=== PATIENT | female | born 1955 | race Caucasian/White ===

== ENCOUNTER 2016-05-30 14:31 | Observation (INO) | payer OTHER ==
[2016-05-30] MEDS ORDERED: NITROGLYCERIN OINT 1 INCH/GM PACKET TOPICAL STA (14:41)
[2016-05-30] MEDS ORDERED: ASPIRIN 81 MG CHEW PO STA (14:41)
--- NOTE | 2016-05-30 14:45 | ED ---
General Adult HPI - General Stated complaint: Chests Pain Time Seen by Provider: 05/30/16 14:35 Source: RN notes reviewed - History of Present Illness Initial comments: This is a 60-year-old female who comes into the emergency department complaining of left shoulder pain which is been ongoing over a month. Patient denies any injury or trauma to the area. Patient states has full range of motion of her shoulder patient denies any numbness weakness. Patient states it hurts all day long every day but today she started having some chest tightness with the pain and was a little lightheaded. Patient came in to the emergency department. Patient states the chest tightness lasted for less than a minute then went away came back lasted less than a minute again and went away and hasn' t returned since. Patient states she was also diaphoretic when she was having this chest tightness. Patient still states that her shoulder continues to ache and there is no new pain in the shoulder compared to what it has been over the last month. Patient denies any abdominal pain patient denies nausea vomiting diarrhea. Patient denies any headache patient denies numbness weakness. Patient denies any lightheadedness dizziness or near syncopal episode. Patient denies any recent history of fever chills or cough - Related Data Home Medications Medication Instructions Recorded Confirmed Budesonide [Rhinocort Allergy] 2 spr EA NOSTRIL BID 05/30/16 05/30/16 Fexofenadine HCl [Kassandra Allergy] 180 mg PO DAILY 05/30/16 05/30/16 Pseudoephedrine HCl [Sudafed] 60 mg PO QAM 05/30/16 05/30/16 Allergies Allergy/AdvReac Type Severity Reaction Status Date / Time orange juice [[place]] AdvReac Flushing/Flu-like Verified 05/30/16 15:01 Symptoms red dye AdvReac Flushing/Flu-like Verified 05/30/16 15:01 Symptoms Camomile AdvReac Flushing/Flu-like Uncoded 05/30/16 15:01 Symptoms Review of Systems ROS Statement: Those systems with pertinent positive or pertinent negative responses have been documented in the HPI. ROS Other: All systems not noted in ROS Statement are negative. General Exam - General Exam Comments Initial Comments: GENERAL: Patient is well-developed and well-nourished. Patient is nontoxic and well- hydrated and is in no acute distress. ENT: Neck is soft and supple. No significant lymphadenopathy is noted. Oropharynx is clear. Moist mucous membranes. Neck has full range of motion without eliciting any pain. EYES: The sclera were anicteric and conjunctiva were pink and moist. Extraocular movements were intact and pupils were equal round and reactive to light. Eyelids were unremarkable. PULMONARY: Unlabored respirations. Good breath sounds bilaterally. No audible rales rhonchi or wheezing was noted. CARDIOVASCULAR: There is a regular rate and rhythm without any murmurs gallops or rubs. ABDOMEN: Soft and nontender with normal bowel sounds. No palpable organomegaly was noted. There is no palpable pulsatile mass. SKIN: Skin is clear with no lesions or rashes and otherwise unremarkable. NEUROLOGIC: Patient is alert and oriented x3. Cranial nerves II through XII are grossly intact. Motor and sensory are also intact. Normal speech, volume and content. Symmetrical smile. MUSCULOSKELETAL: Normal extremities with adequate strength and full range of motion. No lower extremity swelling or edema. No calf tenderness. LYMPHATICS: No significant lymphadenopathy is noted PSYCHIATRIC: Normal psychiatric evaluation. Course Vital Signs 05/30/16 05/30/16 14:57 17:10 Temperature 98.3 F 98.0 F Pulse Rate 88 104 H Respiratory 16 18 Rate Blood Pressure 117/57 122/66 O2 Sat by Pulse 100 98 Oximetry Medical Decision Making - Medical Decision Making EKG shows a normal sinus rhythm at 88 bpm VA interval 144 QRS is 72 QT interval 390 QTC is 471. Patient's EKG shows no ST segment elevation or depression or T wave abnormalities are noted new. Patient heart rate elevated up to about 115 all she was resting in bed in no distress. I did a d-dimer that was negative as well. As the patient's initial chest tightness and diaphoresis and the current tachycardia I The patient to rule out any cardiac origin. - Lab Data Result diagrams: 05/30/16 15:15 05/30/16 15:15 Lab Results 05/30/16 05/30/16 05/30/16 Range/Units 15:15 15:15 15:15 WBC 13.3 H (3.8-10.6) k/uL RBC 4.87 (3.80-5.40) m/uL Hgb 14.2 (11.4-16.0) gm/dL Hct 44.4 (34.0-46.0) % MCV 91.2 (80.0-100.0) fL MCH 29.1 (25.0-35.0) pg MCHC 31.9 (31.0-37.0) g/dL RDW 12.7 (11.5-15.5) % Plt Count 349 (150-450) k/uL Neutrophils % 92 % Lymphocytes % 2 % Monocytes % 4 % Eosinophils % 1 % Basophils % 1 % Neutrophils # 12.2 H (1.3-7.7) k/uL Lymphocytes # 0.3 L (1.0-4.8) k/uL Monocytes # 0.5 (0-1.0) k/uL Eosinophils # 0.1 (0-0.7) k/uL Basophils # 0.1 (0-0.2) k/uL PT 10.9 (9.0-12.0) sec INR 1.1 (<1.1) APTT 22.0 (22.0-30.0) sec D-Dimer (<0.60) mg/L FEU Sodium 140 (137-145) mmol/L Potassium 4.7 (3.5-5.1) mmol/L Chloride 107 (98-107) mmol/L Carbon Dioxide 20 L (22-30) mmol/L Anion Gap 13 mmol/L BUN 20 H (7-17) mg/dL Creatinine 0.63 (0.52-1.04) mg/dL Est GFR (MDRD) Af Amer >60 (>60 ml/min/1.73 sqM) Est GFR (MDRD) Non-Af >60 (>60 ml/min/1.73 sqM) Glucose 139 H (74-99) mg/dL Calcium 8.9 (8.4-10.2) mg/dL Magnesium 1.7 (1.6-2.3) mg/dL Total Bilirubin 0.7 (0.2-1.3) mg/dL AST 29 (14-36) U/L ALT 45 (9-52) U/L Alkaline Phosphatase 89 (38-126) U/L Total Creatine Kinase (30-135) U/L CK-MB (CK-2) (0.0-2.4) ng/mL CK-MB (CK-2) Rel Index Troponin I (0.000-0.034) ng/mL Total Protein 7.1 (6.3-8.2) g/dL Albumin 3.9 (3.5-5.0) g/dL 05/30/16 05/30/16 Range/Units 15:15 15:15 WBC (3.8-10.6) k/uL RBC (3.80-5.40) m/uL Hgb (11.4-16.0) gm/dL Hct (34.0-46.0) % MCV (80.0-100.0) fL MCH (25.0-35.0) pg MCHC (31.0-37.0) g/dL RDW (11.5-15.5) % Plt Count (150-450) k/uL Neutrophils % % Lymphocytes % % Monocytes % % Eosinophils % % Basophils % % Neutrophils # (1.3-7.7) k/uL Lymphocytes # (1.0-4.8) k/uL Monocytes # (0-1.0) k/uL Eosinophils # (0-0.7) k/uL Basophils # (0-0.2) k/uL PT (9.0-12.0) sec INR (<1.1) APTT (22.0-30.0) sec D-Dimer 0.49 (<0.60) mg/L FEU Sodium (137-145) mmol/L Potassium (3.5-5.1) mmol/L Chloride (98-107) mmol/L Carbon Dioxide (22-30) mmol/L Anion Gap mmol/L BUN (7-17) mg/dL Creatinine (0.52-1.04) mg/dL Est GFR (MDRD) Af Amer (>60 ml/min/1.73 sqM) Est GFR (MDRD) Non-Af (>60 ml/min/1.73 sqM) Glucose (74-99) mg/dL Calcium (8.4-10.2) mg/dL Magnesium (1.6-2.3) mg/dL Total Bilirubin (0.2-1.3) mg/dL AST (14-36) U/L ALT (9-52) U/L Alkaline Phosphatase (38-126) U/L Total Creatine Kinase 66 (30-135) U/L CK-MB (CK-2) 0.5 (0.0-2.4) ng/mL CK-MB (CK-2) Rel Index 0.8 Troponin I <0.012 (0.000-0.034) ng/mL Total Protein (6.3-8.2) g/dL Albumin (3.5-5.0) g/dL Disposition Clinical Impression: Chest pain, Tachycardia Disposition: ADMITTED IP TO THIS [facility] Time of Disposition: 18:00
[2016-05-30 15:41] LABS: Basophils # (A) 0.1 k/uL (0-0.2); Basophils % (A) 1 %; CH 30.4; CHCM 33.5; Eosinophils # (A) 0.1 k/uL (0-0.7); Eosinophils % (A) 1 %; HCT 44.4 % (34.0-46.0); HDW 2.23; HGB 14.2 gm/dL (11.4-16.0); Luc # (Auto) 0.12; Luc % (Auto) 1; Lymphocytes # (A) 0.3 k/uL (1.0-4.8); Lymphocytes % (A) 2 %; MCH 29.1 pg (25.0-35.0); MCHC 31.9 g/dL (31.0-37.0); MCV 91.2 fL (80.0-100.0); Mean Platelet Volume 7.8; Monocytes # (A) 0.5 k/uL (0-1.0); Monocytes % (A) 4 %; Neutrophils # (A) 12.2 k/uL (1.3-7.7); Neutrophils % (A) 92 %; RBC 4.87 m/uL (3.80-5.40); RDW 12.7 % (11.5-15.5); WBC 13.3 k/uL (3.8-10.6); WBC (Perox) 13.45
[2016-05-30 15:50] LABS: INR 1.1 (<1.1); Prothrombin Time 10.9 sec (9.0-12.0)
[2016-05-30 15:53] LABS: ALT 45 U/L (9-52); AST 29 U/L (14-36); Alkaline Phosphatase 89 U/L (38-126); Anion Gap 13 mmol/L; Blood Urea Nitrogen 20 mg/dL (7-17); Calcium 8.9 mg/dL (8.4-10.2); Carbon Dioxide 20 mmol/L (22-30); Chloride 107 mmol/L (98-107); Glucose 139 mg/dL (74-99); Magnesium 1.7 mg/dL (1.6-2.3); Non-African American GFR(MDRD) >60 (>60 ml/min/1.73 sqM); Potassium 4.7 mmol/L (3.5-5.1); Sodium 140 mmol/L (137-145); Total Bilirubin 0.7 mg/dL (0.2-1.3); Total Protein 7.1 g/dL (6.3-8.2)
[2016-05-30 16:00] LABS: Creatine Kinase 66 U/L (30-135)
[2016-05-30 16:13] LABS: Creatine Kinase MB 0.5 ng/mL (0.0-2.4); Troponin I <0.012 ng/mL (0.000-0.034)
--- NOTE | 2016-05-30 17:07 | XR ---
EXAMINATION TYPE: XR chest 2V DATE OF EXAM: 05/30/2016 5:03 PM COMPARISON: NONE HISTORY: Chest pain TECHNIQUE: Frontal and lateral views of the chest are obtained. FINDINGS: Heart and mediastinum are normal for age. Lungs are clear of consolidation. There is no pl eural effusion. There are no hilar masses. There is slight coarsening of interstitial markings. Bony thorax is intact. IMPRESSION: Minimal pulmonary fibrotic changes. Normal heart.
[2016-05-30] MEDS ORDERED: LORazepam 2 MG/ML SYRINGE IV STA (17:57)
[2016-05-30] MEDS ORDERED: NITROGLYCERIN SL TABS 0.4 MG TAB SUBLINGUAL PRN (18:00)
[2016-05-30 21:06] VITALS: BMI 28.3
[2016-05-30] MEDS ORDERED: traMADol 50 MG TAB PO PRN (21:28)
[2016-05-30 22:05] LABS: Creatine Kinase 50 U/L (30-135)
[2016-05-30] MEDS: NAPROXEN 250 MG TAB PO SCH (22:12)
[2016-05-30] MEDS: LORATADINE 10 MG TAB PO SCH (22:12)
[2016-05-30] MEDS: FLUTICASONE 50MCG/SPRAY NASAL 16GM EA NOSTRIL SCH (22:12)
[2016-05-30 22:19] LABS: Creatine Kinase MB 0.3 ng/mL (0.0-2.4); Troponin I <0.012 ng/mL (0.000-0.034)
[2016-05-30] MEDS: PSEUDOEPHEDRINE 30 MG TAB PO PRN (22:42)
[2016-05-30] MEDS: NITROGLYCERIN OINT 1 INCH/GM PACKET TOPICAL SCH (23:52)
[2016-05-31 04:03] LABS: Cholesterol 208 mg/dL (<200); HDL Cholesterol 36 mg/dL (40-60); Triglycerides 202 mg/dL (<150)
[2016-05-31 04:19] LABS: Creatine Kinase 44 U/L (30-135)
[2016-05-31 04:33] LABS: Creatine Kinase MB 0.2 ng/mL (0.0-2.4); Troponin I <0.012 ng/mL (0.000-0.034)
[2016-05-31] MEDS: NITROGLYCERIN OINT 1 INCH/GM PACKET TOPICAL SCH (05:00)
[2016-05-31 10:17] LABS: Appearance,Urine Clear (Clear); Bilirubin,Urine Negative (Negative); Glucose,Urine (UA) Negative (Negative); Ketones,Urine Negative (Negative); Leukocyte Esterase,Urine Small (Negative); Mucus,Urine Moderate /hpf; Nitrite,Urine Negative (Negative); PH, Urine 5.5 (5.0-8.0); Particle Count 7119; Protein,Urine Trace (Negative); RBC,Urine 3 /hpf (0-5); Specific Gravity,Urine 1.027 (1.001-1.035); Squamous Epithelial Cell,Urine 1 /hpf (0-4); UA Billing (MACRO vs. MICRO) MICRO; Urobilinogen,Urine <2.0 mg/dL (<2.0); WBC,Urine 7 /hpf (0-5)
[2016-05-31] MEDS: ASPIRIN 325 MG TAB PO SCH (11:40)
[2016-05-31] MEDS: NAPROXEN 250 MG TAB PO SCH ×2 (11:40→20:36)
[2016-05-31] MEDS: PSEUDOEPHEDRINE 30 MG TAB PO PRN (11:41)
[2016-05-31 15:56] VITALS: RESP 16
[2016-05-31 16:00] LABS: Basophils % (A) 1 %; CH 29.9; CHCM 34.1; Eosinophils # (A) 0.1 k/uL (0-0.7); Eosinophils % (A) 1 %; HCT 37.9 % (34.0-46.0); HDW 2.24; HGB 12.5 gm/dL (11.4-16.0); Luc % (Auto) 3; Lymphocytes # (A) 1.6 k/uL (1.0-4.8); Lymphocytes % (A) 25 %; MCH 29.1 pg (25.0-35.0); MCHC 33.1 g/dL (31.0-37.0); MCV 87.9 fL (80.0-100.0); Mean Platelet Volume 7.1; Monocytes # (A) 0.3 k/uL (0-1.0); Monocytes % (A) 6 %; Neutrophils # (A) 4.1 k/uL (1.3-7.7); Neutrophils % (A) 66 %; RBC 4.32 m/uL (3.80-5.40); RDW 12.8 % (11.5-15.5); WBC 6.3 k/uL (3.8-10.6); WBC (Perox) 6.52
--- NOTE | 2016-05-31 19:09 | CONS ---
DATE OF CONSULTATION: Mrs. Huff is a 60-year-old female with no prior documented coronary artery disease with a family history of coronary artery disease, who presented with left shoulder discomfort going on for the last month. She had a cat scratch on her arm and she has been having discomfort since that time. Yesterday had discomfort in the shoulder radiating down to the arm as well as to the chest and because of that she came into the emergency room and subsequently admitted. Her discomfort is positional, worse in certain positions and certain movement in her arm. She denies any dyspnea. She denies any dizziness or palpitation. No syncope. She is average in exercise tolerance and has no exertional chest discomfort. She has no prior history of cardiac disease. She had a stress test many years ago that was unremarkable. Her coronary risk factors are negative for smoking. No hypertension, No diabetes. She has not been treated for hyperlipidemia. Her medications at home includes Sudafed, Kassandra and Rhinocort and Naprosyn on a p.r.n. basis. REVIEW OF SYSTEMS: RESPIRATORY SYSTEM: She has no recent wheezing. No cough. No history of documented obstructive lung disease. GI system: No recent GI bleeding. No peptic ulcer disease. system: No dysuria or hematuria. Nervous system: No stroke or seizure. PHYSICAL EXAMINATION: She is a 60-year-old female, alert, oriented, in no apparent distress. Blood pressure 127/60 with a heart rate in the 90s. HEAD: Normocephalic. EYES: Sclerae anicteric. NECK: Good upstroke. No bruit. No jugular venous distention. LUNGS: Clear to auscultation. HEART: Regular rate and rhythm. S1, S2, no S3, no S4, no murmur or rub. ABDOMEN: Soft, nontender, positive bowel sounds. No organomegaly. EXTREMITIES: No edema. Intact distal pulses. Discomfort in the shoulder reproducible by certain position. Lab data revealed BUN and creatinine 28 and 0.63. Potassium 4.7. Hemoglobin 14.2. Troponin less than 0.012 for 3 samples. Cholesterol 208, LDL 132. EKG revealed a sinus mechanism, normal axis and intervals, rate of 108. Subsequently, her rate is down in the 80s. Chest x-ray shows no acute infiltrate. IMPRESSION: 1. Shoulder and chest discomfort, atypical for ischemic heart disease. No evidence to suggest cardiac etiology. 2. Mild hyperlipidemia. RECOMMENDATIONS: From the cardiac standpoint, I see no evidence of active cardiac disease. The patient would benefit from a stress test that can be done as an outpatient. She is anxious to go home and have that done as an outpatient by her primary care physician, which I believe he is a good option. Will see her on as-needed basis. Please feel to call us for any questions.
[2016-05-31] MEDS: FLUTICASONE 50MCG/SPRAY NASAL 16GM EA NOSTRIL SCH (20:37)
[2016-05-31] MEDS: LORATADINE 10 MG TAB PO SCH (20:38)
[2016-05-31] MEDS ORDERED: ATORVASTATIN 10 MG TAB PO SCH (21:00)
[2016-06-01] MEDS: NAPROXEN 250 MG TAB PO SCH (10:29)
[2016-06-01] MEDS: ASPIRIN 325 MG TAB PO SCH (10:30)
--- NOTE | 2016-06-01 10:31 | P.PN ---
Subjective Principal diagnosis: Left shoulder pain This is a 60-year-old female who was admitted with left shoulder pain and neck pain. She was seen and evaluated by Dr. Gan who felt her pains were atypical and muscular skeletal. She was recommended to have a cardiac evaluation as an outpatient. Her EKGs cardiac enzymes are negative. She continues to have the shoulder pain. She also had injury to left upper arm from a pet bite. She claimed that area is still painful and she is planning to see a surgeon. Cardiac-varela patient is stable. She could be discharged home Objective - Vital Signs Vital signs: Vital Signs Temp 98.2 F 06/01/16 07:43 Pulse 89 06/01/16 07:43 Resp 16 06/01/16 07:43 BP 133/62 06/01/16 07:43 Pulse Ox 95 06/01/16 07:43 Intake & Output 05/31/16 06/01/16 06/01/16 18:59 06:59 18:59 Intake Total 200 Balance 200 Intake: Oral 200 Other: Voiding Method Toilet Toilet # Voids 3 1 - Exam GENERAL EXAM: Patient is alert and oriented and doesn't appear to be in any acute distress HEENT: Normocephalic. Normal reaction of pupils, equal size, normal range of extraocular motion. No erythema or exudates in the throat. NECK: No masses, no nuchal rigidity. CHEST: No chest wall deformity. LUNGS: Equal air entry with no crackles or wheeze. HEART: S1 and S2 normal with no audible mumurs or gallops. Regular rhythm, femorals equal on both sides.. ABDOMEN: No hepatosplenomegaly, normal bowel sounds, no guarding or rigidity. SKIN: No rashes CENTRAL NERVOUS SYSTEM: No focal deficits. EXTREMITIES: No cyanosis, clubbing or edema. - Labs CBC & Chem 7: 05/31/16 15:43 05/30/16 15:15 Assessment and Plan (1) Shoulder pain Status: Acute Plan: Patient is stable with stable blood pressures. Continues to have left shoulder pain which appear to be muscular skeletal. Patient could be discharged home. Follow-up with primary care physician.
--- NOTE | 2016-06-01 10:31 | HP ---
DATE OF ADMISSION: CHIEF COMPLAINT: Chest pain. HISTORY OF PRESENT ILLNESS: Ms. Huff is an 60-year-old female without significant past medical history came to the hospital with complaints of left shoulder pain which has been going on for a month. Apparently patient had a cat scratch on the left shoulder about a month ago. The patient otherwise denied any trauma or injury to the area. Denied any numbness or tingling. The pain is mainly in the left shoulder and also on the left hand, radiating from the left shoulder down the arm. Parents states that it hurts all day long every day, but today she started having chest tightness with the pain and lightheaded which made her come to the ER. Chest tightness lasted about less than a minute. The patient states that she was also diaphoretic and she was having chest tightness. The patient was admitted to the hospital. Serial EKGs were negative. Troponin negative. Chest x-ray showed no acute process. Cardiology was consulted for further evaluation. Otherwise, the patient denied any complaints of fever or chills. No nausea or vomiting. No shoulder or no hand swelling or induration or redness at the cat scratch area. Denied any weakness or no recent illnesses. No sick contacts at home. No recent travel. REVIEW OF SYSTEMS: CONSTITUTIONAL: No fever, no chills. RESPIRATORY: No cough or sputum production. CARDIOVASCULAR: No chest pain or short of breath. ABDOMEN: No nausea, vomiting, abdominal pain. GENITOURINARY: Negative. ENDOCRINE: Negative. PSYCHIATRY: Anxious. SKIN: Negative. MUSCULOSKELETAL: negative. All other 14-point review of system negative except as the above. PAST MEDICAL HISTORY: None. PAST SURGICAL HISTORY: Patient denied any past surgical history. SOCIAL HISTORY: Patient denied any history of prior smoking. Denied any alcohol. Denied any drugs or IVDU. Allergies include ORANGE JUICE, RED DYE and CAMOMILE. HOME MEDICATIONS: 1. Rhinocort. 2. Fexofenadine. 3. Pseudoephedrine. PHYSICAL EXAMINATION: A 60-year-old female, lying in the bed. Awake, alert, oriented, x3. VITALS: Blood pressure is 110/50, pulse is 87, respiratory rate 16, temperature afebrile, pulse ox 95% on room air. HEENT: Atraumatic, normocephalic. Neck is supple. No JVD. CVS: S1, S2 heard. No murmurs, no gallop. LUNGS: Bilateral air entry is present. No wheezing. No crackles. Nonlabored breathing. ABDOMEN: Soft, nontender. Bowel sounds present. 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 No focal neurologic deficits. EXTREMITIES: No edema. Pulses palpable bilaterally. SKIN: Patient does have a small scab on the back of the left upper arm. No surrounding induration or redness from the previous cat scratch. No warmth as well. PSYCHIATRIC: Cooperative, some anxious. LABORATORY DATA: WBC 13.3, hemoglobin 14.2, platelets 349. INR 1.1. D-dimer is 0.49. Sodium 140, potassium 4.7, chloride 107, bicarb is 20. BUN 20, creatinine 0.63. Blood sugar is 139. Triglycerides are 202, cholesterol is 208, LDL is 132. TSH is 1.530. Free T4 is 0.83 and free T3 is 3.0. UA negative for infection. EKG normal sinus rhythm. Chest x-ray multiple pulmonary fibrotic changes, normal heart. IMPRESSION: 1. Shoulder and chest discomfort; unlikely cardiac origin, possible musculoskeletal related, ruled out acute coronary syndrome. Serial EKGs and troponin negative. 2. Mild leukocytosis. 3. Hyperlipidemia noted this admission. 4. Anxiety. DISCUSSION AND PLAN: A 60-year-old female, lying in the bed. Awake, alert, oriented x3 60-year-old female admitted to hospital with chest discomfort and shoulder discomfort unlikely cardiac origin. Patient was seen by cardiology and no recommended further workup at this time. Otherwise, will repeat CBC for mild leukocytosis and follow up with that. Anticipate discharge today.
[2016-06-01] MEDS: PSEUDOEPHEDRINE 30 MG TAB PO PRN (11:10)
[2016-06-01 11:44] VITALS: BP 128/82; PULSE 87; TEMP 98
--- NOTE | 2016-06-17 11:47 | DS ---
DATE OF ADMISSION: 05/30/2016 DATE OF DISCHARGE: 06/01/2016 DISCHARGE DIAGNOSES: 1. Shoulder and chest discomfort; unlikely cardiac origin, most likely musculoskeletal, improved with pain management, ruled out acute coronary syndrome. Serial EKGs and troponins are negative. 2. Mild leukocytosis, improved, most likely reactive. 3. Hyperlipidemia, noted on this admission. 4. Anxiety. HOSPITAL COURSE: Ms. Huff is a 61-year-old female with known history of anxiety admitted to the hospital with complaints of left shoulder pain and chest pain, which has been going on for the past one month. The patient otherwise denied any trauma or injury recently. The patient was monitored in the hospital, ( ) EKGs and troponins, which are negative. Patient did improve clinically with pain management for the left shoulder. Otherwise, the patient was found to have mild leukocytosis, which is improved as well, most likely reactive. Patient otherwise stable to be discharged home. Cardiology cleared the patient as well. DISCHARGE PHYSICAL EXAMINATION: A 61-year-old female lying in bed comfortably. Awake, alert, oriented x3. Appears to be in no apparent distress. VITALS: Blood pressure is 128/82, pulse is 87, respirations 16, temperature afebrile, pulse ox 93% on room air. Laboratory data reviewed. Discharge physical examination done. Discharge medications include: 1. Budesonide or Rhinocort Allergy 2 sprays each nostril b.i.d. p.r.n. 2. Fexofenadine 180 mg p.o. daily. 3. Pseudoephedrine 60 mg p.o. q.a.m. Patient will be discharged home with self care. Activity as tolerated. Follow with Dr. Gan as needed.
== END 2016-06-01 13:08 | disposition home or self-care (01) ==
LOC: EC 14:31 → 3OBS 18:00
PROVIDERS: ADMIT Internal Medicine; ATTEND Internal Medicine
DX: R07.89 Other chest pain (principal); D72.829 Elevated white blood cell count, unspecified; E78.5 Hyperlipidemia, unspecified; F41.9 Anxiety disorder, unspecified; M25.512 Pain in left shoulder; R61 Generalized hyperhidrosis; R42 Dizziness and giddiness; Z88.8 Allergy status to other drugs, medicaments and biological substances; Z79.899 Other long term (current) drug therapy; Z82.49 Family history of ischemic heart disease and other diseases of the circulatory system
CPT/HCPCS: 99285; 36415; 93005; 85379; 84439; 84481; 80061; 80053; 82550 ×2; 82553 ×2; 83735; 84443; 84484 ×2; 85025 ×2; 85610; 85730; 81001; 71020; G0378 ×3

== ENCOUNTER → 2016-07-21 | Outpatient (CLI) | payer OTHER ==
[2016-07-21 16:15] LABS: Basophils # (A) 0.1 k/uL (0-0.2); Basophils % (A) 1 %; CH 29.3; CHCM 33.3; Eosinophils # (A) 0.2 k/uL (0-0.7); Eosinophils % (A) 3 %; HCT 40.7 % (34.0-46.0); HDW 2.21; HGB 13.4 gm/dL (11.4-16.0); Luc # (Auto) 0.27; Luc % (Auto) 4; Lymphocytes # (A) 2.9 k/uL (1.0-4.8); Lymphocytes % (A) 37 %; MCHC 32.8 g/dL (31.0-37.0); MCV 88.3 fL (80.0-100.0); Mean Platelet Volume 6.8; Monocytes # (A) 0.4 k/uL (0-1.0); Monocytes % (A) 5 %; Neutrophils % (A) 52 %; RBC 4.61 m/uL (3.80-5.40); RDW 12.6 % (11.5-15.5); WBC 7.7 k/uL (3.8-10.6); WBC (Perox) 7.92
[2016-07-21 16:25] LABS: ALT 45 U/L (9-52); AST 35 U/L (14-36); Alkaline Phosphatase 77 U/L (38-126); Anion Gap 11 mmol/L; Blood Urea Nitrogen 11 mg/dL (7-17); Calcium 9.2 mg/dL (8.4-10.2); Carbon Dioxide 22 mmol/L (22-30); Chloride 106 mmol/L (98-107); Cholesterol 250 mg/dL (<200); Glucose 106 mg/dL (74-99); HDL Cholesterol 55 mg/dL (40-60); Non-African American GFR(MDRD) >60 (>60 ml/min/1.73 sqM); Potassium 4.2 mmol/L (3.5-5.1); Sodium 139 mmol/L (137-145); Total Bilirubin 0.7 mg/dL (0.2-1.3); Total Protein 7.5 g/dL (6.3-8.2); Triglycerides 143 mg/dL (<150)
[2016-07-21 20:31] LABS: Hemoglobin A1C 5.7 % (4.2-6.1)
== END | disposition home or self-care (01) ==
LOC: LABWHC1 15:47
PROVIDERS: ATTEND Physician Assistant
DX: E55.9 Vitamin D deficiency, unspecified (principal); E78.2 Mixed hyperlipidemia; R63.5 Abnormal weight gain
CPT/HCPCS: 36415; 80053; 80061; 83036; 83090; 85025; 86141

== ENCOUNTER 2016-11-08 00:33 | Emergency (ER) | payer OTHER ==
[2016-11-08 00:43] VITALS: BP 139/76; PULSE 118; RESP 16; TEMP 101
[2016-11-08] MEDS ORDERED: PERMETHRIN 5% CREAM 60 GM TUBE TOPICAL STA (00:57)
[2016-11-08] MEDS ORDERED: hydrOXYzine HCL 25 MG TAB PO STA (01:00)
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
== END 2016-11-08 01:19 | disposition home or self-care (01) ==
LOC: EC 00:33
DX: B86 Scabies (principal); Z79.899 Other long term (current) drug therapy; Z91.018 Allergy to other foods; Z91.048 Other nonmedicinal substance allergy status
CPT/HCPCS: 99282

== ENCOUNTER 2016-11-09 01:05 | Emergency (ER) | payer OTHER ==
[2016-11-09 01:09] VITALS: BP 110/59; PULSE 112; RESP 22; TEMP 98.3
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
[2016-11-09] MEDS ORDERED: predniSONE 50 MG TAB PO STA (01:51)
== END 2016-11-09 01:58 | disposition home or self-care (01) ==
LOC: EC 01:05
DX: L30.9 Dermatitis, unspecified (principal); Z79.899 Other long term (current) drug therapy; Z91.018 Allergy to other foods; Z91.048 Other nonmedicinal substance allergy status
CPT/HCPCS: 99282; J7512

== ENCOUNTER 2016-11-11 05:39 | Inpatient (IN) | payer OTHER ==
[2016-11-11] MEDS ORDERED: FAMOTIDINE 20 MG TAB PO STA (05:59)
[2016-11-11] MEDS ORDERED: predniSONE 20 MG TAB PO STA (05:59)
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
[2016-11-11] MEDS ORDERED: SODIUM CHLORIDE 0.9% 500 ML IV STA (06:36)
[2016-11-11] MEDS ORDERED: DILTIAZEM 125 MG in SODIUM CHLORIDE 0.9% 100 ML IV STA (06:42)
[2016-11-11] MEDS ORDERED: ENOXAPARIN 80 MG/0.8 ML SYRINGE SQ STA (06:43)
[2016-11-11] MEDS ORDERED: NITROGLYCERIN SL TABS 0.4 MG TAB SUBLINGUAL PRN (06:43)
[2016-11-11] MEDS ORDERED: diphenhydrAMINE 50 MG/ML 1 ML VIAL IVP STA ×2 (06:47→10:38)
[2016-11-11] MEDS: SODIUM CHLORIDE 0.9% 1,000 ML IV SCH ×2 (07:17→15:57)
[2016-11-11 07:34] LABS: Aty Lym Flag Slight; CH 29.5; CHCM 34.3; HCT 36.3 % (34.0-46.0); HDW 2.33; HGB 12.5 gm/dL (11.4-16.0); MCH 29.7 pg (25.0-35.0); MCHC 34.4 g/dL (31.0-37.0); MCV 86.2 fL (80.0-100.0); Mean Platelet Volume 7.5; RBC 4.21 m/uL (3.80-5.40); RDW 13.3 % (11.5-15.5); WBC 5.7 k/uL (3.8-10.6); WBC (Perox) 5.61
[2016-11-11 07:45] LABS: ALT 161 U/L (9-52); AST 109 U/L (14-36); Alkaline Phosphatase 134 U/L (38-126); Anion Gap 9 mmol/L; Blood Urea Nitrogen 18 mg/dL (7-17); Calcium 8.5 mg/dL (8.4-10.2); Carbon Dioxide 21 mmol/L (22-30); Chloride 103 mmol/L (98-107); Glucose 112 mg/dL (74-99); Non-African American GFR(MDRD) >60 (>60 ml/min/1.73 sqM); Potassium 4.3 mmol/L (3.5-5.1); Sodium 133 mmol/L (137-145); Total Bilirubin 0.8 mg/dL (0.2-1.3); Total Protein 6.4 g/dL (6.3-8.2)
--- NOTE | 2016-11-11 07:51 | XR ---
EXAMINATION TYPE: XR chest 1V portable DATE OF EXAM: 11/11/2016 COMPARISON: 05/30/2016 HISTORY: Dysrhythmia TECHNIQUE: Single frontal view of the chest is obtained. FINDINGS: Right hilum is prominent. No pleural effusion or consolidation. No pneumothorax. Heart siz e stable. Diffuse osteopenia and arthropathy shoulders. IMPRESSION: 1. No definite acute process of the right hilum is prominent. The patient is rotated which could acco unt for the finding. Short-term follow-up PA and lateral views the chest are recommended.
[2016-11-11 08:00] LABS: INR 1.3 (<1.1); Partial Thromboplastin Time 22.7 sec (22.0-30.0); Prothrombin Time 12.6 sec (9.0-12.0)
[2016-11-11 08:10] LABS: Creatine Kinase MB 2.2 ng/mL (0.0-2.4)
[2016-11-11 08:16] LABS: Troponin I 0.427 ng/mL (0.000-0.034)
[2016-11-11 08:22] LABS: Add Differential Manual Differential
[2016-11-11 08:33] LABS: Nucleated Red Blood Cells 0 /100 WBC (0-0)
[2016-11-11 08:34] LABS: Band Neutrophils % 4.5 %; Total Cells Counted 200
[2016-11-11 08:35] LABS: Reactive Lymphocytes Present
[2016-11-11 08:37] LABS: Toxic Vacuolation Present
[2016-11-11] MEDS ORDERED: methylPREDNISolone SOD SUCCI 125 MG/2 ML VIAL IV STA (10:38)
--- NOTE | 2016-11-11 11:03 | ECHOF ---
Referral Reason:AFIB RVR MEASUREMENTS -------- HEIGHT: 165.1 cm WEIGHT: 81.7 kg BP: IVSd: 1.3 cm (0.6 - 1.1) LVIDd: 3.7 cm (3.9 - 5.3) LVPWd: 1.4 cm (0.6 - 1.1) IVSs: 1.5 cm LVIDs: 2.9 cm LVPWs: 1.4 cm LA Diam: 3.3 cm (2.7 - 3.8) LAESV Index (A-L): 24.10 ml/m Ao Diam: 3.0 cm (2.0 - 3.7) AV Cusp: 1.8 cm (1.5 - 2.6) LA Diam: 3.4 cm (2.7 - 3.8) MV EXCURSION: 14.202 mm (> 18.000) MV EF SLOPE: 67 mm/s (70 - 150) EPSS: 0.1 cm MV E Jose L: 0.34 m/s MV DecT: 202 ms MV A Jose L: 0.67 m/s MV E/A Ratio: 0.50 RAP: 5.00 mmHg RVSP: 19.32 mmHg FINDINGS -------- Atrial fibrillation. This was a technically adequate study. There is mild concentric left ventricular hypertrophy. Overall left ventricular systolic function is normal with, an EF between 55 - 60 %. The right ventricle is normal in size. Normal LA size by volume 22+/-6 ml/m2. The right atrial size is normal. There is mild aortic valve sclerosis. There is no evidence of aortic regurgitation. Mild mitral annular calcification present. Mild mitral regurgitation is present. Mild tricuspid regurgitation present. There is no evidence of pulmonary hypertension. The right ventricular systolic pressure, as measured by Doppler, is 19.32mmHg. There is no pulmonic regurgitation present. The aortic root size is normal. There is no pericardial effusion. CONCLUSIONS -------- 1. There is mild concentric left ventricular hypertrophy. 2. Overall left ventricular systolic function is normal with, an EF between 55 - 60 %. 3. Normal LA size by volume 22+/-6 ml/m2. 4. There is mild aortic valve sclerosis. 5. Mild mitral annular calcification present. 6. Mild mitral regurgitation is present. 7. Mild tricuspid regurgitation present. 8. There is no evidence of pulmonary hypertension. 9. The right ventricular systolic pressure, as measured by Doppler, is 19.32mmHg. PUBLIC INFORMATION COORDINATOR: Carly Maloney RDCS
[2016-11-11 13:59] VITALS: BMI 29.9
[2016-11-11] MEDS ORDERED: HEPARIN SODIUM,PORCINE 5,000 UNIT/ML 1 ML VIAL IV ONE (14:31)
[2016-11-11 15:14] LABS: INR 1.3 (<1.1); Partial Thromboplastin Time 24.2 sec (22.0-30.0); Prothrombin Time 12.4 sec (9.0-12.0)
[2016-11-11 15:20] LABS: Aty Lym Flag Moderate; CH 29.6; CHCM 34.1; HCT 36.8 % (34.0-46.0); HDW 2.45; HGB 12.9 gm/dL (11.4-16.0); MCH 30.7 pg (25.0-35.0); MCHC 35.1 g/dL (31.0-37.0); MCV 87.3 fL (80.0-100.0); Mean Platelet Volume 7.3; RBC 4.21 m/uL (3.80-5.40); RDW 12.9 % (11.5-15.5); WBC 3.2 k/uL (3.8-10.6); WBC (Perox) 3.16
[2016-11-11] MEDS: HEPARIN SODIUM,PORCINE/D5W PMX 25,000 UNIT in DEXTROSE/WATER 1 500ML.BAG IV SCH (15:28)
[2016-11-11 15:35] LABS: Creatine Kinase MB 4.3 ng/mL (0.0-2.4)
[2016-11-11 15:37] LABS: Troponin I 0.345 ng/mL (0.000-0.034)
[2016-11-11 15:49] LABS: Add Differential Manual Differential
[2016-11-11 15:51] LABS: Nucleated Red Blood Cells 0 /100 WBC (0-0); Polychromasia Present; Total Cells Counted 100
[2016-11-11] MEDS: METOPROLOL TARTRATE 25 MG TAB PO SCH (15:57)
[2016-11-11] MEDS: DILTIAZEM 125 MG in SODIUM CHLORIDE 0.9% 100 ML IV SCH ×2 (15:58→22:11)
[2016-11-11] MEDS: FAMOTIDINE 20 MG/2 ML VIAL IV SCH ×2 (17:17→21:34)
[2016-11-11] MEDS: methylPREDNISolone SOD SUCCI 40 MG/ML 1 ML VIAL IV SCH (17:17)
[2016-11-11] MEDS: diphenhydrAMINE 50 MG CAP PO SCH ×2 (17:17→21:48)
--- NOTE | 2016-11-11 18:15 | CONS ---
DATE OF CONSULTATION: Mrs. Huff is a 61-year-old female with no documented history of coronary artery disease and family history of coronary artery disease who presented to the emergency room with a rash. This is her third visit with rash. In the emergency room she received some treatment, including prednisone, then she started to feel palpitations and chest discomfort and was found to be in atrial fibrillation. At the time of my evaluation she is back in sinus mechanism. Patient denies any prior history of cardiac disease. She is reasonably active physically. She does yoga on a regular basis, has no breathing problems, no dizziness, no palpitation, no syncope, PND, orthopnea or peripheral edema. She has no prior cardiac history or limitations. Her coronary risk factors are negative for hypertension or diabetes. She never smoked. No documented hyperlipidemia. She is not quite sure what the rash is from. She thought she contacted something while on the trip on the train from [place]. Her medications at home included: 1. Sudafed. 2. Rhinocort. REVIEW OF SYSTEMS: RESPIRATORY SYSTEM: She has no wheezing. No cough. No history of obstructive lung disease. GI SYSTEM: No recent GI bleeding. SYSTEM: No dysuria or hematuria. NERVOUS SYSTEM: No stroke or seizure. PHYSICAL EXAMINATION: A 61-year-old female, alert, oriented, in no apparent distress. Has maculopapular rash all over her body noted on the front and the back as well as her extremities. Blood pressure running in the 100s over 50 with a heart rate in the high 80s and 90s. HEAD: Normocephalic. EYES: Sclerae anicteric. NECK: Good carotid upstroke. No bruit. No jugular venous distention. LUNGS: Clear to auscultation. HEART: Regular rate and rhythm. S1, S2. No S3. No rub. ABDOMEN: Soft, nontender, obese. Positive bowel sounds. No organomegaly. EXTREMITIES: No edema. Intact distal pulses. Lab data revealed a troponin of 0.427. Her AST is 109, ALT of 161, alkaline phosphatase 134. Her thyroid function tests are normal. Potassium 4.3. BUN and creatinine are 18 and 0.8. Hemoglobin of 12.5. Her first EKG done showed atrial fibrillation with rapid ventricular response and nonspecific ST-T wave changes. Subsequently she is in sinus mechanism with minor nonspecific ST-T wave changes. She had an echocardiogram done that showed a preserved left ventricular size and systolic function. IMPRESSION: 1. Paroxysmal atrial fibrillation. 2. Minimal elevation of troponin of unclear etiology. No clear evidence of chest discomfort in the past. 3. Rash of unclear etiology. 4. Abnormal liver function tests. RECOMMENDATIONS: From the cardiac standpoint, I will start her on IV heparin, beta radha and aspirin once a day. Will follow her lab data. Will obtain an abdominal ultrasound. Depending on her tests of her workup, further recommendation will be made. Patient may require coronary angiography, but I would like to further evaluate the etiology of her rash as well as the etiology of her liver function abnormalities. Thank you for this consult. Will follow with you.
--- NOTE | 2016-11-11 20:30 | HP ---
DATE OF ADMISSION: 11/11/2016 PRESENTING COMPLAINT: Rash HISTORY OF PRESENTING COMPLAINT: This is a pleasant 61-year-old patient of Dr. Small with rather unremarkable past history. Patient was at a convention in [place] for [employer] and on the way back on the train, she developed generalized rash, developed rather rapidly and in the last 4 days has progressed. Patient was here and found to be in atrial fibrillation, uncontrolled rate. Was started on IV Cardizem drip. Heart rate currently in the 130s. Patient does take medication for allergies. She does use a hypoallergenic detergent. She is not take any new medications. The patient has always had seafood. She stayed at the [employer] and of course laundry was done for her by the hot itself. Patient rash generalized and itchy. No trouble swallowing. No choking. No wheezing. Patient is put on a Cardizem drip. REVIEW OF SYSTEMS: CONSTITUTIONAL: Tired. HEENT: None. RESPIRATORY: None. CARDIOVASCULAR: As above. GASTROINTESTINAL: None. GENITOURINARY: None. MUSCULOSKELETAL: None. Dermatological: As above. LYMPHATICS: None. NEUROLOGICAL: None. PSYCHIATRY: None. PAST MEDICAL HISTORY: Hyperlipidemia. Colitis. Recently on antibiotics for root canal. PAST SURGICAL HISTORY: Eye surgery for strabismus. SOCIAL HISTORY: Posttraumatic stress disorder. Lives alone. No smoking. No alcohol. FAMILY HISTORY: Chest pain, hypertension, hyperlipidemia. HOME MEDICATIONS: 1. Sudafed 30 mg q.4 p.r.n. 2. Kassandra 180 mg p.o. daily. 3. Rhinocort 2 sprays each nostril b.i.d. ALLERGIES TO: ORANGE JUICE, RED DYE, WATERMELON, CATAMOLINE. PHYSICAL EXAMINATION: Vital signs on presentation: Temperature is 101.3, afebrile, pulse is up to 155 respirations 16, blood pressure 108/50, pulse ox 96% on room air. GENERAL APPEARANCE: Well built, sitting up, not in distress. EYES: Pupils equal. Conjunctivae normal. HEENT: External appearance of nose and ears normal. Oral cavity normal. NECK: JVD not raised. Mass not palpable. RESPIRATORY: Effort normal. Lungs are clear. CARDIOVASCULAR: First and second sounds normal. No edema. ABDOMEN: Soft, nontender. Liver and spleen not palpable. LYMPHATIC: No lymph nodes palpable in the neck or axillae. PSYCHIATRY: Alert and oriented x3. Mood and affect normal. NEUROLOGICAL: Pupils equal. Cranial nerves grossly intact. Power and sensation grossly intact. DERMATOLOGICAL: Diffuse maculopapular rash, slight redness on the torso, back and extremities. More so proximally. INVESTIGATIONS: White count 5.7, hemoglobin 12.5, potassium 4.3. Troponin 0.427, 0.345, TSH normal wall. EKG showed atrial fibrillation with a rapid ventricular response and ST segment changes. ASSESSMENT: 1. New onset of atrial fibrillation with rapid ventricular rate. 2. Troponin leak in a patient which could be ( ) related, need to rule out underlying coronary artery disease. 3. Diffuse rash. Appears to be allergic, could be from the detergent at the hotel but no exact cause can be determined. 4. Obesity, body mass index of 30. 5. IV heparin monitoring. PLAN: Patient is currently on Lopressor, heparin and IV Cardizem drip. Start the patient on IV Solu-Medrol, IV Pepcid and Benadryl around the clock. A 2-D echocardiogram was ordered. TSH is normal. Patient states YRIS VASC-2 score only 1, given that patient has had a troponin leak, the patient may need to have at least a stress test at some point. Cardiology is consulted. Care was discussed with the patient. Also Dr. Patrick from dermatology was consulted. Care was discussed with the patient in detail.
[2016-11-11 20:32] LABS: Creatine Kinase MB 7.6 ng/mL (0.0-2.4); Troponin I 0.273 ng/mL (0.000-0.034)
[2016-11-11] MEDS ORDERED: METOPROLOL TARTRATE 25 MG TAB PO SCH (21:00)
[2016-11-11] MEDS ORDERED: HEPARIN SODIUM,PORCINE 5,000 UNIT/ML 1 ML VIAL IV STA (22:46)
[2016-11-11] MEDS: HEPARIN SODIUM,PORCINE 5,000 UNIT/ML 1 ML VIAL IV PRN (23:40)
[2016-11-12 05:34] LABS: Aty Lym Flag Moderate; CH 29.4; CHCM 33.8; HDW 2.51; HGB 11.4 gm/dL (11.4-16.0); MCH 29.3 pg (25.0-35.0); MCHC 33.5 g/dL (31.0-37.0); MCV 87.3 fL (80.0-100.0); Mean Platelet Volume 7.3; WBC 7.4 k/uL (3.8-10.6); WBC (Perox) 7.68
[2016-11-12] MEDS: methylPREDNISolone SOD SUCCI 40 MG/ML 1 ML VIAL IV SCH ×3 (05:38→15:56)
[2016-11-12] MEDS: SODIUM CHLORIDE 0.9% 1,000 ML IV SCH ×2 (05:40→11:21)
[2016-11-12 06:01] LABS: ALT 210 U/L (9-52); AST 119 U/L (14-36); Alkaline Phosphatase 133 U/L (38-126); Anion Gap 9 mmol/L; Blood Urea Nitrogen 17 mg/dL (7-17); Calcium 8.8 mg/dL (8.4-10.2); Carbon Dioxide 23 mmol/L (22-30); Chloride 108 mmol/L (98-107); Cholesterol 191 mg/dL (<200); Glucose 163 mg/dL (74-99); HDL Cholesterol 37 mg/dL (40-60); Non-African American GFR(MDRD) >60 (>60 ml/min/1.73 sqM); Potassium 4.9 mmol/L (3.5-5.1); Sodium 140 mmol/L (137-145); Total Bilirubin 0.4 mg/dL (0.2-1.3); Total Protein 6.2 g/dL (6.3-8.2); Triglycerides 131 mg/dL (<150)
[2016-11-12] MEDS: HEPARIN SODIUM,PORCINE 5,000 UNIT/ML 1 ML VIAL IV PRN (06:49)
[2016-11-12 07:20] LABS: Add Differential Manual Differential
[2016-11-12 07:26] LABS: Band Neutrophils % 22.5 %; Nucleated Red Blood Cells 0 /100 WBC (0-0); Total Cells Counted 200
[2016-11-12] MEDS: ASPIRIN 81 MG CHEW PO SCH ×2 (08:32→09:13)
[2016-11-12] MEDS: METOPROLOL TARTRATE 25 MG TAB PO SCH (08:32)
[2016-11-12] MEDS: FAMOTIDINE 20 MG/2 ML VIAL IV SCH ×2 (08:32→20:54)
[2016-11-12] MEDS: diphenhydrAMINE 50 MG CAP PO SCH ×4 (08:33→20:56)
[2016-11-12] MEDS ORDERED: ASPIRIN 325 MG TAB PO SCH (09:00)
--- NOTE | 2016-11-12 09:28 | US ---
EXAMINATION TYPE: US liver DATE OF EXAM: 11/12/2016 COMPARISON: NONE CLINICAL HISTORY: Abnormal LFT. Inpatient with overall body skin "red blotches" which developed while in [place] recently; on meds for allergies EXAM MEASUREMENTS: Liver Length: 14.1 cm Gallbladder Wall: 0.2 cm CBD: 0.5 cm Right Kidney: 9.2 x 5.9 x 5.0 cm Pancreas: hyperechoic Liver: fatty liver with focal sparing area near gallbladder = 3.7 x 3.8 x 1.8cm Gallbladder: full of multiple shadowing stones. No wall thickening is evident. Evidence for sonographic Elder's sign: No CBD: wnl Right Kidney: wnl IMPRESSION: 1. Cholelithiasis. 2. Some focal fatty sparing adjacent to the gallbladder within the liver
[2016-11-12] MEDS: HEPARIN SODIUM,PORCINE/D5W PMX 25,000 UNIT in DEXTROSE/WATER 1 500ML.BAG IV SCH (11:21)
[2016-11-12] MEDS: DILTIAZEM 125 MG in SODIUM CHLORIDE 0.9% 100 ML IV SCH (11:22)
[2016-11-12] MEDS: FLUTICASONE 50MCG/SPRAY NASAL 16GM EA NOSTRIL PRN (11:23)
[2016-11-12] MEDS: BENZOCAINE/MENTHOL LOZENG 1 EACH LOZENGE MUCOUS MEM PRN (11:24)
[2016-11-12] MEDS ORDERED: FUROSEMIDE 10 MG/ML 2 ML VIAL IV ONE (11:31)
--- NOTE | 2016-11-12 12:32 | PN ---
Mrs. Huff is a 61-year-old female who presented with symptoms of rash and itching. She was noted to be in atrial fibrillation, subsequently converted back to sinus mechanism to go back in atrial fibrillation. She is feeling slightly dyspneic although she is lying supine. She continues to have the rash. She has no nausea. No vomiting. Her rate is under reasonable control. She continues to be on IV heparin, IV Cardizem, aspirin 81 mg daily, metoprolol tartrate 25 mg twice a day. PHYSICAL EXAMINATION: Blood pressure 108/60 with the heart rate in the low 100s. LUNGS: Clear. HEART: Irregularly irregular. S1, S2, no S3, no rub. ABDOMEN: Soft, nontender. EXTREMITIES: No edema. Lab data revealed a troponin peak of 0.427 is down 0.273. Her AST is 119, which is higher than yesterday and her, ALT is 210, which is higher as well. Total bilirubin is 0.4. Her hemoglobin of 11.4, white blood cell of 7.4. Her abdominal ultrasound revealed cholelithiasis. IMPRESSION: 1. Atrial fibrillation appears to be new onset paroxysmal earlier. 2. Rash of unclear etiology, workup in progress. 3. Elevated liver function tests with evidence of cholelithiasis, although no abdominal pain to suggest acute cholecystitis. 4. Minimal elevation of troponin could be related to the atrial fibrillation, although the possibility of nonsystemic cannot be excluded. RECOMMENDATIONS: I will stop the IV Cardizem, increase the dose of her beta radha. Continue the IV heparin awaiting the decision to see if she needs to undergo any procedure. Once her liver function tests are stabilized, patient will require more cardiac workup including possible coronary angiography, but will await further evaluation prior to that.
[2016-11-12] MEDS: IPRATROPIUM-ALBUTEROL 3 ML NEB INHALATION PRN ×2 (14:54→20:40)
[2016-11-12] MEDS ORDERED: BACITRACIN 500 UNIT/GM OINT 28.4 GM TUBE TOPICAL SCH (15:00)
--- NOTE | 2016-11-12 15:01 | P.PN ---
Progress Note - Text DATE OF SERVICE: 11/12/2016 PRESENTING COMPLAINT: Rash INTERVAL HISTORY: 61-year-old female with atrial fibrillation rapid ventricular response, generalized rash. Patient sitting up in the bed, appears comfortable, heart rate in the low 100s remains in and out of atrial fibrillation. Ambulatory in the room, tolerating her diet, moved her bowels, diffuse rash present however less pronounced today. Patient states feels much better. REVIEW OF SYSTEMS: Done for constitutional ,cardiovascular, GI, pulmonary, integument with relevant findings as above. CURRENT MEDICATIONS DuoNeb, aspirin, heparin, Solu-Medrol, Lopressor PHYSICAL EXAM: VITAL SIGNS: Temperature 98.7, heart rate 111, blood pressure 108/65, oxygen saturation 91% on room air. GENERAL APPEARANCE: . Sitting on the bed, appears comfortable. EYES: Pupils equal. Conjunctiva normal. NECK: JVD not raised. Mass not palpable. RESPIRATORY: Respiratory effort normal. Lungs diminished to auscultation. CARDIOVASCULAR: Irregular rhythm. No edema. ABDOMEN: Soft. Liver and spleen not palpable. No tenderness. No mass palpable. PSYCHIATRY: Alert and oriented x3. Mood and affect normal. INTEGUMENT: Diffuse rash over entire body, raised splotchy, red. No drainage noted. INVESTIGATIONS: CBC is unremarkable, AST 119, ALTs 210, alkaline phosphatase 133, Echocardiogram: Given hypertrophy, EF between 55 and 60%, mild mitral regurgitation Liver ultrasound: Cholelithiasis, ASSESSMENT: New onset of atrial fibrillation with fact rapid ventricular rate Troponin leak and the patient which could be cardiac related, rule out underlying coronary artery disease. Diffuse rash, likely ALLERGIC, possibly secondary to detergent, no exact cause. Obesity, body mass index of 30. IV heparin monitoring. PLAN: Continue current medication and treatment plan, we dermatology input, patient may require either cardiac catheterization or stress test, cardiology holding off for now. We'll continue to monitor closely. BEHAVIORAL ASSISTANT statement: Patient was seen and examined by nurse practitioner Rachna Khan in all elements of the case discussed with attending is Dr. Greco
[2016-11-12] MEDS: TRIAMCINOLONE 0.1% CREAM 80 GM TUBE TOPICAL SCH (20:56)
[2016-11-12] MEDS: METOPROLOL TARTRATE 50 MG TAB PO SCH (20:56)
[2016-11-12] MEDS: FAMOTIDINE 20 MG TAB PO SCH (23:23)
[2016-11-13] MEDS: HEPARIN SODIUM,PORCINE/D5W PMX 25,000 UNIT in DEXTROSE/WATER 1 500ML.BAG IV SCH ×2 (06:34→21:42)
[2016-11-13] MEDS: BENZOCAINE/MENTHOL LOZENG 1 EACH LOZENGE MUCOUS MEM PRN ×3 (06:34→18:21)
[2016-11-13 06:57] LABS: Aty Lym Flag Slight; CH 29.2; CHCM 33.5; HCT 32.1 % (34.0-46.0); HDW 2.53; HGB 10.7 gm/dL (11.4-16.0); MCHC 33.2 g/dL (31.0-37.0); MCV 87.5 fL (80.0-100.0); Mean Platelet Volume 7.3; RBC 3.67 m/uL (3.80-5.40); RDW 13.3 % (11.5-15.5); WBC 16.6 k/uL (3.8-10.6); WBC (Perox) 17.33
[2016-11-13 07:02] LABS: ALT 176 U/L (9-52); AST 56 U/L (14-36); Alkaline Phosphatase 115 U/L (38-126); Anion Gap 6 mmol/L; Blood Urea Nitrogen 21 mg/dL (7-17); Calcium 8.5 mg/dL (8.4-10.2); Carbon Dioxide 23 mmol/L (22-30); Chloride 109 mmol/L (98-107); Glucose 141 mg/dL (74-99); Non-African American GFR(MDRD) >60 (>60 ml/min/1.73 sqM); Potassium 4.2 mmol/L (3.5-5.1); Sodium 138 mmol/L (137-145); Total Bilirubin 0.5 mg/dL (0.2-1.3)
--- NOTE | 2016-11-13 07:40 | CONS ---
DATE OF CONSULTATION: Thank you for asking me to evaluate your patient. A 61-year-old female currently admitted for rash for which we were consulted to evaluate. Patient states rash started approximately 5 days ago on scalp and trunk and then spread over extremities. She states that she had taken amoxicillin for two months prior to rash occurring but stopped at 2 days prior to rash occurring. The patient states rash is much improved since her receiving IV Solu-Medrol upon her admission approximately two days ago. She denies any itch or discomfort from the rash at this time. PAST MEDICAL HISTORY: Hyperlipidemia, colitis. PAST SURGICAL HISTORY: Eye surgery for strabismus. FAMILY HISTORY: Noncontributory. SOCIAL HISTORY: Posttraumatic stress disorder. Denies alcohol use and smoking. MEDICATIONS: See chart. On examination, there is an erythematous morbilliform rash over the trunk, arms and legs. There are no lesions or rash around the eyes, mouth, vaginal area, palms of hands or soles of feet. ASSESSMENT AND PLAN: Viral exanthem versus drug eruption. Favor viral exanthem. TREATMENT: Triamcinolone cream 0.1% apply b.i.d. to affected areas. Avoid face, groin and axillae. Recommend upon admission prednisone 5 mg tablets, take 6 p.o. q.a.m. x2 days, then 5 p.o. q.a.m. x2 days, then 4 p.o. q.a.m. x2 days, then 3 p.o. q.a.m. x 2 days, then 2 p.o. q.a.m. x2 days, then 1 p.o. q.a.m. x2 days. Please have patient follow up in our clinic upon discharge at [facility], Nuria Pittman PA-C. Office number is [phone]. This case was discussed with Dr. Kanwal Patrick.
--- NOTE | 2016-11-13 08:03 | PN ---
DATE OF SERVICE: 11/12/2016 ATTENDING NOTE: This patient seen and exam by me earlier today. I reviewed the note of my nurse practitioner, Ms. Khan. Discussed, reviewed with additional findings below. This patient was admitted with what appears to be acute allergic reaction and uncontrolled A. fib. Medications will be adjusted. Feels a bit better. I am not sure if this is allergic reaction with some pattern on the back instead tinea versicolor. I had consulted dermatology. I do not have a formal note in the chart. Itching is much better. On examination, rash as above. Heart sounds are irregular. ASSESSMENT: 1. Paroxysmal atrial fibrillation with burst of uncontrolled atrial fibrillation. 2. Acute allergic reaction. Will await dictation from Dermatology. PLAN: Care was discussed with the patient. She remains on IV heparin, Solu-Medrol. Kenalog was added. Patient also put on Lopressor 50 twice a day. Will switch to oral prednisone.
[2016-11-13 08:25] LABS: Add Differential Manual Differential
[2016-11-13 08:27] LABS: Manual Review Performed; Nucleated Red Blood Cells 0 /100 WBC (0-0); Total Cells Counted 100
[2016-11-13] MEDS: diphenhydrAMINE 50 MG CAP PO SCH ×4 (08:33→21:23)
[2016-11-13] MEDS: FAMOTIDINE 20 MG TAB PO SCH ×2 (08:33→21:23)
[2016-11-13] MEDS: predniSONE 20 MG TAB PO SCH (08:33)
[2016-11-13] MEDS: METOPROLOL TARTRATE 50 MG TAB PO SCH ×2 (08:33→21:23)
[2016-11-13] MEDS: ASPIRIN 81 MG CHEW PO SCH (08:33)
[2016-11-13] MEDS: TRIAMCINOLONE 0.1% CREAM 80 GM TUBE TOPICAL SCH ×2 (08:46→21:24)
[2016-11-13] MEDS ORDERED: FAMOTIDINE 20 MG TAB PO SCH (09:00)
--- NOTE | 2016-11-13 13:43 | P.PN ---
Subjective Principal diagnosis: atrial fibrillation This is a pleasant 61-year-old female who presented with symptoms of rash and itching. She was noted to be in atrial fibrillation is a new finding. She has since converted to sinus rhythm, remains in sinus rhythm at this time. Upon examination today, she is feeling quite a bit better. She denies complaints of shortness of breath. She feels her rash is improving she was seen by dermatology. Her LFTs are improving. Objective - Vital Signs Vital signs: Vital Signs Temp 97.6 F 11/13/16 11:11 Pulse 75 11/13/16 11:13 Resp 16 11/13/16 11:13 BP 118/66 11/13/16 11:11 Pulse Ox 92 L 11/13/16 11:11 Intake & Output 11/12/16 11/13/16 11/13/16 18:59 06:59 18:59 Intake Total 3005.113 1000 573.65 Output Total 300 Balance 3005.113 1000 273.65 Weight 86 kg Intake: IV 352 240 .9 @ 20 240 Heparin Sodium,Porcine/ 352 D5w Pmx 25,000 unit In Dextrose/Water 1 500ml. bag @ 12 UNITS/KG/HR 19. 59 mls/hr IV .Q24H JENNA Rx #:[id number] Intake, IV Titration 9033.013 7771 53.65 Amount Diltiazem 125 mg In 205 Sodium Chloride 0.9% 100 ml @ 10 MG/HR 10 mls/hr IV .[id number] JENNA Rx#: [id number] Heparin Sodium,Porcine/ 128.113 500 53.65 D5w Pmx 25,000 unit In Dextrose/Water 1 500ml. bag @ 12 UNITS/KG/HR 19. 59 mls/hr IV .Q24H JENNA Rx #:[id number] Sodium Chloride 0.9% 1, 1600 500 000 ml @ 100 mls/hr IV . Q10H JENNA Rx#:[id number] Oral 720 280 Output: Urine 300 Other: Voiding Method Toilet Toilet # Voids 1 - Exam PHYSICAL EXAMINATION: HEENT: Head is atraumatic, normocephalic. Pupils equal, round. Neck is supple. There is no elevated jugular venous pressure. HEART EXAMINATION: Heart sounds regular, S1 and S2 normal. No murmur or gallop heard. CHEST EXAMINATION: Lungs are clear to auscultation and precussion. No chest wall tenderness is noted on palpation or with deep breathing. ABDOMEN: Soft, nontender. Bowel sounds are heard. No organomegaly noted. EXTREMITIES: 2+ peripheral pulses with no evidence of peripheral edema and no calf tenderness noted. NEUROLOGIC patient is awake, alert and oriented x3. . - Labs CBC & Chem 7: 11/13/16 06:12 11/13/16 06:12 Labs: Abnormal Lab Results - Last 24 Hours (Table) 11/12/16 11/13/16 11/13/16 Range/Units 13:41 06:12 06:12 WBC 16.6 H (3.8-10.6) k/uL RBC 3.67 L (3.80-5.40) m/uL Hgb 10.7 L (11.4-16.0) gm/dL Hct 32.1 L (34.0-46.0) % Neutrophils # (Manual) 12.6 H (1.3-7.7) k/uL Monocytes # (Manual) 1.3 H (0-1.0) k/uL APTT 58.5 H (22.0-30.0) sec Chloride 109 H (98-107) mmol/L BUN 21 H (7-17) mg/dL Glucose 141 H (74-99) mg/dL AST 56 H (14-36) U/L ALT 176 H (9-52) U/L Total Protein 6.0 L (6.3-8.2) g/dL Albumin 3.0 L (3.5-5.0) g/dL 11/13/16 Range/Units 06:12 WBC (3.8-10.6) k/uL RBC (3.80-5.40) m/uL Hgb (11.4-16.0) gm/dL Hct (34.0-46.0) % Neutrophils # (Manual) (1.3-7.7) k/uL Monocytes # (Manual) (0-1.0) k/uL APTT 43.4 H (22.0-30.0) sec Chloride (98-107) mmol/L BUN (7-17) mg/dL Glucose (74-99) mg/dL AST (14-36) U/L ALT (9-52) U/L Total Protein (6.3-8.2) g/dL Albumin (3.5-5.0) g/dL Assessment and Plan Plan: Assessment and plan #1 paroxysmal atrial fibrillation #2 viral exanthem #3 elevated liver function tests, improving #4 minimal elevation of troponin could be related to the atrial fibrillation, although the possibility of non-STEMI can not be excluded Cardiology's perspective, we'll check patient's coverage for Eliquis, if she has adequate insurance coverage we will start 5 mg by mouth twice a day and stop IV heparin. Once patient's rash has cleared, patient will require more cardiac workup including possible coronary angiography. Anticipate patient will be discharged in the next 24-48 hours. We'll continue to follow the patient for further recommendations accordingly. PNP note has been reviewed, I agree with a documented findings and plan of care. Patient was seen and examined.
--- NOTE | 2016-11-13 14:37 | P.PN ---
Progress Note - Text DATE OF SERVICE: 11/13/2016 PRESENTING COMPLAINT: Rash INTERVAL HISTORY: 61-year-old female with atrial fibrillation rapid ventricular response, generalized rash. Patient sleeping in the bed, appears comfortable, heart rate in the 60s to 70s, normal sinus rhythm. Ambulatory in the room, tolerating her diet, moved her bowels, diffuse rash present , much improved today, patient says it's no longer bothering her. REVIEW OF SYSTEMS: Done for constitutional ,cardiovascular, GI, pulmonary, integument with relevant findings as above. CURRENT MEDICATIONS DuoNeb, aspirin, heparin, Solu-Medrol, Lopressor PHYSICAL EXAM: VITAL SIGNS: Temperature 97.8, pulse 80 respirations 18 blood pressure 125/77 oxygen saturation 92% on room air. GENERAL APPEARANCE: . Lying in the bed, appears comfortable. EYES: Pupils equal. Conjunctiva normal. NECK: JVD not raised. Mass not palpable. RESPIRATORY: Respiratory effort normal. Lungs diminished to auscultation. CARDIOVASCULAR: S1-S2 noted, converted to sinus rhythm rate in the 60s to 70s. No edema. ABDOMEN: Soft. Liver and spleen not palpable. No tenderness. No mass palpable. PSYCHIATRY: Alert and oriented x3. Mood and affect normal. INTEGUMENT: Diffuse rash over entire body, raised splotchy, red. No drainage noted. INVESTIGATIONS: White blood cell count 16.6, hemoglobin 10.7, platelet count 295, sodium 138, potassium 4.2, BUN 6, creatinine 21, AST 56, ALTs 176, alkaline phosphatase 1: 15., Echocardiogram: Given hypertrophy, EF between 55 and 60%, mild mitral regurgitation Liver ultrasound: Cholelithiasis, ASSESSMENT: Paroxysmal atrial fibrillation with bursts of uncontrolled atrial fibrillation, now converted to sinus rhythm. Acute ALLERGIC reaction, await dermatology dictation. Troponin leak and the patient which could be cardiac related, rule out underlying coronary artery disease. Obesity, body mass index of 30. IV heparin monitoring. PLAN: Check patient coverage for Eliquis, possibly start 5 mg by mouth and stop heparin drip. We'll look at initiating steroid taper. Patient may require more cardiac workup., cardiac catheterization or stress test, to be done as an outpatient.. Expect discharge in the next 24-48 hours . We'll continue to monitor closely. EMAIL MARKETING ASSISTANT statement: Patient was seen and examined by nurse practitioner Rachna Khan in all elements of the case discussed with attending is Dr. Greco
[2016-11-13] MEDS ORDERED: guaiFENesin 600 MG TABLET.ER PO PRN (15:28)
[2016-11-13] MEDS ORDERED: ENOXAPARIN 80 MG/0.8 ML SYRINGE SQ STA (22:09)
[2016-11-13 22:38] VITALS: RESP 18
[2016-11-14 06:43] LABS: Aty Lym Flag Slight; CHCM 32.4; HCT 33.4 % (34.0-46.0); HDW 2.45; HGB 10.8 gm/dL (11.4-16.0); MCHC 32.2 g/dL (31.0-37.0); MCV 89.9 fL (80.0-100.0); Mean Platelet Volume 7.3; RBC 3.71 m/uL (3.80-5.40); RDW 13.8 % (11.5-15.5); WBC 14.8 k/uL (3.8-10.6); WBC (Perox) 15.08
[2016-11-14 08:02] VITALS: BP 139/63; PULSE 69; TEMP 98.1
[2016-11-14] MEDS: METOPROLOL TARTRATE 50 MG TAB PO SCH (08:17)
[2016-11-14] MEDS: predniSONE 20 MG TAB PO SCH (08:17)
[2016-11-14] MEDS: ASPIRIN 81 MG CHEW PO SCH (08:17)
[2016-11-14] MEDS: FAMOTIDINE 20 MG TAB PO SCH (08:17)
[2016-11-14] MEDS: diphenhydrAMINE 50 MG CAP PO SCH (08:17)
[2016-11-14] MEDS: FLUTICASONE 50MCG/SPRAY NASAL 16GM EA NOSTRIL PRN (08:17)
[2016-11-14] MEDS: TRIAMCINOLONE 0.1% CREAM 80 GM TUBE TOPICAL SCH (08:20)
[2016-11-14 08:42] LABS: Add Differential Manual Differential
[2016-11-14 08:45] LABS: Manual Review Performed; Metamyelocytes % 0.5 %; Nucleated Red Blood Cells 0 /100 WBC (0-0); RBC Morphology Normal; Total Cells Counted 200
[2016-11-14] MEDS ORDERED: ENOXAPARIN 120 MG/0.8 ML SYRINGE SQ SCH (09:00)
[2016-11-14] MEDS ORDERED: APIXABAN 5 MG TAB PO SCH (10:30)
--- NOTE | 2016-11-14 11:31 | PN ---
DATE OF SERVICE: 11/13/2016 ATTENDING NOTE: The patient was seen and examined by me earlier today. I reviewed the note of my nurse practitioner, Ms. Khan. Discussed and reviewed additional findings below. This patient presented with atrial fibrillation, now back in sinus rhythm. Also, patient has a rash. Seen by dermatology who thinks it could be a viral exanthem or allergic reaction. The rash is a bit did improved. Patient Eliquis was ordered by cardiology, insurance was not cleared. On examination: CARDIOVASCULAR: First and second sounds normal. LUNGS: Decreased breath sounds. Dermatological: Diffuse ( ) rash. Ultrasound shows gallstones and possible suggestion of hepatic steatosis. A 2-D echo was noted. ASSESSMENT: 1. Paroxysmal atrial fibrillation, patient now in sinus rhythm. 2. Diffuse rash, could be viral exanthem versus allergic reaction. 3. Troponin leak, cannot rule out underlying cardiac ischemia, for further work-up as an outpatient. PLAN: I had a lengthy talk with the patient. She wanted to go home today. Explained to her that without an anticoag ( ) to do that. Hence, will start the IV heparin tonight, give a dose of Lovenox 80 mg one dose tonight and a dose of 120 mg in morning. That will cover her for 24 hours. Will check for Eliquis tomorrow and then she can be discharged accordingly. Total time spent today was about 40 minutes with over 25 minutes of discussion with the patient.
--- NOTE | 2016-11-14 16:40 | PN ---
Mrs. Huff is a 61-year-old female who presents with paroxysmal atrial fibrillation. She had a rash that is improving. She denies any chest pain. She has no dizziness. No palpitation. Continues to be in sinus mechanism without any difficulties. She continues to be on Pepcid, metoprolol [id number] mg twice a day, prednisone. PHYSICAL EXAMINATION: Blood pressure 139/60 with a heart rate in 60s. LUNGS: Clear. HEART: Regular rate and rhythm. S1 and S2, no S3, no rub. ABDOMEN: Soft, nontender. EXTREMITIES: No edema. IMPRESSION: 1. Paroxysmal atrial fibrillation, remains in sinus mechanism. 2. Symptoms of chest pain of unclear etiology. 3. Rash, improving. 4. Abnormal liver function tests. RECOMMENDATIONS: I will start her on the Eliquis 5 mg twice a day. We will continue the rest of her medical regimen. She may be able to be discharged home soon and followed as outpatient.
--- NOTE | 2016-11-15 09:14 | DS ---
DATE OF ADMISSION: 11/11/2016 DATE OF DISCHARGE: 11/14/2016 FINAL DIAGNOSES: 1. Paroxysmal atrial fibrillation with rapid ventricular rate. 2. Troponin leak probably from rapid atrial fibrillation. 3. Diffuse rash, possibly viral exanthem less likely with possible allergic reaction. 4. Obesity, body mass index of 30. 5. IV heparin monitoring. HOSPITAL COURSE: This patient presented with diffuse rash, seen by Dr. Patrick from dermatology who recommended Kenalog cream. It was felt this could be possibly viral exanthem or allergic reaction the former being more likely. Patient also had atrial fibrillation and has went back in sinus rhythm by the time of discharge. The 2-D echo showed EF of 55% to 60%. No thrombus was reported. Patient's hemoglobin is 10.8, stable. On examination, the rash is improved. CARDIOVASCULAR: First and second sounds normal. CONSULTANTS: Dr. Gan from cardiology. DISCHARGE MEDICATIONS: 1. Rhinocort 2 sprays each nostril b.i.d. 2. Kassandra 180 mg daily. 3. Lopressor 50 mg b.i.d. 4. Kenalog 0.1% topical cream b.i.d. 5. Prednisone taper. 6. Eliquis 5 mg p.o. b.i.d. Follow up with Dr. Gan in 10 days; Dr. Small in 3 days. Patient told to discontinue Sudafed because of atrial fibrillation and avoid nicotine.
[2016-11-16 17:00] LABS: Lyme Specimen Source Not Provided
== END 2016-11-14 12:29 | disposition home or self-care (01) | DRG 310 ==
LOC: EC 05:39 → 6SEL 06:47
PROVIDERS: ADMIT Hospitalist; ATTEND Hospitalist
DX: I48.0 Paroxysmal atrial fibrillation (principal); K76.0 Fatty (change of) liver, not elsewhere classified; B09 Unspecified viral infection characterized by skin and mucous membrane lesions; E78.5 Hyperlipidemia, unspecified; E66.9 Obesity, unspecified; F43.10 Post-traumatic stress disorder, unspecified; K80.20 Calculus of gallbladder without cholecystitis without obstruction; R07.89 Other chest pain; I51.7 Cardiomegaly; I34.0 Nonrheumatic mitral (valve) insufficiency; R05 Cough; R74.8 Abnormal levels of other serum enzymes; T44.995A Adverse effect of other drug primarily affecting the autonomic nervous system, initial encounter; L29.9 Pruritus, unspecified; R06.00 Dyspnea, unspecified; J30.9 Allergic rhinitis, unspecified; L30.9 Dermatitis, unspecified; R79.89 Other specified abnormal findings of blood chemistry; Z88.9 Allergy status to unspecified drugs, medicaments and biological substances; Z71.3 Dietary counseling and surveillance; Z79.899 Other long term (current) drug therapy; Z82.49 Family history of ischemic heart disease and other diseases of the circulatory system; Z68.30 Body mass index [BMI] 30.0-30.9, adult; Z91.018 Allergy to other foods; Z91.048 Other nonmedicinal substance allergy status; Z79.51 Long term (current) use of inhaled steroids; Z86.19 Personal history of other infectious and parasitic diseases; Z91.410 Personal history of adult physical and sexual abuse; Z86.69 Personal history of other diseases of the nervous system and sense organs; Z87.19 Personal history of other diseases of the digestive system; Z98.811 Dental restoration status
CPT/HCPCS: 36415; 71010; 76705; 80053; 80061; 82550; 82553; 83735; 84443; 84484; 85025; 85610; 85730; 87081; 87430; 87476; 93005; 93306; 94640; 96365; 96366; 96372; 96375; 99291

== ENCOUNTER 2016-11-18 01:04 | Emergency (ER) | payer OTHER ==
[2016-11-18] MEDS ORDERED: KETOROLAC 30 MG/ML 1 ML VIAL IVP STA (01:18)
--- NOTE | 2016-11-18 01:36 | ED ---
Chest Pain HPI - General Chief Complaint: Chest Pain Stated Complaint: Chest Pain Time Seen by Provider: 11/18/16 01:04 Source: patient, RN notes reviewed Mode of arrival: ambulatory Limitations: no limitations - History of Present Illness Initial Comments: This is a 61-year-old female with a recent admission for ALLERGIC reaction with some apparent heart related problem who presents today with complaints of the onset of sharp left-sided chest pain. She states it's between 3-6 in severity at times sharp in nature she points her left costochondral margin below her breast. She's been no cough fevers chills sweats nausea vomiting or other symptoms. She has no history of heart disease or lung disease she is a nonsmoker and does not drink alcohol or use street drugs. MD Complaint: chest pain - Related Data Home Medications Medication Instructions Recorded Confirmed Budesonide [Rhinocort Allergy] 2 spr EA NOSTRIL BID 05/30/16 11/18/16 Fexofenadine HCl [Kassandra Allergy] 180 mg PO DAILY 05/30/16 11/18/16 Previous Rx's Medication Instructions Recorded Metoprolol Tartrate [Lopressor] 50 mg PO BID #60 tab 11/13/16 Triamcinolone 0.1% Cream [Kenalog] 1 applic TOPICAL BID dose 11/13/16 Apixaban [Eliquis] 5 mg PO BID #30 tab 11/14/16 Allergies Allergy/AdvReac Type Severity Reaction Status Date / Time chamomile flower AdvReac Flushing/Flu-like Verified 11/18/16 01:12 Symptoms orange juice [[place]] AdvReac Flushing/Flu-like Verified 11/18/16 01:12 Symptoms red dye AdvReac Flushing/Flu-like Verified 11/18/16 01:12 Symptoms watermelon AdvReac Unknown Verified 11/18/16 01:12 Review of Systems ROS Statement: Those systems with pertinent positive or pertinent negative responses have been documented in the HPI. ROS Other: All systems not noted in ROS Statement are negative. EKG Findings - EKG Results: EKG: interpreted by EPHRAIM (Sinus rhythm rate of 80 CA interval 1:30 QRS duration 74 QT/QTC of 368/424 nonspecific anterior changes as [place] T-wave abnormalities as compared with EKG dated 11/14/16 which shows similar configuration.) Past Medical History Past Medical History: Hyperlipidemia Additional Past Medical History / Comment(s): Year round allergies. Bouts of Colitis, last in 2006 History of Any Multi-Drug Resistant Organisms: None Reported Additional Past Surgical History / Comment(s): eye surgery. Strabismus Past Anesthesia/Blood Transfusion Reactions: No Reported Reaction Additional Past Anesthesia/Blood Transfusion Reaction / Comment(s): Last surgery was 4 Past Psychological History: PTSD Smoking Status: Never smoker Past Alcohol Use History: None Reported Past Drug Use History: None Reported - Past Family History Father Family Medical History: Chest Pain / Angina, Hyperlipidemia, Hypertension Mother Family Medical History: Chest Pain / Angina, Hyperlipidemia, Hypertension Brother(s) Family Medical History: Hyperlipidemia, Hypertension General Exam - General Exam Comments Initial Comments: This is a well-developed well-nourished awake alert oriented 3 female Limitations: no limitations General appearance: alert, in no apparent distress Head exam: Present: atraumatic, normocephalic, normal inspection Eye exam: Present: normal appearance, PERRL, EOMI. Absent: scleral icterus, conjunctival injection, periorbital swelling ENT exam: Present: normal exam, mucous membranes moist Neck exam: Present: normal inspection. Absent: tenderness, meningismus, lymphadenopathy Respiratory exam: Present: normal lung sounds bilaterally, chest wall tenderness (Reproducible tenderness palpation over left costochondral margin no step-off or crepitation). Absent: respiratory distress, wheezes, rales, rhonchi , stridor Cardiovascular Exam: Present: regular rate, normal rhythm, normal heart sounds. Absent: systolic murmur, diastolic murmur, rubs, gallop, clicks GI/Abdominal exam: Present: soft, normal bowel sounds. Absent: distended, tenderness, guarding, rebound, rigid Extremities exam: Present: normal inspection, full ROM, normal capillary refill. Absent: tenderness, pedal edema, joint swelling, calf tenderness Back exam: Present: normal inspection Neurological exam: Present: alert, oriented X3, CN II-XII intact Psychiatric exam: Present: normal affect, normal mood Skin exam: Present: warm, dry, intact, normal color. Absent: rash Course Vital Signs 11/18/16 11/18/16 11/18/16 01:07 01:14 02:12 Temperature 97.6 F 97 F L Pulse Rate 86 75 Pulse Rate [ 88 Rehabilitation Medicine Physician ] Respiratory 20 18 Rate Blood Pressure 139/79 122/64 O2 Sat by Pulse 97 97 Oximetry 11/18/16 11/18/16 03:00 04:00 Temperature 97.7 F Pulse Rate 87 69 Pulse Rate [ Rehabilitation Medicine Physician ] Respiratory 16 20 Rate Blood Pressure 131/82 132/66 O2 Sat by Pulse 97 97 Oximetry Chest Pain MDM - MDM I did review the imaging and reports no acute evidence of pulmonary embolism some small areas of atelectasis and effusion. Patient is pain-free at this time the presentation is consistent with chest wall pain this will be discharged she is advised to take Tylenol for pain follow-up with her doctor return when necessary Disposition Clinical Impression: Costalchondritis, Chest wall syndrome Disposition: HOME SELF-CARE Condition: Good Instructions: Costochondritis (ED) Additional Instructions: Tylenol for pain Referrals: Antoine Small MD [Primary Care Provider] - 1-2 days
[2016-11-18 01:47] LABS: Basophils # (A) 0.1 k/uL (0-0.2); Basophils % (A) 1 %; CH 30.1; CHCM 33.9; Eosinophils # (A) 0.4 k/uL (0-0.7); Eosinophils % (A) 3 %; HDW 2.19; Luc # (Auto) 0.66; Luc % (Auto) 4; Lymphocytes # (A) 4.7 k/uL (1.0-4.8); Lymphocytes % (A) 28 %; MCH 28.8 pg (25.0-35.0); MCHC 32.3 g/dL (31.0-37.0); MCV 89.1 fL (80.0-100.0); Mean Platelet Volume 6.9; Monocytes # (A) 0.9 k/uL (0-1.0); Monocytes % (A) 5 %; Neutrophils # (A) 9.6 k/uL (1.3-7.7); Neutrophils % (A) 59 %; RBC 5.05 m/uL (3.80-5.40); RDW 14.1 % (11.5-15.5); WBC 16.4 k/uL (3.8-10.6); WBC (Perox) 15.46
[2016-11-18 01:50] LABS: HGB 14.5 gm/dL (11.4-16.0)
[2016-11-18 01:52] LABS: ALT 113 U/L (9-52); AST 28 U/L (14-36); Alkaline Phosphatase 117 U/L (38-126); Amylase 44 U/L (30-110); Anion Gap 11 mmol/L; Blood Urea Nitrogen 32 mg/dL (7-17); Calcium 9.4 mg/dL (8.4-10.2); Carbon Dioxide 20 mmol/L (22-30); Chloride 103 mmol/L (98-107); Glucose 123 mg/dL (74-99); Magnesium 2.5 mg/dL (1.6-2.3); Non-African American GFR(MDRD) >60 (>60 ml/min/1.73 sqM); Potassium 4.6 mmol/L (3.5-5.1); Sodium 134 mmol/L (137-145); Total Bilirubin 0.6 mg/dL (0.2-1.3); Total Protein 7.3 g/dL (6.3-8.2)
[2016-11-18 01:56] LABS: INR 1.1 (<1.1); Partial Thromboplastin Time 24.9 sec (22.0-30.0); Prothrombin Time 11.3 sec (9.0-12.0)
[2016-11-18 02:14] LABS: Creatine Kinase MB 0.3 ng/mL (0.0-2.4); Troponin I 0.026 ng/mL (0.000-0.034)
--- NOTE | 2016-11-18 02:17 | XR ---
EXAM: XR Chest, 2 Views CLINICAL HISTORY: Reason: Chest Pain TECHNIQUE: Frontal and lateral views of the chest. COMPARISON: Chest x-ray 05/30/2016. FINDINGS: Lungs: Bilateral lower lung airspace disease. Pleural space: Blunting of the posterior gutters concerning for small bilateral pleural effusions. Heart: Unremarkable. No cardiomegaly. Mediastinum: Unremarkable. Bones/joints: Unremarkable. IMPRESSION: 1. Bilateral lower lung airspace disease. 2. Blunting of the posterior gutters concerning for small bilateral pleural effusions.
[2016-11-18] MEDS ORDERED: RX INFO: IV CONTRAST WAS GIVEN 1 EACH MISC MISCELLANE PRN (02:36)
[2016-11-18] MEDS ORDERED: methylPREDNISolone SOD SUCCI 125 MG/2 ML VIAL IV STA (02:38)
[2016-11-18] MEDS ORDERED: FAMOTIDINE 20 MG/2 ML VIAL IV STA (02:38)
[2016-11-18] MEDS ORDERED: diphenhydrAMINE 50 MG/ML 1 ML VIAL IVP STA (02:38)
--- NOTE | 2016-11-18 04:06 | CT ---
EXAM: CT Angiography Chest With Intravenous Contrast CLINICAL HISTORY: Reason: Pain TECHNIQUE: Axial computed tomographic angiography images of the chest with intravenous contrast using pulmonary embolism protocol. CTDI is 7 mGy and DLP is 272.60 mGy-cm. This CT exam was performed using one or more of the following dose reduction techniques: automated exposure control, adjustment of the mA and/or kV according to patient size, and/or use of iterative reconstruction technique. MIP reconstructed images were created and reviewed. COMPARISON: Chest x-ray 11/18/2016. No prior CTs. FINDINGS: Pulmonary arteries: No evidence for pulmonary embolism. Aorta: No aortic aneurysm or dissection. Left vertebral artery arises from the aortic arch, normal variant. Lungs: Patchy groundglass opacities in bilateral lower lobes felt to be related to atelectasis; please correlate clinically to exclude superimposed infection. Pleural space: Small bilateral pleural effusions. Heart: Unremarkable. No cardiomegaly. No significant pericardial effusion. No evidence of RV dysfunction. Mediastinum: Small hiatal hernia. Bones/joints: Mild anterior wedging of the T12 vertebral body. Mild degenerative changes of the osseous structures. No dislocation. Soft tissues: Unremarkable. Lymph nodes: Small mediastinal lymph and right hilar lymph nodes. Gallbladder and bile ducts: Cholelithiasis. Stomach and bowel: Diverticulosis. IMPRESSION: 1. No evidence for pulmonary embolism. 2. No aortic aneurysm or dissection. 3. Small bilateral pleural effusions. 4. Patchy groundglass opacities in bilateral lower lobes felt to be related to atelectasis; please correlate clinically to exclude superimposed infection. 5. Small hiatal hernia. 6. Cholelithiasis. 7. Diverticulosis.
[2016-11-18 04:36] VITALS: BP 124/64; PULSE 70; RESP 18; TEMP 98
== END 2016-11-18 04:36 | disposition home or self-care (01) ==
LOC: EC 01:04
DX: M94.0 Chondrocostal junction syndrome [Tietze] (principal); J98.11 Atelectasis; J90 Pleural effusion, not elsewhere classified; Z79.51 Long term (current) use of inhaled steroids; Z79.899 Other long term (current) drug therapy; Z91.018 Allergy to other foods; Z91.09 Other allergy status, other than to drugs and biological substances; Z87.19 Personal history of other diseases of the digestive system; Z82.49 Family history of ischemic heart disease and other diseases of the circulatory system
CPT/HCPCS: 36415; 93005; 85379; 80053; 82150; 82550; 82553; 83690; 83735; 84484; 85025; 85610; 85730; 71020; 71275; 99285; 96374; 96375 ×3; J1200; J2930; Q9967; J1885

== ENCOUNTER 2017-01-07 15:08 | Emergency (ER) | payer OTHER ==
[2017-01-07] MEDS ORDERED: ONDANSETRON 4 MG/2 ML VIAL IVP STA (15:20)
[2017-01-07] MEDS ORDERED: DICYCLOMINE 10 MG/ML 2 ML AMP IM STA (15:20)
[2017-01-07] MEDS: HYDROmorphone 2 MG/ML 1 ML SYRINGE IVP STA ×2 (15:25→15:28)
[2017-01-07 15:34] LABS: Basophils # (A) 0.1 k/uL (0-0.2); Basophils % (A) 0 %; CH 30.4; CHCM 34.3; Eosinophils # (A) 0.1 k/uL (0-0.7); Eosinophils % (A) 1 %; HCT 40.4 % (34.0-46.0); HDW 2.39; HGB 13.4 gm/dL (11.4-16.0); Luc % (Auto) 3; Lymphocytes # (A) 2.1 k/uL (1.0-4.8); Lymphocytes % (A) 17 %; MCH 29.3 pg (25.0-35.0); MCV 88.8 fL (80.0-100.0); Mean Platelet Volume 7.2; Monocytes # (A) 0.4 k/uL (0-1.0); Monocytes % (A) 3 %; Neutrophils % (A) 76 %; RBC 4.55 m/uL (3.80-5.40); RDW 14.1 % (11.5-15.5); WBC 11.9 k/uL (3.8-10.6); WBC (Perox) 12.19
[2017-01-07 15:44] LABS: Partial Thromboplastin Time 24.9 sec (22.0-30.0); Prothrombin Time 10.5 sec (9.0-12.0)
[2017-01-07 15:50] LABS: ALT 41 U/L (9-52); AST 27 U/L (14-36); Alkaline Phosphatase 73 U/L (38-126); Anion Gap 10 mmol/L; Blood Urea Nitrogen 12 mg/dL (7-17); Calcium 9.4 mg/dL (8.4-10.2); Carbon Dioxide 22 mmol/L (22-30); Chloride 107 mmol/L (98-107); Glucose 123 mg/dL (74-99); Magnesium 1.9 mg/dL (1.6-2.3); Non-African American GFR(MDRD) >60 (>60 ml/min/1.73 sqM); Phosphorous 2.4 mg/dL (2.5-4.5); Potassium 4.1 mmol/L (3.5-5.1); Sodium 139 mmol/L (137-145); Total Bilirubin 0.4 mg/dL (0.2-1.3); Total Protein 7.1 g/dL (6.3-8.2)
--- NOTE | 2017-01-07 15:50 | XR ---
EXAMINATION TYPE: XR chest 2V DATE OF EXAM: 01/07/2017 COMPARISON: Chest x-ray and CTA chest November 18, 2016. HISTORY: Epigastric pain. Weakness. TECHNIQUE: Frontal and lateral views of the chest are obtained. FINDINGS: There is chronic parenchymal change without suspicious focal air space opacity, pleural eff usion, or pneumothorax seen on current study. The cardiac silhouette size is within normal limits. The osseous structures are demineralized. IMPRESSION: Chronic changes without acute pulmonary process on current study.
[2017-01-07 15:52] LABS: Creatine Kinase 98 U/L (30-135)
[2017-01-07 16:00] LABS: Appearance,Urine Clear (Clear); Bilirubin,Urine Negative (Negative); Glucose,Urine (UA) Negative (Negative); Ketones,Urine Negative (Negative); Leukocyte Esterase,Urine Negative (Negative); Mucus,Urine Rare /hpf; Nitrite,Urine Negative (Negative); Particle Count 946; Protein,Urine Negative (Negative); RBC,Urine 5 /hpf (0-5); Specific Gravity,Urine 1.013 (1.001-1.035); Squamous Epithelial Cell,Urine 1 /hpf (0-4); UA Billing (MACRO vs. MICRO) MICRO; Urobilinogen,Urine <2.0 mg/dL (<2.0); WBC,Urine 1 /hpf (0-5)
[2017-01-07 16:05] LABS: Creatine Kinase MB 0.9 ng/mL (0.0-2.4); Troponin I <0.012 ng/mL (0.000-0.034)
--- NOTE | 2017-01-07 16:06 | ED ---
General Adult HPI - General Chief complaint: Abdominal Pain Stated complaint: Chest Pain/Abd Pain Time Seen by Provider: 01/07/17 15:11 Source: patient, EMS, RN notes reviewed, old records reviewed Mode of arrival: EMS Limitations: no limitations - History of Present Illness Initial comments: This is a 61-year-old female year for reevaluation and I'll pain chest pain bloating. Patient states she does has colitis, states that she also saw her symptoms. Mild nausea no vomiting no significant diarrhea yet. Patient of travel she also No fevers. No shortness of breath. Patient's multiple episodes of similar symptoms. The patient states this is just like prior episodes of colitis - Related Data Home Medications Medication Instructions Recorded Confirmed Budesonide [Rhinocort Allergy] 2 spr EA NOSTRIL BID 05/30/16 01/07/17 Previous Rx's Medication Instructions Recorded Metoprolol Tartrate [Lopressor] 50 mg PO BID #60 tab 11/13/16 Allergies Allergy/AdvReac Type Severity Reaction Status Date / Time chamomile flower AdvReac Flushing/Flu-like Verified 01/07/17 15:39 Symptoms orange juice [[place]] AdvReac Flushing/Flu-like Verified 01/07/17 15:39 Symptoms red dye AdvReac Flushing/Flu-like Verified 01/07/17 15:39 Symptoms watermelon AdvReac Unknown Verified 01/07/17 15:39 Review of Systems ROS Statement: Those systems with pertinent positive or pertinent negative responses have been documented in the HPI. ROS Other: All systems not noted in ROS Statement are negative. Past Medical History Past Medical History: Hyperlipidemia Additional Past Medical History / Comment(s): Year round allergies. Bouts of Colitis, last in 2006 History of Any Multi-Drug Resistant Organisms: None Reported Additional Past Surgical History / Comment(s): eye surgery. Strabismus Past Anesthesia/Blood Transfusion Reactions: No Reported Reaction Additional Past Anesthesia/Blood Transfusion Reaction / Comment(s): Last surgery was 4 Past Psychological History: PTSD Smoking Status: Never smoker Past Alcohol Use History: None Reported Past Drug Use History: None Reported - Past Family History Father Family Medical History: Chest Pain / Angina, Hyperlipidemia, Hypertension Mother Family Medical History: Chest Pain / Angina, Hyperlipidemia, Hypertension Brother(s) Family Medical History: Hyperlipidemia, Hypertension General Exam Limitations: no limitations General appearance: alert, in no apparent distress Head exam: Present: atraumatic, normocephalic, normal inspection Eye exam: Present: normal appearance, PERRL, EOMI. Absent: scleral icterus, conjunctival injection, periorbital swelling ENT exam: Present: normal exam, mucous membranes moist Neck exam: Present: normal inspection. Absent: tenderness, meningismus, lymphadenopathy Respiratory exam: Present: normal lung sounds bilaterally. Absent: respiratory distress, wheezes, rales, rhonchi, stridor Cardiovascular Exam: Present: regular rate, normal rhythm, normal heart sounds. Absent: systolic murmur, diastolic murmur, rubs, gallop, clicks GI/Abdominal exam: Present: soft, normal bowel sounds. Absent: distended, tenderness, guarding, rebound, rigid Extremities exam: Present: normal inspection, full ROM, normal capillary refill. Absent: tenderness, pedal edema, joint swelling, calf tenderness Back exam: Present: normal inspection Neurological exam: Present: alert, oriented X3, CN II-XII intact Psychiatric exam: Present: normal affect, normal mood Skin exam: Present: warm, dry, intact, normal color. Absent: rash Course Vital Signs 01/07/17 15:18 Temperature 98 F Pulse Rate 88 Respiratory 18 Rate Blood Pressure 165/77 O2 Sat by Pulse 98 Oximetry EKG Findings - EKG Comments: EKG Findings:: EKG shows normal sinus rhythm rate of 82, CA 142, QRS 78, QTC 476 Medical Decision Making - Medical Decision Making 61 [place] chest about pain, states that it is colitis, just a few medication, lab work is normal patient will be discharged home - Lab Data Result diagrams: 01/07/17 15:17 01/07/17 15:17 Lab Results 01/07/17 01/07/17 01/07/17 Range/Units 15:17 15:17 15:17 WBC 11.9 H (3.8-10.6) k/uL RBC 4.55 (3.80-5.40) m/uL Hgb 13.4 (11.4-16.0) gm/dL Hct 40.4 (34.0-46.0) % MCV 88.8 (80.0-100.0) fL MCH 29.3 (25.0-35.0) pg MCHC 33.0 (31.0-37.0) g/dL RDW 14.1 (11.5-15.5) % Plt Count 358 (150-450) k/uL Neutrophils % 76 % Lymphocytes % 17 % Monocytes % 3 % Eosinophils % 1 % Basophils % 0 % Neutrophils # 9.0 H (1.3-7.7) k/uL Lymphocytes # 2.1 (1.0-4.8) k/uL Monocytes # 0.4 (0-1.0) k/uL Eosinophils # 0.1 (0-0.7) k/uL Basophils # 0.1 (0-0.2) k/uL PT 10.5 (9.0-12.0) sec INR 1.0 (<1.2) APTT 24.9 (22.0-30.0) sec Sodium 139 (137-145) mmol/L Potassium 4.1 (3.5-5.1) mmol/L Chloride 107 (98-107) mmol/L Carbon Dioxide 22 (22-30) mmol/L Anion Gap 10 mmol/L BUN 12 (7-17) mg/dL Creatinine 0.70 (0.52-1.04) mg/dL Est GFR (MDRD) Af Amer >60 (>60 ml/min/1.73 sqM) Est GFR (MDRD) Non-Af >60 (>60 ml/min/1.73 sqM) Glucose 123 H (74-99) mg/dL Calcium 9.4 (8.4-10.2) mg/dL Phosphorus 2.4 L (2.5-4.5) mg/dL Magnesium 1.9 (1.6-2.3) mg/dL Total Bilirubin 0.4 (0.2-1.3) mg/dL AST 27 (14-36) U/L ALT 41 (9-52) U/L Alkaline Phosphatase 73 (38-126) U/L Total Protein 7.1 (6.3-8.2) g/dL Albumin 4.0 (3.5-5.0) g/dL Urine Color Urine Appearance (Clear) Urine pH (5.0-8.0) Ur Specific [place] (1.001-1.035) Urine Protein (Negative) Urine Glucose (UA) (Negative) Urine Ketones (Negative) Urine Blood (Negative) Urine Nitrite (Negative) Urine Bilirubin (Negative) Urine Urobilinogen (<2.0) mg/dL Ur Leukocyte Esterase (Negative) Urine RBC (0-5) /hpf Urine WBC (0-5) /hpf Ur Squamous Epith Cells (0-4) /hpf Urine Mucus (None) /hpf 01/07/17 Range/Units 15:50 WBC (3.8-10.6) k/uL RBC (3.80-5.40) m/uL Hgb (11.4-16.0) gm/dL Hct (34.0-46.0) % MCV (80.0-100.0) fL MCH (25.0-35.0) pg MCHC (31.0-37.0) g/dL RDW (11.5-15.5) % Plt Count (150-450) k/uL Neutrophils % % Lymphocytes % % Monocytes % % Eosinophils % % Basophils % % Neutrophils # (1.3-7.7) k/uL Lymphocytes # (1.0-4.8) k/uL Monocytes # (0-1.0) k/uL Eosinophils # (0-0.7) k/uL Basophils # (0-0.2) k/uL PT (9.0-12.0) sec INR (<1.2) APTT (22.0-30.0) sec Sodium (137-145) mmol/L Potassium (3.5-5.1) mmol/L Chloride (98-107) mmol/L Carbon Dioxide (22-30) mmol/L Anion Gap mmol/L BUN (7-17) mg/dL Creatinine (0.52-1.04) mg/dL Est GFR (MDRD) Af Amer (>60 ml/min/1.73 sqM) Est GFR (MDRD) Non-Af (>60 ml/min/1.73 sqM) Glucose (74-99) mg/dL Calcium (8.4-10.2) mg/dL Phosphorus (2.5-4.5) mg/dL Magnesium (1.6-2.3) mg/dL Total Bilirubin (0.2-1.3) mg/dL AST (14-36) U/L ALT (9-52) U/L Alkaline Phosphatase (38-126) U/L Total Protein (6.3-8.2) g/dL Albumin (3.5-5.0) g/dL Urine Color Yellow Urine Appearance Clear (Clear) Urine pH 7.0 (5.0-8.0) Ur Specific [place] 1.013 (1.001-1.035) Urine Protein Negative (Negative) Urine Glucose (UA) Negative (Negative) Urine Ketones Negative (Negative) Urine Blood Trace H (Negative) Urine Nitrite Negative (Negative) Urine Bilirubin Negative (Negative) Urine Urobilinogen <2.0 (<2.0) mg/dL Ur Leukocyte Esterase Negative (Negative) Urine RBC 5 (0-5) /hpf Urine WBC 1 (0-5) /hpf Ur Squamous Epith Cells 1 (0-4) /hpf Urine Mucus Rare H (None) /hpf - Radiology Data Radiology results: report reviewed (Chest x-ray negative for acute disease), image reviewed Disposition Clinical Impression: Chest pain, Abdominal pain Disposition: HOME SELF-CARE Condition: Good Instructions: Abdominal Pain (ED) Referrals: Antoine Small MD [Primary Care Provider] - 1-2 days
[2017-01-07] MEDS ORDERED: KETOROLAC 30 MG/ML 1 ML VIAL IVP STA (16:12)
[2017-01-07] MEDS ORDERED: PANTOPRAZOLE 40 MG/10 ML VIAL IVP STA (16:12)
[2017-01-07 16:58] VITALS: BP 151/67; PULSE 86; RESP 20; TEMP 98.2
== END 2017-01-07 16:58 | disposition home or self-care (01) ==
LOC: EC 15:08
DX: R07.9 Chest pain, unspecified (principal); R10.9 Unspecified abdominal pain; R11.0 Nausea; Z79.899 Other long term (current) drug therapy; Z91.018 Allergy to other foods; Z91.048 Other nonmedicinal substance allergy status
CPT/HCPCS: 36415; 93005; 80053; 82550; 82553; 83735; 84100; 84484; 85025; 85610; 85730; 81001; 71020; 99285; 96374; 96375 ×2; 96372; J0500; J2405; J1885; C9113

== ENCOUNTER 2017-01-15 17:49 | Emergency (ER) | payer OTHER ==
[2017-01-15] MEDS ORDERED: SODIUM CHLORIDE 0.9% 1,000 ML IV STA (18:10)
[2017-01-15] MEDS ORDERED: ONDANSETRON 4 MG/2 ML VIAL IVP PRN (18:23)
[2017-01-15] MEDS ORDERED: MORPHINE SULFATE 4 MG/ML SYRINGE IV PRN (18:23)
[2017-01-15] MEDS ORDERED: NALOXONE 0.4 MG/ML 1 ML VIAL IV PRN (18:23)
[2017-01-15] MEDS ORDERED: SODIUM CHLORIDE 0.9% 1,000 ML IV SCH (18:30)
[2017-01-15 18:49] LABS: Basophils % (A) 0 %; CH 30.1; CHCM 33.9; Eosinophils # (A) 0.2 k/uL (0-0.7); Eosinophils % (A) 1 %; HDW 2.74; HGB 14.9 gm/dL (11.4-16.0); Luc # (Auto) 0.27; Luc % (Auto) 2; Lymphocytes # (A) 2.4 k/uL (1.0-4.8); Lymphocytes % (A) 20 %; MCH 29.5 pg (25.0-35.0); MCHC 33.1 g/dL (31.0-37.0); MCV 89.2 fL (80.0-100.0); Mean Platelet Volume 7.9; Monocytes # (A) 0.5 k/uL (0-1.0); Monocytes % (A) 4 %; Neutrophils # (A) 8.6 k/uL (1.3-7.7); Neutrophils % (A) 72 %; RBC 5.05 m/uL (3.80-5.40); RDW 13.9 % (11.5-15.5); WBC 11.9 k/uL (3.8-10.6); WBC (Perox) 11.07
[2017-01-15 19:00] LABS: Amylase 54 U/L (30-110); Anion Gap 11 mmol/L; Calcium 9.3 mg/dL (8.4-10.2); Carbon Dioxide 23 mmol/L (22-30); Chloride 103 mmol/L (98-107); Non-African American GFR(MDRD) >60 (>60 ml/min/1.73 sqM); Sodium 137 mmol/L (137-145)
[2017-01-15 19:01] LABS: Glucose 114 mg/dL (74-99); Potassium 5.5 mmol/L (3.5-5.1); Total Protein 8.4 g/dL (6.3-8.2)
[2017-01-15 19:02] LABS: ALT 32 U/L (9-52); AST 60 U/L (14-36); Alkaline Phosphatase 75 U/L (38-126); Blood Urea Nitrogen 12 mg/dL (7-17); Magnesium 1.9 mg/dL (1.6-2.3)
[2017-01-15] MEDS ORDERED: ONDANSETRON 4 MG/2 ML VIAL IVP STA (19:08)
[2017-01-15] MEDS ORDERED: DICYCLOMINE 10 MG/ML 2 ML AMP IM STA (19:08)
--- NOTE | 2017-01-15 19:11 | ED ---
Abdominal Pain HPI - General Source: EMS, RN notes reviewed Mode of arrival: EMS Limitations: no limitations <Moni Porter - Last Filed: 01/15/17 20:16> <Remi Devi - Last Filed: 01/15/17 23:14> - General Chief Complaint: Abdominal Pain Stated Complaint: ABD PAIN Time Seen by Provider: 01/15/17 18:09 - History of Present Illness Initial Comments: Patient is a 61-year-old female presents to the emergency room for evaluation of abdominal bloating and cramping. Patient states she has been having abdominal cramping on and off for the past few weeks. Patient states she was seen last week for the same issue. Patient states pain did subside after she was seen last week. Patient states last night she began having abdominal cramping again. Patient states the pain is diffuse. Patient states she hasn't had a bowel movement since yesterday. Patient denies new foods or recent travel outside of the country. Patient denies any known fevers until she arrived to the emergency room today. Patient states she is nauseous and vomited on her way here. Patient denies chest pain or shortness of breath. Patient denies headache or dizziness. Patient denies history of abdominal surgeries. Patient does state she has a history of colitis and this feels similar. (Moni Porter) - Related Data Home Medications Medication Instructions Recorded Confirmed Budesonide [Rhinocort Allergy] 2 spr EA NOSTRIL BID 05/30/16 01/15/17 Previous Rx's Medication Instructions Recorded Metoprolol Tartrate [Lopressor] 50 mg PO BID #60 tab 11/13/16 Dicyclomine [Bentyl] 10 mg PO TID #30 capsule 01/07/17 Naproxen [Naprosyn] 500 mg PO Q12HR PRN #30 tab 01/07/17 Ondansetron [Zofran] 4 mg PO Q8HR PRN #30 tab 01/07/17 Docusate [Colace] 100 mg PO BID #20 capsule 01/15/17 Allergies Allergy/AdvReac Type Severity Reaction Status Date / Time chamomile flower AdvReac Flushing/Flu-like Verified 01/15/17 18:05 Symptoms orange juice [[place]] AdvReac Flushing/Flu-like Verified 01/15/17 18:05 Symptoms red dye AdvReac Flushing/Flu-like Verified 01/15/17 18:05 Symptoms watermelon AdvReac Unknown Verified 01/15/17 18:05 Review of Systems ROS Other: All systems not noted in ROS Statement are negative. <Moni Porter - Last Filed: 01/15/17 20:16> ROS Other: All systems not noted in ROS Statement are negative. <Remi Devi - Last Filed: 01/15/17 23:14> ROS Statement: Those systems with pertinent positive or pertinent negative responses have been documented in the HPI. Past Medical History Past Medical History: Hyperlipidemia Additional Past Medical History / Comment(s): Year round allergies. Bouts of Colitis, last in 2006 History of Any Multi-Drug Resistant Organisms: None Reported Additional Past Surgical History / Comment(s): eye surgery. Strabismus Past Anesthesia/Blood Transfusion Reactions: No Reported Reaction Additional Past Anesthesia/Blood Transfusion Reaction / Comment(s): Last surgery was 4 Past Psychological History: PTSD Smoking Status: Never smoker Past Alcohol Use History: None Reported Past Drug Use History: None Reported - Past Family History Father Family Medical History: Chest Pain / Angina, Hyperlipidemia, Hypertension Mother Family Medical History: Chest Pain / Angina, Hyperlipidemia, Hypertension Brother(s) Family Medical History: Hyperlipidemia, Hypertension <Moni Porter - Last Filed: 01/15/17 20:16> General Exam Limitations: no limitations General appearance: alert, in no apparent distress Head exam: Present: atraumatic, normocephalic, normal inspection Eye exam: Present: normal appearance ENT exam: Present: normal exam Neck exam: Present: normal inspection Respiratory exam: Present: normal lung sounds bilaterally. Absent: respiratory distress Cardiovascular Exam: Present: regular rate, normal rhythm, normal heart sounds GI/Abdominal exam: Present: soft, normal bowel sounds. Absent: distended, tenderness, guarding, rebound, rigid Extremities exam: Present: normal inspection Back exam: Present: normal inspection Neurological exam: Present: alert, oriented X3, CN II-XII intact, normal gait Psychiatric exam: Present: normal affect, normal mood Skin exam: Present: warm, dry, intact, normal color. Absent: rash <Moni Porter - Last Filed: 01/15/17 20:16> <Remi Devi - Last Filed: 01/15/17 23:14> - General Exam Comments Initial Comments: sitting in exam room, no acute distress. (Moni Porter) Medical Decision Making - Lab Data Result diagrams: 01/15/17 18:38 01/15/17 18:38 <Moni Porter - Last Filed: 01/15/17 20:16> - Lab Data Result diagrams: 01/15/17 18:38 01/15/17 18:38 <Remi Devi - Last Filed: 01/15/17 23:14> - Medical Decision Making Patient is a 61-year-old female presents to the emergency room for evaluation of diffuse abdominal cramping. WBC slightly elevated. Abdomen/pelvis CT ordered. Case discussed and passed on at Dr. Devi at 8:20 PM. (Moni Porter) Medical decision-making. The patient's white count 11.9 hemoglobin 14.9 hematocrit of 45. Potassium is 5.5. BUN 12 creatinine 0.6 and GFR greater than 60. Glucose 114. Plasma lactic acid within normal limits 1.4. AST mildly elevated. Amylase lipase within normal limits. Urine shows [address] of the abdomen was done with IV contrast. The report was reviewed by radiologist significant findings include there is some diminished density within the head and of the body of the pancreas diffusely. This may be some fatty infiltration. Early mild pancreatitis could be considered within the differential. Gallbladder gallstone is present. Kidneys appear normal limits. CT pelvis noted is made of scattered diverticuli without acute diverticulitis within the sigmoid colon region. The appendix normal as visualized does appear to be curled within the mid pelvis posterior to the uterus. There is 2.3 cm cyst on the left ovary. Final impression is #1 diverticulosis without acute diverticulitis. #2 at 2.3 cm left ovarian cyst. 3 diffuse diminished density within the pancreas, may be fatty infiltration. Consider possibility of early pancreatitis. As read by Dr. Meyers Reviewed with the patient her findings including the CAT scan etc. patient reports she feels great now. No cramps or pain at this time. Requesting to eat. We did discuss how she can treat her colitis at home. She states she usually does yoga poses as well as flat cesia finesse. The patient will be advised to follow-up with family physician. I examined the patient no pain with deep palpation. No organomegaly. No rebound or referred pain. Dr. Devi ([facility] - Lab Data Lab Results 01/15/17 01/15/17 01/15/17 Range/Units 18:38 18:38 18:38 WBC 11.9 H (3.8-10.6) k/uL RBC 5.05 (3.80-5.40) m/uL Hgb 14.9 (11.4-16.0) gm/dL Hct 45.0 (34.0-46.0) % MCV 89.2 (80.0-100.0) fL MCH 29.5 (25.0-35.0) pg MCHC 33.1 (31.0-37.0) g/dL RDW 13.9 (11.5-15.5) % Plt Count 390 (150-450) k/uL Neutrophils % 72 % Lymphocytes % 20 % Monocytes % 4 % Eosinophils % 1 % Basophils % 0 % Neutrophils # 8.6 H (1.3-7.7) k/uL Lymphocytes # 2.4 (1.0-4.8) k/uL Monocytes # 0.5 (0-1.0) k/uL Eosinophils # 0.2 (0-0.7) k/uL Basophils # 0.0 (0-0.2) k/uL Sodium 137 (137-145) mmol/L Potassium 5.5 H (3.5-5.1) mmol/L Chloride 103 (98-107) mmol/L Carbon Dioxide 23 (22-30) mmol/L Anion Gap 11 mmol/L BUN 12 (7-17) mg/dL Creatinine 0.67 (0.52-1.04) mg/dL Est GFR (MDRD) Af Amer >60 (>60 ml/min/1.73 sqM) Est GFR (MDRD) Non-Af >60 (>60 ml/min/1.73 sqM) Glucose 114 H (74-99) mg/dL Plasma Lactic Acid [place] 1.4 (0.7-2.0) mmol/L Calcium 9.3 (8.4-10.2) mg/dL Magnesium 1.9 (1.6-2.3) mg/dL Total Bilirubin 1.0 (0.2-1.3) mg/dL AST 60 H (14-36) U/L ALT 32 (9-52) U/L Alkaline Phosphatase 75 (38-126) U/L Total Protein 8.4 H (6.3-8.2) g/dL Albumin 4.5 (3.5-5.0) g/dL Amylase 54 (30-110) U/L Lipase 45 (23-300) U/L Urine Color Urine Appearance (Clear) Urine pH (5.0-8.0) Ur Specific [place] (1.001-1.035) Urine Protein (Negative) Urine Glucose (UA) (Negative) Urine Ketones (Negative) Urine Blood (Negative) Urine Nitrite (Negative) Urine Bilirubin (Negative) Urine Urobilinogen (<2.0) mg/dL Ur Leukocyte Esterase (Negative) Urine RBC (0-5) /hpf Urine WBC (0-5) /hpf Ur Squamous Epith Cells (0-4) /hpf Hyaline Casts (0-2) /lpf Urine Mucus (None) /hpf 01/15/17 Range/Units 19:08 WBC (3.8-10.6) k/uL RBC (3.80-5.40) m/uL Hgb (11.4-16.0) gm/dL Hct (34.0-46.0) % MCV (80.0-100.0) fL MCH (25.0-35.0) pg MCHC (31.0-37.0) g/dL RDW (11.5-15.5) % Plt Count (150-450) k/uL Neutrophils % % Lymphocytes % % Monocytes % % Eosinophils % % Basophils % % Neutrophils # (1.3-7.7) k/uL Lymphocytes # (1.0-4.8) k/uL Monocytes # (0-1.0) k/uL Eosinophils # (0-0.7) k/uL Basophils # (0-0.2) k/uL Sodium (137-145) mmol/L Potassium (3.5-5.1) mmol/L Chloride (98-107) mmol/L Carbon Dioxide (22-30) mmol/L Anion Gap mmol/L BUN (7-17) mg/dL Creatinine (0.52-1.04) mg/dL Est GFR (MDRD) Af Amer (>60 ml/min/1.73 sqM) Est GFR (MDRD) Non-Af (>60 ml/min/1.73 sqM) Glucose (74-99) mg/dL Plasma Lactic Acid [place] (0.7-2.0) mmol/L Calcium (8.4-10.2) mg/dL Magnesium (1.6-2.3) mg/dL Total Bilirubin (0.2-1.3) mg/dL AST (14-36) U/L ALT (9-52) U/L Alkaline Phosphatase (38-126) U/L Total Protein (6.3-8.2) g/dL Albumin (3.5-5.0) g/dL Amylase (30-110) U/L Lipase (23-300) U/L Urine Color Yellow Urine Appearance Clear (Clear) Urine pH 6.0 (5.0-8.0) Ur Specific [place] 1.018 (1.001-1.035) Urine Protein 1+ H (Negative) Urine Glucose (UA) Negative (Negative) Urine Ketones Negative (Negative) Urine Blood Small H (Negative) Urine Nitrite Negative (Negative) Urine Bilirubin Negative (Negative) Urine Urobilinogen <2.0 (<2.0) mg/dL Ur Leukocyte Esterase Negative (Negative) Urine RBC 7 H (0-5) /hpf Urine WBC 1 (0-5) /hpf Ur Squamous Epith Cells <1 (0-4) /hpf Hyaline Casts 1 (0-2) /lpf Urine Mucus Few H (None) /hpf Disposition <Moni Porter - Last Filed: 01/15/17 20:16> <Remi Devi - Last Filed: 01/15/17 23:14> Clinical Impression: History of colitis Disposition: HOME SELF-CARE Condition: Stable Instructions: Acute Abdominal Pain (ED), Gas and Bloating (ED), Abdominal Pain (ED) Additional Instructions: Increase fluids, take medications as directed. Follow-up with family physician. Prescriptions: Docusate [Colace] 100 mg PO BID #20 capsule Referrals: Antoine Small MD [Primary Care Provider] - 1-2 days
[2017-01-15 19:17] LABS: Appearance,Urine Clear (Clear); Bilirubin,Urine Negative (Negative); Glucose,Urine (UA) Negative (Negative); Ketones,Urine Negative (Negative); Leukocyte Esterase,Urine Negative (Negative); Mucus,Urine Few /hpf; Nitrite,Urine Negative (Negative); Particle Count 3200; Protein,Urine 1+ (Negative); RBC,Urine 7 /hpf (0-5); Specific Gravity,Urine 1.018 (1.001-1.035); Squamous Epithelial Cell,Urine <1 /hpf (0-4); UA Billing (MACRO vs. MICRO) MICRO; Urobilinogen,Urine <2.0 mg/dL (<2.0); WBC,Urine 1 /hpf (0-5)
--- NOTE | 2017-01-15 19:42 | XR ---
EXAMINATION TYPE: XR KUB DATE OF EXAM: 01/15/2017 COMPARISON: NONE INDICATION: Pain vomiting TECHNIQUE: Single view abdomen upright view FINDINGS: Colonic bowel gas is present. Nonspecific small bowel gas is present. No suspicious air-fluid levels or differential air-fluid levels are present read no free air is present. Psoas margins are normal. No organomegaly is present. No suspicious calcifications. IMPRESSION: 1. Nonspecific abdomen.
[2017-01-15] MEDS ORDERED: RX INFO: IV CONTRAST WAS GIVEN 1 EACH MISC MISCELLANE PRN (20:13)
[2017-01-15] MEDS ORDERED: FAMOTIDINE 20 MG/2 ML VIAL IV STA (21:12)
[2017-01-15] MEDS ORDERED: methylPREDNISolone SOD SUCCI 125 MG/2 ML VIAL IV STA (21:12)
[2017-01-15] MEDS ORDERED: diphenhydrAMINE 50 MG/ML 1 ML VIAL IVP STA (21:12)
--- NOTE | 2017-01-15 22:09 | CT ---
EXAMINATION TYPE: CT abdomen pelvis w con DATE OF EXAM: 01/15/2017 COMPARISON: NONE INDICATION: Patient complains of abdominal cramping, nausea, vomiting, and constipation. DLP: 914.1 mGycm, Automated exposure control for dose reduction was used. CONTRAST: 100 mL of Omnipaque 300. Study performed without Oral Contrast TECHNIQUE: Axial images were obtained from above the diaphragm to the pubic rami in the axial plane a t 5 mm thick sections. Reconstructed images are reviewed on the computer in the coronal plane. FINDINGS: Limited CT sections are obtained the lung bases. The lung bases are clear. Hiatal hernia is present . CT ABDOMEN: Liver: Normal Spleen: Normal Pancreas: There is some diminished density within the head and body of the pancreas diffusely. This m ay be some fatty infiltration. Early mild pancreatitis could be considered within the differential. Adrenal glands: The adrenal glands are normal. Gallbladder: Gallstone is present. Kidneys: No masses are evident. No hydronephrosis is present. No cysts are present. Delayed images were obtained through the kidneys, which remain unremarkable. Aorta: Vascular calcification is within the aorta. Inferior vena cava: Normal. CT PELVIS: Loops of bowel within the abdomen and pelvis are normal. Study is performed without oral contrast limiting the evaluation. Note is made of scattered diverticuli without acute diverticulitis within t he sigmoid colon region. Additional diverticuli are through the descending colon region and to a less er degree within the ascending colon. No diverticulitis is evident. Appendix: Normal as visualized. This appears to be curled within the mid pelvis posterior to the uter us. Urinary bladder: Normal. Genitourinary structures: There is a 2.3 cm cyst on the left ovary. Uterus appears unremarkable. Righ t adnexal region is unremarkable. No free fluid is within the pelvis. Osseous structures: No suspicious lytic or sclerotic lesions. Sacroiliac joint and facet degenerative changes are noted. IMPRESSIONS: 1. Diverticulosis without acute diverticulitis. 2. 2.3 cm left ovarian cyst. 3. Diffuse diminished density within the pancreas, this may be fatty infiltration. Consider the possi bility of early pancreatitis.
[2017-01-15 22:13] VITALS: BP 140/65; PULSE 77; RESP 12; TEMP 99
[2017-01-15] MEDS ORDERED: DOCUSATE 100 MG CAP PO STA (23:14)
== END 2017-01-15 23:29 | disposition home or self-care (01) ==
LOC: EC 17:49
DX: R14.0 Abdominal distension (gaseous) (principal); R11.2 Nausea with vomiting, unspecified; K57.30 Diverticulosis of large intestine without perforation or abscess without bleeding; N83.202 Unspecified ovarian cyst, left side; K80.20 Calculus of gallbladder without cholecystitis without obstruction; Z87.19 Personal history of other diseases of the digestive system; Z91.018 Allergy to other foods; Z91.041 Radiographic dye allergy status; Z91.09 Other allergy status, other than to drugs and biological substances; Z79.899 Other long term (current) drug therapy
CPT/HCPCS: 99285; 96374; 96375 ×3; 96361; 96372; 36415; 80053; 82150; 83605; 83690; 83735; 85025; 81001; 74000; 74177; J1200; J0500; J2930; J2405; Q9967

== ENCOUNTER → 2017-04-14 | Outpatient (CLI) | payer OTHER ==
[2017-04-14 14:40] LABS: CH 29.6; CHCM 33.8; HCT 42.3 % (34.0-46.0); HDW 2.21; HGB 13.9 gm/dL (11.4-16.0); MCH 28.9 pg (25.0-35.0); MCHC 32.8 g/dL (31.0-37.0); Mean Platelet Volume 6.7; RBC 4.81 m/uL (3.80-5.40); RDW 12.5 % (11.5-15.5); WBC 8.5 k/uL (3.8-10.6)
[2017-04-14 14:41] LABS: Appearance,Urine Clear (Clear); Bilirubin,Urine Negative (Negative); Glucose,Urine (UA) Negative (Negative); Ketones,Urine Negative (Negative); Leukocyte Esterase,Urine Negative (Negative); Nitrite,Urine Negative (Negative); Protein,Urine Negative (Negative); Specific Gravity,Urine 1.003 (1.001-1.035); UA Billing (MACRO vs. MICRO) CHEM; Urobilinogen,Urine <2.0 mg/dL (<2.0)
[2017-04-14 14:47] LABS: ALT 37 U/L (9-52); AST 26 U/L (14-36); Alkaline Phosphatase 70 U/L (38-126); Anion Gap 9 mmol/L; Blood Urea Nitrogen 13 mg/dL (7-17); Calcium 9.6 mg/dL (8.4-10.2); Carbon Dioxide 23 mmol/L (22-30); Chloride 102 mmol/L (98-107); Cholesterol 304 mg/dL (<200); Glucose 101 mg/dL (74-99); HDL Cholesterol 44 mg/dL (40-60); Non-African American GFR(MDRD) >60 (>60 ml/min/1.73 sqM); Potassium 4.7 mmol/L (3.5-5.1); Sodium 134 mmol/L (137-145); Total Bilirubin 0.5 mg/dL (0.2-1.3); Total Protein 7.6 g/dL (6.3-8.2)
== END | disposition home or self-care (01) ==
LOC: LABWHC1 13:45
PROVIDERS: ATTEND Nurse Practitioner Family
DX: Z00.00 Encounter for general adult medical examination without abnormal findings (principal)
CPT/HCPCS: 36415; 80053; 80061; 81003; 83090; 83525; 85027; 86141

== ENCOUNTER → 2017-04-15 | Outpatient (CLI) | payer OTHER ==
--- NOTE | 2017-04-15 18:08 | US ---
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 follow up exam GLAND SIZE: Right Lobe: 4.1 x 1.2 x 1.4 cm Overall Parenchyma: heterogenous Left Lobe: 4.3 x 1.5 x 1.4 cm Overall Parenchyma: heterogeneous Isthmus Thickness: 0.2 cm NODULES RIGHT: # of nodules measured on right: 2 1. 0.3 X 0.3 x 0.2 cm cystic nodule at the lower pole with well-defined margins. This nodule is wi jayce than tall and shows no intranodular vascularity. Prior size: 0.4 x 0.3cm 2. 1.3 X 0.9 x 0.5 cm mixed nodule at the upper pole with well-defined margins. This nodule is wide r than tall and shows intranodular vascularity. Prior size: 1.1 x 0.5cm, previously labeled right isthmus nodule LEFT: # of nodules measured on left: 1 1. 1.7 X 1.2 x 0.7 cm isoechoic solid nodule at the mid pole with well-defined margins. This nodule is wider than tall and shows intranodular vascularity. Prior size: 1.6 x 0.8cm ISTHMUS: # of nodules measured in the isthmus: 0 Bilateral neck scanned, no evidence of lymphadenopathy. IMPRESSION: Multiple thyroid abnormalities appear not significantly different than last exam and are consistent w ith benign disease. No dominant thyroid mass.
== END ==
LOC: RADUSMAIN 16:57
PROVIDERS: ATTEND Family Medicine
DX: E04.2 Nontoxic multinodular goiter (principal)
CPT/HCPCS: 76536

== ENCOUNTER → 2017-10-25 | Outpatient (CLI) | payer OTHER ==
[2017-10-25 12:46] LABS: Basophils # (A) 0.1 k/uL (0-0.2); Basophils % (A) 1 %; Eosinophils # (A) 0.2 k/uL (0-0.7); Eosinophils % (A) 3 %; HCT 42.9 % (34.0-46.0); HGB 14.1 gm/dL (11.4-16.0); Lymphocytes % (A) 42 %; MCH 29.2 pg (25.0-35.0); MCHC 32.9 g/dL (31.0-37.0); MCV 88.6 fL (80.0-100.0); Mean Platelet Volume 6.9; Monocytes # (A) 0.3 k/uL (0-1.0); Monocytes % (A) 4 %; Neutrophils # (A) 3.3 k/uL (1.3-7.7); Neutrophils % (A) 46 %; Platelet Count 329 k/uL (150-450); RBC 4.84 m/uL (3.80-5.40); RDW 12.7 % (11.5-15.5); WBC 7.1 k/uL (3.8-10.6)
[2017-10-25 14:36] LABS: ALT 43 U/L (9-52); AST 31 U/L (14-36); Alkaline Phosphatase 67 U/L (38-126); Anion Gap 11 mmol/L; Blood Urea Nitrogen 13 mg/dL (7-17); Calcium 9.5 mg/dL (8.4-10.2); Carbon Dioxide 24 mmol/L (22-30); Chloride 106 mmol/L (98-107); Cholesterol 241 mg/dL (<200); Glucose 99 mg/dL (74-99); HDL Cholesterol 37 mg/dL (40-60); LDL Cholesterol,Calculated 147 mg/dL (0-99); Potassium 4.4 mmol/L (3.5-5.1); Sodium 141 mmol/L (137-145); Total Bilirubin 0.5 mg/dL (0.2-1.3); Triglycerides 286 mg/dL (<150)
[2017-10-25 14:51] LABS: T4, Free (Free Thyroxine) 0.95 ng/dL (0.78-2.19)
[2017-10-25 22:22] LABS: Hemoglobin A1C 6.2 % (4.0-6.0)
== END | disposition home or self-care (01) ==
LOC: LABWHC1 12:18
PROVIDERS: ATTEND Family Medicine
DX: E78.2 Mixed hyperlipidemia (principal); E03.9 Hypothyroidism, unspecified; R63.5 Abnormal weight gain; R79.82 Elevated C-reactive protein (CRP)
CPT/HCPCS: 36415; 80053; 80061; 83036; 84439; 84443; 84481; 85025

== ENCOUNTER → 2018-04-26 | Outpatient (CLI) | payer OTHER ==
[2018-04-26 14:32] LABS: Basophils # (A) 0.1 k/uL (0-0.2); Basophils % (A) 1 %; Eosinophils # (A) 0.3 k/uL (0-0.7); Eosinophils % (A) 4 %; HCT 39.8 % (34.0-46.0); HGB 12.9 gm/dL (11.4-16.0); Lymphocytes # (A) 2.6 k/uL (1.0-4.8); Lymphocytes % (A) 39 %; MCH 27.7 pg (25.0-35.0); MCHC 32.4 g/dL (31.0-37.0); MCV 85.5 fL (80.0-100.0); Mean Platelet Volume 6.8; Monocytes # (A) 0.3 k/uL (0-1.0); Monocytes % (A) 5 %; Neutrophils # (A) 3.1 k/uL (1.3-7.7); Neutrophils % (A) 47 %; Platelet Count 317 k/uL (150-450); RBC 4.65 m/uL (3.80-5.40); WBC 6.6 k/uL (3.8-10.6)
== END | disposition home or self-care (01) ==
LOC: LABWHC1 13:43
PROVIDERS: ATTEND Physician Assistant
DX: D64.9 Anemia, unspecified (principal)
CPT/HCPCS: 36415; 85025

== ENCOUNTER → 2018-05-15 | Outpatient (CLI) | payer OTHER ==
--- NOTE | 2018-05-15 16:16 | US ---
EXAMINATION TYPE: US thyroid st tissue head/neck DATE OF EXAM: 05/15/2018 COMPARISON: 04/15/2017 CLINICAL HISTORY: 62-year-old female E04.1 THYROID NODULES. f/u exam TECHNIQUE: Multiple sonographic images of the thyroid gland are obtained. FINDINGS: GLAND SIZE: Right Lobe: 4.0 x 1.3 x 1.6 cm Overall Parenchyma: heterogenous Left Lobe: 4.6 x 1.5 x 1.5 cm Overall Parenchyma: heterogeneous Isthmus Thickness: 0.2 cm NODULES RIGHT: # of nodules measured on right: 1 1. 1.3 X 1.2 x 0.5 cm complex cystic nodule at the mid pole with well-defined margins. This nodule is wider than tall and shows no intranodular vascularity. Prior size: 1.3 x 0.9 x 0.5 cm LEFT: # of nodules measured on left: 1 1. 1.0 X 0.8 x 0.7 cm isoechoic solid nodule at the mid pole with poorly defined margins. This nod ule is wider than tall and shows no intranodular vascularity. Prior size: 1.7 x 1.2 x 0.7 cm ISTHMUS: # of nodules measured in the isthmus: 0 0 Bilateral neck scanned, no evidence of lymphadenopathy. IMPRESSION: 1. The dominant 1.3 cm complex cystic nodule in the right lobe has enlarged by 3 mm in one dimension as compared to 04/15/2017. Given its complex nature, consider additional surveillance. 2. A solid isoechoic nodule in the left lobe has decreased in size now measuring 10 x 8 mm versus 17 x 12 mm, previously.
== END | disposition home or self-care (01) ==
LOC: RADUSWWP 14:13
PROVIDERS: ATTEND Family Medicine
DX: E04.2 Nontoxic multinodular goiter (principal)
CPT/HCPCS: 76536

== ENCOUNTER → 2018-06-28 | Outpatient (CLI) | payer MEDICARE, OTHER ==
[2018-06-28 16:29] LABS: Basophils # (A) 0.1 k/uL (0-0.2); Basophils % (A) 1 %; Eosinophils # (A) 0.2 k/uL (0-0.7); Eosinophils % (A) 3 %; HCT 43.7 % (34.0-46.0); HGB 13.9 gm/dL (11.4-16.0); Lymphocytes # (A) 2.7 k/uL (1.0-4.8); Lymphocytes % (A) 36 %; MCH 28.3 pg (25.0-35.0); MCHC 31.7 g/dL (31.0-37.0); MCV 89.2 fL (80.0-100.0); Mean Platelet Volume 6.9; Monocytes # (A) 0.4 k/uL (0-1.0); Monocytes % (A) 5 %; Neutrophils # (A) 3.9 k/uL (1.3-7.7); Neutrophils % (A) 52 %; Platelet Count 365 k/uL (150-450); RDW 13.5 % (11.5-15.5); WBC 7.6 k/uL (3.8-10.6)
[2018-06-28 23:21] LABS: Albumin 4.5 g/dL (3.80-4.90); Albumin/Globulin Ratio 1.8 (1.20-2.10); Anion Gap 11.2 mmol/L (4.00-12.00); Calcium 9.4 mg/dL (8.7-10.3); Carbon Dioxide 23.8 mmol/L (21.6-31.8); Globulin 2.5 g/dL (1.6-3.3); Potassium 4.6 mmol/L (3.5-5.5); Total Bilirubin 0.4 mg/dL (0.2-1.2)
[2018-06-28 23:29] LABS: T4, Free (Free Thyroxine) 1.2 ng/dL (0.80-1.80)
== END | disposition home or self-care (01) ==
LOC: LABWHC1 15:58
PROVIDERS: ATTEND Physician Assistant
DX: Z00.00 Encounter for general adult medical examination without abnormal findings (principal); E78.2 Mixed hyperlipidemia; E03.9 Hypothyroidism, unspecified
CPT/HCPCS: 36415; 80053; 82306; 83704; 84439; 84443; 84481; 85025

== ENCOUNTER → 2019-07-18 | Outpatient (CLI) | payer MEDICARE, OTHER ==
[2019-07-18 13:49] LABS: Basophils # (A) 0.1 k/uL (0-0.2); Basophils % (A) 1 %; Eosinophils # (A) 0.2 k/uL (0-0.7); Eosinophils % (A) 2 %; HCT 42.9 % (34.0-46.0); HGB 14.1 gm/dL (11.4-16.0); Lymphocytes # (A) 2.9 k/uL (1.0-4.8); Lymphocytes % (A) 33 %; MCH 28.9 pg (25.0-35.0); MCHC 32.8 g/dL (31.0-37.0); MCV 88.1 fL (80.0-100.0); Mean Platelet Volume 7.4; Monocytes # (A) 0.5 k/uL (0-1.0); Monocytes % (A) 5 %; Neutrophils # (A) 4.9 k/uL (1.3-7.7); Neutrophils % (A) 56 %; Platelet Count 392 k/uL (150-450); RBC 4.87 m/uL (3.80-5.40); RDW 12.5 % (11.5-15.5); WBC 8.8 k/uL (3.8-10.6)
[2019-07-18 19:15] LABS: % Iron Saturation 27.81 (12.00-45.00); Albumin 4.4 g/dL (3.80-4.90); Anion Gap 11.8 mmol/L (4.00-12.00); Carbon Dioxide 21.2 mmol/L (21.6-31.8); Chol/HDL Ratio 6.68; Globulin 2.2 g/dL (1.6-3.3); LDL Cholesterol,Calculated 242.2 mg/dL (0.0-131.0); Non-African American GFR(CKD) 76.8 (60.0-200.0); Potassium 4.3 mmol/L (3.5-5.5); Total Bilirubin 0.6 mg/dL (0.3-1.2); Total Protein 6.6 g/dL (6.2-8.2); VLDL Calculation 41.8 mg/dL (5.00-40.00)
[2019-07-18 19:23] LABS: Ferritin 80.2 ng/mL (10.0-291.0)
[2019-07-18 20:50] LABS: Folate, Serum 17.7 ng/mL; T4, Free (Free Thyroxine) 0.9 ng/dL (0.80-1.80)
[2019-07-18 21:47] LABS: Hemoglobin A1C 6.1 % (4.0-6.0)
== END | disposition home or self-care (01) ==
LOC: LABWHC1 12:02
PROVIDERS: ATTEND Physician Assistant
DX: I10 Essential (primary) hypertension (principal); E03.9 Hypothyroidism, unspecified; K57.92 Diverticulitis of intestine, part unspecified, without perforation or abscess without bleeding; R73.9 Hyperglycemia, unspecified; F32.9 Major depressive disorder, single episode, unspecified; Z82.49 Family history of ischemic heart disease and other diseases of the circulatory system
CPT/HCPCS: 36415; 80053; 80061; 82607; 82728; 82746; 83036; 83090; 83540; 83550; 83735; 84439; 84443; 84481; 85025

== ENCOUNTER → 2020-04-23 | Outpatient (CLI) | payer MEDICARE, OTHER ==
[2020-04-23 16:51] LABS: Basophils # (A) 0.1 k/uL (0-0.2); Basophils % (A) 1 %; Eosinophils # (A) 0.3 k/uL (0-0.7); Eosinophils % (A) 4 %; HCT 42.1 % (34.0-46.0); HGB 13.8 gm/dL (11.4-16.0); Lymphocytes % (A) 44 %; MCH 29.6 pg (25.0-35.0); MCHC 32.7 g/dL (31.0-37.0); MCV 90.6 fL (80.0-100.0); Mean Platelet Volume 7.8; Monocytes # (A) 0.4 k/uL (0-1.0); Monocytes % (A) 6 %; Neutrophils # (A) 2.9 k/uL (1.3-7.7); Neutrophils % (A) 43 %; Platelet Count 351 k/uL (150-450); RBC 4.64 m/uL (3.80-5.40); RDW 12.5 % (11.5-15.5); WBC 6.7 k/uL (3.8-10.6)
[2020-04-24 00:13] LABS: % Iron Saturation 27.36 (12.00-45.00); African American GFR (CKD) 104.6 (60.0-200.0); Albumin 4.1 g/dL (3.80-4.90); Albumin/Globulin Ratio 1.52 (1.60-3.17); Anion Gap 9.8 mmol/L (4.00-12.00); BUN/Creat Ratio 21.43 Ratio (12.00-20.00); Calcium 9.4 mg/dL (8.7-10.3); Carbon Dioxide 20.2 mmol/L (21.6-31.8); Chol/HDL Ratio 6.38; Globulin 2.7 g/dL (1.6-3.3); LDL Cholesterol,Calculated 196.6 mg/dL (0.0-131.0); Magnesium 1.9 mg/dL (1.5-2.4); Non-African American GFR(CKD) 90.3 (60.0-200.0); Potassium 4.4 mmol/L (3.5-5.5); Total Bilirubin 0.5 mg/dL (0.2-1.2); Total Protein 6.8 g/dL (6.2-8.2); VLDL Calculation 45.4 mg/dL (5.00-40.00)
[2020-04-24 00:29] LABS: T4, Free (Free Thyroxine) 0.8 ng/dL (0.80-1.80)
[2020-04-24 01:22] LABS: Ferritin 72.2 ng/mL (10.0-291.0)
[2020-04-24 01:24] LABS: Hemoglobin A1C 6.4 % (4.0-6.0)
[2020-04-24 02:19] LABS: Folate, Serum 12.2 ng/mL
== END | disposition home or self-care (01) ==
LOC: LABWHC1 15:31
PROVIDERS: ATTEND Physician Assistant
DX: I10 Essential (primary) hypertension (principal); E03.9 Hypothyroidism, unspecified; F32.9 Major depressive disorder, single episode, unspecified; K57.92 Diverticulitis of intestine, part unspecified, without perforation or abscess without bleeding; R73.9 Hyperglycemia, unspecified; Z82.49 Family history of ischemic heart disease and other diseases of the circulatory system; E55.9 Vitamin D deficiency, unspecified; R53.83 Other fatigue; E61.1 Iron deficiency; E72.11 Homocystinuria
CPT/HCPCS: 36415; 80053; 80061; 82306; 82607; 82728; 82746; 83036; 83090; 83540; 83550; 83735; 84439; 84443; 84481; 85025

== ENCOUNTER 2021-01-30 19:11 | Emergency (ER) | payer MEDICARE, OTHER ==
[2021-01-30 20:57] VITALS: TEMP 98.2
--- NOTE | 2021-01-30 22:02 | ED ---
Fall HPI - General Chief Complaint: Fall Stated Complaint: Fall-Rib injury Time Seen by Provider: 01/30/21 21:49 Source: patient, RN notes reviewed, old records reviewed Mode of arrival: ambulatory Limitations: no limitations - History of Present Illness Initial Comments: This is a 65-year-old female to the emergency department stay. Patient Dese for evaluation regards to fall fall week ago with left-sided rib pain. Difficulty. Integument which are reviewed (. Patient denies abdominal pain no blood in her stool no blood in her urine. No significant shortness of breath but occasionally some pain when she takes a deep breath. 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 Witnessed: no Place Fall Occurred: home Loss of Consciousness: none Prolonged Down Time?: no Symptoms Prior to Fall: none Location: head Location - Extremities: Right: Forearm (Bee sting) Severity: moderate Severity scale (1-10): 4 Quality: sharp Context: tripped/slipped Associated Symptoms: denies - Related Data Home Medications Medication Instructions Recorded Confirmed Budesonide [Rhinocort Allergy] 2 spr EA NOSTRIL BID 05/30/16 01/15/17 Previous Rx's Medication Instructions Recorded Metoprolol Tartrate [Lopressor] 50 mg PO BID #60 tab 11/13/16 Dicyclomine [Bentyl] 10 mg PO TID #30 capsule 01/07/17 Naproxen [Naprosyn] 500 mg PO Q12HR PRN #30 tab 01/07/17 Ondansetron [Zofran] 4 mg PO Q8HR PRN #30 tab 01/07/17 Docusate [Colace] 100 mg PO BID #20 capsule 01/15/17 Allergies Allergy/AdvReac Type Severity Reaction Status Date / Time chamomile flower AdvReac Flushing/Flu-like Verified 01/30/21 20:57 Symptoms orange juice [[place]] AdvReac Flushing/Flu-like Verified 01/30/21 20:57 Symptoms red dye AdvReac Flushing/Flu-like Verified 01/30/21 20:57 Symptoms watermelon AdvReac Unknown Verified 01/30/21 20:57 Review of Systems ROS Statement: Those systems with pertinent positive or pertinent negative responses have been documented in the HPI. ROS Other: All systems not noted in ROS Statement are negative. Past Medical History Past Medical History: Hyperlipidemia Additional Past Medical History / Comment(s): Year round allergies. Bouts of Colitis, last in 2006 History of Any Multi-Drug Resistant Organisms: None Reported Additional Past Surgical History / Comment(s): eye surgery. Strabismus Past Anesthesia/Blood Transfusion Reactions: No Reported Reaction Additional Past Anesthesia/Blood Transfusion Reaction / Comment(s): Last surgery was 4 Past Psychological History: PTSD Smoking Status: Never smoker Past Alcohol Use History: None Reported Past Drug Use History: None Reported - Past Family History Father Family Medical History: Chest Pain / Angina, Hyperlipidemia, Hypertension Mother Family Medical History: Chest Pain / Angina, Hyperlipidemia, Hypertension Brother(s) Family Medical History: Hyperlipidemia, Hypertension General Exam - General Exam Comments Initial Comments: Patient does have bee sting to right upper extremity General appearance: alert, in no apparent distress, anxious Head exam: Present: atraumatic, normocephalic, normal inspection Eye exam: Present: normal appearance, PERRL, EOMI. Absent: scleral icterus, conjunctival injection, periorbital swelling ENT exam: Present: normal exam, mucous membranes moist Neck exam: Present: normal inspection. Absent: tenderness, meningismus, lymphadenopathy Respiratory exam: Present: normal lung sounds bilaterally. Absent: respiratory distress, wheezes, rales, rhonchi, stridor Cardiovascular Exam: Present: regular rate, normal rhythm, normal heart sounds. Absent: systolic murmur, diastolic murmur, rubs, gallop, clicks GI/Abdominal exam: Present: soft, normal bowel sounds. Absent: distended, tenderness, guarding, rebound, rigid Extremities exam: Present: normal inspection, full ROM, normal capillary refill. Absent: tenderness, pedal edema, joint swelling, calf tenderness Back exam: Present: normal inspection Neurological exam: Present: alert, oriented X3, CN II-XII intact Psychiatric exam: Present: normal affect, normal mood Skin exam: Present: warm, dry, intact, normal color. Absent: rash Course Vital Signs 01/30/21 01/31/21 20:54 00:23 Temperature 98.2 F Pulse Rate 82 77 Respiratory 18 16 Rate Blood Pressure 132/72 131/64 O2 Sat by Pulse 98 97 Oximetry - Reevaluation(s) Reevaluation #1: 01/31/21 Medical record is reviewed Symptoms are significantly improved Patient has been informed results and questions are answered Patient is in no distress Medical Decision Making - Medical Decision Making 65 female status post fall fall with left-sided rib pain rib injury contusion with no fracture, x-rays negative. Urinalysis is negative for blood and patient can be discharged home - Lab Data Lab Results 01/30/21 Range/Units 23:29 Urine Color Yellow Urine Appearance Cloudy H (Clear) Urine pH 5.5 (5.0-8.0) Ur Specific [place] 1.030 (1.001-1.035) Urine Protein Trace H (Negative) Urine Glucose (UA) Negative (Negative) Urine Ketones Negative (Negative) Urine Blood Small H (Negative) Urine Nitrite Negative (Negative) Urine Bilirubin Negative (Negative) Urine Urobilinogen <2.0 (<2.0) mg/dL Ur Leukocyte Esterase Negative (Negative) Urine RBC 18 H (0-5) /hpf Urine WBC 6 H (0-5) /hpf Ur Squamous Epith Cells 1 (0-4) /hpf Urine Bacteria Rare H (None) /hpf Hyaline Casts 1 (0-2) /lpf Urine Mucus Moderate H (None) /hpf - Radiology Data Radiology results: report reviewed (Chest and rib studies are negative for traumatic injury), image reviewed Disposition Clinical Impression: Fall, Chest pain, Contusion of rib on left side, Insect bite Disposition: HOME SELF-CARE Condition: Good Instructions (If sedation given, give patient instructions): Fall Prevention for Older Adults (ED), Rib Contusion (ED) Is patient prescribed a controlled substance at d/c from ED?: No Referrals: Angie Buchanan PAC [Primary Care Provider] - 1-2 days
--- NOTE | 2021-01-30 22:50 | XR ---
EXAMINATION TYPE: XR ribs LT w pa chest xray DATE OF EXAM: 01/30/2021 COMPARISON: 01/07/2017 HISTORY: Pain TECHNIQUE: 5 views FINDINGS: Heart and mediastinum appear normal. There is hiatal hernia. Lungs are clear of infiltrate. There is no pleural effusion or pneumothorax. I see no rib fracture. IMPRESSION: No rib fracture seen. No active cardiopulmonary disease.
[2021-01-30] MEDS ORDERED: IBUPROFEN 800 MG TAB PO STA (23:07)
[2021-01-30] MEDS ORDERED: ACET/COD 300 MG/30 MG STARTER PACK 6 TAB BTL PO STA (23:07)
[2021-01-30] MEDS ORDERED: TRIAMCINOLONE 0.1% CREAM 80 GM TUBE TOPICAL STA (23:07)
[2021-01-30] MEDS ORDERED: CEPHALEXIN 500MG STARTER PACK 4 CAP BTL PO STA (23:07)
[2021-01-30] MEDS ORDERED: IBUPROFEN 600 MG STARTER PACK 4 TAB BTL PO STA (23:07)
[2021-01-30] MEDS ORDERED: Acetaminophen-Codeine 300-30mg TAB PO STA (23:07)
[2021-01-30] MEDS ORDERED: CEPHALEXIN 500 MG CAP PO STA (23:07)
[2021-01-30 23:53] LABS: Appearance,Urine Cloudy (Clear); Bacteria,Urine Rare /hpf; Bilirubin,Urine Negative (Negative); Blood,Urine Small (Negative); Color,Urine Yellow; Glucose,Urine (UA) Negative (Negative); Hyaline Casts,Urine 1 /lpf (0-2); Ketones,Urine Negative (Negative); Leukocyte Esterase,Urine Negative (Negative); Mucus,Urine Moderate /hpf; Nitrite,Urine Negative (Negative); PH, Urine 5.5 (5.0-8.0); Protein,Urine Trace (Negative); RBC,Urine 18 /hpf (0-5); Squamous Epithelial Cell,Urine 1 /hpf (0-4); Urobilinogen,Urine <2.0 mg/dL (<2.0); WBC,Urine 6 /hpf (0-5)
[2021-01-31 00:25] VITALS: BP 131/64; PULSE 77; RESP 16
== END 2021-01-31 00:25 | disposition home or self-care (01) ==
LOC: EC 19:11
DX: S20.212A Contusion of left front wall of thorax, initial encounter (principal); T63.441A Toxic effect of venom of bees, accidental (unintentional), initial encounter; Z91.018 Allergy to other foods; Z91.041 Radiographic dye allergy status; W01.0XXA Fall on same level from slipping, tripping and stumbling without subsequent striking against object, initial encounter; Y92.009 Unspecified place in unspecified non-institutional (private) residence as the place of occurrence of the external cause
CPT/HCPCS: 81001; 99284

== ENCOUNTER → 2021-03-30 | Outpatient (CLI) | payer MEDICARE ==
[2021-03-30 23:24] LABS: Basophils # (A) 0.05 X 10*3/uL (0.00-0.10); Basophils % (A) 0.7 %; Eosinophils # (A) 0.34 X 10*3/uL (0.04-0.35); Eosinophils % (A) 4.6 %; HCT 44.6 % (37.2-46.3); HGB 14.4 g/dL (12.0-15.0); Lymphocytes # (A) 2.95 X 10*3/uL (0.90-5.00); Lymphocytes % (A) 40.1 %; MCH 30.1 pg (27.0-32.0); MCHC 32.3 g/dL (32.0-37.0); MCV 93.1 fL (80.0-97.0); Mean Platelet Volume 10.1 fL (9.5-12.2); Monocytes # (A) 0.54 X 10*3/uL (0.20-1.00); Monocytes % (A) 7.3 %; Neutrophils # (A) 3.46 X 10*3/uL (1.80-7.70); Neutrophils % (A) 47.2 %; Platelet Count 347 X 10*3/uL (140-440); RBC 4.79 X 10*6/uL (4.10-5.20); RDW 12.7 % (11.5-14.5); WBC 7.35 X 10*3/uL (4.50-10.00)
[2021-03-31 01:19] LABS: African American GFR (CKD) 96.8 (60.0-200.0); Albumin 4.3 g/dL (3.8-4.9); Albumin/Globulin Ratio 1.44 (1.60-3.17); Anion Gap 14.8 mmol/L (4.00-12.00); BUN/Creat Ratio 13.75 Ratio (12.00-20.00); Blood Urea Nitrogen 10.2 mg/dL (9.0-27.0); C Reactive Protein, High Sens 3.47 mg/L (0.000-3.000); Calcium 9.9 mg/dL (8.7-10.3); Carbon Dioxide 19.7 mmol/L (21.6-31.8); Chol/HDL Ratio 3.93 Ratio; HDL Cholesterol 48.6 mg/dL (40.00-60.00); Non-African American GFR(CKD) 83.6 (60.0-200.0); Potassium 4.2 mmol/L (3.5-5.5); T4, Free (Free Thyroxine) 0.99 ng/dL (0.800-1.800); Total Bilirubin 0.3 mg/dL (0.30-1.20); Total Protein 7.4 g/dL (6.2-8.2); VLDL Calculation 30.4 mg/dL (5.00-40.00)
== END | disposition home or self-care (01) ==
LOC: LABWHC1 15:29
PROVIDERS: ATTEND Physician Assistant
DX: Z00.00 Encounter for general adult medical examination without abnormal findings (principal); Z20.822 Contact with and (suspected) exposure to COVID-19; E03.9 Hypothyroidism, unspecified; E55.9 Vitamin D deficiency, unspecified
CPT/HCPCS: 36415; 80053; 80061; 82306; 83036; 84439; 84443; 84481; 85025; 86141; 86769

== ENCOUNTER 2023-01-05 10:46 | Emergency (ER) | payer MEDICARE ==
[2023-01-05 10:57] VITALS: RESP 18
[2023-01-05] MEDS ORDERED: hydrOXYzine HCL 25 MG TAB PO STA (11:36)
[2023-01-05] MEDS ORDERED: dexAMETHasone 2 MG TAB PO STA (11:43)
[2023-01-05] MEDS ORDERED: HYDROCORTISONE 1% CREAM 30 GM TUBE TOPICAL STA (11:43)
--- NOTE | 2023-01-05 11:51 | ED ---
General Adult HPI - General Chief complaint: Skin/Abscess/Foreign Body Stated complaint: rash, pruritus Time Seen by Provider: 01/05/23 11:01 Source: patient, RN notes reviewed Mode of arrival: ambulatory Limitations: no limitations - History of Present Illness Initial comments: 67-year-old female presents to the emergency department with chief complaint of bug bites on her legs and arms. She reports that she was working in the yard all weekend and noticed bug bites on her legs and arms last night. She reports that she was scratching them and has excoriations to most of the bug bites. She states that she has taken oral steroids in the past when she has gotten bug bites. She reports that she has applied Benadryl cream and taken Benadryl yeste rday with no relief. Denies fever, chills, drainage from areas. - Related Data Home Medications Medication Instructions Recorded Confirmed Budesonide [Rhinocort Allergy] 2 spr EA NOSTRIL BID 05/30/16 01/15/17 Previous Rx's Medication Instructions Recorded Metoprolol Tartrate [Lopressor] 50 mg PO BID #60 tab 11/13/16 Dicyclomine [Bentyl] 10 mg PO TID #30 capsule 01/07/17 Naproxen [Naprosyn] 500 mg PO Q12HR PRN #30 tab 01/07/17 Ondansetron [Zofran] 4 mg PO Q8HR PRN #30 tab 01/07/17 Docusate [Colace] 100 mg PO BID #20 capsule 01/15/17 Allergies Allergy/AdvReac Type Severity Reaction Status Date / Time ragweed pollen Allergy Rash/Hives Verified 01/05/23 10:58 chamomile flower AdvReac Flushing/Flu-like Verified 01/05/23 10:58 Symptoms orange juice [[place]] AdvReac Flushing/Flu-like Verified 01/05/23 10:58 Symptoms red dye AdvReac Flushing/Flu-like Verified 01/05/23 10:58 Symptoms watermelon AdvReac Unknown Verified 01/05/23 10:58 Review of Systems ROS Statement: Those systems with pertinent positive or pertinent negative responses have been documented in the HPI. ROS Other: All systems not noted in ROS Statement are negative. Past Medical History Past Medical History: Hyperlipidemia Additional Past Medical History / Comment(s): Year round allergies. Bouts of Colitis, last in 2006 History of Any Multi-Drug Resistant Organisms: None Reported Additional Past Surgical History / Comment(s): eye surgery. Strabismus Past Anesthesia/Blood Transfusion Reactions: No Reported Reaction Additional Past Anesthesia/Blood Transfusion Reaction / Comment(s): Last surgery was 4 Past Psychological History: PTSD Smoking Status: Never smoker Past Alcohol Use History: None Reported Past Drug Use History: None Reported - Past Family History Father Family Medical History: Chest Pain / Angina, Hyperlipidemia, Hypertension Mother Family Medical History: Chest Pain / Angina, Hyperlipidemia, Hypertension Brother(s) Family Medical History: Hyperlipidemia, Hypertension General Exam Limitations: no limitations General appearance: alert, in no apparent distress Head exam: Present: atraumatic, normocephalic, normal inspection Eye exam: Present: normal appearance, PERRL, EOMI. Absent: scleral icterus, conjunctival injection, periorbital swelling ENT exam: Present: normal exam, mucous membranes moist Neck exam: Present: normal inspection. Absent: tenderness, meningismus, lymphadenopathy Respiratory exam: Present: normal lung sounds bilaterally. Absent: respiratory distress, wheezes, rales, rhonchi, stridor Cardiovascular Exam: Present: regular rate, normal rhythm, normal heart sounds. Absent: systolic murmur, diastolic murmur, rubs, gallop, clicks GI/Abdominal exam: Present: soft, normal bowel sounds. Absent: distended, tenderness, guarding, rebound, rigid Extremities exam: Present: normal inspection, full ROM, normal capillary refill. Absent: tenderness, pedal edema, joint swelling, calf tenderness Back exam: Present: normal inspection Neurological exam: Present: alert, oriented X3 Psychiatric exam: Present: normal affect, normal mood Skin exam: Present: warm, dry, other (Erythematous papules with excoriations to bilateral legs and upper extremities.) Course Vital Signs 01/05/23 01/05/23 10:55 12:00 Temperature 98.6 F 98.4 F Pulse Rate 102 H 90 Respiratory 18 18 Rate Blood Pressure 125/76 128/72 O2 Sat by Pulse 96 97 Oximetry Medical Decision Making - Medical Decision Making Was pt. sent in by a medical professional or institution (, PA, VIRTUALIZATION ENGINEER, urgent care, hospital, or care home...) When possible be specific @ -No Did you speak to anyone other than the patient for history (EMS, parent, family, police, friend...)? What history was obtained from this source @ -No Did you review nursing and triage notes (agree or disagree)? Why? @ -I reviewed and agree with nursing and triage notes Were old charts reviewed (outside hosp., previous admission, EMS record, old EKG, old radiological studies, urgent care reports/EKG's, care home records)? Report findings @ -No old charts were reviewed Differential Diagnosis (chest pain, altered mental status, abdominal pain women, abdominal pain men, vaginal bleeding, weakness, fever, dyspnea, syncope, headache, dizziness, GI bleed, back pain, seizure, CVA, palpatations, mental health, musculoskeletal)? @ -Bug bites, atopic dermatitis, contact dermatitis, ALLERGIC reaction, this list is not all-inclusive EKG interpreted by me (3pts min.). @ -None X-rays interpreted by me (1pt min.). @ -None done CT interpreted by me (1pt min.). @ -None done U/S interpreted by me (1pt. min.). @ -None done What testing was considered but not performed or refused? (CT, X-rays, U/S, labs)? Why? @ -None What meds were considered but not given or refused? Why? @ -None Did you discuss the management of the patient with other professionals (professionals i.e. , PA, VIRTUALIZATION ENGINEER, lab, RT, psych nurse, web content & social media manager, manager body, teacher, horticultural technical officer, human services case manager)? Give summary @ -No Was smoking cessation discussed for >3mins.? @ -No Was critical care preformed (if so, how long)? @ -No Were there social determinants of health that impacted care today? How? (Homelessness, low income, unemployed, alcoholism, drug addiction, transportation, low edu. Level, literacy, decrease access to med. care, fpc, rehab)? @ -No Was there de-escalation of care discussed even if they declined (Discuss DNR or withdrawal of care, Hospice)? DNR status @ -No What co-morbidities impacted this encounter? (DM, HTN, Smoking, COPD, CAD, Cance r, CVA, ARF, Chemo, Hep., AIDS, mental health diagnosis, sleep apnea, morbid obesity)? @ -None Was patient admitted / discharged? Hospital course, mention meds given and route, prescriptions, significant lab abnormalities, going to OR and other pertinent info. @ -Discharge. Patient was on the emergency department with chief complaint of itching due to bug bites. She states that she is on the yard yesterday and came inside to numerous bug bites on her legs and arms. She states that she has been itching them and caused excoriation to most of the bug bites. Patient has applied Benadryl cream at home and took oral Benadryl last night. Patient was given a dose of hydroxyzine and given a single dose of Decadron. Patient was given hydrocortisone cream to apply to the areas for short term. Advised to continue taking the Benadryl for itching. Patient stable at time of discharge. Case discussed my attending, Dr. Villalba. Undiagnosed new problem with uncertain prognosis? @ -No Drug Therapy requiring intensive monitoring for toxicity (Heparin, Nitro, Insulin, Cardizem)? @ -No Were any procedures done? @ -No Diagnosis/symptom? @ -bug bites Acute, or Chronic, or Acute on Chronic? @ -acute Uncomplicated (without systemic symptoms) or Complicated (systemic symptoms)? @ -uncomplicated Side effects of treatment? @ -No Exacerbation, Progression, or Severe Exacerbation? @ -No Poses a threat to life or bodily function? How? (Chest pain, USA, CT, pneumonia, PE, COPD, DKA, ARF, appy, cholecystitis, CVA, Diverticulitis, Homicidal, Suicidal, threat to staff... and all critical care pts) @ -No Disposition Clinical Impression: Insect bites and stings Disposition: HOME SELF-CARE Condition: Stable Instructions (If sedation given, give patient instructions): Acute Rash (ED) Additional Instructions: Continue taking Benadryl. Apply hydrocortisone cream two- three times daily for 5 days. Follow up with your primary care provider. Return to the emergency department for new or worsening symptoms. Is patient prescribed a controlled substance at d/c from ED?: No Referrals: Roshni Castro DO [Primary Care Provider] - 1-2 days Time of Disposition: 11:51
[2023-01-05 12:03] VITALS: BP 128/72; PULSE 90; TEMP 98.4
== END 2023-01-05 12:06 | disposition home or self-care (01) ==
LOC: SUPCPDRO 10:46 → EC 10:46
DX: S81.852A Open bite, left lower leg, initial encounter (principal); S81.851A Open bite, right lower leg, initial encounter; Z91.018 Allergy to other foods; Z91.041 Radiographic dye allergy status; Z88.8 Allergy status to other drugs, medicaments and biological substances; W57.XXXA Bitten or stung by nonvenomous insect and other nonvenomous arthropods, initial encounter
CPT/HCPCS: 99282; J8540

== ENCOUNTER 2023-08-05 03:59 | Inpatient (IN) | payer MEDICARE ==
[2023-08-05] MEDS ORDERED: NITROGLYCERIN SL TABS 0.4 MG TAB SUBLINGUAL PRN (04:13)
--- NOTE | 2023-08-05 04:15 | ED ---
Chest Pain HPI - General Chief Complaint: Chest Pain Stated Complaint: chest pain Time Seen by Provider: 08/05/23 04:02 Source: patient, EMS Mode of arrival: EMS Limitations: no limitations - History of Present Illness Initial Comments: 68-year-old female with history of hyperlipidemia and obesity presenting to the ER today for evaluation of chest pain. Patient reports she has had some mild chest pain for approximately 4 days however tonight chest pain woke her from sleep and felt like the chest pain was radiating into her neck patient was feeling somewhat short of breath. EMS arrived on scene patient was in moderate distress, EKG was concerning for acute ischemia patient was treated with nitro with some improvement in her discomfort. 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 However mother father and brother have all had AR. - Related Data Home Medications Medication Instructions Recorded Confirmed Budesonide [Rhinocort Allergy] 2 spr EA NOSTRIL BID 05/30/16 01/15/17 Previous Rx's Medication Instructions Recorded Metoprolol Tartrate [Lopressor] 50 mg PO BID #60 tab 11/13/16 Dicyclomine [Bentyl] 10 mg PO TID #30 capsule 01/07/17 Naproxen [Naprosyn] 500 mg PO Q12HR PRN #30 tab 01/07/17 Ondansetron [Zofran] 4 mg PO Q8HR PRN #30 tab 01/07/17 Docusate [Colace] 100 mg PO BID #20 capsule 01/15/17 Allergies Allergy/AdvReac Type Severity Reaction Status Date / Time ragweed pollen Allergy Rash/Hives Verified 08/05/23 04:06 chamomile flower AdvReac Fl[place]/Flu-like Verified 08/05/23 04:06 Symptoms orange juice [[place]] AdvReac Flushing/Flu-like Verified 08/05/23 04:06 Symptoms red dye AdvReac Flushing/Flu-like Verified 08/05/23 04:06 Symptoms watermelon AdvReac Unknown Verified 08/05/23 04:06 Review of Systems ROS Statement: Those systems with pertinent positive or pertinent negative responses have been documented in the HPI. ROS Other: All systems not noted in ROS Statement are negative. EKG Findings - EKG Comments: EKG Findings:: EKG interpreted by me. EKG obtained due to chest pain EKG obtained at 3:41 AM rate is 123 rhythm is sinus tachycardia normal axis, normal intervals, there are ST elevations noted in leads II leads V3 through V6 there is no reciprocal depressions. This is concerning for anterior all lateral ST elevation STEMI. Repeat EKG was obtained upon arrival in the emergency department, repeat EKG obtained at 403, rate is 107 rhythm is sinus tachycardia normal axis, normal intervals, there continue to be ST elevations most prominent in V4 through V6 no reciprocal depressions this again is concerning for anterolateral AR Past Medical History Past Medical History: Hyperlipidemia Additional Past Medical History / Comment(s): Year round allergies. Bouts of Colitis, last in 2006 History of Any Multi-Drug Resistant Organisms: None Reported Additional Past Surgical History / Comment(s): eye surgery. Strabismus Past Anesthesia/Blood Transfusion Reactions: No Reported Reaction Additional Past Anesthesia/Blood Transfusion Reaction / Comment(s): Last surgery was 4 Past Psychological History: PTSD Smoking Status: Never smoker Past Alcohol Use History: None Reported Past Drug Use History: None Reported - Past Family History Father Family Medical History: Chest Pain / Angina, Hyperlipidemia, Hypertension Mother Family Medical History: Chest Pain / Angina, Hyperlipidemia, Hypertension Brother(s) Family Medical History: Hyperlipidemia, Hypertension General Exam Limitations: no limitations Head exam: Present: atraumatic ENT exam: Present: mucous membranes dry Respiratory exam: Absent: respiratory distress Cardiovascular Exam: Present: normal rhythm, tachycardia GI/Abdominal exam: Present: soft. Absent: distended, tenderness Rectal exam: Present: deferred Extremities exam: Present: full ROM. Absent: pedal edema Neurological exam: Present: alert, oriented X3 Psychiatric exam: Present: anxious Skin exam: Present: dry, pallor Course Vital Signs 08/05/23 08/05/23 08/05/23 04:01 04:15 04:20 Temperature 99.4 F Pulse Rate 107 H 112 H 105 H Respiratory 18 20 20 Rate Blood Pressure 112/77 114/72 108/68 O2 Sat by Pulse 98 99 97 Oximetry 08/05/23 08/05/23 04:25 04:30 Temperature Pulse Rate 101 H 104 H Respiratory 20 20 Rate Blood Pressure 101/69 109/66 O2 Sat by Pulse 98 98 Oximetry Chest Pain MDM - MDM Was pt. sent in by a medical professional or institution (DONATO Barnard, CELL LEAD, urgent care, hospital, or fpc...) When possible be specific @ -[No] Did you speak to anyone other than the patient for history (EMS, parent, family, police, friend...)? What history was obtained from this source @ -Yes EMS Did you review nursing and triage notes (agree or disagree)? Why? @ -[I reviewed and agree with nursing and triage notes] Were old charts reviewed (outside hosp., previous admission, EMS record, old EKG, old radiological studies, urgent care reports/EKG's, fpc records)? Report findings @ -EKGs from 2017 were reviewed Differential Diagnosis (chest pain, altered mental status, abdominal pain women, abdominal pain men, vaginal bleeding, weakness, fever, dyspnea, syncope, headache, dizziness, GI bleed, back pain, seizure, CVA, palpatations, mental health)? @ -DM differential chest pain EKG interpreted by me (3pts min.). @ -[As above] X-rays interpreted by me (1pt min.). @ -Evidence of hiatal hernia, no focal consolidations no pneumothorax CT interpreted by me (1pt min.). @ -[None done] U/S interpreted by me (1pt. min.). @ -[None done] What testing was considered but not performed or refused? (CT, X-rays, U/S, labs)? Why? @ -[None] What meds were considered but not given or refused? Why? @ -[None] Did you discuss the management of the patient with other professionals (professionals i.e. DONATO Barnard, CELL LEAD, lab, RT, psych nurse, older adult social work specialist, cementer machine applicator, teacher, investigation officer, geriatric case manager)? Give summary @ -cementer machine applicator on-call Dr. Clark Was smoking cessation discussed for >3mins.? @ -[No] Was critical care preformed (if so, how long)? @ -Yes 43 Were there social determinants of health that impacted care today? How? (Homelessness, low income, unemployed, alcoholism, drug addiction, tra nsportation, low edu. Level, literacy, decrease access to med. care, residential, rehab)? @ -[No] Was there de-escalation of care discussed even if they declined (Discuss DNR or withdrawal of care, Hospice)? DNR status @ -[No] What co-morbidities impacted this encounter? (DM, HTN, Smoking, COPD, CAD, Cancer, CVA, ARF, Chemo, Hep., AIDS, mental health diagnosis, sleep apnea, morbid obesity)? @ -Hyperlipidemia, obesity Was patient admitted / discharged? Hospital course, mention meds given and route, prescriptions, significant lab abnormalities, going to OR and other pertinent info. @ -Admit Prehospital EKG was transmitted to us and discussed with Dr. Clark who recommends getting a repeat EKG and thorough history upon arrival. Upon arrival patient is pale maddox diaphoretic chest pain seems to have improved after nitro but she is still feeling unwell. Repeat EKG is again concerning for ischemia. Repeat EKG was discussed with Dr. Clark who agrees with plan for activation of the Electrical Prospecting Supervisor. Patient care was discussed with admitting physician Dr. Mcelroy who accepts the admission. Labs resulted after patient was transmitted to Electrical Prospecting Supervisor multiple significant abnormalities including acute microcytic anemia, normocytosis, significantly elevated troponin and BNP. Undiagnosed new problem with uncertain prognosis? @ -Yes Drug Therapy requiring intensive monitoring for toxicity (Heparin, Nitro, Insulin, Cardizem)? @ -[No] Were any procedures done? @ -[No] Diagnosis/symptom? @ -STEMI Acute, or Chronic, or Acute on Chronic? @ -Acute Uncomplicated (without systemic symptoms) or Complicated (systemic symptoms)? @ -[default] Side effects of treatment? @ -[No] Exacerbation, Progression, or Severe Exacerbation? @ -[No] Poses a threat to life or bodily function? How? (Chest pain, [place], AR, pneumonia, PE, COPD, DKA, ARF, appy, cholecystitis, CVA, Diverticulitis, Homicidal, Suicidal, threat to staff... and all critical care pts) @ -Yes Critical Care Time Critical Care Time: Yes Total Critical Care Time: 45 Disposition Clinical Impression: Chest pain, ST elevation myocardial infarction (STEMI), Microcytic anemia, Leukocytosis Disposition: ADMITTED IP TO THIS [facility] Condition: Serious Is patient prescribed a controlled substance at d/c from ED?: No
[2023-08-05] MEDS: HEPARIN SODIUM 1,000 UN/ML (10ML VL) IV ONE (04:18)
--- NOTE | 2023-08-05 04:21 | XR ---
EXAM: XR Chest, 1 View CLINICAL HISTORY: ITS.REASON XR Reason: chest pain TECHNIQUE: Frontal view of the chest. COMPARISON: 01/30/21 FINDINGS: Lungs: Mild streaky density in the left lung base. Pleural space: Unremarkable. No pneumothorax. Heart: Cardiovascular silhouette, likely upper limits of normal accentuated by low lung volume. Mediastinum: Again seen is small to moderate size hiatal hernia. Bones/joints: Unremarkable. No acute fracture. Vasculature: Tortuous thoracic aorta again seen. IMPRESSION: 1. Low lung volume. 2. No dense consolidation or effusion. 3. Mild left basilar atelectasis
[2023-08-05 04:22] LABS: Anisocytosis Slight; HCT 23.5 % (34.0-46.0); HGB 7.1 gm/dL (11.4-16.0); Hypochromasia Marked; MCH 20.3 pg (25.0-35.0); MCHC 30.4 g/dL (31.0-37.0); MCV 66.7 fL (80.0-100.0); Mean Platelet Volume 6.9; Microcytosis Marked; Platelet Count 589 k/uL (150-450); Poikilocytosis Slight; RBC 3.53 m/uL (3.80-5.40); RDW 16.6 % (11.5-15.5)
[2023-08-05 04:33] LABS: ALT 27 U/L (4-34); AST 91 U/L (14-36); African American GFR (CKD) >90 (>60 ml/min/1.73 sqM); Albumin 3.6 g/dL (3.5-5.0); Alkaline Phosphatase 89 U/L (38-126); Anion Gap 10 mmol/L; Blood Urea Nitrogen 15 mg/dL (7-17); Calcium 8.7 mg/dL (8.4-10.2); Carbon Dioxide 15 mmol/L (22-30); Chloride 109 mmol/L (98-107); Glucose 185 mg/dL (74-99); Magnesium 1.8 mg/dL (1.6-2.3); Non-African American GFR(CKD) 90 (>60 ml/min/1.73 sqM); Potassium 4.2 mmol/L (3.5-5.1); Sodium 134 mmol/L (137-145); Total Bilirubin 0.7 mg/dL (0.2-1.3); Total Protein 6.7 g/dL (6.3-8.2)
[2023-08-05] MEDS: SODIUM CHLORIDE 0.9% 500 ML 500 ML IV ONE ×2 (04:34→10:44)
[2023-08-05 04:38] LABS: Partial Thromboplastin Time 21.7 sec (22.0-30.0); Prothrombin Time 10.9 sec (10.0-12.5)
[2023-08-05] MEDS ORDERED: NALOXONE 0.4 MG/ML 1 ML VIAL IV PRN (04:39)
[2023-08-05 04:41] LABS: NT-Pro-B-Type Natriuretic Pept 3620 pg/mL
[2023-08-05] MEDS ORDERED: VERAPAMIL 2.5 MG/ML 2 ML AMP ONE (04:47)
[2023-08-05] MEDS ORDERED: HEPARIN SODIUM 1,000 UN/ML (10ML VL) ONE (04:47)
[2023-08-05] MEDS ORDERED: fentaNYL (PF) 50 MCG/ML 2 ML AMP ONE (04:48)
[2023-08-05] MEDS ORDERED: LIDOCAINE 1% INJ 10MG/ML (20 ML MDV) ONE (04:48)
--- NOTE | 2023-08-05 04:52 | P.CRDCN ---
History of Present Illness History of present illness: HISTORY OF PRESENTING ILLNESS This is a pleasant 68-year-old with past medical history significant for hyperlipidemia, obesity, family history of CAD. Patient has been having 5 days of chest pain which is substernal which has been fairly constant. Pain worsened tonight radiating into her neck and therefore came to emergency department. She does have some associated shortness of breath and denies any diaphoresis however has been feeling clammy. Additionally has been having diarrhea for the last 5 days. Has not had much appetite. Denies any fevers, chills or cough. She believes she is iron deficient however has not had any recent workup. EKG shows sinus tachycardia with minimal ST L elevation in V3 through V6 as well as 2 and aVF with small Q-wave in lead III and minimal reciprocal changes in aVL. This is a change from prior EKG in 2017. Denies any hematochezia or melena. Hemoglobin has resulted at 7.1 with white blood cell count 18.3, bicarb 15, creatinine 0.6. REVIEW OF SYSTEMS At the time of my exam: CONSTITUTIONAL: Denies fever or chills. CARDIOVASCULAR: +chest pain, +shortness of breath, no orthopnea, PND or palpitations. RESPIRATORY: Denies cough. GASTROINTESTINAL: Denies abdominal pain, diarrhea, constipation, nausea or vomiting. MUSCULOSKELETAL: Denies myalgias. NEUROLOGIC: Denies numbness, tingling or weakness. ENDOCRINE: Denies fatigue, weight change, polydipsia or polyurina. GENITOURINARY: Denies burning, hematuria or urgency with micturation. HEMATOLOGIC: Denies history of anemia or bleeding. PHYSICAL EXAMINATION Vital signs reviewed. CONSTITUTIONAL: No apparent distress. HEENT: Head is normocephalic. Pupils are equal, round. Sclerae anicteric. Mucous membranes of the mouth are moist. No JVD. No carotid bruit. CHEST EXAMINATION: Lungs are clear to auscultation. No chest wall tenderness is noted on palpation or with deep breathing. HEART EXAMINATION: Regular rate and rhythm. S1, S2 heard. No murmurs, gallops or rub. ABDOMEN: Soft, nontender. Positive bowel sounds. EXTREMITIES: 2+ peripheral pulses, no lower extremity edema and no calf tenderness. NEUROLOGIC EXAMINATION: Patient is awake, alert and oriented x3. ASSESSMENT 1. ST elevation, rule out STEMI versus pericarditis 2. Anemia 3. Strong family history of CAD 4. Recent diarrhea 5. Leukocytosis PLAN Patient with some atypical symptoms however multiple risk factors. EKG may have some mild reciprocal changes in aVL and given possibility of STEMI we discussed heart catheterization for definitive diagnosis. May however be related to pericarditis. Additionally anemic and likely iron deficient and some viral symp toms. Check viral titers. Check 2D echo. Further recommendations to follow. Past Medical History Past Medical History: Hyperlipidemia Additional Past Medical History / Comment(s): Year round allergies. Bouts of Colitis, last in 2006 History of Any Multi-Drug Resistant Organisms: None Reported Additional Past Surgical History / Comment(s): eye surgery. Strabismus Past Anesthesia/Blood Transfusion Reactions: No Reported Reaction Additional Past Anesthesia/Blood Transfusion Reaction / Comment(s): Last surgery was 4 Past Psychological History: PTSD Smoking Status: Never smoker Past Alcohol Use History: None Reported Past Drug Use History: None Reported - Past Family History Father Family Medical History: Chest Pain / Angina, Hyperlipidemia, Hypertension Mother Family Medical History: Chest Pain / Angina, Hyperlipidemia, Hypertension Brother(s) Family Medical History: Hyperlipidemia, Hypertension Medications and Allergies Home Medications Medication Instructions Recorded Confirmed Type Budesonide [Rhinocort Allergy] 2 spr EA NOSTRIL BID 05/30/16 01/15/17 History Metoprolol Tartrate [Lopressor] 50 mg PO BID #60 tab 11/13/16 01/15/17 Rx Dicyclomine [Bentyl] 10 mg PO TID #30 capsule 01/07/17 01/15/17 Rx Naproxen [Naprosyn] 500 mg PO Q12HR PRN #30 tab 01/07/17 01/15/17 Rx Ondansetron [Zofran] 4 mg PO Q8HR PRN #30 tab 01/07/17 01/15/17 Rx Docusate [Colace] 100 mg PO BID #20 capsule 01/15/17 Rx Allergies Allergy/AdvReac Type Severity Reaction Status Date / Time ragweed pollen Allergy Rash/Hives Verified 08/05/23 04:06 chamomile flower AdvReac Flushing/Flu-like Verified 08/05/23 04:06 Symptoms orange juice [[place]] AdvReac Flushing/Flu-like Verified 08/05/23 04:06 Symptoms red dye AdvReac Flushing/Flu-like Verified 08/05/23 04:06 Symptoms watermelon AdvReac Unknown Verified 08/05/23 04:06 Physical Exam Vitals: Vital Signs Temp Pulse Resp BP Pulse Ox 08/05/23 04:30 104 H 20 109/66 98 08/05/23 04:25 101 H 20 101/69 98 08/05/23 04:20 105 H 20 108/68 97 08/05/23 04:15 112 H 20 114/72 99 08/05/23 04:01 99.4 F 107 H 18 112/77 98 Intake and Output 08/04/23 08/04/23 08/05/23 14:59 22:59 06:59 Other: Weight 81.647 kg Results 08/05/23 04:07 08/05/23 04:07 Cardiac Enzymes 08/05/23 Range/Units 04:07 AST 91 H (14-36) U/L CBC 08/05/23 Range/Units 04:07 WBC 18.3 H (3.8-10.6) k/uL RBC 3.53 L (3.80-5.40) m/uL Hgb 7.1 L (11.4-16.0) gm/dL Hct 23.5 L (34.0-46.0) % Plt Count 589 H (150-450) k/uL Comprehensive Metabolic Panel 08/05/23 Range/Units 04:07 Sodium 134 L (137-145) mmol/L Potassium 4.2 (3.5-5.1) mmol/L Chloride 109 H (98-107) mmol/L Carbon Dioxide 15 L (22-30) mmol/L BUN 15 (7-17) mg/dL Creatinine 0.66 (0.52-1.04) mg/dL Glucose 185 H (74-99) mg/dL Calcium 8.7 (8.4-10.2) mg/dL AST 91 H (14-36) U/L ALT 27 (4-34) U/L Alkaline Phosphatase 89 (38-126) U/L Total Protein 6.7 (6.3-8.2) g/dL Albumin 3.6 (3.5-5.0) g/dL Current Medications Generic Name Dose Route Start Last Admin Trade Name Freq PRN Reason Stop Dose Admin Sodium Chloride 500 mls @ 999 mls/hr 08/05/23 04:30 08/05/23 04:34 Saline 0.9% IV 08/05/23 05:00 999 mls/hr .Q31M ONE Administration Naloxone HCl 0.2 mg 08/05/23 04:39 Naloxone 0.4 Mg/Ml 1 Ml Vial IV Q2M PRN Opioid Reversal Nitroglycerin 0.4 mg 08/05/23 04:13 Nitroglycerin Sl Tabs 0.4 Mg Tab SUBLINGUAL Q5M PRN Chest Pain Intake and Output 08/04/23 08/04/23 08/05/23 14:59 22:59 06:59 Other: Weight 81.647 kg Patient Weight 08/05/23 06:59 Weight 81.647 kg 08/05/23 04:07 08/05/23 04:07
[2023-08-05] MEDS: fentaNYL (PF) 50 MCG/1 ML VIAL IVP ONE ×2 (04:59→05:05)
[2023-08-05] MEDS: MIDAZOLAM 2 MG/2 ML VIAL IVP ONE (04:59)
[2023-08-05] MEDS: LIDOCAINE 2% (PF) 20 MG/ML 2 ML VIAL SQ ONE (04:59)
[2023-08-05] MEDS: VERAPAMIL 2.5 MG/ML 4 ML VIAL INTRAARTER ONE (05:01)
[2023-08-05 05:15] LABS: WBC 18.3 k/uL (3.8-10.6)
[2023-08-05 05:17] LABS: Anisocytosis (M) Present; Band Neutrophils % 5 %; Lymphocytes # (M) 3.66 k/uL (1.0-4.8); Monocytes # (M) 0.37 k/uL (0-1.0); Myelocytes # (M) 0.18 k/uL (0); Myelocytes % 1 %; Neutrophils % (M) 72 %; Nucleated Red Blood Cells 0 /100 WBC (0-0); Total Cells Counted 100
[2023-08-05 05:18] LABS: Hypochromasia (M) Present; Ovalocytes Present; Poikilocytosis (M) Present; Target Cells Present
[2023-08-05] MEDS: IOPAMIDOL-370 100ML BTL INTRATHECA ONE (05:18)
[2023-08-05] MEDS: SODIUM CHLORIDE 0.9% 1,000 ML IV ONE (05:19)
--- NOTE | 2023-08-05 05:22 | P.CARDCATH ---
Description of Procedure: PROCEDURES PERFORMED: Left heart catheterization, bilateral coronary angiography, ultrasound guided arterial access INDICATION: Non-STEMI CONSENT:I have discussed the risks, benefits and alternative therapies for the above-mentioned procedure and for both sedation/analgesia as well as necessary blood product administration, if indicated, as they pertain to this patient. The patient has indicated understanding and acceptance of the risks and procedures discussed. PROCEDURE: After the risks, benefits and alternatives of the above mentioned procedure explained in detail with the patient, informed consent was obtained. Patient was taken to the catheterization lab and prepped and draped in usual fashion. Ultrasound guidance was used to assess for arterial access. 1% lidocaine was used to anesthetize the right radial artery. A 6-Namibian sheath was placed in the right radial artery using modified Seldinger technique and ul trasound guidance. Left coronary angiography was performed with a 5-Namibian JL 3.5 catheter and right coronary angiography was performed with a 5-Namibian AR2 catheter in various views. A 5-Namibian pigtail catheter was inserted into the left ventricle and pressure measurements were obtained. A left ventriculogram was performed in the KAYE projection with power injection. The right radial sheath was removed and a TR band was placed with hemostasis achieved. The patient tolerated the procedure well. Patient was transported back to the post catheterization holding area in stable condition. Conscious Sedation: Patient was monitored under the direct supervision of myself for conscious sedation using Versed and fentanyl for a total duration of 17 minutes HEMODYNAMICS: Aortic: 126/70 LV: 121/8, LVEDP 14 Left ventriculogram: Left ventricular ejection fraction 50 to 55% with apical hypokinesis consistent with Takotsubo's cardiomyopathy SELECTIVE CORONARY ARTERIOGRAPHY: LEFT MAIN: The left main is a large caliber vessel which bifurcates into the LAD and circumflex. There is no significant stenosis. LEFT ANTERIOR DESCENDING CORONARY ARTERY: LAD is a large caliber vessel which wraps around to the apex. The LAD is tortuous with mild luminal irregularities 10% stenosis. LEFT CIRCUMFLEX CORONARY ARTERY: Left circumflex is a moderate caliber vessel with mild luminal irregularities. RIGHT CORONARY ARTERY: The right coronary artery is a large caliber vessel which gives off a PDA and PLV branch and is the dominant vessel. There are mild luminal irregularities 10 to 20% mid RCA stenosis. There is some COTY II flow in the distal PDA however no significant epicardial disease. FINAL IMPRESSION: 1. Relatively normal coronary arteries other than mild luminal irregularities 10% LAD, 10 to 20% RCA stenosis 2. Normal left sided filling pressures 3. Left ventricular ejection fraction 50-55% with apical hypokinesis consistent with Takotsubo's cardiomyopathy PLAN: 1. Aggressive risk factor modification per most recent ACC/AHA guidelines. 2. Follow-up in the office in 1-2 weeks.
[2023-08-05] MEDS ORDERED: RX INFO: IV CONTRAST WAS GIVEN 1 EACH MISC MISCELLANE PRN (05:23)
[2023-08-05 05:50] LABS: Glucose,Whole Blood 157 mg/dL (70-110)
[2023-08-05] MEDS: SODIUM CHLORIDE 0.9% 1,000 ML IV SCH (06:00)
[2023-08-05] MEDS: METOPROLOL TARTRATE 50 MG TAB PO SCH (08:22)
--- NOTE | 2023-08-05 08:27 | P.HPIM ---
History of Present Illness H&P Date: 08/05/23 Patient is a 68-year-old female with known dyslipidemia, obesity, and family history of coronary artery disease presented to the emergency department with complaints of chest pain. Initial EKG showed sinus tachycardia with minimal ST segment elevation in leads V3 through V6, lead II, and aVF. Cardiology was immediately contacted and the patient proceeded to the [employer] and cardiac cath eterization at that time showed relatively normal coronary arteries with no significant stenosis. Aggressive risk factor modification was recommended. Initial laboratory analysis included CBC, coags, CMP, troponin, and BNP which are remarkable for white blood cell count 18.3, hemoglobin 7.1, platelets 589, sodium 134, carbon dioxide 15, troponin 10.3, and BNP 3620. Influenza A/B/RSV/COVID-19 testing was negative. Chest x-ray demonstrated low lung volumes with mild basilar atelectasis. Patient seen and examined at bedside. She states that for the last 5 days she has had shortness of breath, chest heaviness, and back pain in between her shoulder blades. It was slowly getting more in 10. It has been constant the entire time. Yesterday she felt as if she would if she did not come to the hospital so she decided to present. She reports that she is now feeling better after her cardiac catheterization. She reports that she has had similar feelings when she had COVID long-haul. She states that when she first had this she was in bed for months and unable to move and then had to use a walker. 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 She reports over the last 5 days she has had some worsening back pain as well as weakness in her legs. She denies any recent fevers, chills, nausea, vomiting. She does endorse some diarrhea recently. She denies any blood in her stools, dark tarry stools, coughing up blood, blood in her urine. She states that she last had a colonoscopy about 3 years ago. At that point in time she was having significant GI bleeding that she attributes to having ingested an entire bag of frozen pomegranate seeds. SHe has no other complaints currently. History of allergies to multiple environmental and dye etiologies. We discussed doing a CTA of her chest to rule out pulmonary embolism and she is in agreement but is asking to be premedicated for possible dye allergy. Vital signs reviewed General: nontoxic, no distress, appears at stated age Derm: warm, dry Eyes: EOMI, no lid lag, anicteric sclera, pupils equal round reactive to light ENT: Nose and ears atraumatic Cardiovascular: S1S2 reg, no murmur, no edema Lungs: clear to auscultation bilateral, no rhonchi, no rales, no wheeze, no accessory muscle use Abdominal: soft, nontender to palpation, no guarding Ext: no gross muscle atrophy, no contractures Neuro: CN II-XII grossly intact, No focal neuro deficits Psych: Alert, oriented, appropriate affect Assessment/Plan: Chest pain Elevated troponin, type II non-STEMI Takotsaubos on ventriculogram -Patient urgently taken for cardiac catheterization -Cardiology recommendations -Check CTA of the chest to rule out pulmonary embolism -Check echocardiogram to evaluate for possible pericarditis Leukocytosis, anemia, thrombocytosis -Check iron studies, B12, folate -Repeat CBC -Deneis any GI bleeding Allergic rhinitis - start flonase BID and benadryl 25 mg PO TID prn allergy symptoms Metabolic acidosis - undetermined etiology - repeat in AM - check lactic acid Imaging: As per HPI Data Review: As per HPI The patient is admitted with an anticipated greater than 2 midnight stay for evaluation of Myocardial infarction. CODE STATUS:full DVT prophylaxis: Lovenox Anticipated discharge date: pending clinical course Anticipated discharge place: pending clinical course This dictation was prepared using [employer] voice recognition software. Though every attempt is made to correct errors during dictation some may still exist. Past Medical History Past Medical History: Hyperlipidemia Additional Past Medical History / Comment(s): Year round allergies. Bouts of Colitis, last in 2006, hx of GI bleeding History of Any Multi-Drug Resistant Organisms: None Reported Additional Past Surgical History / Comment(s): eye surgery. Strabismus Past Anesthesia/Blood Transfusion Reactions: No Reported Reaction Additional Past Anesthesia/Blood Transfusion Reaction / Comment(s): Last surgery was 4 Past Psychological History: PTSD Smoking Status: Never smoker Past Alcohol Use History: None Reported Past Drug Use History: None Reported - Past Family History Father Family Medical History: Chest Pain / Angina, Hyperlipidemia, Hypertension Mother Family Medical History: Chest Pain / Angina, Hyperlipidemia, Hypertension Brother(s) Family Medical History: Hyperlipidemia, Hypertension Medications and Allergies Home Medications Medication Instructions Recorded Confirmed Type Budesonide [Rhinocort Allergy] 2 spr EA NOSTRIL BID 05/30/16 01/15/17 History Metoprolol Tartrate [Lopressor] 50 mg PO BID #60 tab 11/13/16 01/15/17 Rx Dicyclomine [Bentyl] 10 mg PO TID #30 capsule 01/07/17 01/15/17 Rx Naproxen [Naprosyn] 500 mg PO Q12HR PRN #30 tab 01/07/17 01/15/17 Rx Ondansetron [Zofran] 4 mg PO Q8HR PRN #30 tab 01/07/17 01/15/17 Rx Docusate [Colace] 100 mg PO BID #20 capsule 01/15/17 Rx Allergies Allergy/AdvReac Type Severity Reaction Status Date / Time ragweed pollen Allergy Rash/Hives Verified 08/05/23 04:06 chamomile flower AdvReac [place]/Flu-like Verified 08/05/23 04:06 Symptoms orange juice [[place]] AdvReac Flushing/Flu-like Verified 08/05/23 04:06 Symptoms red dye AdvReac [place]/Flu-like Verified 08/05/23 04:06 Symptoms watermelon AdvReac Unknown Verified 08/05/23 04:06 Physical Exam Osteopathic Statement: *. No significant issues noted on an osteopathic structural exam other than those noted in the History and Physical/Consult. Vitals: Vital Signs Temp Pulse Pulse Resp BP BP Pulse Ox 08/05/23 06:00 95 21 122/74 97 08/05/23 04:30 104 H 20 109/66 98 08/05/23 04:25 101 H 20 101/69 98 08/05/23 04:20 105 H 20 108/68 97 08/05/23 04:15 112 H 20 114/72 99 08/05/23 04:01 99.4 F 107 H 18 112/77 98 Intake and Output 08/04/23 08/05/23 08/05/23 22:59 06:59 14:59 Intake Total 275 Balance 275 Intake: IV 275 Sodium Chloride 0.9% 1, 75 000 ml @ 75 mls/hr IV . [id number] [facility] Rx#:[id number] Other: Weight 81.647 kg Results CBC & Chem 7: 08/05/23 04:07 08/05/23 04:07 Labs: Abnormal Lab Results - Last 24 Hours (Table) 08/05/23 08/05/23 08/05/23 Range/Units 04:07 04:07 04:07 WBC 18.3 H (3.8-10.6) k/uL RBC 3.53 L (3.80-5.40) m/uL Hgb 7.1 L (11.4-16.0) gm/dL Hct 23.5 L (34.0-46.0) % MCV 66.7 L (80.0-100.0) fL MCH 20.3 L (25.0-35.0) pg MCHC 30.4 L (31.0-37.0) g/dL RDW 16.6 H (11.5-15.5) % Plt Count 589 H (150-450) k/uL Neutrophils # (Manual) 14.00 H (1.3-7.7) k/uL Myelocytes # (Manual) 0.18 H (0) k/uL APTT 21.7 L (22.0-30.0) sec Sodium 134 L (137-145) mmol/L Chloride 109 H (98-107) mmol/L Carbon Dioxide 15 L (22-30) mmol/L Glucose 185 H (74-99) mg/dL POC Glucose (mg/dL) (70-110) mg/dL AST 91 H (14-36) U/L Troponin I (0.000-0.034) ng/mL 08/05/23 08/05/23 Range/Units 04:07 05:48 WBC (3.8-10.6) k/uL RBC (3.80-5.40) m/uL Hgb (11.4-16.0) gm/dL Hct (34.0-46.0) % MCV (80.0-100.0) fL MCH (25.0-35.0) pg MCHC (31.0-37.0) g/dL RDW (11.5-15.5) % Plt Count (150-450) k/uL Neutrophils # (Manual) (1.3-7.7) k/uL Myelocytes # (Manual) (0) k/uL APTT (22.0-30.0) sec Sodium (137-145) mmol/L Chloride (98-107) mmol/L Carbon Dioxide (22-30) mmol/L Glucose (74-99) mg/dL POC Glucose (mg/dL) 157 H (70-110) mg/dL AST (14-36) U/L Troponin I 10.300 H* (0.000-0.034) ng/mL Thrombosis Risk Factor Assmnt - Choose All That Apply Any of the Below Risk Factors Present?: Yes Each Factor Represents 1 point: Acute AL, Medical pt on bed rest Each Risk Factor Represents 2 Points: Age 61-74 years Thrombosis Risk Factor Assessment Total Risk Factor Score: 4 Thrombosis Risk Factor Assessment Level: Moderate Risk
[2023-08-05] MEDS ORDERED: ONDANSETRON 4 MG/2 ML VIAL IVP PRN (08:28)
[2023-08-05] MEDS ORDERED: ALBUTEROL NEBULIZED 2.5 MG/3 ML INHALATION PRN (08:28)
[2023-08-05] MEDS ORDERED: ACETAMINOPHEN TAB 325 MG TAB PO PRN (08:28)
[2023-08-05] MEDS ORDERED: bisacodyL 5 MG TABLET.DR PO PRN (08:28)
[2023-08-05] MEDS ORDERED: MELATONIN 5 MG TABLET PO PRN (08:28)
[2023-08-05] MEDS ORDERED: diphenhydrAMINE 25 MG CAP PO PRN (08:55)
[2023-08-05 09:35] LABS: Anisocytosis Slight; HCT 21.4 % (34.0-46.0); Hypochromasia Marked; MCH 20.8 pg (25.0-35.0); MCHC 30.3 g/dL (31.0-37.0); MCV 68.7 fL (80.0-100.0); Mean Platelet Volume 7.2; Microcytosis Marked; Platelet Count 498 k/uL (150-450); Poikilocytosis Slight; RBC 3.11 m/uL (3.80-5.40); RDW 16.1 % (11.5-15.5); WBC 17.2 k/uL (3.8-10.6)
[2023-08-05 09:41] LABS: HGB 6.5 gm/dL (11.4-16.0)
[2023-08-05] MEDS: methylPREDNISolone SOD SUCCI 125 MG/2 ML VIAL IV STA (10:35)
[2023-08-05] MEDS: FAMOTIDINE 20 MG/2 ML VIAL IV STA (10:35)
[2023-08-05] MEDS: diphenhydrAMINE 50 MG/ML 1 ML VIAL IVP STA (10:35)
[2023-08-05] MEDS: FLUTICASONE 50MCG/SPRAY NASAL 16GM EA NOSTRIL SCH (10:35)
--- NOTE | 2023-08-05 11:31 | CT ---
Exam: CT Angiography of the Chest. Date: 08/05/2023. Comparison: None History: Chest pain. Technique: CT examination of the chest was performed following the intravenous administration of 100 mL of Isovue-300. CT dose lowering techniques were used, to include: automated exposure control, adju stment for patient size, and/or use of iterative reconstruction. FINDINGS: Mediastinum and Paula: There is no axillary, mediastinal or hilar lymphadenopathy. Pleural and Pericardial spaces: There are no pleural or pericardial effusions. Upper Abdomen: There is a large hiatal hernia. Calcified gallstone is seen within the gallbladder. Th ere are few scattered colonic diverticuli within the visualized portions of the transverse colon, a s ending colon and descending colon. The visualized upper abdomen otherwise appears unremarkable. Cardiovascular: The thoracic aorta is normal in size without evidence of aneurysm or dissection. Mild coronary artery calcification is seen in the left coronary artery. Pulmonary Artery: There are no filling defects in the pulmonary arteries. Lung Parenchyma and Airways: There is a band of atelectasis adjacent to the large hiatal hernia in th e left lung base. Lungs otherwise appear clear. Bones: No fracture or aggressive osseous lesion. IMPRESSION: 1. No evidence of pulmonary embolism. 2. No evidence of thoracic aortic aneurysm or dissection. 3. No evidence of pneumonia, pleural or pericardial effusions. 4. Large hiatal hernia. 5. Cholelithiasis.
[2023-08-05] MEDS: HYDROcodone/APAP 5-325MG 1 EACH TAB PO PRN (11:32)
--- NOTE | 2023-08-05 16:02 | CA ---
Transthoracic Echo Report Name: Aleida Huff Age: 68 Gender: F : 1955 Exam Date: 08/05/2023 14:24 Exam Location: [facility] Ht (in): 65 Wt (lb): 180 Ordering Physician: Liz England DO Attending/Referring Phys: [id number], Samanta [facility] Examiner Kyung [place] RCS Procedure CPT: Indications: takotabo's Cardiac Hx: Technical Quality: Fair Contrast 1: Total Dose (mL): Contrast 2: Total Dose (mL): MEASUREMENTS (Male / Female) Normal Values 2D ECHO LV Diastolic Diameter PLAX 4.5 cm 4.2 - 5.9 / 3.9 - 5.3 cm LV Systolic Diameter PLAX 3.0 cm IVS Diastolic Thickness 0.7 cm 0.6 - 1.0 / 0.6 - 0.9 cm LVPW Diastolic Thickness 0.9 cm 0.6 - 1.0 / 0.6 - 0.9 cm LV Relative Wall Thickness 0.4 RV Internal Dim ED PLAX 2.3 cm LVOT Diameter 1.9 cm LA Volume 61.5 cm??? 18 - 58 / 22 - 52 cm??? LA Volume Index 31.4 cm???/m??? 16 - 28 cm???/m??? DOPPLER AV Peak Velocity 129.2 cm/s AV Peak Gradient 6.7 mmHg AV Mean Velocity 91.5 cm/s AV Mean Gradient 3.7 mmHg AV Velocity Time Integral 28.2 cm LVOT Peak Velocity 120.8 cm/s LVOT Peak Gradient 5.8 mmHg LVOT Velocity Time Integral 26.7 cm LVOT Stroke Volume 77.4 cm??? LVOT Stroke Volume Index 40.9 ml/m??? LVOT Cardiac Index 3120.4 cm???/min???m??? AV Area Cont Eq vti 2.7 cm??? AV Area Cont Eq pk 2.7 cm??? MV Area PHT 3.9 cm??? Mitral E Point Velocity 75.1 cm/s Mitral A Point Velocity 81.3 cm/s Mitral E to A Ratio 0.9 MV Deceleration Time 193.3 ms TR Peak Velocity 260.6 cm/s TR Peak Gradient 27.2 mmHg Right Ventricular Systolic Press 31.9 mmHg PV Peak Velocity 92.8 cm/s PV Peak Gradient 3.4 mmHg FINDINGS Left Ventricle Left ventricular ejection fraction is estimated at 55-60 %. Left ventricular wall thickness normal. Left ventricular cavity size normal. Akinetic apex. Right Ventricle Normal right ventricular size and function. Right ventricular systolic pressure within normal limits. Right Atrium Normal right atrial size. Left Atrium Mildly increased left atrial volume. Mildly increased left atrial area. Mitral Valve Structurally normal mitral valve. No evidence for mitral valve prolapse. No mitral stenosis. Trace mitral regurgitation. Aortic Valve Trileaflet aortic valve. No aortic stenosis. No aortic regurgitation. Tricuspid Valve Structurally normal tricuspid valve. No tricuspid stenosis. Mild tricuspid regurgitation. Pulmonic Valve Pulmonic valve not well visualized. No pulmonic regurgitation. No pulmonic stenosis. Pericardium No pericardial effusion. Aorta Normal size aortic root and proximal ascending aorta. CONCLUSIONS Left ventricular ejection fraction is estimated at 55-60 %. Left ventricular cavity size normal. Akinetic apex. Findings consistent with stress cardiomyopathy No pericardial effusion. No significant valvular dysfunction Previewed by: Dr Cameron Augustin (Electronically Signed) Final Date: 05 August 2023 16:01
--- NOTE | 2023-08-05 16:14 | P.PN ---
Subjective Progress Note Date: 08/05/23 HISTORY OF PRESENTING ILLNESS This is a pleasant 68-year-old with past medical history significant for hyp erlipidemia, obesity, family history of CAD. Patient has been having 5 days of chest pain which is substernal which has been fairly constant. Pain worsened tonight radiating into her neck and therefore came to emergency department. She does have some associated shortness of breath and denies any diaphoresis however has been feeling clammy. Additionally has been having diarrhea for the last 5 d ays. Has not had much appetite. Denies any fevers, chills or cough. She believes she is iron deficient however has not had any recent workup. EKG shows sinus tachycardia with minimal ST L elevation in V3 through V6 as well as 2 and aVF with small Q-wave in lead III and minimal reciprocal changes in aVL. This is a change from prior EKG in 2017. Denies any hematochezia or melena. He moglobin has resulted at 7.1 with white blood cell count 18.3, bicarb 15, creatinine 0.6. 08/05/2023 Patient underwent an emergent heart catheterization which did not show any evidence of significant blockages. It showed 10% disease in RCA and LAD territory. Hemoglobin dropped below 7, received 1 unit of blood transfusion. No reported GI bleeding. Troponin 10, lactate 2, BNP 3000. Seen and examined at bedside this a.m. Patient was complaining of abdominal and chest pain and was hypertensive. For this patient underwent a CTA chest to rule out any dissection and PE. This was negative for any dissection and PE. It did show a large hiatal hernia. Patient reports that she has poor diet and her anemia could be related to nutritional deficiency. She has not reported any GI bleeding or blood loss in urine. PHYSICAL EXAMINATION CHEST EXAMINATION: Lungs are clear to auscultation. No chest wall tenderness is noted on palpation or with deep breathing. HEART EXAMINATION: Regular rate and rhythm. S1, S2 heard. No murmurs, gallops or rub. ABDOMEN: Soft, nontender. Positive bowel sounds. EXTREMITIES: 2+ peripheral pulses, no lower extremity edema and no calf tenderness. NEUROLOGIC EXAMINATION: Patient is awake, alert and oriented x3. ASSESSMENT Diffuse ST elevation in precordial leads. Negative cardiac catheterization with minimal CAD in RCA and LAD territory. Apical hypokinesia on left ventriculogram Elevated troponin likely due to stress cardiomyopathy. Possibility of viral myocarditis cannot be ruled out. Patient did have recent diarrhea. Stress cardiomyopathy with apical hypokinesia, likely from severe anemia Severe symptomatic anemia, s/p 1 unit of blood transfusion Large hiatal hernia Essential hypertension PLAN Cannot rule out pericarditis. Obtain ESR and CRP levels. Start Lipitor 40 mg daily, losartan 25 mg daily. Continue metoprolol succinate 50 mg daily. Hold aspirin specially due to anemia. Obtain ESR and CRP levels. Obtain coxsackie B antibody levels Workup for anemia, nutritional deficiency and possible need for EGD and colonoscopy especially in setting of large lateral hernia. Patient is cleared from cardiovascular standpoint to undergo EGD and colonoscopy with low to moderate risk. Objective - Vital Signs Vital signs: Vital Signs Temp 98 F 08/05/23 15:13 Pulse 84 08/05/23 15:13 Resp 18 08/05/23 15:13 BP 145/67 08/05/23 15:13 Pulse Ox 96 08/05/23 15:13 FiO2 Intake & Output 08/04/23 08/05/23 08/05/23 18:59 06:59 18:59 Intake Total 275 1230 Output Total 1800 Balance 275 -570 Weight 81.647 kg Intake: IV 275 920 0.9 bolus 500 Sodium Chloride 0.9% 1, 75 420 000 ml @ 120 mls/hr IV . Q8H20M [facility] Rx#:[id number] Blood Product 310 Rc As-1 Unit 310 [id number] Output: Urine 1800 Other: # Voids 2 - Labs CBC & Chem 7: 08/05/23 09:19 08/05/23 04:07 Labs: Abnormal Lab Results - Last 24 Hours (Table) 08/05/23 08/05/23 08/05/23 Range/Units 04:07 04:07 04:07 WBC 18.3 H (3.8-10.6) k/uL RBC 3.53 L (3.80-5.40) m/uL Hgb 7.1 L (11.4-16.0) gm/dL Hct 23.5 L (34.0-46.0) % MCV 66.7 L (80.0-100.0) fL MCH 20.3 L (25.0-35.0) pg MCHC 30.4 L (31.0-37.0) g/dL RDW 16.6 H (11.5-15.5) % Plt Count 589 H (150-450) k/uL Neutrophils # (Manual) 14.00 H (1.3-7.7) k/uL Myelocytes # (Manual) 0.18 H (0) k/uL APTT 21.7 L (22.0-30.0) sec Sodium 134 L (137-145) mmol/L Chloride 109 H (98-107) mmol/L Carbon Dioxide 15 L (22-30) mmol/L Glucose 185 H (74-99) mg/dL POC Glucose (mg/dL) (70-110) mg/dL Plasma Lactic Acid French (0.7-2.0) mmol/L AST 91 H (14-36) U/L Troponin I (0.000-0.034) ng/mL Crossmatch 08/05/23 08/05/23 08/05/23 Range/Units 04:07 05:48 09:19 WBC 17.2 H (3.8-10.6) k/uL RBC 3.11 L (3.80-5.40) m/uL Hgb 6.5 L* (11.4-16.0) gm/dL Hct 21.4 L (34.0-46.0) % MCV 68.7 L (80.0-100.0) fL MCH 20.8 L (25.0-35.0) pg MCHC 30.3 L (31.0-37.0) g/dL RDW 16.1 H (11.5-15.5) % Plt Count 498 H (150-450) k/uL Neutrophils # (Manual) (1.3-7.7) k/uL Myelocytes # (Manual) (0) k/uL APTT (22.0-30.0) sec Sodium (137-145) mmol/L Chloride (98-107) mmol/L Carbon Dioxide (22-30) mmol/L Glucose (74-99) mg/dL POC Glucose (mg/dL) 157 H (70-110) mg/dL Plasma Lactic Acid French (0.7-2.0) mmol/L AST (14-36) U/L Troponin I 10.300 H* (0.000-0.034) ng/mL Crossmatch 08/05/23 08/05/23 Range/Units 09:19 10:10 WBC (3.8-10.6) k/uL RBC (3.80-5.40) m/uL Hgb (11.4-16.0) gm/dL Hct (34.0-46.0) % MCV (80.0-100.0) fL MCH (25.0-35.0) pg MCHC (31.0-37.0) g/dL RDW (11.5-15.5) % Plt Count (150-450) k/uL Neutrophils # (Manual) (1.3-7.7) k/uL Myelocytes # (Manual) (0) k/uL APTT (22.0-30.0) sec Sodium (137-145) mmol/L Chloride (98-107) mmol/L Carbon Dioxide (22-30) mmol/L Glucose (74-99) mg/dL POC Glucose (mg/dL) (70-110) mg/dL Plasma Lactic Acid French 2.8 H* (0.7-2.0) mmol/L AST (14-36) U/L Troponin I (0.000-0.034) ng/mL Crossmatch See Detail
[2023-08-05] MEDS ORDERED: ASPIRIN 81 MG PO SCH (16:15)
[2023-08-05 17:11] LABS: Anisocytosis Slight; Basophils % (A) 0 %; Eosinophils % (A) 0 %; HGB 7.7 gm/dL (11.4-16.0); Hypochromasia Marked; Lymphocytes # (A) 0.9 k/uL (1.0-4.8); Lymphocytes % (A) 6 %; MCH 21.6 pg (25.0-35.0); MCHC 30.9 g/dL (31.0-37.0); MCV 69.9 fL (80.0-100.0); Mean Platelet Volume 6.8; Microcytosis Marked; Monocytes # (A) 0.2 k/uL (0-1.0); Monocytes % (A) 1 %; Neutrophils # (A) 14.7 k/uL (1.3-7.7); Neutrophils % (A) 92 %; Platelet Count 511 k/uL (150-450); Poikilocytosis Moderate; RBC 3.57 m/uL (3.80-5.40); RDW 17.7 % (11.5-15.5)
[2023-08-05] MEDS: LOSARTAN 25 MG TAB PO SCH (17:29)
[2023-08-05 18:59] LABS: % Iron Saturation 1.48 (12.00-45.00); Ferritin 10.3 ng/mL (10.0-291.0)
[2023-08-05] MEDS: ATORVASTATIN 40 MG TAB PO SCH (19:44)
[2023-08-06 03:28] LABS: Erythrocyte Sedimentation Rate 63 mm/Hr (0-30)
[2023-08-06 07:27] LABS: Anisocytosis Slight; Hypochromasia Marked; MCH 22.6 pg (25.0-35.0); MCHC 31.8 g/dL (31.0-37.0); MCV 71.1 fL (80.0-100.0); Mean Platelet Volume 7.5; Microcytosis Moderate; Platelet Count 500 k/uL (150-450); Poikilocytosis Moderate; WBC 21.3 k/uL (3.8-10.6)
[2023-08-06 07:35] LABS: Albumin 3.1 g/dL (3.5-5.0); Chloride 111 mmol/L (98-107); Glucose 200 mg/dL (74-99); Potassium 4.2 mmol/L (3.5-5.1); Sodium 138 mmol/L (137-145); Total Protein 5.9 g/dL (6.3-8.2)
[2023-08-06 07:36] LABS: ALT 24 U/L (4-34); AST 37 U/L (14-36); African American GFR (CKD) >90 (>60 ml/min/1.73 sqM); Alkaline Phosphatase 73 U/L (38-126); Anion Gap 9 mmol/L; Blood Urea Nitrogen 24 mg/dL (7-17); Calcium 8.5 mg/dL (8.4-10.2); Carbon Dioxide 18 mmol/L (22-30); Magnesium 2.1 mg/dL (1.6-2.3); Non-African American GFR(CKD) 90 (>60 ml/min/1.73 sqM); Total Bilirubin 0.2 mg/dL (0.2-1.3)
[2023-08-06] MEDS: SODIUM FERRIC GLUCONAT-SUCROSE 125 MG in SODIUM CHLORIDE 0.9% 100 ML IVPB SCH (09:32)
[2023-08-06] MEDS: THIAMINE 100 MG TAB PO SCH (10:31)
[2023-08-06] MEDS: PYRIDOXINE 50 MG TAB PO SCH (10:32)
[2023-08-06] MEDS: PANTOPRAZOLE 40 MG/10 ML VIAL IVP SCH (11:39)
--- NOTE | 2023-08-06 12:39 | P.PN ---
Subjective Progress Note Date: 08/06/23 HISTORY OF PRESENTING ILLNESS This is a pleasant 68-year-old with past medical history significant for hyp erlipidemia, obesity, family history of CAD. Patient has been having 5 days of chest pain which is substernal which has been fairly constant. Pain worsened tonight radiating into her neck and therefore came to emergency department. She does have some associated shortness of breath and denies any diaphoresis however has been feeling clammy. Additionally has been having diarrhea for the last 5 d ays. Has not had much appetite. Denies any fevers, chills or cough. She believes she is iron deficient however has not had any recent workup. EKG shows sinus tachycardia with minimal ST L elevation in V3 through V6 as well as 2 and aVF with small Q-wave in lead III and minimal reciprocal changes in aVL. This is a change from prior EKG in 2017. Denies any hematochezia or melena. He moglobin has resulted at 7.1 with white blood cell count 18.3, bicarb 15, creatinine 0.6. 08/05/2023 Patient underwent an emergent heart catheterization which did not show any evidence of significant blockages. It showed 10% disease in RCA and LAD territory. Hemoglobin dropped below 7, received 1 unit of blood transfusion. No reported GI bleeding. Troponin 10, lactate 2, BNP 3000. Seen and examined at bedside this a.m. Patient was complaining of abdominal and chest pain and was hypertensive. For this patient underwent a CTA chest to rule out any dissection and PE. This was negative for any dissection and PE. It did show a large hiatal hernia. Patient reports that she has poor diet and her anemia could be related to nutritional deficiency. She has not reported any GI bleeding or blood loss in urine. Progress note 08/06/2023 Patient is seen and examined at bedside this a.m. She denies any chest pain chest pressure shortness of breath. She does not have any substernal chest pressure or sharp chest pain with deep breathing. Her appetite has improved and has not had any further diarrhea. No blood in stools no dark tarry stools. Hemoglobin is 7 today. Yesterday it was 7.7. Iron studies show significant iron deficiency. CRP 6.9, ESR 63 suggestive of inflammatory process. PHYSICAL EXAMINATION CHEST EXAMINATION: Lungs are clear to auscultation. No chest wall tenderness is noted on palpation or with deep breathing. HEART EXAMINATION: Regular rate and rhythm. S1, S2 heard. No murmurs, gallops or rub. ABDOMEN: Soft, nontender. Positive bowel sounds. EXTREMITIES: 2+ peripheral pulses, no lower extremity edema and no calf tenderness. NEUROLOGIC EXAMINATION: Patient is awake, alert and oriented x3. ASSESSMENT Diffuse ST elevation in precordial leads. Negative cardiac catheterization with minimal CAD in RCA and LAD territory. Apical hypokinesia on left ventriculogram Elevated troponin likely due to stress cardiomyopathy. Possibility of viral myocarditis cannot be ruled out. Patient did have recent diarrhea. Stress cardiomyopathy with apical hypokinesia, likely from severe anemia Severe symptomatic anemia, s/p 1 unit of blood transfusion Large hiatal hernia Essential hypertension ESR 63, CRP 6.9 PLAN Patient may have myopericarditis with elevated troponins, ESR 63, CRP 6.9. Currently EF is preserved. Currently she is asymptomatic. Continue Lipitor 40 mg daily, losartan 25 mg daily. Continue metoprolol succinate 50 mg daily for cardiomyopathy. Hold aspirin specially due to anemia. Recommend outpatient echocardiogram and 3 to 4 months to check for recovery. Will start her on colchicine 0.6 mg twice daily. Will hold back on NSAIDs until we rule out gastritis, ulcers or GI bleeding. Workup for anemia, nutritional deficiency and possible need for EGD and colonoscopy especially in setting of large lateral hernia. Patient is cleared from cardiovascular standpoint to undergo EGD and colonoscopy with low to moderate risk. Objective - Vital Signs Vital signs: Vital Signs Temp 98.2 F 08/06/23 04:00 Pulse 88 08/06/23 12:00 Resp 14 08/06/23 12:00 BP 108/77 08/06/23 12:00 Pulse Ox 96 08/06/23 12:00 FiO2 Intake & Output 08/05/23 08/06/23 08/06/23 18:59 06:59 18:59 Intake Total 1230 240 480 Output Total 1800 850 600 Balance -570 -610 -120 Weight 85 kg Intake: IV 920 240 0.9 bolus 500 Sodium Chloride 0.9% 1, 420 240 000 ml @ 120 mls/hr IV . Q8H20M [facility] Rx#:[id number] Oral 480 Blood Product 310 Rc As-1 Unit 310 [id number] Output: Urine 1800 850 600 Other: # Voids 2 1 1 # Bowel Movements 1 3 - Labs CBC & Chem 7: 08/06/23 06:11 08/06/23 06:11 Labs: Abnormal Lab Results - Last 24 Hours (Table) 08/05/23 08/05/23 08/05/23 Range/Units 09:19 10:10 16:41 WBC 16.0 H (3.8-10.6) k/uL RBC 3.57 L (3.80-5.40) m/uL Hgb 7.7 L (11.4-16.0) gm/dL Hct 25.0 L (34.0-46.0) % MCV 69.9 L (80.0-100.0) fL MCH 21.6 L (25.0-35.0) pg MCHC 30.9 L (31.0-37.0) g/dL RDW 17.7 H (11.5-15.5) % Plt Count 511 H (150-450) k/uL Neutrophils # 14.7 H (1.3-7.7) k/uL Lymphocytes # 0.9 L (1.0-4.8) k/uL ESR 63 H (0-30) mm/Hr D-Dimer (<0.60) mg/L FEU Chloride (98-107) mmol/L Carbon Dioxide (22-30) mmol/L BUN (7-17) mg/dL Glucose (74-99) mg/dL Iron 7 L (50-170) UG/DL TIBC 473 H (228-460) UG/DL % Saturation 1.48 L (12.00-45.00) AST (14-36) U/L Lactate Dehydrogenase (120-246) U/L C-Reactive Protein (<1.0) mg/dL Total Protein (6.3-8.2) g/dL Albumin (3.5-5.0) g/dL Crossmatch See Detail 08/05/23 08/06/23 08/06/23 Range/Units 16:41 06:11 06:11 WBC 21.3 H (3.8-10.6) k/uL RBC 3.10 L (3.80-5.40) m/uL Hgb 7.0 L (11.4-16.0) gm/dL Hct 22.0 L (34.0-46.0) % MCV 71.1 L (80.0-100.0) fL MCH 22.6 L (25.0-35.0) pg MCHC (31.0-37.0) g/dL RDW 17.0 H (11.5-15.5) % Plt Count 500 H (150-450) k/uL Neutrophils # (1.3-7.7) k/uL Lymphocytes # (1.0-4.8) k/uL ESR (0-30) mm/Hr D-Dimer (<0.60) mg/L FEU Chloride 111 H (98-107) mmol/L Carbon Dioxide 18 L (22-30) mmol/L BUN 24 H (7-17) mg/dL Glucose 200 H (74-99) mg/dL Iron (50-170) UG/DL TIBC (228-460) UG/DL % Saturation (12.00-45.00) AST 37 H (14-36) U/L Lactate Dehydrogenase (120-246) U/L C-Reactive Protein 6.9 H (<1.0) mg/dL Total Protein 5.9 L (6.3-8.2) g/dL Albumin 3.1 L (3.5-5.0) g/dL Crossmatch 08/06/23 08/06/23 Range/Units 09:35 09:35 WBC (3.8-10.6) k/uL RBC (3.80-5.40) m/uL Hgb (11.4-16.0) gm/dL Hct (34.0-46.0) % MCV (80.0-100.0) fL MCH (25.0-35.0) pg MCHC (31.0-37.0) g/dL RDW (11.5-15.5) % Plt Count (150-450) k/uL Neutrophils # (1.3-7.7) k/uL Lymphocytes # (1.0-4.8) k/uL ESR (0-30) mm/Hr D-Dimer 1.59 H (<0.60) mg/L FEU Chloride (98-107) mmol/L Carbon Dioxide (22-30) mmol/L BUN (7-17) mg/dL Glucose (74-99) mg/dL Iron (50-170) UG/DL TIBC (228-460) UG/DL % Saturation (12.00-45.00) AST (14-36) U/L Lactate Dehydrogenase 316 H (120-246) U/L C-Reactive Protein (<1.0) mg/dL Total Protein (6.3-8.2) g/dL Albumin (3.5-5.0) g/dL Crossmatch
--- NOTE | 2023-08-06 14:23 | P.PN ---
Subjective Progress Note Date: 08/06/23 (delayed charting seen at 0930) Patient is a 68-year-old female with known dyslipidemia, obesity, and family history of coronary artery disease presented to the emergency department with complaints of chest pain. Initial EKG showed sinus tachycardia with minimal ST segment elevation in leads V3 through V6, lead II, and aVF. Cardiology was immediately contacted and the patient proceeded to the [facility] [employer] [facility] and cardiac catheterization at that time showed relatively normal coronary arteries with no significant stenosis. Aggressive risk factor modification was recommended. Initial laboratory analysis included CBC, coags, CMP, troponin, and BNP which are remarkable for white blood cell count 18.3, hemoglobin 7.1, platelets 589, sodium 134, carbon dioxide 15, troponin 10.3, and BNP 3620. Influenza A/B/RSV/COVID-19 testing was negative. Chest x-ray demonstrated low lung volumes with mild basilar atelectasis. Repeat CBC ordered and hemoglobin dropped to 6.5. Patient was given 1 unit of packed red blood cells. Iron studies demonstrated severe iron deficiency. Inflammatory markers elevated. Patient underwent echocardiogram which again demonstrated akinesis of the apex with ejection fraction 55 to 60% consistent with stress-induced cardiomyopathy. Patient also underwent CTA of the chest which showed no evidence of pulmonary embolism or aortic dissection but did show large hiatal hernia. Patient seen and examined at bedside. Today she complains about just feeling "awful". She states she is super fatigued and needs B12. I explained to her that her B12 lumbar is normal but I believe her weakness is due to her iron being severely deficient. She again continues to perseverate on vitamin B complex and niacin. She again denies any GI or or vaginal bleeding. She is aware that we will be asking hematology to see her due to her severe iron deficiency anemia. [facility] that patient had a bout of dark emesis and is requesting a stat colonoscopy. Vital signs reviewed General: Nontoxic, no distress, appears at stated age Cardiovascular: S1S2 reg, no murmur Lungs: CTA bilateral, no rhonchi, no rales, no accessory muscle use Abdominal: Soft, nontender to palpation, no guarding Ext: No gross muscle atrophy, no edema b/l lower extremities, no contractures Neuro: CN II-XI grossly intact, no focal neuro deficits Psych: Alert, oriented, appropriate affect Assessment/Plan: Chest pain Elevated troponin, type II non-STEMI, cannot rule out viral myocarditis Takotsaubos cardiomyopathy - Cardio recs reviewed: possible viral myocarditis, await cohen B virus testing. Start CHolocine, hold off on NSAIDS while GI bleed being evaluated. -Metoprolol 50 mg twice daily, Cozaar 25 mg daily, Lipitor 40 mg daily, aspirin on hold due to anemia Vomiting, possible upper GI bleed - consult surgery - follow CBC - Protonix 40 mg IV BID Leukocytosis, Severe iron deficiency anemia, thrombocytosis - check, LDH, haptoglobin, d-dimer and fibrinogen to eval for consumption of RBC - consult heme/onc - of note severe anemia predated episode of vomiting. -Repeat CBC Allergic rhinitis - flonase BID and benadryl 25 mg PO TID prn allergy symptoms Hyperchloremic Metabolic acidosis - change IVF to LR at 75 cc/hr Imaging: None new Data Review: Labs reviewed from today include CBC and CMP which are remarkable for hemoglobin 7, white blood cell count 21.3, platelets 500, ESR 63, CRP 6.9, iron 7, trans sat 1.48, ferritin 10.3. DVT prophylaxis: SCDs Anticipated discharge date: Pending clinical course Anticipated discharge place: Pending clinical course This dictation was prepared using [employer] voice recognition software. Though every attempt is made to correct errors during dictation some may still exist. Objective - Vital Signs Vital signs: Vital Signs Temp 98.2 F 08/06/23 04:00 Pulse 88 08/06/23 12:00 Resp 14 08/06/23 12:00 BP 108/77 08/06/23 12:00 Pulse Ox 96 08/06/23 12:00 FiO2 Intake & Output 08/05/23 08/06/23 08/06/23 18:59 06:59 18:59 Intake Total 1230 240 480 Output Total 1800 850 600 Balance -570 -610 -120 Weight 85 kg Intake: IV 920 240 0.9 bolus 500 Sodium Chloride 0.9% 1, 420 240 000 ml @ 120 mls/hr IV . Q8H20M [facility] Rx#:[id number] Oral 480 Blood Product 310 Rc As-1 Unit 310 [id number] Output: Urine 1800 850 600 Other: # Voids 2 1 1 # Bowel Movements 1 3 - Labs CBC & Chem 7: 08/06/23 06:11 08/06/23 06:11 Labs: Abnormal Lab Results - Last 24 Hours (Table) 08/05/23 08/05/23 08/05/23 Range/Units 09:19 10:10 16:41 WBC 16.0 H (3.8-10.6) k/uL RBC 3.57 L (3.80-5.40) m/uL Hgb 7.7 L (11.4-16.0) gm/dL Hct 25.0 L (34.0-46.0) % MCV 69.9 L (80.0-100.0) fL MCH 21.6 L (25.0-35.0) pg MCHC 30.9 L (31.0-37.0) g/dL RDW 17.7 H (11.5-15.5) % Plt Count 511 H (150-450) k/uL Neutrophils # 14.7 H (1.3-7.7) k/uL Lymphocytes # 0.9 L (1.0-4.8) k/uL ESR 63 H (0-30) mm/Hr Haptoglobin (31.2-198.0) mg/dL D-Dimer (<0.60) mg/L FEU Chloride (98-107) mmol/L Carbon Dioxide (22-30) mmol/L BUN (7-17) mg/dL Glucose (74-99) mg/dL Iron 7 L (50-170) UG/DL TIBC 473 H (228-460) UG/DL % Saturation 1.48 L (12.00-45.00) AST (14-36) U/L Lactate Dehydrogenase (120-246) U/L C-Reactive Protein (<1.0) mg/dL Total Protein (6.3-8.2) g/dL Albumin (3.5-5.0) g/dL Crossmatch See Detail 08/05/23 08/06/23 08/06/23 Range/Units 16:41 06:11 06:11 WBC 21.3 H (3.8-10.6) k/uL RBC 3.10 L (3.80-5.40) m/uL Hgb 7.0 L (11.4-16.0) gm/dL Hct 22.0 L (34.0-46.0) % MCV 71.1 L (80.0-100.0) fL MCH 22.6 L (25.0-35.0) pg MCHC (31.0-37.0) g/dL RDW 17.0 H (11.5-15.5) % Plt Count 500 H (150-450) k/uL Neutrophils # (1.3-7.7) k/uL Lymphocytes # (1.0-4.8) k/uL ESR (0-30) mm/Hr Haptoglobin (31.2-198.0) mg/dL D-Dimer (<0.60) mg/L FEU Chloride 111 H (98-107) mmol/L Carbon Dioxide 18 L (22-30) mmol/L BUN 24 H (7-17) mg/dL Glucose 200 H (74-99) mg/dL Iron (50-170) UG/DL TIBC (228-460) UG/DL % Saturation (12.00-45.00) AST 37 H (14-36) U/L Lactate Dehydrogenase (120-246) U/L C-Reactive Protein 6.9 H (<1.0) mg/dL Total Protein 5.9 L (6.3-8.2) g/dL Albumin 3.1 L (3.5-5.0) g/dL Crossmatch 08/06/23 08/06/23 08/06/23 Range/Units 09:35 09:35 09:35 WBC (3.8-10.6) k/uL RBC (3.80-5.40) m/uL Hgb (11.4-16.0) gm/dL Hct (34.0-46.0) % MCV (80.0-100.0) fL MCH (25.0-35.0) pg MCHC (31.0-37.0) g/dL RDW (11.5-15.5) % Plt Count (150-450) k/uL Neutrophils # (1.3-7.7) k/uL Lymphocytes # (1.0-4.8) k/uL ESR (0-30) mm/Hr Haptoglobin 244.0 H (31.2-198.0) mg/dL D-Dimer 1.59 H (<0.60) mg/L FEU Chloride (98-107) mmol/L Carbon Dioxide (22-30) mmol/L BUN (7-17) mg/dL Glucose (74-99) mg/dL Iron (50-170) UG/DL TIBC (228-460) UG/DL % Saturation (12.00-45.00) AST (14-36) U/L Lactate Dehydrogenase 316 H (120-246) U/L C-Reactive Protein (<1.0) mg/dL Total Protein (6.3-8.2) g/dL Albumin (3.5-5.0) g/dL Crossmatch
--- NOTE | 2023-08-06 14:25 | P.CON ---
Consult Note - . Consult date: 08/06/23 Assessment/Plan:: Patient is a 68-year-old female with complaints of recent emesis. Patient states that she has issues with digesting pomegranate seeds and states that she had an episode of emesis several hours ago. She currently denies nausea vomiting fever chills shortness of breath or chest pain. Surgery was consulted to evaluate for colonoscopy. Patient doesn't have any signs of lower GI bleeding. She had a recent bowel movement that was brown. Patient recently had a drop in hemoglobin but is currently stable. Blood pressure is normotensive. Heart rate is within normal limits. Patient has no other complaints at this time. REVIEW OF SYSTEMS At the time of my exam: CONSTITUTIONAL: Denies fever or chills. CARDIOVASCULAR: +chest pain, +shortness of breath, no orthopnea, PND or palpitations. RESPIRATORY: Denies cough. GASTROINTESTINAL: Denies abdominal pain, diarrhea, constipation, nausea or vomiting. MUSCULOSKELETAL: Denies myalgias. NEUROLOGIC: Denies numbness, tingling or weakness. ENDOCRINE: Denies fatigue, weight change, polydipsia or polyurina. GENITOURINARY: Denies burning, hematuria or urgency with micturation. HEMATOLOGIC: Denies history of anemia or bleeding. PHYSICAL EXAMINATION Vital signs reviewed. CONSTITUTIONAL: No apparent distress. HEENT: Head is normocephalic. Pupils are equal, round. Sclerae anicteric. Mucous membranes of the mouth are moist. No JVD. No carotid bruit. CHEST EXAMINATION: Lungs are clear to auscultation. No chest wall tenderness is noted on palpation or with deep breathing. HEART EXAMINATION: Regular rate and rhythm. S1, S2 heard. No murmurs, gallops or rub. ABDOMEN: Soft, nontender. Positive bowel sounds. EXTREMITIES: 2+ peripheral pulses, no lower extremity edema and no calf tenderness. NEUROLOGIC EXAMINATION: Patient is awake, alert and oriented x3. 5-year-old female with recent episode of emesis No classic colonoscopy at this time continue to trend hemoglobin Okay for diet Outpatient colonoscopy
[2023-08-06] MEDS: COLCHICINE 0.6 MG EACH PO SCH (15:24)
[2023-08-06] MEDS: LACTATED RINGERS 1,000 ML IV SCH (15:25)
[2023-08-06 16:05] LABS: Anisocytosis Slight; Hypochromasia Marked; MCH 22.3 pg (25.0-35.0); MCHC 31.4 g/dL (31.0-37.0); MCV 70.9 fL (80.0-100.0); Mean Platelet Volume 6.9; Microcytosis Marked; Platelet Count 491 k/uL (150-450); Poikilocytosis Moderate; RBC 2.81 m/uL (3.80-5.40); RDW 18.1 % (11.5-15.5); WBC 22.5 k/uL (3.8-10.6)
[2023-08-06 16:06] LABS: HGB 6.3 gm/dL (11.4-16.0)
[2023-08-06] MEDS ORDERED: FUROSEMIDE 10 MG/ML 4 ML VIAL IV PRN (16:13)
--- NOTE | 2023-08-06 18:19 | P.CONS ---
History of Present Illness - Reason for Consult Consult date: 08/06/23 CBC abnormalities Requesting physician: Nereyda Cadet - Chief Complaint chest pain - History of Present Illness Ms. Huff is a very pleasant 68-year-old female with multiple comorbidities who is here for chest pain. Workup consistent with NSTEMI. [place] to be noncardiac in nature. CBC with a WBC of 18.3, hemoglobin 7.1, platelet 589, MCV 68. Last CBC from 2020 was normal with normal WBC, platelets 300, hemoglobin 14. MCV was normal at that time. Hemoglobin was trended with repeat at 6.5 requiring transfusion, improved to 7.7 and decreased to 7.0, then 6.3. Workup with iron of 7, TIBC 473, 1% saturation, ferritin 10. B12 was normal at 507. Haptoglobin negative. Patient denies any obvious bleeding. She does admit to pale feet and heels that improved with a blood transfusion. She was feeling ill with diarrhea prior to admission. Also upset stomach. She did eat pomegranate seeds prior to admission which initiated her feeling ill, and did not feel better until she says that she vomited a bulk of pomegranate seeds this morning. She started to feel better soon after that. She admits to prior episode of GI bleed about 7 years ago where she was treated at [facility]. She was seeing Dr. Meza there and underwent EGD, colonoscopy x 2, and capsule endoscopy that were unrevealing. At that time she describes eating raw corn and a back followed frozen pomegranate seeds and subsequently waking up with bloody stools that persisted for a few days. She ended up going to [facility] where she required 4 units of blood transfusion. She has not been on iron supplementation and did not require blood transfusions outside of this. Denies any bleeding after that that she is aware of. Past Medical History Past Medical History: Hyperlipidemia Additional Past Medical History / Comment(s): Year round allergies. Bouts of Colitis, last in 2006, hx of GI bleeding History of Any Multi-Drug Resistant Organisms: None Reported Additional Past Surgical History / Comment(s): eye surgery. Strabismus Past Anesthesia/Blood Transfusion Reactions: No Reported Reaction Additional Past Anesthesia/Blood Transfusion Reaction / Comm: Last surgery was 4 Past Psychological History: PTSD Smoking Status: Never smoker Past Alcohol Use History: None Reported Past Drug Use History: None Reported - Past Family History Father Family Medical History: Chest Pain / Angina, Hyperlipidemia, Hypertension Mother Family Medical History: Chest Pain / Angina, Hyperlipidemia, Hypertension Brother(s) Family Medical History: Hyperlipidemia, Hypertension Medications and Allergies Home Medications Medication Instructions Recorded Confirmed Type Fluticasone Nasal [place] [Flonase 1 spray EA NOSTRIL DAILY PRN 08/05/23 08/05/23 History Nasal [place]] Metoprolol Tartrate [Lopressor] 25 mg PO BID 08/05/23 08/05/23 History Triamcinolone 0.1% Cream [Kenalog 1 applicatio TOPICAL BID 08/05/23 08/05/23 History 0.1% Cream] Venlafaxine HCl ER [Effexor Xr] 150 mg PO DAILY 08/05/23 08/05/23 History hydrOXYzine HCL [Hydroxyzine HCl] 10 mg PO DAILY 08/05/23 08/05/23 History Allergies Allergy/AdvReac Type Severity Reaction Status Date / Time ragweed pollen Allergy Rash/Hives Verified 08/05/23 04:06 chamomile flower AdvReac [place]/Flu-like Verified 08/05/23 04:06 Symptoms orange juice [[place]] AdvReac Flushing/Flu-like Verified 08/05/23 04:06 Symptoms red dye AdvReac [place]/Flu-like Verified 08/05/23 04:06 Symptoms watermelon AdvReac Unknown Verified 08/05/23 04:06 Physical Exam Vitals: Vital Signs Temp Pulse Resp BP BP Pulse Ox 08/06/23 14:00 88 14 08/06/23 12:00 88 14 108/77 96 08/06/23 08:00 84 14 132/78 94 L 08/06/23 04:00 98.2 F 96 14 144/75 97 08/06/23 00:00 98.4 F 96 16 146/69 96 08/05/23 20:00 98 F 93 16 144/74 98 Intake and Output 08/06/23 08/06/23 08/06/23 06:59 14:59 22:59 Intake Total 312 433 9523 Output Total 250 600 200 Balance -130 -120 1820 Intake: IV 120 720 Sodium Chloride 0.9% 1, 120 720 000 ml @ 120 mls/hr IV . Q8H20M [facility] Rx#:[id number] Intake, IV Titration 250 Amount Lactated Ringers 1,000 ml 150 @ 75 mls/hr IV .[id number] [facility] Rx#:[id number] Sodium Ferric Gluconat- 100 Sucrose 125 mg In Sodium Chloride 0.9% 100 ml @ 100 mls/hr IVPB DAILY [facility] Rx#:[id number] Oral 480 1050 Output: Urine 250 600 200 Other: # Voids 1 1 # Bowel Movements 3 4 Weight 85 kg Patient is alert and oriented x 3. In no acute distress. She does have overall skin pallor and conjunctival pallor. No icterus. No respiratory distress. Results CBC & Chem 7: 08/06/23 15:38 08/06/23 06:11 Labs: Abnormal Lab Results - Last 24 Hours (Table) 08/05/23 08/05/23 08/05/23 Range/Units 09:19 10:10 16:41 WBC (3.8-10.6) k/uL RBC (3.80-5.40) m/uL Hgb (11.4-16.0) gm/dL Hct (34.0-46.0) % MCV (80.0-100.0) fL MCH (25.0-35.0) pg RDW (11.5-15.5) % Plt Count (150-450) k/uL ESR 63 H (0-30) mm/Hr Haptoglobin (31.2-198.0) mg/dL D-Dimer (<0.60) mg/L FEU Chloride (98-107) mmol/L Carbon Dioxide (22-30) mmol/L BUN (7-17) mg/dL Glucose (74-99) mg/dL Iron 7 L (50-170) UG/DL TIBC 473 H (228-460) UG/DL % Saturation 1.48 L (12.00-45.00) AST (14-36) U/L Lactate Dehydrogenase (120-246) U/L Total Protein (6.3-8.2) g/dL Albumin (3.5-5.0) g/dL Crossmatch See Detail 08/06/23 08/06/23 08/06/23 Range/Units 06:11 06:11 09:35 WBC 21.3 H (3.8-10.6) k/uL RBC 3.10 L (3.80-5.40) m/uL Hgb 7.0 L (11.4-16.0) gm/dL Hct 22.0 L (34.0-46.0) % MCV 71.1 L (80.0-100.0) fL MCH 22.6 L (25.0-35.0) pg RDW 17.0 H (11.5-15.5) % Plt Count 500 H (150-450) k/uL ESR (0-30) mm/Hr Haptoglobin (31.2-198.0) mg/dL D-Dimer 1.59 H (<0.60) mg/L FEU Chloride 111 H (98-107) mmol/L Carbon Dioxide 18 L (22-30) mmol/L BUN 24 H (7-17) mg/dL Glucose 200 H (74-99) mg/dL Iron (50-170) UG/DL TIBC (228-460) UG/DL % Saturation (12.00-45.00) AST 37 H (14-36) U/L Lactate Dehydrogenase (120-246) U/L Total Protein 5.9 L (6.3-8.2) g/dL Albumin 3.1 L (3.5-5.0) g/dL Crossmatch 08/06/23 08/06/23 08/06/23 Range/Units 09:35 09:35 15:38 WBC 22.5 H (3.8-10.6) k/uL RBC 2.81 L (3.80-5.40) m/uL Hgb 6.3 L* (11.4-16.0) gm/dL Hct 20.0 L (34.0-46.0) % MCV 70.9 L (80.0-100.0) fL MCH 22.3 L (25.0-35.0) pg RDW 18.1 H (11.5-15.5) % Plt Count 491 H (150-450) k/uL ESR (0-30) mm/Hr Haptoglobin 244.0 H (31.2-198.0) mg/dL D-Dimer (<0.60) mg/L FEU Chloride (98-107) mmol/L Carbon Dioxide (22-30) mmol/L BUN (7-17) mg/dL Glucose (74-99) mg/dL Iron (50-170) UG/DL TIBC (228-460) UG/DL % Saturation (12.00-45.00) AST (14-36) U/L Lactate Dehydrogenase 316 H (120-246) U/L Total Protein (6.3-8.2) g/dL Albumin (3.5-5.0) g/dL Crossmatch Assessment and Plan Assessment: 1. Chest pain due to NSTEMI 2. Severe anemia, microcytic 3. Leukocytosis and thrombocytosis, likely reactive 4. Iron deficiency Plan: Ms. Huff is a very pleasant 68-year-old female who is here for chest pain, workup with severe microcytic anemia, leukocytosis, thrombocytosis which is new compared to last blood work in EMR here from 2020. Her CBC at that time was completely normal. Also workup revealing NSTEMI. She received blood transfusion with improved hemoglobin from 6.5 up to 7.7 however has been downt rending since then, 6.3 on last check. Workup so far consistent with iron deficiency, with iron 7, TIBC 473, 1% saturation, ferritin 10. B12 507, haptoglobin negative. -Leukocytosis and thrombocytosis likely reactive due to iron deficiency anemia -Microcytic anemia likely due to iron deficiency, will need to rule out GI bleed especially with patient's history of hematochezia -Complete workup to rule out any other contributing etiology, doubt this is MPN however if her leukocytosis and thrombocytosis are persistent then we will need to send off for JAK2 and BCR -Agree with IV iron supplementation. She says that she received her first dose of IV iron today however the majority of the iron leaked onto her arm. She can complete her IV iron therapy outpatient if otherwise ready to discharge however for now while inpatient she should receive daily Ferrlecit. Her total iron deficit is ~1800mg. -Monitor hemoglobin, supportive transfusion to maintain hemoglobin above 7 -Surgery and GI on board Discussed with patient in detail and she is agreeable to the plan. All of her questions were answered. Discussed with nursing staff.
[2023-08-06 23:55] LABS: Anisocytosis Slight; Hypochromasia Marked; MCH 23.5 pg (25.0-35.0); MCHC 31.9 g/dL (31.0-37.0); MCV 73.6 fL (80.0-100.0); Mean Platelet Volume 7.5; Microcytosis Moderate; Platelet Count 481 k/uL (150-450); Poikilocytosis Marked; RBC 3.39 m/uL (3.80-5.40); RDW 19.7 % (11.5-15.5); WBC 24.4 k/uL (3.8-10.6)
[2023-08-07 04:01] VITALS: RESP 18
[2023-08-07 05:23] LABS: Reticulocyte % 2.4 % (0.5-2.0)
[2023-08-07 05:40] LABS: ALT 21 U/L (4-34); AST 31 U/L (14-36); African American GFR (CKD) >90 (>60 ml/min/1.73 sqM); Albumin 2.8 g/dL (3.5-5.0); Alkaline Phosphatase 64 U/L (38-126); Anion Gap 6 mmol/L; Blood Urea Nitrogen 24 mg/dL (7-17); Calcium 8.3 mg/dL (8.4-10.2); Carbon Dioxide 20 mmol/L (22-30); Chloride 112 mmol/L (98-107); Glucose 155 mg/dL (74-99); Non-African American GFR(CKD) 84 (>60 ml/min/1.73 sqM); Potassium 4.4 mmol/L (3.5-5.1); Sodium 138 mmol/L (137-145); Total Bilirubin 0.5 mg/dL (0.2-1.3); Total Protein 5.4 g/dL (6.3-8.2)
[2023-08-07 05:49] LABS: Anisocytosis Moderate; HCT 23.1 % (34.0-46.0); HGB 7.4 gm/dL (11.4-16.0); Hypochromasia Marked; MCH 23.3 pg (25.0-35.0); MCHC 32.1 g/dL (31.0-37.0); MCV 72.7 fL (80.0-100.0); Mean Platelet Volume 7.4; Microcytosis Marked; Platelet Count 449 k/uL (150-450); Poikilocytosis Marked; RBC 3.18 m/uL (3.80-5.40); RDW 20.1 % (11.5-15.5); WBC 20.5 k/uL (3.8-10.6)
[2023-08-07 06:24] LABS: Eosinophils # (M) 0.21 k/uL (0-0.7); Lymphocytes # (M) 4.51 k/uL (1.0-4.8); Monocytes # (M) 1.23 k/uL (0-1.0); Neutrophils # (M) 14.56 k/uL (1.3-7.7); Neutrophils % (M) 71 %; Nucleated Red Blood Cells 0 /100 WBC (0-0); Total Cells Counted 100
[2023-08-07 06:25] LABS: Anisocytosis (M) Present; Polychromasia Present; Target Cells Present
[2023-08-07 09:41] VITALS: BP 136/78; PULSE 88; TEMP 98.9
[2023-08-07 11:17] LABS: Albumin 3.1 g/dL (3.8-4.9); Protein, Total 5.5 g/dL (6.2-8.2)
--- NOTE | 2023-08-07 13:32 | P.PN ---
Subjective Progress Note Date: 08/07/23 Principal diagnosis: GI bleed Patient doing well today. She is tolerating diet. Hemoglobin 7.4 today. Denies rectal bleeding or melena. Patient apparently had some darker reddish colored emesis but she is convinced this is related to eating pomegranate. She is quite anxious to go home. Says she has a GI doctor that she will follow-up with as an outpatient. Tolerating regular diet. Objective - Vital Signs Vital signs: Vital Signs Temp 98.9 F 08/07/23 08:00 Pulse 88 08/07/23 12:46 Resp 18 08/07/23 08:00 BP 136/78 08/07/23 08:00 Pulse Ox 98 08/07/23 08:00 FiO2 Intake & Output 08/06/23 08/07/23 08/07/23 17:59 06:59 18:59 Intake Total 280 Output Total Balance 280 Weight Intake: IV Lactated Ringers 1,000 ml @ 75 mls/hr IV .[id number] [facility] Rx#:[id number] Sodium Chloride 0.9% 1, 000 ml @ 120 mls/hr IV . Q8H20M [facility] Rx#:[id number] Intake, IV Titration Amount Lactated Ringers 1,000 ml @ 75 mls/hr IV .[id number] [facility] Rx#:[id number] Sodium Ferric Gluconat- Sucrose 125 mg In Sodium Chloride 0.9% 100 ml @ 100 mls/hr IVPB DAILY [facility] Rx#:[id number] Oral 280 Blood Product Rc As-1 Unit [id number] Output: Urine Other: # Voids 1 # Bowel Movements 1 - Exam Abdomen: Soft, nontender, nondistended - Labs CBC & Chem 7: 08/07/23 04:56 08/07/23 04:56 Labs: Abnormal Lab Results - Last 24 Hours (Table) 08/05/23 08/06/23 08/06/23 Range/Units 10:10 09:35 15:38 WBC 22.5 H (3.8-10.6) k/uL RBC 2.81 L (3.80-5.40) m/uL Hgb 6.3 L* (11.4-16.0) gm/dL Hct 20.0 L (34.0-46.0) % MCV 70.9 L (80.0-100.0) fL MCH 22.3 L (25.0-35.0) pg RDW 18.1 H (11.5-15.5) % Plt Count 491 H (150-450) k/uL Neutrophils # (Manual) (1.3-7.7) k/uL Monocytes # (Manual) (0-1.0) k/uL Retic Count (0.5-2.0) % Haptoglobin 244.0 H (31.2-198.0) mg/dL Chloride (98-107) mmol/L Carbon Dioxide (22-30) mmol/L BUN (7-17) mg/dL Glucose (74-99) mg/dL Calcium (8.4-10.2) mg/dL Total Protein (6.3-8.2) g/dL Total Protein (PEP) (6.2-8.2) g/dL Albumin (3.5-5.0) g/dL Albumin (PEP) (3.8-4.9) g/dL Crossmatch See Detail 08/06/23 08/07/23 08/07/23 Range/Units 23:36 04:56 04:56 WBC 24.4 H 20.5 H (3.8-10.6) k/uL RBC 3.39 L 3.18 L (3.80-5.40) m/uL Hgb 8.0 L D 7.4 L (11.4-16.0) gm/dL Hct 25.0 L 23.1 L (34.0-46.0) % MCV 73.6 L 72.7 L (80.0-100.0) fL MCH 23.5 L 23.3 L (25.0-35.0) pg RDW 19.7 H 20.1 H (11.5-15.5) % Plt Count 481 H (150-450) k/uL Neutrophils # (Manual) 14.56 H (1.3-7.7) k/uL Monocytes # (Manual) 1.23 H (0-1.0) k/uL Retic Count (0.5-2.0) % Haptoglobin (31.2-198.0) mg/dL Chloride (98-107) mmol/L Carbon Dioxide (22-30) mmol/L BUN (7-17) mg/dL Glucose (74-99) mg/dL Calcium (8.4-10.2) mg/dL Total Protein (6.3-8.2) g/dL Total Protein (PEP) 5.5 L (6.2-8.2) g/dL Albumin (3.5-5.0) g/dL Albumin (PEP) 3.1 L (3.8-4.9) g/dL Crossmatch 08/07/23 08/07/23 Range/Units 04:56 04:56 WBC (3.8-10.6) k/uL RBC (3.80-5.40) m/uL Hgb (11.4-16.0) gm/dL Hct (34.0-46.0) % MCV (80.0-100.0) fL MCH (25.0-35.0) pg RDW (11.5-15.5) % Plt Count (150-450) k/uL Neutrophils # (Manual) (1.3-7.7) k/uL Monocytes # (Manual) (0-1.0) k/uL Retic Count 2.4 H (0.5-2.0) % Haptoglobin (31.2-198.0) mg/dL Chloride 112 H (98-107) mmol/L Carbon Dioxide 20 L (22-30) mmol/L BUN 24 H (7-17) mg/dL Glucose 155 H (74-99) mg/dL Calcium 8.3 L (8.4-10.2) mg/dL Total Protein 5.4 L (6.3-8.2) g/dL Total Protein (PEP) (6.2-8.2) g/dL Albumin 2.8 L (3.5-5.0) g/dL Albumin (PEP) (3.8-4.9) g/dL Crossmatch Assessment and Plan (1) GI bleed Narrative/Plan: 68-year-old female with anemia and suspected GI bleed. Continue monitor hemoglobin. Continue regular diet. Patient would like to go home and follow-up with GI as outpatient which is reasonable. She says she will contact her digital marketing manager. May discharge. Current Visit: Yes Status: Acute Code(s): K92.2 - GASTROINTESTINAL HEMORRHAGE, UNSPECIFIED SNOMED Code(s): 81252631
--- NOTE | 2023-08-07 13:50 | P.DS ---
Providers Date of admission: 08/05/23 04:40 Expected date of discharge: 08/07/23 Attending physician: Nereyda Cadet MD Consults: 08/05/23 04:13 Consult Physician Stat Consulting Provider: Iván Clark Consult Reason/Comments: stemi Do you want consulting provider notified?: Already Contacted 08/06/23 07:58 Consult Physician Routine Consulting Provider: Shyla Mason Consult Reason/Comments: anemia, thrombocytosis, leukocytosis Do you want consulting provider notified?: Yes 08/06/23 11:00 Consult Physician Routine Consulting Provider: Monroe Suarez Consult Reason/Comments: GI bleed Do you want consulting provider notified?: Yes Primary care physician: Physician Nonstaff Hospital Course: Discharge Diagnosis: Chest pain Type II non-STEMI, Takotsaubos cardiomyopathy, 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 Initial EKG showed sinus tachycardia with minimal ST segment elevation in leads V3 through V6, lead II, and aVF. Cardiology was immediately contacted and the patient proceeded to the [employer] and cardiac catheterization at that time showed relatively normal coronary arteries with no significant stenosis. Aggressive risk factor modification was recommended. Initial laboratory analysis included CBC, coags, CMP, troponin, and BNP which are remarkable for white blood cell count 18.3, hemoglobin 7.1, platelets 589, sodium 134, carbon dioxide 15, troponin 10.3, and BNP 3620. Influenza A/B/RSV/COVID-19 testing was negative. Chest x-ray demonstrated low lung volumes with mild basilar atelectasis. Repeat CBC ordered and hemoglobin dropped to 6.5. Patient was given 1 unit of packed red blood cells. Iron studies demonstrated severe iron deficiency she was started on IV iron. Inflammatory markers elevated. Patient underwent echocardiogram which again demonstrated akinesis of the apex with ejection fraction 55 to 60% consistent with stress-induced cardiomyopathy. Patient also underwent CTA of the chest which showed no evidence of pulmonary embolism or aortic dissection but did show large hiatal hernia. Patient again had a drop in her hemoglobin down to 6.3 and she was given an additional unit of packed red blood cells. Her hemoglobin then remained stable. She was seen by surgery who felt that she did not warrant an urgent colonoscopy, but could follow in the outpatient setting. She was seen by hematology oncology who agrees that she will need continued iron infusions in [facility] outpatient setting. Cardiology felt that she had a probable peripericarditis/myocarditis and she was started on colchicine which she tolerated well. She was doing well and asked to be discharged home. Follow-up: Her primary care provider DONATO Lynch, Dr. Mason in 1 week, Dr. Inman in 1 week, Dr. Augustin in 1 week. New medications include Protonix 40 mg daily, Lipitor 40 mg at night, Cozaar 25 mg daily, and colchicine 0.6 mg twice daily. She should take her blood pressure daily. I have also recommended that she have a repeat CBC with her PCP in 1 week. Patient seen and examined at bedside. Feeling well. No other episodes of vomiting, no diarrhea. No nausea. Her energy is improved. No chest pain or shortness of breath. Vital signs reviewed and stable. General: Nontoxic, no distress, appears at stated age Cardiovascular: S1S2 reg, no murmur, positive posterior tibial pulse bilateral, Lungs: Decreased breath sounds bilateral, no rhonchi, no rales, no accessory muscle use Abdominal: Soft, nontender to palpation, no guarding, no appreciable organomegaly Ext: No gross muscle atrophy, no edema b/l lower extremities, no contractures Neuro: CN II-XI grossly intact, no focal neuro deficits Psych: Alert, oriented, appropriate affect A total of 45 minutes of time were spent preparing this complex discharge summary. Patient was discharged on 08/07/2023. This dictation was prepared using [employer] voice recognition software. Though every attempt is made to correct errors during dictation some may still exist. Patient Condition at Discharge: Stable Plan - Discharge Summary Discharge Rx Participant: No New Discharge Prescriptions: New Colchicine [Colcrys] 0.6 mg PO BID #60 each Losartan [Cozaar] 25 mg PO DAILY #30 tab Atorvastatin [Lipitor] 40 mg PO HS #30 tab Pantoprazole [Protonix] 40 mg PO DAILY #30 tab Continue Venlafaxine HCl ER [Effexor XR] 150 mg PO DAILY Fluticasone Nasal [place] [Flonase Nasal [place]] 1 spray EA NOSTRIL DAILY PRN PRN Reason: Allergy Symptoms hydrOXYzine HCL 10 mg PO DAILY Metoprolol Tartrate [Lopressor] 25 mg PO BID Discontinued Triamcinolone 0.1% Cream [Kenalog 0.1% Cream] 1 applicatio TOPICAL BID Discharge Medication List Fluticasone Nasal [place] [Flonase Nasal [place]] 1 spray EA NOSTRIL DAILY PRN 08/05/23 [History] Metoprolol Tartrate [Lopressor] 25 mg PO BID 08/05/23 [History] Venlafaxine HCl ER [Effexor XR] 150 mg PO DAILY 08/05/23 [History] hydrOXYzine HCL 10 mg PO DAILY 08/05/23 [History] Atorvastatin [Lipitor] 40 mg PO HS #30 tab 08/07/23 [Rx] Colchicine [Colcrys] 0.6 mg PO BID #60 each 08/07/23 [Rx] Losartan [Cozaar] 25 mg PO DAILY #30 tab 08/07/23 [Rx] Pantoprazole [Protonix] 40 mg PO DAILY #30 tab 08/07/23 [Rx] Follow up Appointment(s)/Referral(s): Dheeraj Inman MD [Medical Doctor] - 1 Week (for EGD and colonoscopy) Cameron Augustin MD [Medical Doctor] - 1 Week () Shyla Mason MD [STAFF PHYSICIAN] - 1 Week (for your anemia and iron infusi ons) Fercho,Physician [Primary Care Provider] - 1-2 days Patient Instructions/Handouts: Hypertrophic Cardiomyopathy (DC) Activity/Diet/Wound Care/Special Instructions: Activity: As tolerated Diet: Regular Special Instructions: Please follow with your primary care provider Matteo Buchanan in 1-2 days and have a repeat blood count (CBC) completed next week. To determine the cause of your anemia, you need to have an EGD and Colonoscopy done in the outpatient setting. Return to the emergency department with any light headedness, dizziness, chest pain, difficult breathing, or fainting episodes. Please take your blood pressure daily and make a log to bring to your appoin tment with Ms. Buchanan and Dr. Augustin Discharge Disposition: HOME SELF-CARE
[2023-08-08 18:04] LABS: Gamma Globulin 0.85 g/dL (0.70-1.50)
[2023-08-09 15:04] LABS: Free Kappa Lt Chain Qnt, Serum 2.3 mg/dL (0.33-1.94); Free Lambda Lt Chain Qnt, Seru 2.07 mg/dL (0.57-2.63)
== END 2023-08-07 14:14 | disposition home or self-care (01) | DRG 811 ==
LOC: EC 03:59 → 2SICU 04:40 → 3SCARD 08-07 05:39
PROVIDERS: ADMIT Internal Medicine; ATTEND Internal Medicine
PROC: 4A023N7 Measurement of Cardiac Sampling and Pressure, Left Heart, Percutaneous Approach (ICD-10-PCS; principal; 2023-08-05 04:38)
PROC: B2111ZZ Fluoroscopy of Multiple Coronary Arteries using Low Osmolar Contrast (ICD-10-PCS; principal; 2023-08-05 04:38)
PROC: B2151ZZ Fluoroscopy of Left Heart using Low Osmolar Contrast (ICD-10-PCS; principal; 2023-08-05 04:38)
PROC: 30233N1 Transfusion of Nonautologous Red Blood Cells into Peripheral Vein, Percutaneous Approach (ICD-10-PCS; 2023-08-05 04:38)
DX: D50.9 Iron deficiency anemia, unspecified (principal); I21.A1 Myocardial infarction type 2; I40.0 Infective myocarditis; J98.11 Atelectasis; K92.2 Gastrointestinal hemorrhage, unspecified; I25.10 Atherosclerotic heart disease of native coronary artery without angina pectoris; I11.9 Hypertensive heart disease without heart failure; D75.839 Thrombocytosis, unspecified; E66.9 Obesity, unspecified; Z68.31 Body mass index [BMI] 31.0-31.9, adult; E78.5 Hyperlipidemia, unspecified; E87.8 Other disorders of electrolyte and fluid balance, not elsewhere classified; F43.10 Post-traumatic stress disorder, unspecified; I48.91 Unspecified atrial fibrillation; Z11.52 Encounter for screening for COVID-19; J30.9 Allergic rhinitis, unspecified; K44.9 Diaphragmatic hernia without obstruction or gangrene; Z79.899 Other long term (current) drug therapy; Z82.49 Family history of ischemic heart disease and other diseases of the circulatory system; Z86.16 Personal history of COVID-19
CPT/HCPCS: 36415; 71045; 71275; 76937; 80053; 82607; 82728; 82746; 82747; 83010; 83540; 83550; 83605; 83615; 83735; 83880; 83883; 84165; 84484; 85025; 85027; 85045; 85379; 85384; 85610; 85652; 85730; 86140; 86658; 86850; 86900; 86901; 86920; 87636; 93005; 93306; 93458; 96374; 96375; 99291

== ENCOUNTER 2023-08-10 16:27 | Observation (INO) | payer MEDICARE ==
--- NOTE | 2023-08-10 17:58 | ED ---
General Adult HPI - General Chief complaint: Wound/Laceration Stated complaint: Swelled Wrist Time Seen by Provider: 08/10/23 16:36 Source: patient, RN notes reviewed Mode of arrival: ambulatory Limitations: no limitations - History of Present Illness Initial comments: 68-year-old female presents to the emergency department for evaluation of right wrist pain. Patient states that she underwent heart catheterization last Tuesday. She states that she was doing well but notes that last night she noticed pain in the right wrist radial aspect radiating up her arm and into her back. She states that since then it is been tender to touch. Denies fever, c hills. She is not currently on blood thinners or antiplatelet medication. - Related Data Home Medications Medication Instructions Recorded Confirmed Fluticasone Nasal [place] [Flonase 1 spray EA NOSTRIL DAILY 08/05/23 08/10/23 Nasal [place]] Metoprolol Tartrate [Lopressor] 25 mg PO BID 08/05/23 08/10/23 Venlafaxine HCl ER [Effexor XR] 150 mg PO DAILY 08/05/23 08/10/23 hydrOXYzine HCL 10 mg PO DAILY 08/05/23 08/10/23 Previous Rx's Medication Instructions Recorded Atorvastatin [Lipitor] 40 mg PO HS #30 tab 08/07/23 Colchicine [Colcrys] 0.6 mg PO BID #60 each 08/07/23 Losartan [Cozaar] 25 mg PO DAILY #30 tab 08/07/23 Pantoprazole [Protonix] 40 mg PO DAILY #30 tab 08/07/23 Allergies Allergy/AdvReac Type Severity Reaction Status Date / Time ragweed pollen Allergy Rash/Hives Verified 08/10/23 21:38 chamomile flower AdvReac [place]/Flu-like Verified 08/10/23 21:38 Symptoms orange juice [[place]] AdvReac Fl[place]/Flu-like Verified 08/10/23 21:38 Symptoms red dye AdvReac [place]/Flu-like Verified 08/10/23 21:38 Symptoms watermelon AdvReac Unknown Verified 08/10/23 21:38 Review of Systems ROS Statement: Those systems with pertinent positive or pertinent negative responses have been documented in the HPI. ROS Other: All systems not noted in ROS Statement are negative. Past Medical History Past Medical History: Hyperlipidemia, Myocardial Infarction (CA) Additional Past Medical History / Comment(s): Year round allergies. Bouts of Colitis, last in 2006, hx of GI bleeding History of Any Multi-Drug Resistant Organisms: None Reported Past Surgical History: Heart Catheterization Additional Past Surgical History / Comment(s): eye surgery. Strabismus Past Anesthesia/Blood Transfusion Reactions: No Reported Reaction Additional Past Anesthesia/Blood Transfusion Reaction / Comment(s): Last surgery was 4 Past Psychological History: PTSD Smoking Status: Never smoker Past Alcohol Use History: None Reported Past Drug Use History: None Reported - Past Family History Father Family Medical History: Chest Pain / Angina, Hyperlipidemia, Hypertension Mother Family Medical History: Chest Pain / Angina, Hyperlipidemia, Hypertension Brother(s) Family Medical History: Hyperlipidemia, Hypertension General Exam Limitations: no limitations General appearance: alert, in no apparent distress Head exam: Present: atraumatic, normocephalic, normal inspection Eye exam: Present: normal appearance, PERRL, EOMI. Absent: scleral icterus, conjunctival injection, periorbital swelling ENT exam: Present: normal exam, mucous membranes moist Respiratory exam: Present: normal lung sounds bilaterally. Absent: respiratory distress, wheezes, rales, rhonchi, stridor Cardiovascular Exam: Present: regular rate, normal rhythm, normal heart sounds. Absent: systolic murmur, diastolic murmur, rubs, gallop, clicks Extremities exam: Present: normal inspection, full ROM, tenderness (Tenderness palpation along radial artery), normal capillary refill, other (Radial pulses 2+). Absent: pedal edema, joint swelling, calf tenderness Back exam: Present: normal inspection Neurological exam: Present: alert, oriented X3 Psychiatric exam: Present: normal affect, normal mood Skin exam: Present: warm, dry, intact, normal color. Absent: rash Course Vital Signs 08/10/23 08/10/23 08/10/23 16:32 19:00 21:35 Temperature 98.4 F 98.2 F 98.3 F Pulse Rate 96 91 101 H Respiratory 20 18 17 Rate Blood Pressure 123/82 120/77 116/73 O2 Sat by Pulse 97 98 96 Oximetry Medical Decision Making - Medical Decision Making Was pt. sent in by a medical professional or institution (, PA, ELECTROTYPE CASTER, urgent care, hospital, or prison...) When possible be specific @ -No Did you speak to anyone other than the patient for history (EMS, parent, family, police, friend...)? What history was obtained from this source @ -No Did you review nursing and triage notes (agree or disagree)? Why? @ -I reviewed and agree with nursing and triage notes Were old charts reviewed (outside hosp., previous admission, EMS record, old EKG, old radiological studies, urgent care reports/EKG's, prison records)? Report findings @ -Heart catheterization from Tuesday reviewed Differential Diagnosis (chest pain, altered mental status, abdominal pain women, abdominal pain men, vaginal bleeding, weakness, fever, dyspnea, syncope, headache, dizziness, GI bleed, back pain, seizure, CVA, palpatations, mental health, musculoskeletal)? @ -Not applicable EKG interpreted by me (3pts min.). @ -None X-rays interpreted by me (1pt min.). @ -None done CT interpreted by me (1pt min.). @ -None done U/S interpreted by me (1pt. min.). @ -Ultrasound shows suspected thrombus of the distal and mid radial artery with good proximal flow What testing was considered but not performed or refused? (CT, X-rays, U/S, labs)? Why? @ -None What meds were considered but not given or refused? Why? @ -None Did you discuss the management of the patient with other professionals (professionals i.e. , PA, ELECTROTYPE CASTER, lab, RT, psych nurse, neonatal social worker, clinical appeals rn, teacher, juvenile probation officer, piano case and bench assembler)? Give summary @ -Management discussed with Dr. Wu Case discussed with Dr. Augustin recommend heparin, antiplatelet medication Was smoking cessation discussed for >3mins.? @ -No Was critical care preformed (if so, how long)? @ -No Were there social determinants of health that impacted care today? How? (Homelessness, low income, unemployed, alcoholism, drug addiction, transportation, low edu. Level, literacy, decrease access to med. care, shelter, rehab)? @ -No Was there de-escalation of care discussed even if they declined (Discuss DNR or withdrawal of care, Hospice)? DNR status @ -No What co-morbidities impacted this encounter? (DM, HTN, Smoking, COPD, CAD, Cancer, CVA, ARF, Chemo, Hep., AIDS, mental health diagnosis, sleep apnea, morbid obesity)? @ -CAD Was patient admitted / discharged? Hospital course, mention meds given and route, prescriptions, significant lab abnormalities, going to OR and other pertinent info. @ -Admitted. Patient presented to the emergency department for evaluation of right wrist pain following a heart catheterization. She states that last night the pain started fairly suddenly radiating up her right arm. She is not currently on blood thinners. Ultrasound was obtained which shows a suspected thrombus of the distal and mid radial artery with good proximal flow. She does have intact pulses and sensation. Case was discussed with Dr. Augustin with cardiology who is recommending heparin and antiplatelet therapy. Patient will be admitted. Case discussed with Dr Cadet who is accepting of the admission Undiagnosed new problem with uncertain prognosis? @ -No Drug Therapy requiring intensive monitoring for toxicity (Heparin, Nitro, Insulin, Cardizem)? @ -No Were any procedures done? @ -No Diagnosis/symptom? @ -Radial artery thrombosis Acute, or Chronic, or Acute on Chronic? @ -acute Uncomplicated (without systemic symptoms) or Complicated (systemic symptoms)? @ -uncomplicated Side effects of treatment? @ -No Exacerbation, Progression, or Severe Exacerbation? @ -No Poses a threat to life or bodily function? How? (Chest pain, [place], CA, pneumonia, PE, COPD, DKA, ARF, appy, cholecystitis, CVA, Diverticulitis, Homicidal, Suicidal, threat to staff... and all critical care pts) @ -No - Lab Data Result diagrams: 08/11/23 04:45 08/11/23 04:45 Lab Results 08/10/23 08/10/23 Range/Units 19:56 19:56 WBC 13.3 H (3.8-10.6) k/uL RBC 3.99 (3.80-5.40) m/uL Hgb 9.3 L D (11.4-16.0) gm/dL Hct 30.7 L (34.0-46.0) % MCV 77.0 L (80.0-100.0) fL MCH 23.3 L (25.0-35.0) pg MCHC 30.2 L (31.0-37.0) g/dL RDW 24.2 H (11.5-15.5) % Plt Count 530 H (150-450) k/uL MPV 7.7 Neutrophils % 68 % Lymphocytes % 20 % Monocytes % 5 % Eosinophils % 2 % Basophils % 1 % Neutrophils # 9.0 H (1.3-7.7) k/uL Lymphocytes # 2.7 (1.0-4.8) k/uL Monocytes # 0.7 (0-1.0) k/uL Eosinophils # 0.3 (0-0.7) k/uL Basophils # 0.1 (0-0.2) k/uL Hypochromasia Marked Poikilocytosis Moderate Anisocytosis Marked Microcytosis Moderate PT 10.7 (10.0-12.5) sec INR 1.0 (<1.2) APTT 22.3 (22.0-30.0) sec Disposition Clinical Impression: Radial artery thrombosis, right Disposition: ADMITTED IP TO THIS HOSP Condition: Stable Is patient prescribed a controlled substance at d/c from ED?: No
--- NOTE | 2023-08-10 18:35 | US ---
EXAMINATION TYPE: US upper ext pseudo RT DATE OF EXAM: 08/10/2023 COMPARISON: NONE CLINICAL INDICATION: Female, 68 years old with history of pain post cath; swelling, pain, and redness in right wrist. Post heart cath TECHNIQUE: Right radial artery scanned FINDINGS: Limited blood flow and echoes seen in the distal and mid radial artery. Good blood flow se en in prox radial artery near origin. IMPRESSION: Suspected thrombus within the distal and mid radial artery.
[2023-08-10] MEDS ORDERED: NALOXONE 0.4 MG/ML 1 ML VIAL IV PRN (19:56)
[2023-08-10] MEDS: CLOPIDOGREL 75 MG TAB PO STA (20:12)
[2023-08-10] MEDS: HEPARIN SODIUM 1,000 UN/ML (10ML VL) IV ONE (20:14)
[2023-08-10] MEDS: HEPARIN SOD,PORK IN 0.45% NACL 25,000 UNIT in 0.45% NACL 1 250ML.BAG IV SCH (20:16)
[2023-08-10 20:28] LABS: Anisocytosis Marked; Basophils # (A) 0.1 k/uL (0-0.2); Basophils % (A) 1 %; Eosinophils # (A) 0.3 k/uL (0-0.7); Eosinophils % (A) 2 %; HCT 30.7 % (34.0-46.0); Hypochromasia Marked; Lymphocytes # (A) 2.7 k/uL (1.0-4.8); Lymphocytes % (A) 20 %; MCH 23.3 pg (25.0-35.0); MCHC 30.2 g/dL (31.0-37.0); Mean Platelet Volume 7.7; Microcytosis Moderate; Monocytes # (A) 0.7 k/uL (0-1.0); Monocytes % (A) 5 %; Neutrophils % (A) 68 %; Platelet Count 530 k/uL (150-450); Poikilocytosis Moderate; RBC 3.99 m/uL (3.80-5.40); RDW 24.2 % (11.5-15.5); WBC 13.3 k/uL (3.8-10.6)
[2023-08-10 20:33] LABS: HGB 9.3 gm/dL (11.4-16.0)
[2023-08-10] MEDS: ACETAMINOPHEN TAB 325 MG TAB PO PRN (20:37)
[2023-08-10 20:47] LABS: Partial Thromboplastin Time 22.3 sec (22.0-30.0); Prothrombin Time 10.7 sec (10.0-12.5)
[2023-08-10] MEDS: MORPHINE SULFATE 4 MG/ML SYRINGE IV PRN (22:22)
[2023-08-11] MEDS: diphenhydrAMINE 50 MG/ML 1 ML VIAL IVP STA (01:48)
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
[2023-08-11] MEDS: HEPARIN SODIUM 1,000 UN/ML (10ML VL) IV PRN (06:32)
[2023-08-11 09:07] LABS: HCT 24.5 % (37.2-46.3); HGB 7.4 g/dL (12.0-15.0); MCH 23.1 pg (27.0-32.0); MCHC 30.2 g/dL (32.0-37.0); MCV 76.3 FL (80.0-97.0); Mean Platelet Volume 9.2 FL (9.5-12.2); NRBC Per 100 WBC 0 X 10*3/uL (0.00-0.01); Platelet Count 420 X 10*3/uL (140-440); RBC 3.21 X 10*6/uL (4.10-5.20); RDW 26.6 % (11.5-14.5); WBC 12.34 X 10*3/uL (4.50-10.00)
[2023-08-11 09:14] LABS: BUN/Creat Ratio 26.75 Ratio (12.00-20.00); Blood Urea Nitrogen 21.4 mg/dL (9.0-27.0); Carbon Dioxide 24.3 mmol/L (21.6-31.8); Chloride 102 mmol/L (96-109); Glucose 142 mg/dL (70-110); Potassium 4.5 mmol/L (3.5-5.5); Sodium 135 mmol/L (135-145)
[2023-08-11 09:15] LABS: ALT 16 U/L (8-44); AST 20 U/L (13-35); Albumin 3.2 g/dL (3.8-4.9); Albumin/Globulin Ratio 1.33 Ratio (1.60-3.17); Alkaline Phosphatase 70 U/L (41-126); Calcium 8.7 mg/dL (8.7-10.3); Globulin 2.4 g/dL (1.6-3.3); Total Bilirubin <0.2 mg/dL (0.3-1.2); Total Protein 5.6 g/dL (6.2-8.2)
[2023-08-11 09:36] LABS: Anisocytosis (M) 2+; Basophils # (A) 0.08 X 10*3/uL (0.00-0.10); Basophils % (A) 0.6 %; Eosinophils # (A) 0.46 X 10*3/uL (0.04-0.35); Eosinophils % (A) 3.7 %; Hypochromasia (M) 2+; Lymphocytes # (A) 4.26 X 10*3/uL (0.90-5.00); Lymphocytes % (A) 34.5 %; Microcytosis (M) 2+; Monocytes # (A) 0.99 X 10*3/uL (0.20-1.00); Neutrophils # (A) 5.99 X 10*3/uL (1.80-7.70); Neutrophils % (A) 48.7 %
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
[2023-08-11] MEDS: FLUTICASONE 50MCG/SPRAY NASAL 16GM EA NOSTRIL SCH (10:23)
[2023-08-11] MEDS: PANTOPRAZOLE 40 MG TABLET PO SCH (10:24)
[2023-08-11] MEDS: METOPROLOL TARTRATE 25 MG TAB PO SCH (10:24)
[2023-08-11] MEDS: LOSARTAN 25 MG TAB PO SCH (10:24)
[2023-08-11] MEDS: COLCHICINE 0.6 MG EACH PO SCH (10:25)
[2023-08-11 10:48] LABS: INR 1.07 sec (0.93-1.11); Prothrombin Time 11.5 sec (9.9-11.9)
[2023-08-11] MEDS: ALLEGRA PO PRN (13:34)
--- NOTE | 2023-08-11 16:26 | P.PN ---
Subjective Progress Note Date: 08/11/23 (delayed charting seen at 815) Patient is a 68-year-old female with a history of dyslipidemia, recent myocarditis, severe iron deficiency anemia, and history of B12 deficiency who presented to the hospital with right wrist pain. Of note patient was recently hospitalized here from 08/04 through 08/06 with chest pain where she underwent cardiac catheterization and was subsequently found to have myocarditis and discharged home on colchicine. During that hospital stay she was also found to have severe iron deficiency anemia she required 2 units of packed red blood cells and received 2 doses of IV iron. On arrival to the emergency department she underwent extensive evaluation. Initial vitals were within normal limits. Initial laboratory analysis was remarkable for white blood cell count 13.3, hemoglobin 9.3, platelets 530. She underwent upper extremity arterial ultrasound which showed a thrombus within the distal and mid radial artery. Patient seen and examined at bedside. She reports that her wrist is feeling somewhat better than yesterday. She is having some tingling in the hand but no loss of function of the right hand. She denies any chest pain or shortness of breath. She is having several bowel movements a day but it is not overly distressing to her. 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 She is aware she needs to follow with hematology and oncology. -Will remind her that she needs to have EGD and colonoscopy completed in the outpatient setting. -Repeat CBC in a.m. Data Review: Labs reviewed include CBC and basic metabolic profile which are remarkable for white blood cell count 12.34, hemoglobin 7.4, platelets 420. DVT prophylaxis: On heparin drip Anticipated discharge date: In a.m. Anticipated discharge place: Home This dictation was prepared using [employer] voice recognition software. Though every attempt is made to correct errors during dictation some may still exist. Objective - Vital Signs Vital signs: Vital Signs Temp 97.8 F 08/11/23 12:32 Pulse 83 08/11/23 12:32 Resp 16 08/11/23 12:32 BP 138/74 08/11/23 12:32 Pulse Ox 97 08/11/23 12:32 FiO2 Intake & Output 08/10/23 08/11/23 08/11/23 18:59 06:59 18:59 Intake Total 1300.756 Balance 1300.756 Weight 81.647 kg 81.647 kg Intake: Intake, IV Titration 100.756 Amount Heparin Sod,Pork in 0.45% 100.756 NaCl 25,000 unit In 0.45 % NaCl 1 250ml.bag @ 12 UNITS/KG/HR 9.798 mls/hr IV .Q24H [facility] Rx#: [id number] Oral 1200 Other: # Voids 1 1 - Labs CBC & Chem 7: 08/11/23 04:45 08/11/23 04:45 Labs: Abnormal Lab Results - Last 24 Hours (Table) 08/10/23 08/11/23 08/11/23 Range/Units 19:56 00:24 04:45 WBC 13.3 H 12.34 H (3.8-10.6) k/uL RBC 3.21 L (4.10-5.20) X 10*6/uL Hgb 9.3 L D 7.4 L (11.4-16.0) gm/dL Hct 30.7 L 24.5 L (34.0-46.0) % MCV 77.0 L 76.3 L (80.0-100.0) fL MCH 23.3 L 23.1 L (25.0-35.0) pg MCHC 30.2 L 30.2 L (31.0-37.0) g/dL RDW 24.2 H 26.6 H (11.5-15.5) % Plt Count 530 H (150-450) k/uL MPV 9.2 L (9.5-12.2) FL Immature Gran # 0.56 H (0.00-0.04) X 10*3/uL Neutrophils # 9.0 H (1.3-7.7) k/uL Eosinophils # 0.46 H (0.04-0.35) X 10*3/uL Hypochromasia (manual) 2+ A Anisocytosis (manual) 2+ A Microcytosis (manual) 2+ A APTT 49.2 H (22.0-30.0) sec BUN/Creatinine Ratio (12.00-20.00) Ratio Glucose (70-110) mg/dL Total Bilirubin (0.3-1.2) mg/dL Total Protein (6.2-8.2) g/dL Albumin (3.8-4.9) g/dL Albumin/Globulin Ratio (1.60-3.17) Ratio 08/11/23 08/11/23 08/11/23 Range/Units 04:45 04:45 12:30 WBC (3.8-10.6) k/uL RBC (4.10-5.20) X 10*6/uL Hgb (11.4-16.0) gm/dL Hct (34.0-46.0) % MCV (80.0-100.0) fL MCH (25.0-35.0) pg MCHC (31.0-37.0) g/dL RDW (11.5-15.5) % Plt Count (150-450) k/uL MPV (9.5-12.2) FL Immature Gran # (0.00-0.04) X 10*3/uL Neutrophils # (1.3-7.7) k/uL Eosinophils # (0.04-0.35) X 10*3/uL Hypochromasia (manual) Anisocytosis (manual) Microcytosis (manual) APTT 41.1 H 60.9 H (22.0-30.0) sec BUN/Creatinine Ratio 26.75 H (12.00-20.00) Ratio Glucose 142 H (70-110) mg/dL Total Bilirubin <0.2 L (0.3-1.2) mg/dL Total Protein 5.6 L (6.2-8.2) g/dL Albumin 3.2 L (3.8-4.9) g/dL Albumin/Globulin Ratio 1.33 L (1.60-3.17) Ratio
[2023-08-11] MEDS: ATORVASTATIN 40 MG TAB PO SCH (20:30)
[2023-08-12 06:39] LABS: Anisocytosis Marked; HCT 26.3 % (34.0-46.0); Hypochromasia Marked; MCH 24.1 pg (25.0-35.0); MCHC 30.5 g/dL (31.0-37.0); Mean Platelet Volume 7.7; Microcytosis Moderate; Platelet Count 452 k/uL (150-450); Poikilocytosis Slight; RBC 3.33 m/uL (3.80-5.40); RDW 24.6 % (11.5-15.5); WBC 11.6 k/uL (3.8-10.6)
--- NOTE | 2023-08-12 12:28 | P.DS ---
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 Of note patient was recently hospitalized here from 08/04 through 08/06 with chest pain where she underwent cardiac catheterization and was subsequently found to have myocarditis and discharged home on colchicine. During that hospital stay she was also found to have severe iron deficiency anemia she required 2 units of packed red blood cells and received 2 doses of IV iron. On arrival to the emergency department she underwent extensive evaluation. Initial vitals were within normal limits. Initial laboratory analysis was remarkable for white blood cell count 13.3, hemoglobin 9.3, platelets 530. She underwent upper extremity arterial ultrasound which showed a thrombus within the distal and mid radial artery. She was maintained on heparin drip. She was seen by cardiology. By the morning of 08/11 the pulse had returned in her right wrist and her swelling was much improved. It was determined she did not need long-term anticoagulation. Car diology cleared her for discharge. Follow-up: Dr. Clark (cardiology) in 2 weeks. Case discussed with hematology oncology as patient was having some difficulty getting into their office and they will call her to set up her outpatient iron infusions. She should also follow-up with her PCP in the next 1 to 2 days. Again she needs a EGD and colonoscopy for cause of her severe iron deficiency anemia. Patient seen and examined at bedside. Doing well. No complaints currently. Wrist is feeling much better and there is no more numbness in hand. Vital signs reviewed and stable. General: Nontoxic, no distress, appears at stated age Cardiovascular: S1S2 reg, no murmur, positive posterior tibial pulse bilateral, Lungs: CTA bilateral, no rhonchi, no rales, no accessory muscle use Ext: decreased swelling in right wrist, palpable radial and ulnar pulses Neuro: CN II-XI grossly intact, no focal neuro deficits Psych: Alert, oriented, appropriate affect A total of 37 minutes of time were spent preparing this complex discharge summary. Patient was discharged on 08/12/2023. This dictation was prepared using [employer] voice recognition software. Though every attempt is made to correct errors during dictation some may still exist. Patient Condition at Discharge: Stable Plan - Discharge Summary Discharge Rx Participant: No New Discharge Prescriptions: New Kassandra 60 mg PO Q12HR PRN Continue Venlafaxine HCl ER [Effexor XR] 150 mg PO DAILY Fluticasone Nasal [place] [Flonase Nasal [place]] 1 spray EA NOSTRIL DAILY hydrOXYzine HCL 10 mg PO DAILY Metoprolol Tartrate [Lopressor] 25 mg PO BID Colchicine [Colcrys] 0.6 mg PO BID #60 each Losartan [Cozaar] 25 mg PO DAILY #30 tab Atorvastatin [Lipitor] 40 mg PO HS #30 tab Pantoprazole [Protonix] 40 mg PO DAILY #30 tab Discharge Medication List Fluticasone Nasal [place] [Flonase Nasal [place]] 1 spray EA NOSTRIL DAILY 08/05/23 [History] Metoprolol Tartrate [Lopressor] 25 mg PO BID 08/05/23 [History] Venlafaxine HCl ER [Effexor XR] 150 mg PO DAILY 08/05/23 [History] hydrOXYzine HCL 10 mg PO DAILY 08/05/23 [History] Atorvastatin [Lipitor] 40 mg PO HS #30 tab 08/07/23 [Rx] Colchicine [Colcrys] 0.6 mg PO BID #60 each 08/07/23 [Rx] Losartan [Cozaar] 25 mg PO DAILY #30 tab 08/07/23 [Rx] Pantoprazole [Protonix] 40 mg PO DAILY #30 tab 08/07/23 [Rx] Kassandra 60 mg PO Q12HR PRN 08/12/23 [Rx] Follow up Appointment(s)/Referral(s): Dheeraj Inman MD [Medical Doctor] - 1 Week (for colonoscopy) Roshni Castro DO [Primary Care Provider] - 1-2 days Amadeo Hawthorne NPC [Nurse Practitioner] - 1 Week (office should be calling you next week about iron infusion and follow-up appointment) Iván Clark DO [STAFF PHYSICIAN] - 1 Week (or as previously scheduled) Activity/Diet/Wound Care/Special Instructions: Activity: [] Diet: [] Wound Care: [] Special Instructions: [] Discharge Disposition: HOME SELF-CARE
--- NOTE | 2023-08-12 12:57 | P.PN ---
Subjective HISTORY OF PRESENT ILLNESS: This is a 68-year-old female with a past medical history significant for hypertension and hyperlipidemia. Patient follows in the office with Dr. Clark. We have been asked to see the patient in consultation for radial artery thrombosis. Patient examined at the bedside. Patient underwent cardiac catheterization with Dr. Clark on 08/05/2023 secondary to an abnormal EKG revealing minimal ST elevation revealing relatively normal coronary arteries other than minor luminal irregularities 10% LAD and 10 to 20% RCA stenosis with normal left-sided filling pressures. Patient was discharged home in stable condition. She states that 2 nights ago her right wrist began to feel painful. She states that was warm to the touch. She states the pain radiated up into the shoulder. She went to urgent care for further evaluation and was directed to come to the emergency room. Patient underwent ultrasound of the radial artery revealing suspected thrombus within the distal and mid radial artery. Good blood flow seen in the proximal radial artery near the origin. DIAGNOSTICS: - Laboratory data: WBC 12.34. Hemoglobin 7.4. Platelet count 420. Sodium 135. Potassium 4.5. BUN 21. Creatinine 0.8. BUN 21. Creatinine 0.8. - Current home cardiac medications include Lipitor 40 mg at night, metoprolol tartrate 25 mg twice a day and losartan 25 mg daily. - Most recent echocardiogram obtained in July 2023 reveals EF 55 to 60%, trace MR, akinetic apex. 08/12/2023 Patient examined this morning at bedside. Patient currently denies any discomfort in her right arm. She denies chest pain or pressure. She denies shortness of breath. She remains on IV heparin. Patient's radial pulses present today upon examination. PHYSICAL EXAM: VITAL SIGNS: Reviewed. GENERAL: Well-developed in no acute distress. HEENT: Head is normocephalic. Pupils are equal, round. Sclerae anicteric. Mucous membranes of the mouth are moist. Neck supple. No JVD or thyromegaly LUNGS: Respirations even and unlabored. Lungs essentially clear to auscultation bilaterally. HEART: Regular rate and rhythm. S1 and S2 heard. ABDOMEN: Soft. Nondistended. Nontender. EXTREMITIES: Normal range of motion. No clubbing or cyanosis. Peripheral pulses intact. No lower extremity edema. NEUROLOGIC: Awake and alert. Oriented x 3. ASSESSMENT: Right radial artery thrombosis, status postcardiac catheterization Hypertension Hyperlipidemia Anemia PLAN: Discontinue IV heparin Patient with radial pulse present this morning and no pain or discomfort of the right arm Due to patient's history of anemia requiring IV infusions on an outpatient basis and return of patient's right radial pulse the decision was made not to anticoagulate patient upon discharge. Patient is stable for discharge home today from a cardiac standpoint She is to follow-up in the office with Dr. Clark Nurse practitioner note has been reviewed by physician. Signing provider agrees with the documented findings, assessment, and plan of care documented by DIVISION SALES MANAGER as a scribe. Objective - Vital Signs Vital signs: Vital Signs Temp 98.6 F 08/12/23 07:47 Pulse 83 08/12/23 07:47 Resp 16 08/12/23 07:47 BP 113/74 08/12/23 07:47 Pulse Ox 97 08/12/23 07:47 FiO2 Intake & Output 08/11/23 08/12/23 08/12/23 18:59 06:59 18:59 Intake Total 739.244 150.031 Balance 739.244 150.031 Intake: Intake, IV Titration 149.244 150.031 Amount Heparin Sod,Pork in 0.45% 149.244 150.031 NaCl 25,000 unit In 0.45 % NaCl 1 250ml.bag @ 12 UNITS/KG/HR 9.798 mls/hr IV .Q24H [facility] Rx#: [id number] Oral 590 Other: # Voids 3 3 1 # Bowel Movements 1 1 - Labs CBC & Chem 7: 08/12/23 05:44 08/11/23 04:45 Labs: Abnormal Lab Results - Last 24 Hours (Table) 08/11/23 08/12/23 08/12/23 Range/Units 12:30 05:44 05:44 WBC 11.6 H (3.8-10.6) k/uL RBC 3.33 L (3.80-5.40) m/uL Hgb 8.0 L (11.4-16.0) gm/dL Hct 26.3 L (34.0-46.0) % MCV 79.0 L (80.0-100.0) fL MCH 24.1 L (25.0-35.0) pg MCHC 30.5 L (31.0-37.0) g/dL RDW 24.6 H (11.5-15.5) % Plt Count 452 H (150-450) k/uL APTT 60.9 H 39.1 H (22.0-30.0) sec
[2023-08-12 13:10] VITALS: BP 107/66; PULSE 77; RESP 17; TEMP 98.8
== END 2023-08-12 13:58 | disposition home or self-care (01) ==
LOC: EC 16:27 → 6NMEDSUR 19:58 → 5NMEDONC 20:39
PROVIDERS: ADMIT Internal Medicine; ATTEND Internal Medicine
DX: I74.2 Embolism and thrombosis of arteries of the upper extremities (principal); Y83.8 Other surgical procedures as the cause of abnormal reaction of the patient, or of later complication, without mention of misadventure at the time of the procedure; I51.4 Myocarditis, unspecified; I25.2 Old myocardial infarction; I10 Essential (primary) hypertension; D50.9 Iron deficiency anemia, unspecified; E78.5 Hyperlipidemia, unspecified; Z82.49 Family history of ischemic heart disease and other diseases of the circulatory system; Z79.899 Other long term (current) drug therapy
CPT/HCPCS: 96376 ×2; 96365; 96375 ×2; 99285; 36415; 80053; 85025 ×2; 85027; 85610 ×2; 85730 ×3; 93931; G0378 ×4; J2270; J1200; J1644 ×4

== ENCOUNTER → 2024-01-27 | Outpatient (CLI) | payer MEDICARE ==
[2024-01-27 19:03] LABS: ALT 21 U/L (8-44); AST 23 U/L (13-35); Albumin 4.1 g/dL (3.8-4.9); Albumin/Globulin Ratio 1.37 Ratio (1.60-3.17); Alkaline Phosphatase 100 U/L (41-126); Blood Urea Nitrogen 19.2 mg/dL (9.0-27.0); Calcium 9.5 mg/dL (8.7-10.3); Carbon Dioxide 19.4 mmol/L (21.6-31.8); Chloride 105 mmol/L (96-109); Chol/HDL Ratio 6.09 Ratio; Glucose 108 mg/dL (70-110); Potassium 4.5 mmol/L (3.5-5.5); Sodium 138 mmol/L (135-145); T4, Free (Free Thyroxine) 0.96 ng/dL (0.80-1.80); Total Bilirubin 0.5 mg/dL (0.3-1.2); Total Protein 7.1 g/dL (6.2-8.2); Uric Acid 5.5 mg/dL (2.9-7.7)
== END | disposition home or self-care (01) ==
LOC: LABWHC1 13:23
PROVIDERS: ATTEND Physician Assistant
DX: M10.9 Gout, unspecified
CPT/HCPCS: 36415; 80053; 80061; 83036; 84439; 84443; 84481; 84550

== ENCOUNTER → 2024-02-05 | Outpatient (CLI) | payer MEDICARE | END | disposition home or self-care (01) | LOC: LABWHC1 12:03 | PROVIDERS: ATTEND Family Medicine | DX: R19.7 Diarrhea, unspecified (principal) | CPT/HCPCS: 83630; 87045; 87046 ==

== ENCOUNTER → 2024-03-30 | Outpatient (CLI) | payer MEDICARE ==
[2024-03-31 02:29] LABS: HCT 41.7 % (37.2-46.3); HGB 13.4 g/dL (12.0-15.0); MCH 28.3 pg (27.0-32.0); MCHC 32.1 g/dL (32.0-37.0); MCV 88.2 FL (80.0-97.0); Mean Platelet Volume 9.3 FL (9.5-12.2); NRBC Per 100 WBC 0 X 10*3/uL (0.00-0.01); Platelet Count 392 X 10*3/uL (140-440); RBC 4.73 X 10*6/uL (4.10-5.20); RDW 14.4 % (11.5-14.5); WBC 10.79 X 10*3/uL (4.50-10.00)
[2024-03-31 03:01] LABS: Hepatitis A Antibody IgM Nonreactive (Nonreactive); Hepatitis B Core IgM Nonreactive (Nonreactive); Hepatitis B Surface Antigen Nonreactive (Nonreactive); Hepatitis C IgG Antibody Nonreactive (Nonreactive)
[2024-03-31 03:38] LABS: ALT 19 U/L (8-44); AST 23 U/L (13-35); Albumin 3.9 g/dL (3.8-4.9); Albumin/Globulin Ratio 1.22 Ratio (1.60-3.17); Alkaline Phosphatase 84 U/L (41-126); BUN/Creat Ratio 25.11 Ratio (12.00-20.00); Blood Urea Nitrogen 22.6 mg/dL (9.0-27.0); Calcium 9.5 mg/dL (8.7-10.3); Carbon Dioxide 17.6 mmol/L (21.6-31.8); Chloride 104 mmol/L (96-109); Globulin 3.2 g/dL (1.6-3.3); Glucose 216 mg/dL (70-110); Potassium 4.2 mmol/L (3.5-5.5); Sodium 137 mmol/L (135-145); Total Bilirubin <0.2 mg/dL (0.3-1.2); Total Protein 7.1 g/dL (6.2-8.2)
[2024-03-31 04:05] LABS: Erythrocyte Sedimentation Rate 55 mm/Hr (0-30)
== END | disposition home or self-care (01) ==
LOC: LABWHC1 15:59
PROVIDERS: ATTEND Internal Medicine Gastroenterology
DX: K51.90 Ulcerative colitis, unspecified, without complications (principal)
CPT/HCPCS: 36415; 80053; 80074; 85027; 85652; 86140; 86480

== ENCOUNTER 2024-07-13 16:13 | Observation (INO) | payer MEDICARE ==
[2024-07-13] MEDS: ONDANSETRON 4 MG/2 ML VIAL IVP STA (16:25)
--- NOTE | 2024-07-13 16:33 | ED ---
General Adult HPI - General Chief complaint: Chest Pain Stated complaint: Chest Pain Time Seen by Provider: 07/13/24 16:16 Source: patient, RN notes reviewed Mode of arrival: EMS Limitations: no limitations - History of Present Illness Initial comments: Patient is a 69-year-old female present to the emergency department with concerns with chest discomfort. Onset of symptoms was 2 hours ago while at rest. Discomfort still remains somewhat severe. Discomfort does radiate towards the shoulder. Patient has mild associated dyspnea. Patient did have nausea with 1 episode of emesis. No sweating. Patient had somewhat similar symptoms once years before with anemia. Patient has had persistent rectal bleeding for at least 6 months associated with a diagnosis of colitis. Patient has had recent colonoscopy - Related Data Home Medications Medication Instructions Recorded Confirmed No Known Home Medications 07/13/24 07/13/24 Allergies Allergy/AdvReac Type Severity Reaction Status Date / Time ragweed pollen Allergy Rash/Hives Verified 07/13/24 18:52 chamomile flower AdvReac Flushing/Flu-like Verified 07/13/24 18:52 Symptoms orange juice [[place]] AdvReac Flushing/Flu-like Verified 07/13/24 18:52 Symptoms red dye AdvReac Flushing/Flu-like Verified 07/13/24 18:52 Symptoms watermelon AdvReac Unknown Verified 07/13/24 18:52 Review of Systems ROS Statement: Those systems with pertinent positive or pertinent negative responses have been documented in the HPI. ROS Other: All systems not noted in ROS Statement are negative. Constitutional: Denies: fever Eyes: Denies: eye pain ENT: Denies: ear pain Respiratory: Reports: as per HPI. Denies: cough Cardiovascular: Reports: as per HPI, chest pain Gastrointestinal: Reports: as per HPI Skin: Denies: rash Past Medical History Past Medical History: Hyperlipidemia, Myocardial Infarction ([place]) Additional Past Medical History / Comment(s): Year round allergies. Bouts of Colitis, last in 2006, hx of GI bleeding History of Any Multi-Drug Resistant Organisms: None Reported Past Surgical History: Heart Catheterization Additional Past Surgical History / Comment(s): eye surgery. Strabismus Past Anesthesia/Blood Transfusion Reactions: No Reported Reaction Additional Past Anesthesia/Blood Transfusion Reaction / Comment(s): Last surgery was 4 Past Psychological History: PTSD Smoking Status: Never smoker Past Alcohol Use History: None Reported Past Drug Use History: None Reported - Past Family History Father Family Medical History: Chest Pain / Angina, Hyperlipidemia, Hypertension Mother Family Medical History: Chest Pain / Angina, Hyperlipidemia, Hypertension Brother(s) Family Medical History: Hyperlipidemia, Hypertension General Exam Limitations: no limitations General appearance: alert, in no apparent distress Head exam: Present: normocephalic Eye exam: Present: normal appearance Neck exam: Present: normal inspection Respiratory exam: Present: normal lung sounds bilaterally. Absent: chest wall tenderness Cardiovascular Exam: Present: regular rate, normal rhythm, normal heart sounds Expanded Peripheral pulses: 2+: Radial (R), Radial (L), Dorsalis Pedis (R), Dorsalis Pedis (L) GI/Abdominal exam: Present: soft. Absent: tenderness Extremities exam: Present: normal inspection. Absent: pedal edema, calf tenderness Neurological exam: Present: alert Psychiatric exam: Present: normal affect, normal mood Skin exam: Present: normal color Course Vital Signs 07/13/24 07/13/24 07/13/24 16:18 16:28 16:39 Temperature 98.9 F Pulse Rate 109 H 103 H Pulse Rate [ 104 H Top Lift Scourer ] Respiratory 18 18 Rate Blood Pressure 131/78 131/80 O2 Sat by Pulse 97 96 Oximetry 07/13/24 07/13/24 17:09 18:45 Temperature Pulse Rate 98 84 Pulse Rate [ Top Lift Scourer ] Respiratory 18 18 Rate Blood Pressure 125/72 125/72 O2 Sat by Pulse 96 Oximetry EKG Findings - EKG Results: EKG: interpreted by ERMD (Left axis. Inferior Q waves. Poor R wave progression.), sinus rhythm EKG shows: tachycardia Medical Decision Making - Medical Decision Making Was pt. sent in by a medical professional or institution (, PA, MANAGER DRUG SAFETY, urgent care, hospital, or fci...) When possible be specific @ -No Did you speak to anyone other than the patient for history (EMS, parent, family, police, friend...)? What history was obtained from this source @ -No Did you review nursing and triage notes (agree or disagree)? Why? @ -I reviewed and agree with nursing and triage notes Were old charts reviewed (outside hosp., previous admission, EMS record, old EKG, old radiological studies, urgent care reports/EKG's, fci records)? Report findings @ -No old charts were reviewed Differential Diagnosis (chest pain, altered mental status, abdominal pain women, abdominal pain men, vaginal bleeding, weakness, fever, dyspnea, syncope, headache, dizziness, GI bleed, back pain, seizure, CVA, palpatations, mental health, musculoskeletal)? @ -Differential Chest Pain: Stable Angina, Unstable Angina, STEMI, NSTEMI Aortic Dissection, Pneumothorax, Musculoskeletal, Esophageal Spasm GERD, Cholecystitis, Pancreatitis, Zoster, this is not meant to be an all-inclusive list. EKG interpreted by me (3pts min.). @ -As above X-rays interpreted by me (1pt min.). @ -Chest x-ray shows hiatal hernia CT interpreted by me (1pt min.). @ -CT scan chest, abdomen pelvis shows hiatal hernia and gallstones U/S interpreted by me (1pt. min.). @ -None done What testing was considered but not performed or refused? (CT, X-rays, U/S, labs)? Why? @ -None What meds were considered but not given or refused? Why? @ -None Did you discuss the management of the patient with other professionals (professionals i.e. , PA, MANAGER DRUG SAFETY, lab, RT, psych nurse, social worker health services, heavy equipment service manager, teacher, forest fire management officer, gearcase assembler)? Give summary @ -Case discussed with practitioner Latrice who will admit covering hospital Was smoking cessation discussed for >3mins.? @ -No Was critical care preformed (if so, how long)? @ -No Were there social determinants of health that impacted care today? How? (Homelessness, low income, unemployed, alcoholism, drug addiction, tr ansportation, low edu. Level, literacy, decrease access to med. care, fdc, rehab)? @ -No Was there de-escalation of care discussed even if they declined (Discuss DNR or withdrawal of care, Hospice)? DNR status @ -No What co-morbidities impacted this encounter? (DM, HTN, Smoking, COPD, CAD, Cancer, CVA, ARF, Chemo, Hep., AIDS, mental health diagnosis, sleep apnea, morbid obesity)? @ -None Was patient admitted / discharged? Hospital course, mention meds given and route, prescriptions, significant lab abnormalities, going to OR and other pertinent info. @ -Patient presents with chest discomfort. Initial evaluation unremarkable for cardiac disease. Patient does have hiatal hernia and gallstones. Patient will be admitted with cardiac consult. Admission orders written. Patient reevalua kd and updated. Undiagnosed new problem with uncertain prognosis? @ -No Drug Therapy requiring intensive monitoring for toxicity (Heparin, Nitro, Insulin, Cardizem)? @ -No Were any procedures done? @ -No Diagnosis/symptom? @ -Chest pain Acute, or Chronic, or Acute on Chronic? @ -Acute Uncomplicated (without systemic symptoms) or Complicated (systemic symptoms)? @ -Default Side effects of treatment? @ -No Exacerbation, Progression, or Severe Exacerbation? @ -No Poses a threat to life or bodily function? How? (Chest pain, [place], [place], pneumonia, PE, COPD, DKA, ARF, appy, cholecystitis, CVA, Diverticulitis, Homicidal, Suicidal, threat to staff... and all critical care pts) @ -Threat to cardiac and GI function - Lab Data Result diagrams: 07/13/24 16:34 07/13/24 16:34 Lab Results 07/13/24 07/13/24 07/13/24 Range/Units 16:34 16:34 16:34 WBC 11.7 H (3.8-10.6) k/uL RBC 4.56 (3.80-5.40) m/uL Hgb 13.0 (11.4-16.0) gm/dL Hct 40.3 (34.0-46.0) % MCV 88.3 (80.0-100.0) fL MCH 28.5 (25.0-35.0) pg MCHC 32.2 (31.0-37.0) g/dL RDW 12.6 (11.5-15.5) % Plt Count 432 (150-450) k/uL MPV 7.2 Neutrophils % 54 % Lymphocytes % 32 % Monocytes % 6 % Eosinophils % 4 % Basophils % 1 % Neutrophils # 6.4 (1.3-7.7) k/uL Lymphocytes # 3.8 (1.0-4.8) k/uL Monocytes # 0.7 (0-1.0) k/uL Eosinophils # 0.5 (0-0.7) k/uL Basophils # 0.1 (0-0.2) k/uL PT 11.3 (10.0-12.5) sec INR 1.0 (<1.2) APTT 23.1 (22.0-30.0) sec D-Dimer 1.61 H (<0.60) mg/L FEU Sodium 140 (137-145) mmol/L Potassium 4.4 (3.5-5.1) mmol/L Chloride 106 (98-107) mmol/L Carbon Dioxide 22 (22-30) mmol/L Anion Gap 12 mmol/L BUN 12 (7-17) mg/dL Creatinine 0.81 (0.52-1.04) mg/dL Est GFR (CKD-EPI)AfAm 85 (>60 ml/min/1.73 sqM) Est GFR (CKD-EPI)NonAf 74 (>60 ml/min/1.73 sqM) Glucose 129 H (74-99) mg/dL Calcium 9.4 (8.4-10.2) mg/dL Magnesium 1.9 (1.6-2.3) mg/dL Total Bilirubin 0.6 (0.2-1.3) mg/dL AST 26 (14-36) U/L ALT 20 (4-34) U/L Alkaline Phosphatase 88 (38-126) U/L Troponin I (0.000-0.034) ng/mL Total Protein 7.2 (6.3-8.2) g/dL Albumin 3.8 (3.5-5.0) g/dL Amylase 53 (30-110) U/L Lipase 52 (23-300) U/L 07/13/24 Range/Units 16:34 WBC (3.8-10.6) k/uL RBC (3.80-5.40) m/uL Hgb (11.4-16.0) gm/dL Hct (34.0-46.0) % MCV (80.0-100.0) fL MCH (25.0-35.0) pg MCHC (31.0-37.0) g/dL RDW (11.5-15.5) % Plt Count (150-450) k/uL MPV Neutrophils % % Lymphocytes % % Monocytes % % Eosinophils % % Basophils % % Neutrophils # (1.3-7.7) k/uL Lymphocytes # (1.0-4.8) k/uL Monocytes # (0-1.0) k/uL Eosinophils # (0-0.7) k/uL Basophils # (0-0.2) k/uL PT (10.0-12.5) sec INR (<1.2) APTT (22.0-30.0) sec D-Dimer (<0.60) mg/L FEU Sodium (137-145) mmol/L Potassium (3.5-5.1) mmol/L Chloride (98-107) mmol/L Carbon Dioxide (22-30) mmol/L Anion Gap mmol/L BUN (7-17) mg/dL Creatinine (0.52-1.04) mg/dL Est GFR (CKD-EPI)AfAm (>60 ml/min/1.73 sqM) Est GFR (CKD-EPI)NonAf (>60 ml/min/1.73 sqM) Glucose (74-99) mg/dL Calcium (8.4-10.2) mg/dL Magnesium (1.6-2.3) mg/dL Total Bilirubin (0.2-1.3) mg/dL AST (14-36) U/L ALT (4-34) U/L Alkaline Phosphatase (38-126) U/L Troponin I <0.012 (0.000-0.034) ng/mL Total Protein (6.3-8.2) g/dL Albumin (3.5-5.0) g/dL Amylase (30-110) U/L Lipase (23-300) U/L Disposition Clinical Impression: Chest pain Disposition: ADMITTED IP TO THIS HOSP Is patient prescribed a controlled substance at d/c from ED?: No Referrals: Angie Buchanan PAC [REFERRING] - 1-2 days Time of Disposition: 20:18
[2024-07-13] MEDS: ASPIRIN 81 MG PO STA (16:38)
[2024-07-13] MEDS: NITROGLYCERIN SL TABS 0.4 MG TAB SUBLINGUAL STA ×2 (16:40→17:11)
[2024-07-13 16:53] LABS: Basophils # (A) 0.1 k/uL (0-0.2); Basophils % (A) 1 %; Eosinophils # (A) 0.5 k/uL (0-0.7); Eosinophils % (A) 4 %; HCT 40.3 % (34.0-46.0); Lymphocytes # (A) 3.8 k/uL (1.0-4.8); Lymphocytes % (A) 32 %; MCH 28.5 pg (25.0-35.0); MCHC 32.2 g/dL (31.0-37.0); MCV 88.3 fL (80.0-100.0); Mean Platelet Volume 7.2; Monocytes # (A) 0.7 k/uL (0-1.0); Monocytes % (A) 6 %; Neutrophils # (A) 6.4 k/uL (1.3-7.7); Neutrophils % (A) 54 %; Platelet Count 432 k/uL (150-450); RBC 4.56 m/uL (3.80-5.40); RDW 12.6 % (11.5-15.5); WBC 11.7 k/uL (3.8-10.6)
--- NOTE | 2024-07-13 17:01 | XR ---
EXAMINATION TYPE: XR chest 2V DATE OF EXAM: 07/13/2024 4:55 PM COMPARISON: 324 CLINICAL INDICATION: Female, 69 years old with history of Chest Pain, TECHNIQUE: XR chest 2V view(s) obtained. FINDINGS: The heart size is normal. The pulmonary vasculature is normal. The lungs are clear. IMPRESSION: 1. No acute pulmonary process. [facility], , 07/13/2024 4:59 PM
[2024-07-13 17:13] LABS: ALT 20 U/L (4-34); AST 26 U/L (14-36); African American GFR (CKD) 85 (>60 ml/min/1.73 sqM); Albumin 3.8 g/dL (3.5-5.0); Alkaline Phosphatase 88 U/L (38-126); Amylase 53 U/L (30-110); Anion Gap 12 mmol/L; Blood Urea Nitrogen 12 mg/dL (7-17); Calcium 9.4 mg/dL (8.4-10.2); Carbon Dioxide 22 mmol/L (22-30); Chloride 106 mmol/L (98-107); Glucose 129 mg/dL (74-99); Lipase 52 U/L (23-300); Magnesium 1.9 mg/dL (1.6-2.3); Non-African American GFR(CKD) 74 (>60 ml/min/1.73 sqM); Partial Thromboplastin Time 23.1 sec (22.0-30.0); Potassium 4.4 mmol/L (3.5-5.1); Prothrombin Time 11.3 sec (10.0-12.5); Sodium 140 mmol/L (137-145); Total Bilirubin 0.6 mg/dL (0.2-1.3); Total Protein 7.2 g/dL (6.3-8.2)
[2024-07-13] MEDS: MORPHINE SULFATE 4 MG/ML SYRINGE IVP STA (17:16)
[2024-07-13] MEDS ORDERED: BARIUM SULFATE 2% - 450 ML ORAL.SUSP BOTTLE PO PRN (19:07)
--- NOTE | 2024-07-13 19:11 | CT ---
EXAMINATION TYPE: CT angio chest DATE OF EXAM: 07/13/2024 6:08 PM COMPARISON: 324 CLINICAL INDICATION: Female, 69 years old with history of cp, CP. Elevated D-dimer., TECHNIQUE: CT of the chest is performed on a spiral scan at 2 mm thick sections. Study is performed with intravenous contrast timed for evaluation for pulmonary embolism. This will limit additional po rtions of the evaluation. 3-D MIP images reconstructed by the technologist are reviewed on the compu ter in the coronal and sagittal planes. Contrast used:100 ml mL of Isovue 370 with IV Contrast, (none if empty) Oral contrast used: (none if empty) CT DLP: 317.1 mGycm, Automated exposure control for dose reduction was used. FINDINGS: No persistent filling defects are evident to suggest an acute pulmonary embolism. No mediastinal or hilar adenopathy enlarged by CT criteria is evident. The ascending aorta diameter at the level of the main pulmonary artery is 3.2 cm. The main pulmonary artery diameter at the bifurcation is 2.4 cm. Lung windows are clear. There is a moderately large herniation of stomach into the thorax. This appea rs to be paraesophageal has some entrapment with air-fluid levels in both the intra-abdominal portion which appears to be the proximal portion of the stomach, and the intrathoracic portion which is the distal stomach. Air-fluid levels are present without fluid apparent in the antrum and the decompresse d duodenum. Wall thickening is not identified. Additional workup recommended. Limited CT sections were through the upper abdomen. Punctate calcified gallstone is present IMPRESSION: 1. No acute pulmonary embolism. 2. 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 This appears to be paraesophageal a nd may have some rotation. Partial or early obstruction should be considered. Report was called to [facility] emergency room by Dr. Hernandez by telephone 1904 hours 07/13/2024. [facility], , 07/13/2024 7:09 PM
--- NOTE | 2024-07-13 20:01 | CT ---
EXAMINATION TYPE: CT abdomen wo con DATE OF EXAM: 07/13/2024 7:46 PM COMPARISON: None. CLINICAL INDICATION: Female, 69 years old with history of 20 min contrast, include hiatial hernia, pa in, Abd pain/Hiatal hernia. TECHNIQUE: Axial images were obtained from high above the diaphragm to the iliac crests in the axial plane at 5 mm thick sections. Reconstructed images are reviewed on the computer in the coronal plane . CONTRAST: mL of . Study performed with Oral Contrast DLP: 524.2 mGycm, Automated exposure control for dose reduction was used. FINDINGS: Limited CT sections are obtained the lung bases. The lung bases are clear. With oral contrast on board the GI tract is more easily followed. A large hiatal hernia appears to be present. The gastroesophageal junction is above the diaphragm. Contrast extends through the stomach and into the duodenum. No obstruction is identified. CT ABDOMEN: Liver: Normal Spleen: Normal Pancreas: Normal Adrenal glands: The adrenal glands are normal. Gallbladder: Punctate gallstone is evident Kidneys: No masses are evident. No hydronephrosis is present. No cysts are present. These are Nely yed images obtained through the kidneys post intravenous contrast from an earlier exam, kidneys remai n unremarkable. Aorta: Vascular calcification is within the aorta. Inferior vena cava: Normal. Loops of bowel within the abdomen and upper pelvis are normal. Some sigmoid diverticulosis is likely present. Contrast timing for the oral contrast was optimize from the stomach evaluation in the bowel loops. IMPRESSION: 1. Large hiatal hernia. No obstruction is evident. 2. Cholelithiasis. [facility], , 07/13/2024 7:58 PM
[2024-07-13] MEDS ORDERED: NITROGLYCERIN SL TABS 0.4 MG TAB SUBLINGUAL PRN (20:18)
[2024-07-13] MEDS: NITROGLYCERIN OINT 1 INCH/GM PACKET TOPICAL SCH (20:33)
[2024-07-14] MEDS: ASPIRIN 325 MG TAB PO SCH (08:27)
[2024-07-14 09:55] LABS: Chol/HDL Ratio 6.24 Ratio
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
[2024-07-14] MEDS ORDERED: FLUTICASONE NASAL 50MCG/SPRAY 16GM BTL EA NOSTRIL PRN (14:03)
--- NOTE | 2024-07-14 14:07 | P.DS ---
Providers Date of admission: 07/13/24 20:20 Attending physician: Anh Lewis MD Consults: 07/13/24 20:18 Consult Physician Urgent Consulting Provider: Raul Gan Consult Reason/Comments: cp Do you want consulting provider notified?: Yes Primary care physician: Physician Nonstaff Hospital Course: 69-year-old female came in with complaints of epigastric abdominal burning sensation which started after drinking Pepsi and pain radiated to the left shoulder patient pain is burning sensation. Patient is admitted with concerns of acute coronary syndromes which were ruled out cardiology evaluated the patient EKG did not show any acute ST-T wave changes troponins are negative patient had a CT of the chest which showed mild coronary calcification without any PE and had a large hiatal hernia patient also is found to have gallstones incidentally patient does not have any right upper quadrant abdominal pain. Patient hemoglobin is stable but is complaining that she had blood in the stools last night and has been having blood in the stools for about 6 months and she says no one was able to figure it out and patient had colonoscopies in the past and was told she has colitis and patient is supposed to get another colonoscopy as an outpatient pretty soon by Dr. Bui. PHYSICAL EXAMINATION: GENERAL: The patient is alert and oriented x3, not in any acute distress. Well developed, well nourished. HEENT: Pupils are round and equally reacting to light. EOMI. No scleral icterus. No conjunctival pallor. Normocephalic, atraumatic. No pharyngeal erythema. No thyromegaly. CARDIOVASCULAR: S1 and S2 present. No murmurs, rubs, or gallops. PULMONARY: Chest is clear to auscultation, no wheezing or crackles. ABDOMEN: Soft, nontender, nondistended, normoactive bowel sounds. No palpable organomegaly. MUSCULOSKELETAL: No joint swelling or deformity. EXTREMITIES: No cyanosis, clubbing, or pedal edema. NEUROLOGICAL: Gross neurological examination did not reveal any focal deficits. SKIN: No rashes. Assessment and plan -Chest pain rule out acute coronary syndromes patient was eval by cardiology recommending echocardiogram if we get the echocardiogram results today patient can be discharged today will rule out any wall motion abnormalities -Hyperlipidemia with LDL of 140 patient was started on statin -History of stress cardiomyopathy and apical hypokinesis in July 2023 which resolved with normal ejection fraction now patient was started on beta-radha by cardiology -Mild nonobstructive coronary artery disease -Hyperlipoidemia and gastroesophageal reflux disease patient will be started on Protonix will be discharged on Protonix -Gallstones asymptomatic at this time will follow-up with general surgery as an outpatient Plan - Discharge Summary Discharge Rx Participant: No New Discharge Prescriptions: New carvediloL [Coreg] 3.125 mg PO BID-W/MEALS #30 tab Atorvastatin [Lipitor] 40 mg PO HS #30 tab Mag Hydrox/Al Hydrox/Simeth [Maalox] 30 ml PO QID #10 ml Pantoprazole [Protonix] 40 mg PO AC-BRKFST #30 tab Discharge Medication List Atorvastatin [Lipitor] 40 mg PO HS #30 tab 07/14/24 [Rx] Mag Hydrox/Al Hydrox/Simeth [Maalox] 30 ml PO QID #10 ml 07/14/24 [Rx] Pantoprazole [Protonix] 40 mg PO AC-BRKFST #30 tab 07/14/24 [Rx] carvediloL [Coreg] 3.125 mg PO BID-W/MEALS #30 tab 07/14/24 [Rx] Follow up Appointment(s)/Referral(s): Dheeraj Inman MD [Medical Doctor] - 1 Week Angie Buchanan PAC [REFERRING] - 3 Days Discharge Disposition: HOME SELF-CARE
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
[2024-07-14] MEDS: MAG HYDROX/AL HYDROX/SIMETH 30 ML CUP PO SCH (14:11)
[2024-07-14] MEDS: ASPIRIN 81 MG PO SCH (14:11)
[2024-07-14] MEDS: PANTOPRAZOLE 40 MG TABLET PO SCH (14:11)
[2024-07-14] MEDS: LORATADINE 10 MG TAB PO SCH (14:21)
[2024-07-14] MEDS: carvediloL 3.125 MG TAB PO SCH (17:35)
[2024-07-14] MEDS: ATORVASTATIN 40 MG TAB PO SCH (20:47)
[2024-07-15 07:54] VITALS: BP 136/80; PULSE 74; RESP 16; TEMP 98.7
--- NOTE | 2024-07-15 10:18 | CA ---
Transthoracic Echo Report Name: Aleida Huff Age: 69 Gender: F : 1955 Exam Date: 07/14/2024 14:08 Exam Location: [place] [facility] Ht (in): 65 Wt (lb): 180 Ordering Physician: Cameron Augustin MD ([id number]) Attending/Referring Phys: Direct Casting Operator Kyung Rico RDCS Procedure CPT: Indications: cardiomyopathy Cardiac Hx: Technical Quality: Good Contrast 1: Total Dose (mL): Contrast 2: Total Dose (mL): MEASUREMENTS (Male / Female) Normal Values 2D ECHO LV Diastolic Diameter PLAX 4.7 cm 4.2 - 5.9 / 3.9 - 5.3 cm LV Systolic Diameter PLAX 3.3 cm IVS Diastolic Thickness 0.7 cm 0.6 - 1.0 / 0.6 - 0.9 cm LVPW Diastolic Thickness 0.9 cm 0.6 - 1.0 / 0.6 - 0.9 cm LV Relative Wall Thickness 0.3 LVOT Diameter 2.2 cm LV Diastolic Volume MOD BP 85.2 cm??? 67 - 155 / 56 - 104 cm??? LV Systolic Volume MOD BP 34.4 cm??? 22 - 58 / 19 - 49 cm??? LV Ejection Fraction MOD BP 59.7 % >= 55 % LV Cardiac Index MOD BP 1943.8 cm???/min???m??? LV Diastolic Volume MOD 4C 98.7 cm??? LV Systolic Volume MOD 4C 44.5 cm??? LV Ejection Fraction MOD 4C 54.9 % LV Cardiac Index MOD 4C 2071.3 cm???/min???m??? LV Diastolic Length 4C 8.2 cm LV Systolic Length 4C 7.1 cm LV Diastolic Volume MOD 2C 73.3 cm??? LV Systolic Volume MOD 2C 25.3 cm??? LV Ejection Fraction MOD 2C 65.6 % LV Cardiac Index MOD 2C 1839.0 cm???/min???m??? LV Diastolic Length 2C 8.2 cm LV Systolic Length 2C 6.7 cm LA Volume 60.6 cm??? 18 - 58 / 22 - 52 cm??? LA Volume Index 30.9 cm???/m??? 16 - 28 cm???/m??? DOPPLER AV Peak Velocity 148.2 cm/s AV Peak Gradient 8.8 mmHg AV Mean Velocity 107.9 cm/s AV Mean Gradient 5.0 mmHg AV Velocity Time Integral 28.5 cm LVOT Peak Velocity 105.7 cm/s LVOT Peak Gradient 4.5 mmHg LVOT Velocity Time Integral 20.5 cm LVOT Stroke Volume 75.8 cm??? LVOT Stroke Volume Index 40.1 ml/m??? LVOT Cardiac Index 2898.5 cm???/min???m??? AV Area Cont Eq vti 2.7 cm??? AV Area Cont Eq pk 2.6 cm??? MV Area PHT 3.7 cm??? Mitral E Point Velocity 71.6 cm/s Mitral A Point Velocity 82.7 cm/s Mitral E to A Ratio 0.9 MV Deceleration Time 207.6 ms TR Peak Velocity 262.1 cm/s TR Peak Gradient 27.5 mmHg Right Atrial Pressure 10.0 mmHg Pulmonary Artery Systolic Pressu 37.5 mmHg Right Ventricular Systolic Press 37.5 mmHg PV Peak Velocity 98.6 cm/s PV Peak Gradient 3.9 mmHg FINDINGS Left Ventricle Left ventricular ejection fraction is estimated at 60-65 %. Left ventricular cavity size normal. Left ventricular wall thickness normal. No obvious regional wall motion abnormalities. Hyperdynamic left ventricular systolic function. Mid cavitary obstruction 32mmHg with valsalva maneuver. Right Ventricle Normal right ventricular size and function. Borderline elevated right ventricular systolic pressures. Estimated RAP 10mmHg due to inadequate visualization of IVC. Right Atrium Normal right atrial size. Unable to rule out PFO. Left Atrium Mildly increased left atrial volume. Mildly increased left atrial area. Mitral Valve Structurally normal mitral valve. Mild prolapse of the posterior mitral valve leaflet. No mitral stenosis. Mild mitral regurgitation. Aortic Valve Trileaflet aortic valve. No aortic valve stenosis or regurgitation. Tricuspid Valve Structurally normal tricuspid valve. No tricuspid stenosis. Mild tricuspid regurgitation. Pulmonic Valve Structurally normal pulmonic valve. No pulmonic stenosis. Trace pulmonic regurgitation. Pericardium No pericardial effusion. Aorta Normal size aortic root and proximal ascending aorta. CONCLUSIONS LVEF 60 to 65% No obvious regional wall motion abnormality Hyperdynamic LV with mild concentric LVH. Mid ventricular obstruction with peak mid ventricular gradient of 32 mmHg with Valsalva maneuver Normal RV size and function Mild left atrial dilatation Mild MR Mild TR Previewed by: Dr Cameron Augustin (Electronically Signed) Final Date: 15 July 2024 10:17
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
[2024-07-15 12:33] LABS: NT-Pro-B-Type Natriuretic Pept 312 pg/mL (0-125)
--- NOTE | 2024-07-15 12:37 | P.PN ---
Subjective Progress Note Date: 07/15/24 HISTORY OF PRESENTING ILLNESS: Patient is a 69-year-old female with past medical history of stress cardiom yopathy in July 2023. At that time she had a heart catheterization which showed mild nonobstructive coronary artery disease. Her echocardiogram however showed apical akinesia with EF of 55%. 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 Since then she has lost to follow-up with cardiology. This time she presented to the hospital because of substernal chest pressure along with symptoms of GERD and dyspepsia. She reports that this started yesterday after eating salmon and Pepsi. Admission Vitals: 130/88, heart rate 92 bpm Admission Labs: WBC 11.2, Hb 13, D-dimer 1.6, BUN 12, creatinine 0.8. Triglycerides 167, LDL 142, Admission EKG: Sinus rhythm, Imaging: CT chest shows mild coronary artery calcification no PE. Large hiatal hernia Progress Note 07/15/2024 Patient is seen and examined at bedside this a.m. She is having hematochezia which is most likely because of her internal hemorrhoids. Chest pain has resolved. Appears to have got exacerbated after the salmon and Pepcid she had PHYSICAL EXAMINATION: Neck: Brisk carotid upstroke, no jugular venous distention. Lungs: Clear to auscultation. Heart: Regular rate and rhythm, S1-S2, , no murmur or rub. Abdomen: Soft nontender, positive bowel sounds. Extremities: No edema, intact distal pulses. Neuro: Alert, oritented, no focal deficits. Detailed neuro exam was not p erformed. ASSESSMENT: # Substernal chest pressure, rule out of ACS # GERD # Large hiatal hernia # Stress cardiomyopathy with apical hypokinesia in 07/2023 # Mild nonobstructive coronary arteries # Obesity # Dyslipidemia # Coronary artery calcification on chest CT Pertinent cardiac testing Echocardiogram shows hyperdynamic LV with mild mid ventricular obstruction with Valsalva induced gradient of 30 to mmHg. PLAN: Stop aspirin for now as she is getting evaluated for GI bleeding. Resume it onc e cleared from GI/surgery team. Lipitor 40 mg Add Coreg 3.125 mg twice daily Recommend hydration and good oral intake Maalox and Protonix Recommend hiatal hernia evaluation and GI workup for concerns of GI bleeding that patient reports. At this time patient is cleared from cardiovascular standpoint Objective - Vital Signs Vital signs: Vital Signs Temp 98.7 F 07/15/24 07:05 Pulse 74 07/15/24 07:05 Resp 16 07/15/24 07:05 BP 136/80 07/15/24 07:05 Pulse Ox 97 07/15/24 07:05 FiO2 Intake & Output 07/14/24 07/15/24 07/15/24 18:59 06:59 18:59 Intake Total 472 Balance 472 Intake: Oral 472 Other: # Voids 5 1 # Bowel Movements 1 1 - Labs CBC & Chem 7: 07/13/24 16:34 07/13/24 16:34 Labs: Abnormal Lab Results - Last 24 Hours (Table) 07/14/24 Range/Units 14:48 NT-Pro-B Natriuret Pep 312 H (0-125) pg/mL
[2024-07-15 13:42] LABS: LDL Cholesterol,Calculated 132.1 mg/dL (0.0-131.0)
--- NOTE | 2024-07-17 22:36 | P.DS ---
Providers Date of admission: 07/13/24 20:20 Attending physician: Anh Lewis MD Consults: 07/13/24 20:18 Consult Physician Urgent Consulting Provider: Raul Gan Consult Reason/Comments: cp Do you want consulting provider notified?: Yes 07/15/24 11:15 Consult Physician Routine Consulting Provider: Dheeraj Inman Consult Reason/Comments: Possible hemorrhoidal bleed Do you want consulting provider notified?: Yes Primary care physician: Physician Nonstaff Hospital Course: Final Diagnosis -Chest pain due to gastritis with epigastric discomfort -Chronic rectal bleeding -Hyperlipidemia with LDL of 140 patient was started on statin -History of stress cardiomyopathy and apical hypokinesis in July 2023 which resolved with normal ejection fraction now patient was started on beta-radha by cardiology -Mild nonobstructive coronary artery disease -Hyperlipoidemia and gastroesophageal reflux disease patient will be started on Protonix will be discharged on Protonix -Gallstones asymptomatic at this time will follow-up with general surgery as an outpatient Discharge Disposition 'Patient to follow up with Dr Suarez in the office Tuesday with plans for outpatient colonoscopy on . She will be discharged home today. Hospital Course 69-year-old female came in with complaints of epigastric abdominal burning sensation which started after drinking Pepsi and pain radiated to the left shoulder patient pain is burning sensation. Patient is admitted with concerns of acute coronary syndromes which were ruled out cardiology evaluated the patient EKG did not show any acute ST-T wave changes troponins are negative patient had a CT of the chest which showed mild coronary calcification without any PE and had a large hiatal hernia patient also is found to have gallstones incidentally patient does not have any right upper quadrant abdominal pain. Patient hemoglobin is stable but is complaining that she had blood in the stools last night and has been having blood in the stools for about 6 months and she says no one was able to figure it out and patient had colonoscopies in the past and was told she has colitis and patient is supposed to get another colonoscopy as an outpatient pretty soon by Dr. Bui. She was monitored overnight echocardiogram has been done revealing EF 60-65%. Mild left atrial dilatation. Mild MR and mild TR. General surgery evaluated the patient for the rectal bleeding. Hemoglobin currently 13.0 plans for outpatient colonoscopy. Patient to be discharged home. Please see medication reconciliation for a list of current medications. Thank you for allowing us to participate in the care of this patient. The impression and plan of care has been dictated by Nancy Newton, Nurse Practitioner as directed. Dr. Destiny MD I have performed a history and physical examination and medical decision making of this patient, discussed the same with the dictator, and agree with the dictators assessment and plan as written, documented as a scribe. Based on total visit time, I have performed more than 50% of this visit. Patient Condition at Discharge: Stable Plan - Discharge Summary Discharge Rx Participant: No New Discharge Prescriptions: New carvediloL [Coreg] 3.125 mg PO BID-W/MEALS #30 tab Atorvastatin [Lipitor] 40 mg PO HS #30 tab Mag Hydrox/Al Hydrox/Simeth [Maalox] 30 ml PO QID #10 ml Pantoprazole [Protonix] 40 mg PO AC-BRKFST #30 tab Discharge Medication List Atorvastatin [Lipitor] 40 mg PO HS #30 tab 07/14/24 [Rx] Mag Hydrox/Al Hydrox/Simeth [Maalox] 30 ml PO QID #10 ml 07/14/24 [Rx] Pantoprazole [Protonix] 40 mg PO AC-BRKFST #30 tab 07/14/24 [Rx] carvediloL [Coreg] 3.125 mg PO BID-W/MEALS #30 tab 07/14/24 [Rx] Follow up Appointment(s)/Referral(s): Angie Buchanan PAC [REFERRING] - 3 Days Monroe Suarez MD [STAFF PHYSICIAN] - 07/17/24 1:00 pm Patient Instructions/Handouts: Gastrointestinal Bleeding (DC), Noncardiac Chest Pain (DC) Activity/Diet/Wound Care/Special Instructions: Patient to have office appointment on 07/17. She will be scheduled for colonoscopy on 07/19 HOLD ASPIRIN PER CARDIOLOGY UNTIL AFTER COLONOSCOPY FOLLOWUP Discharge Disposition: HOME SELF-CARE
== END 2024-07-15 15:45 | disposition home or self-care (01) ==
LOC: EC 16:13 → 6NMEDSUR 20:20
PROVIDERS: ADMIT Internal Medicine; ATTEND Internal Medicine
DX: K29.70 Gastritis, unspecified, without bleeding (principal); K62.5 Hemorrhage of anus and rectum; K44.9 Diaphragmatic hernia without obstruction or gangrene; K21.9 Gastro-esophageal reflux disease without esophagitis; K80.20 Calculus of gallbladder without cholecystitis without obstruction; I25.10 Atherosclerotic heart disease of native coronary artery without angina pectoris; E78.5 Hyperlipidemia, unspecified; I08.1 Rheumatic disorders of both mitral and tricuspid valves; R07.2 Precordial pain; M25.512 Pain in left shoulder; E66.9 Obesity, unspecified; Z68.30 Body mass index [BMI] 30.0-30.9, adult; Z91.018 Allergy to other foods; Z91.048 Other nonmedicinal substance allergy status; Z86.79 Personal history of other diseases of the circulatory system
CPT/HCPCS: 96374; 96375; 99285; 36415; 93005 ×2; 93306; 85379; 83880; 80061 ×2; 80053; 84443; 82150; 83690; 83735; 84484 ×2; 85025; 85610; 85730; 71046; 74150; 71275; G0378 ×3; J2270; J2405; Q9967

== ENCOUNTER 2024-07-19 08:36 | Day surgery (SDC) | payer MEDICARE ==
[2024-07-18 11:03] VITALS: BMI 29.2
[~2024-07-19 08:36] MED LIST: LIDOCAINE 1% (10MG/ML) FOR IV START INTRADERMA PRN
[2024-07-19] MEDS: IV FLUID CONTINUATION 1,000 ML IV ONE (09:03)
[2024-07-19 09:05] VITALS: RESP 16; TEMP 97.9
[2024-07-19] MEDS: LACTATED RINGERS 1,000 ML IV SCH (09:13)
[2024-07-19] MEDS: MIDAZOLAM 2 MG/2 ML VIAL IV ONE (09:19)
[2024-07-19] MEDS ORDERED: LIDOCAINE 2% (PF) 20 MG/ML 5 ML VIAL ONE (09:28)
[2024-07-19] MEDS ORDERED: PROPOFOL 10 MG/ML 20 ML VIAL IV ONE (09:28)
--- NOTE | 2024-07-19 09:28 | P.GSHP ---
History of Present Illness H&P Date: 07/19/24 Chief Complaint: Gerd, GI bleed This a 69-year-old female who [facility] today for EGD colonoscopy. Patient has issues with GERD and GI bleed. She is a known hiatal hernia. Past Medical History Past Medical History: Blood Disorder, GERD/Reflux, Hyperlipidemia, Sleep Apnea/CPAP/BIPAP, Thyroid Disorder Additional Past Medical History / Comment(s): Hx anemia in 2023, from internal bleeding, had multiple iron and blood transfusions. Year round allergies. Bouts of Colitis, last in 2006. Diarrhea on and off X6 months. Varicose veins. Has CPAP, not currently using. History of Any Multi-Drug Resistant Organisms: None Reported Past Surgical History: Heart Catheterization Additional Past Surgical History / Comment(s): Eye surgery. Past Anesthesia/Blood Transfusion Reactions: No Reported Reaction Additional Past Anesthesia/Blood Transfusion Reaction / Comment(s): Last surgery was 4 Smoking Status: Never smoker - Past Family History Father Family Medical History: Chest Pain / Angina, Hyperlipidemia, Hypertension Mother Family Medical History: Cancer, Chest Pain / Angina, Hyperlipidemia, Hypertension Additional Family Medical History / Comment(s): Skin cancer. Brother(s) Family Medical History: Hyperlipidemia, Hypertension Medications and Allergies Home Medications Medication Instructions Recorded Confirmed Type Atorvastatin [Lipitor] 40 mg PO HS #30 tab 07/14/24 07/19/24 Rx Mag Hydrox/Al Hydrox/Simeth 30 ml PO QID #10 ml 07/14/24 07/19/24 Rx [Maalox] Pantoprazole [Protonix] 40 mg PO AC-BRKFST #30 tab 07/14/24 07/19/24 Rx carvediloL [Coreg] 3.125 mg PO BID-W/MEALS #30 tab 07/14/24 07/19/24 Rx Venlafaxine HCl [Effexor XR] 150 mg PO DAILY 07/18/24 07/19/24 History Allergies Allergy/AdvReac Type Severity Reaction Status Date / Time ragweed pollen Allergy Rash/Hives Verified 07/18/24 10:43 chamomile flower AdvReac Flushing/Flu-like Verified 07/18/24 10:43 Symptoms orange juice [Elaine] AdvReac Flushing/Flu-like Verified 07/18/24 10:43 Symptoms Surgical - Exam Vital Signs Temp Pulse Resp BP Pulse Ox 97.9 F 105 H 16 137/62 97 07/19/24 09:04 07/19/24 09:04 07/19/24 09:04 07/19/24 09:04 07/19/24 09:04 - General well developed, well nourished, no distress - Eyes PERRL - ENT normal pinna - Neck no masses - Respiratory normal expansion - Cardiovascular Rhythm: regular - Abdomen Abdomen: soft, non tender Assessment and Plan Assessment: History of GI bleed and gerd. Will perform EGD colonoscopy.
--- NOTE | 2024-07-19 09:57 | P.OP ---
Date of Procedure: 07/19/24 Preoperative Diagnosis: GI bleed Gerd Postoperative Diagnosis: Large hiatal hernia Esophagitis Proctitis Diverticulosis Procedure(s) Performed: EGD Colonoscopy Anesthesia: MAC Surgeon: Monroe uSarez Pathology: other (Antrum, esophagus) Condition: stable Disposition: PACU Description of Procedure: Patient is placed on the endoscopy table in the lateral position. She received IV sedation. The gas was placed oropharynx passed in the esophagus into the stomach. Scope was placed with the pylorus. The first portion duodenum appeared normal. Scope was brought back to the antrum this appeared mildly Flaim. A biopsy was performed. Scope was retroflexed. The patient had a large hiatal hernia. Approximately one third of the stomach was in the chest. The GE junction was at 36 cm. The distal soft appeared mildly Flaim. A biopsy performed. The proximal esophagus appeared normal. Scope withdrawn for the patient. Next digital rectal exams performed. This revealed no abnormality. The flexible colonoscope was then placed patient anus passed throughout the entire colon. The ileocecal valve was visualized. The cecum, ascending transverse colon appeared normal. There is a few scattered diverticuli in the descending colon. The scope was then brought back the sigmoid colon appeared to have some minimal inflammatory changes. In the rectum there was more inflammatory changes seen. Patient had some pseudomembranes. This was biopsied. The scope was withdrawn the patient. The patient may have had rectal bleeding from proctitis.
[2024-07-19 10:20] VITALS: BP 161/86; PULSE 93
== END 2024-07-19 11:25 | disposition home or self-care (01) ==
LOC: ORWHC2ENDO 08:36
PROVIDERS: ATTEND Surgery
DX: K29.50 Unspecified chronic gastritis without bleeding (principal); K21.00 Gastro-esophageal reflux disease with esophagitis, without bleeding; K51.211 Ulcerative (chronic) proctitis with rectal bleeding; K44.9 Diaphragmatic hernia without obstruction or gangrene; K57.30 Diverticulosis of large intestine without perforation or abscess without bleeding; E78.5 Hyperlipidemia, unspecified; G47.30 Sleep apnea, unspecified
CPT/HCPCS: 88305; 45380; 43239; J2250; J2704; J2003

== ENCOUNTER 2024-09-19 19:08 | Inpatient (IN) | payer MEDICARE ==
--- NOTE | 2024-09-19 19:21 | ED ---
General Adult HPI - General Source: patient, EMS, RN notes reviewed, old records reviewed Mode of arrival: ambulatory Limitations: no limitations <Rito Tucker - Last Filed: 09/19/24 20:52> <Rakel Jang - Last Filed: 09/21/24 21:05> - General Chief complaint: Shortness of Breath Stated complaint: DAVID Time Seen by Provider: 09/19/24 19:15 - History of Present Illness Initial comments: This is a 69-year-old female who states she has no previous breathing history. Patient states she has been having a cough and upper respiratory symptoms as well as body aches on and off for about a month. Patient states she cannot get rid of the cough so she went to an urgent care today in the urgent care center and because her pulse ox they said it was in the 60s. Patient states that when she got in the ambulance her pulse ox was in the high 90s on room air and EMS verified this. Patient denies any chest pain or palpitations. Patient states her biggest problem is she cannot get rid of the cough and she is mildly short of breath. (Rito Tucker) - Related Data Home Medications Medication Instructions Recorded Confirmed Venlafaxine HCl [Effexor XR] 150 mg PO DAILY 07/18/24 09/20/24 Fexofenadine HCl [Kassandra Allergy] 180 mg PO DAILY 09/20/24 09/20/24 Fluticasone Propionate [Flonase 2 spray EA NOSTRIL BID 09/20/24 09/20/24 Allergy Relief] Pseudoephedrine [Sudafed] 60 mg PO DAILY 09/20/24 09/20/24 Previous Rx's Medication Instructions Recorded Apixaban [Eliquis Starter Pack 5 - 10 mg PO DIRECTED 30 Days 09/21/24 (for VTE)] #1 each Ascorbic Acid [Vitamin C] 1,000 mg PO DAILY@1230 #30 tab 09/21/24 Ferrous Sulfate [Iron (65 MG 325 mg PO W/LUNCH #90 tab 09/21/24 Elemental)] Mesalamine [Canasa] 1,000 mg RECTAL HS #30 suppositor 09/21/24 Pantoprazole [Protonix] 40 mg PO DAILY #90 tab 09/21/24 Allergies Allergy/AdvReac Type Severity Reaction Status Date / Time ragweed pollen Allergy Rash/Hives Verified 09/20/24 11:12 chamomile flower AdvReac Flushing/Flu-like Verified 09/20/24 11:12 Symptoms orange juice [[place]] AdvReac Flushing/Flu-like Verified 09/20/24 11:12 Symptoms Review of Systems ROS Other: All systems not noted in ROS Statement are negative. <Rito Tucker - Last Filed: 09/19/24 20:52> ROS Other: All systems not noted in ROS Statement are negative. <Rakel Jang - Last Filed: 09/21/24 21:05> ROS Statement: Those systems with pertinent positive or pertinent negative responses have been documented in the HPI. Past Medical History Past Medical History: Blood Disorder, GERD/Reflux, Hyperlipidemia, Sleep Apnea/CPAP/BIPAP, Thyroid Disorder Additional Past Medical History / Comment(s): Hx anemia in 2023, from internal bleeding, had multiple iron and blood transfusions. Year round allergies. Bouts of Colitis, last in 2006. Diarrhea on and off X6 months. Varicose veins. Has CPAP, not currently using. Hernia. History of Any Multi-Drug Resistant Organisms: None Reported Past Surgical History: Heart Catheterization Additional Past Surgical History / Comment(s): Eye surgery. Past Anesthesia/Blood Transfusion Reactions: No Reported Reaction Additional Past Anesthesia/Blood Transfusion Reaction / Comment(s): Last surgery was 4 Past Psychological History: PTSD Smoking Status: Never smoker Past Alcohol Use History: None Reported Past Drug Use History: None Reported - Past Family History Father Family Medical History: Chest Pain / Angina, Hyperlipidemia, Hypertension Mother Family Medical History: Cancer, Chest Pain / Angina, Hyperlipidemia, Hypertension Additional Family Medical History / Comment(s): Skin cancer. Brother(s) Family Medical History: Hyperlipidemia, Hypertension <Rito Tucker - Last Filed: 09/19/24 20:52> General Exam Limitations: no limitations <Rito Tucker - Last Filed: 09/19/24 20:52> - General Exam Comments Initial Comments: GENERAL: Patient is well-developed and well-nourished. Patient is nontoxic and well- hydrated and is in mild distress. ENT: Neck is soft and supple. No significant lymphadenopathy is noted. Oropharynx is clear. Moist mucous membranes. Neck has full range of motion without eliciting any pain. EYES: The sclera were anicteric and conjunctiva were pink and moist. Extraocular movements were intact and pupils were equal round and reactive to light. Eyelids were unremarkable. PULMONARY: Unlabored respirations. Good breath sounds bilaterally. No audible rales rhonchi or wheezing was noted. CARDIOVASCULAR: There is a regular rate and rhythm without any murmurs gallops or rubs. ABDOMEN: Soft and nontender with normal bowel sounds. SKIN: Skin is clear with no lesions or rashes and otherwise unremarkable. NEUROLOGIC: Patient is alert and oriented x3. Cranial nerves II through XII are grossly intact. Motor and sensory are also intact. Normal speech, volume and content. Symmetrical smile. MUSCULOSKELETAL: Normal extremities with adequate strength and full range of motion. LYMPHATICS: No significant lymphadenopathy is noted PSYCHIATRIC: Normal psychiatric evaluation. (Rito Tucker) Course Vital Signs 09/19/24 09/19/24 09/19/24 19:14 19:20 20:15 Temperature 98.2 F Pulse Rate 107 H Respiratory 22 24 Rate Blood Pressure 126/81 O2 Sat by Pulse 99 100 Oximetry 09/19/24 09/19/24 09/19/24 21:42 21:53 21:54 Temperature Pulse Rate 107 H 77 100 Respiratory 20 Rate Blood Pressure 119/58 O2 Sat by Pulse 95 Oximetry 09/19/24 09/20/24 09/20/24 23:52 02:00 04:00 Temperature Pulse Rate 99 84 84 Respiratory 20 19 18 Rate Blood Pressure 108/63 126/78 131/82 O2 Sat by Pulse 98 99 97 Oximetry 09/20/24 09/20/24 09/20/24 06:12 09:01 12:12 Temperature 98.4 F 98.0 F Pulse Rate 90 97 82 Respiratory 18 18 20 Rate Blood Pressure 118/57 103/60 117/73 O2 Sat by Pulse 97 96 98 Oximetry 09/20/24 14:42 Temperature 97.8 F Pulse Rate 82 Respiratory 18 Rate Blood Pressure 145/81 O2 Sat by Pulse 97 Oximetry Medical Decision Making - Lab Data Result diagrams: 09/19/24 19:46 09/19/24 19:46 <Rito Tucker - Last Filed: 09/19/24 20:52> - Lab Data Result diagrams: 09/21/24 06:08 09/21/24 06:08 <Rakel Jang - Last Filed: 09/21/24 21:05> - Medical Decision Making I interpreted the EKG by myself. EKG shows sinus tachycardia at 109 bpm IA interval 132 QRS is 82 QT interval 336 QTc is 400. Patient's EKG shows no ST segment elevation or depression Was pt. sent in by a medical professional or institution (DONATO Barnard, [employer], urgent care, hospital, or assisted...) When possible be specific @ -[No] Did you speak to anyone other than the patient for history (EMS, parent, family, police, friend...)? What history was obtained from this source @ -[No] Did you review nursing and triage notes (agree or disagree)? Why? @ -[I reviewed and agree with nursing and triage notes] Were old charts reviewed (outside hosp., previous admission, EMS record, old EKG, old radiological studies, urgent care reports/EKG's, assisted records)? Report findings @ -[No old charts were reviewed] Differential Diagnosis? @ -Differential Dyspnea: Coronary syndrome, arrhythmia, tamponade, asthma, COPD, pulmonary embolism, pneumonia, pneumothorax, pulmonary effusion, anaphylaxis, diabetic ketoacidosis, flailed chest, pulmonary contusion, diaphragmatic rupture, anemia, neuromuscular, this is not meant to be an all-inclusive list. EKG interpreted by me (3pts min.). @ -[As above] X-rays interpreted by me (1pt min.). @ -Chest x-ray shows no acute abnormality CT interpreted by me (1pt min.). @ -[None done] U/S interpreted by me (1pt. min.). @ -[None done] What testing was considered but not performed or refused? (CT, X-rays, U/S, labs)? Why? @ -[None] What meds were considered but not given or refused? Why? @ -[None] Did you discuss the management of the patient with other professionals (professionals i.e. DONATO Barnard, [employer]ER, lab, RT, psych nurse, social welfare administrator, oracle reports developer, teacher, administrative services officer, manager of case)? Give summary @ -[No] Was smoking cessation discussed for >3mins.? @ -[No] Was critical care preformed (if so, how long)? @ -[No] Were there social determinants of health that impacted care today? How? (Homelessness, low income, unemployed, alcoholism, drug addiction, transportation, low edu. Level, literacy, decrease access to med. care, nursing home, rehab)? @ -[No] Was there de-escalation of care discussed even if they declined (Discuss DNR or withdrawal of care, Hospice)? DNR status @ -[No] What co-morbidities impacted this encounter? (DM, HTN, Smoking, COPD, CAD, Cancer, CVA, ARF, Chemo, Hep., AIDS, mental health diagnosis, sleep apnea, morbid obesity)? @ -[None] Was patient admitted / discharged? Hospital course, mention meds given and route, prescriptions, significant lab abnormalities, going to OR and other pertinent info. @ -Dr. Jang will take over the care of this patient at 9 PM (Rito Tucker) Patient was signed out to myself pending CT PE study. She is a 69-year-old f emale presenting for approximately 1 month of URI symptoms. Was seen at urgent care and was noted to have a pulse ox of 55% there. Not hypoxic here. Currently pending CT PE study. I personally reviewed CT scan and there are bilateral pulmonary emboli but no saddle emboli. I was called by Dr. Gardner, radiology who notes bilateral PE though no signs of right heart strain. Agree with radiologist interpretation. Updated patient the findings and plan for heparin. She does note that 4 months ago she had an endoscopy due to bloody stools. Says she has not had any bloody stools recently though states that her stools have been somewhat dark. Stool occult blood was obtained. Though anticipate starting heparin as at this point, I feel benefit outweighs risk. Of note patient is not tachycardic or hypoxic at this time. She does not of signs of heart strain. Plan for admission. Case was discussed with Armando Vyas, kindly accepted pt for admission. Undiagnosed new problem with uncertain prognosis? @ -[No] Drug Therapy requiring intensive monitoring for toxicity (Heparin, Nitro, I nsulin, Cardizem)? heparin Were any procedures done? @ -[No] Diagnosis/symptom? @ -Bilateral PE Acute, or Chronic, or Acute on Chronic? @ acute Uncomplicated (without systemic symptoms) or Complicated (systemic symptoms)? complicated Side effects of treatment? @ -[No] Exacerbation, Progression, or Severe Exacerbation? @ -[No] Poses a threat to life or bodily function? How? (Chest pain, [place], NH, pneumonia, PE, COPD, DKA, ARF, appy, cholecystitis, CVA, Diverticulitis, Homicidal, Suicidal, threat to staff... and all critical care pts) Yes Critical Care time: 35 minutes (Rakel Jang) - Lab Data Lab Results 09/19/24 09/19/24 09/19/24 Range/Units 19:46 19:46 19:46 WBC 12.27 H (4.50-10.00) 10*3/uL RBC 4.25 (4.10-5.20) 10*6/uL Hgb 10.9 L (12.0-15.0) g/dL Hct 33.7 L (37.2-46.3) % MCV 79.3 L (80.0-97.0) fL MCH 25.6 L (27.0-32.0) pg MCHC 32.3 (32.0-37.0) g/dL Plt Count 438 (140-440) 10*3/uL MPV 8.6 L (9.5-12.2) fL Immature Gran % (Auto) 0.9 % Neutrophils % 52.4 % Lymphocytes % 35.9 % Monocytes % 7.3 % Eosinophils % 2.9 % Basophils % 0.6 % Immature Gran # 0.11 H (0.00-0.04) 10*3/uL Neutrophils # 6.44 (1.80-7.70) 10*3/uL Lymphocytes # 4.41 (0.90-5.00) 10*3/uL Monocytes # 0.89 (0.20-1.00) 10*3/uL Eosinophils # 0.35 (0.04-0.35) 10*3/uL Basophils # 0.07 (0.00-0.10) 10*3/uL Retic Count (0.10-1.80) % PT 11.6 (10.0-12.5) sec INR 1.1 (<1.2) APTT 22.7 (22.0-30.0) sec D-Dimer 7.48 H (<0.60) mg/L FEU Sodium 135 L (137-145) mmol/L Potassium 4.3 (3.5-5.1) mmol/L Chloride 102 (98-107) mmol/L Carbon Dioxide 20 L (22-30) mmol/L Anion Gap 13 mmol/L BUN 18 H (7-17) mg/dL Creatinine 0.91 (0.52-1.04) mg/dL Est GFR (CKD-EPI)AfAm 73 (>60 ml/min/1.73 sqM) Est GFR (CKD-EPI)NonAf 64 (>60 ml/min/1.73 sqM) Glucose 145 H (74-99) mg/dL Lactic Ac Sepsis Rflx Plasma Lactic Acid French (0.7-2.0) mmol/L Calcium 9.5 (8.4-10.2) mg/dL Magnesium 2.1 (1.6-2.3) mg/dL Iron (50-170) UG/DL TIBC (228-460) UG/DL % Saturation (12.00-45.00) Transferrin (204.0-354.0) mg/dL Total Bilirubin 0.5 (0.2-1.3) mg/dL AST 23 (14-36) U/L ALT 26 (4-34) U/L Alkaline Phosphatase 90 (38-126) U/L Troponin I (0.000-0.034) ng/mL NT-Pro-B Natriuret Pep pg/mL Total Protein 7.7 (6.3-8.2) g/dL Albumin 3.8 (3.5-5.0) g/dL Stool Occult Blood (Negative) Influenza Type A (PCR) (Not Detectd) Influenza Type B (PCR) (Not Detectd) RSV (PCR) (Not Detectd) SARS-CoV-2 (PCR) (Not Detectd) 09/19/24 09/19/24 09/19/24 Range/Units 19:46 19:46 19:46 WBC (4.50-10.00) 10*3/uL RBC (4.10-5.20) 10*6/uL Hgb (12.0-15.0) g/dL Hct (37.2-46.3) % MCV (80.0-97.0) fL MCH (27.0-32.0) pg MCHC (32.0-37.0) g/dL Plt Count (140-440) 10*3/uL MPV (9.5-12.2) fL Immature Gran % (Auto) % Neutrophils % % Lymphocytes % % Monocytes % % Eosinophils % % Basophils % % Immature Gran # (0.00-0.04) 10*3/uL Neutrophils # (1.80-7.70) 10*3/uL Lymphocytes # (0.90-5.00) 10*3/uL Monocytes # (0.20-1.00) 10*3/uL Eosinophils # (0.04-0.35) 10*3/uL Basophils # (0.00-0.10) 10*3/uL Retic Count (0.10-1.80) % PT (10.0-12.5) sec INR (<1.2) APTT (22.0-30.0) sec D-Dimer (<0.60) mg/L FEU Sodium (137-145) mmol/L Potassium (3.5-5.1) mmol/L Chloride (98-107) mmol/L Carbon Dioxide (22-30) mmol/L Anion Gap mmol/L BUN (7-17) mg/dL Creatinine (0.52-1.04) mg/dL Est GFR (CKD-EPI)AfAm (>60 ml/min/1.73 sqM) Est GFR (CKD-EPI)NonAf (>60 ml/min/1.73 sqM) Glucose (74-99) mg/dL Lactic Ac Sepsis Rflx Plasma Lactic Acid French 2.1 H* (0.7-2.0) mmol/L Calcium (8.4-10.2) mg/dL Magnesium (1.6-2.3) mg/dL Iron (50-170) UG/DL TIBC (228-460) UG/DL % Saturation (12.00-45.00) Transferrin (204.0-354.0) mg/dL Total Bilirubin (0.2-1.3) mg/dL AST (14-36) U/L ALT (4-34) U/L Alkaline Phosphatase (38-126) U/L Troponin I <0.012 (0.000-0.034) ng/mL NT-Pro-B Natriuret Pep pg/mL Total Protein (6.3-8.2) g/dL Albumin (3.5-5.0) g/dL Stool Occult Blood (Negative) Influenza Type A (PCR) Not Detected (Not Detectd) Influenza Type B (PCR) Not Detected (Not Detectd) RSV (PCR) Not Detected (Not Detectd) SARS-CoV-2 (PCR) Not Detected (Not Detectd) 09/19/24 09/19/24 09/19/24 Range/Units 19:46 19:46 19:46 WBC (4.50-10.00) 10*3/uL RBC (4.10-5.20) 10*6/uL Hgb (12.0-15.0) g/dL Hct (37.2-46.3) % MCV (80.0-97.0) fL MCH (27.0-32.0) pg MCHC (32.0-37.0) g/dL Plt Count (140-440) 10*3/uL MPV (9.5-12.2) fL Immature Gran % (Auto) % Neutrophils % % Lymphocytes % % Monocytes % % Eosinophils % % Basophils % % Immature Gran # (0.00-0.04) 10*3/uL Neutrophils # (1.80-7.70) 10*3/uL Lymphocytes # (0.90-5.00) 10*3/uL Monocytes # (0.20-1.00) 10*3/uL Eosinophils # (0.04-0.35) 10*3/uL Basophils # (0.00-0.10) 10*3/uL Retic Count 1.28 (0.10-1.80) % PT (10.0-12.5) sec INR (<1.2) APTT (22.0-30.0) sec D-Dimer (<0.60) mg/L FEU Sodium (137-145) mmol/L Potassium (3.5-5.1) mmol/L Chloride (98-107) mmol/L Carbon Dioxide (22-30) mmol/L Anion Gap mmol/L BUN (7-17) mg/dL Creatinine (0.52-1.04) mg/dL Est GFR (CKD-EPI)AfAm (>60 ml/min/1.73 sqM) Est GFR (CKD-EPI)NonAf (>60 ml/min/1.73 sqM) Glucose (74-99) mg/dL Lactic Ac Sepsis Rflx Plasma Lactic Acid French (0.7-2.0) mmol/L Calcium (8.4-10.2) mg/dL Magnesium (1.6-2.3) mg/dL Iron 16 L (50-170) UG/DL TIBC 360 (228-460) UG/DL % Saturation 4.44 L (12.00-45.00) Transferrin 257.0 (204.0-354.0) mg/dL Total Bilirubin (0.2-1.3) mg/dL AST (14-36) U/L ALT (4-34) U/L Alkaline Phosphatase (38-126) U/L Troponin I (0.000-0.034) ng/mL NT-Pro-B Natriuret Pep 710 pg/mL Total Protein (6.3-8.2) g/dL Albumin (3.5-5.0) g/dL Stool Occult Blood (Negative) Influenza Type A (PCR) (Not Detectd) Influenza Type B (PCR) (Not Detectd) RSV (PCR) (Not Detectd) SARS-CoV-2 (PCR) (Not Detectd) 09/19/24 09/19/24 09/19/24 Range/Units 19:46 20:31 21:40 WBC (4.50-10.00) 10*3/uL RBC (4.10-5.20) 10*6/uL Hgb (12.0-15.0) g/dL Hct (37.2-46.3) % MCV (80.0-97.0) fL MCH (27.0-32.0) pg MCHC (32.0-37.0) g/dL Plt Count (140-440) 10*3/uL MPV (9.5-12.2) fL Immature Gran % (Auto) % Neutrophils % % Lymphocytes % % Monocytes % % Eosinophils % % Basophils % % Immature Gran # (0.00-0.04) 10*3/uL Neutrophils # (1.80-7.70) 10*3/uL Lymphocytes # (0.90-5.00) 10*3/uL Monocytes # (0.20-1.00) 10*3/uL Eosinophils # (0.04-0.35) 10*3/uL Basophils # (0.00-0.10) 10*3/uL Retic Count (0.10-1.80) % PT (10.0-12.5) sec INR (<1.2) APTT (22.0-30.0) sec D-Dimer (<0.60) mg/L FEU Sodium (137-145) mmol/L Potassium (3.5-5.1) mmol/L Chloride (98-107) mmol/L Carbon Dioxide (22-30) mmol/L Anion Gap mmol/L BUN (7-17) mg/dL Creatinine (0.52-1.04) mg/dL Est GFR (CKD-EPI)AfAm (>60 ml/min/1.73 sqM) Est GFR (CKD-EPI)NonAf (>60 ml/min/1.73 sqM) Glucose (74-99) mg/dL Lactic Ac Sepsis Rflx Y Plasma Lactic Acid French (0.7-2.0) mmol/L Calcium (8.4-10.2) mg/dL Magnesium (1.6-2.3) mg/dL Iron (50-170) UG/DL TIBC (228-460) UG/DL % Saturation (12.00-45.00) Transferrin 257.0 (204.0-354.0) mg/dL Total Bilirubin (0.2-1.3) mg/dL AST (14-36) U/L ALT (4-34) U/L Alkaline Phosphatase (38-126) U/L Troponin I (0.000-0.034) ng/mL NT-Pro-B Natriuret Pep pg/mL Total Protein (6.3-8.2) g/dL Albumin (3.5-5.0) g/dL Stool Occult Blood Positive H (Negative) Influenza Type A (PCR) (Not Detectd) Influenza Type B (PCR) (Not Detectd) RSV (PCR) (Not Detectd) SARS-CoV-2 (PCR) (Not Detectd) Disposition <Rito Tucker - Last Filed: 09/19/24 20:52> <Rakel Jang - Last Filed: 09/21/24 21:05> Clinical Impression: Bilateral pulmonary embolism Disposition: ADMITTED IP TO THIS HOSP Condition: Stable
[2024-09-19 20:21] LABS: ALT 26 U/L (4-34); AST 23 U/L (14-36); African American GFR (CKD) 73 (>60 ml/min/1.73 sqM); Albumin 3.8 g/dL (3.5-5.0); Alkaline Phosphatase 90 U/L (38-126); Anion Gap 13 mmol/L; Blood Urea Nitrogen 18 mg/dL (7-17); Calcium 9.5 mg/dL (8.4-10.2); Carbon Dioxide 20 mmol/L (22-30); Chloride 102 mmol/L (98-107); Glucose 145 mg/dL (74-99); Magnesium 2.1 mg/dL (1.6-2.3); Non-African American GFR(CKD) 64 (>60 ml/min/1.73 sqM); Potassium 4.3 mmol/L (3.5-5.1); Sodium 135 mmol/L (137-145); Total Bilirubin 0.5 mg/dL (0.2-1.3); Total Protein 7.7 g/dL (6.3-8.2)
[2024-09-19 20:28] LABS: Basophils # (A) 0.07 10*3/uL (0.00-0.10); Basophils % (A) 0.6 %; Eosinophils # (A) 0.35 10*3/uL (0.04-0.35); Eosinophils % (A) 2.9 %; HCT 33.7 % (37.2-46.3); HGB 10.9 g/dL (12.0-15.0); INR 1.1 (<1.2); Lymphocytes # (A) 4.41 10*3/uL (0.90-5.00); Lymphocytes % (A) 35.9 %; MCH 25.6 pg (27.0-32.0); MCHC 32.3 g/dL (32.0-37.0); MCV 79.3 fL (80.0-97.0); Mean Platelet Volume 8.6 fL (9.5-12.2); Monocytes # (A) 0.89 10*3/uL (0.20-1.00); Monocytes % (A) 7.3 %; Neutrophils # (A) 6.44 10*3/uL (1.80-7.70); Neutrophils % (A) 52.4 %; Partial Thromboplastin Time 22.7 sec (22.0-30.0); Platelet Count 438 10*3/uL (140-440); Prothrombin Time 11.6 sec (10.0-12.5); RBC 4.25 10*6/uL (4.10-5.20); RDW 13.7 % (11.5-14.5); WBC 12.27 10*3/uL (4.50-10.00)
--- NOTE | 2024-09-19 20:41 | XR ---
EXAMINATION TYPE: XR chest 2V DATE OF EXAM: 09/19/2024 8:05 PM COMPARISON: Chest radiographs from 07/13/2024 CLINICAL INDICATION: Female, 69 years old with history of difficulty breathing; [facility] TECHNIQUE: XR chest 2V Frontal and lateral views of the chest. FINDINGS: Lungs/Pleura: There is no evidence of pleural effusion, focal consolidation, or pneumothorax. Pulmonary vascularity: Unremarkable. Heart/mediastinum: Cardiomediastinal silhouette is unremarkable. Hiatal hernia projects over the medi astinum. Musculoskeletal: No acute osseous pathology. IMPRESSION: 1. No acute cardiopulmonary disease/process. 2. Moderate to large hiatal hernia. [facility], , 09/19/2024 8:39 PM
[2024-09-19] MEDS ORDERED: HEPARIN SODIUM 1,000 UN/ML (10ML VL) IV PRN (21:15)
[2024-09-19] MEDS: IPRATROPIUM-ALBUTEROL 3 ML NEB INHALATION STA (21:41)
--- NOTE | 2024-09-19 21:42 | CT ---
EXAMINATION TYPE: CT chest angio for PE DATE OF EXAM: 09/19/2024 9:13 PM COMPARISON: 07/13/2024 CLINICAL INDICATION: Female, 69 years old with history of Elevated D-dimer, shortness of breath; Elev ated D-dimer and shortness of breath. TECHNIQUE/CONTRAST: CTA scan of the thorax is performed with IV Contrast, patient injected with 100ml mL of Isovue 300, M IP images are created and reviewed these are created on a separate workstation.. CT DLP: 300 mGycm, Automated exposure control for dose reduction was used. FINDINGS: Lungs/Pleura: No evidence of focal consolidation, pleural effusion or pneumothorax. Airway: Large airways are patent. Heart: Size within normal limits. No significant coronary artery calcifications. Vasculature: There is a 4 vessel aortic arch. Multiple filling defects are seen within the pulmonary arterial vasculature. No evidence of right heart strain. Mediastinum: No gross evidence of adenopathy. There is moderate to large hiatal hernia present with a majority of the stomach in the chest. Musculoskeletal: No acute osseous abnormalities Soft Tissues/lymph nodes: Unremarkable. Lower neck: No significant findings. Upper Abdomen: No significant findings. IMPRESSION: 1. Bilateral pulmonary emboli. No evidence for right heart strain. 2. Moderate to large hiatal hernia. Findings communicated to Rakel Jang MD on 09/19/2024 9:[address] Kit Gardner. Follow up recommendations for incidental pulmonary nodules, if there are any, are per [employer] [employer] or [employer]. [email or web address].org/[email or web address]?[email or web address] [facility], , 09/19/2024 9:40 PM
[2024-09-19] MEDS: SODIUM CHLORIDE 0.9% 500 ML 500 ML IV ONE (21:57)
[2024-09-19 22:06] LABS: Influenza A Not Detected (Not Detectd); Influenza B Not Detected (Not Detectd); RSV Not Detected (Not Detectd)
[2024-09-19] MEDS: PANTOPRAZOLE 40 MG/10 ML VIAL IVP SCH (22:39)
[2024-09-19] MEDS: HEPARIN SODIUM 1,000 UN/ML (10ML VL) IV ONE (22:42)
[2024-09-19] MEDS: HEPARIN SOD,PORK IN 0.45% NACL 25,000 UNIT in 0.45% NACL 1 250ML.BAG IV SCH (22:43)
[2024-09-19] MEDS ORDERED: ONDANSETRON 4 MG/2 ML VIAL IVP PRN (23:32)
[2024-09-19] MEDS ORDERED: CALCIUM CARBONATE 500 MG CHEWABLE PO PRN (23:32)
[2024-09-19] MEDS ORDERED: MAG HYDROX/AL HYDROX/SIMETH 30 ML CUP PO PRN (23:32)
[2024-09-19] MEDS ORDERED: ALPRAZolam 0.25 MG TAB PO PRN (23:32)
[2024-09-19] MEDS ORDERED: NALOXONE 0.4 MG/ML 1 ML VIAL IV PRN (23:32)
--- NOTE | 2024-09-20 02:30 | P.HPIM ---
History of Present Illness H&P Date: 09/19/24 Patient is a 69-year-old female with GERD with a history of GI bleeding, iron deficiency anemia, hyperlipidemia, Takotsubo cardiomyopathy with preserved EF at 50 to 55% in July 2023, DANIELLE, hypothyroidism, PTSD here for shortness of breath. Patient reported that she has been having cough and body aches with congestion that have been intermittent for about a month. She sought care in an urgent car e today and was advised to go to the ED as her pulse ox read that her O2 saturation was in the 60s. However when EMS was in transit, her pulse oxygenation is in the high 90s on room air. On admission, she reported that she still feels short of breath and has a dry cough. She reported that during this time, she has been bedridden for 5 to 6 days of the week due to feeling weak and fatigued. She has also been having soft stools that are dark brown foul- smelling. She reported that she was having anastasiya blood from her rectum for about 6-8 months but it had stopped about 2 months ago. She denied chest pain, palpitations, nausea, vomiting, extremity swelling, focal weakness, facial asymmetry, changes in speech or vision, recent illness, recent trauma. She was seen on June 2024 for chest pain and ACS was ruled out. She has also been evaluated in our facility for a GI bleed and endoscopy was done and she was found to have a hiatal hernia. She reported that she had a colonoscopy and bi opsy in [place] in [place] and was told there that she has ulcerative colitis, but she does not believe this is her diagnosis as the bleeding has persisted. Patient mentioned that she was diagnosed with ulcerative colitis when she was in her 20s. On admission: Vitals: Temperature 98.2 F, pulse rate 107, respiratory rate 22, blood pressure 126/81, O2 saturation 99 Labs: WBC 12.27, hemoglobin 10.9, platelet count 438,000, sodium 135, bicarb 20, lactic acid 2.1, potassium 4.3, calcium 9.5, magnesium 2.1, BUN 18, creatinine 0.91, troponin less than 0.0 12, proBNP 710. Liver enzymes normal levels. Coagulation study showed normal PTT INR and PTT, D-dimer elevated at 7.47. Stool occult positive. Cepheid 4 Plex negative.. Imaging: Chest CTA showed bilateral pulmonary emboli with no evidence of heart strain and moderate to large hiatal hernia. Chest x-ray showed no acute pulmonary process or disease. ED documentation reviewed. Heparin drip initiated in the ED Review of systems: Pertinent positives and negatives as discussed in HPI, a complete review of systems was performed and all other systems are negative. Social history: Tobacco: No tobacco history Alcohol: Denies alcohol use history Recreational drugs: No history with illicit or recreational drugs Travel: No recent prolonged travel Physical examination: Vital signs reviewed General: non toxic, no distress, appears at stated age, on room air Derm: no unusual rashes/lesions, warm Head: atraumatic, normocephalic, symmetric Eyes: EOMI, anicteric sclera, pupils equal round reactive to light ENT: Nose and ears atraumatic Neck: No cervical lymphadenopathy, trachea midline, supple Mouth: no lip lesion, mucus membranes moist Cardiovascular: S1S2 reg, no murmur Lungs: CTA bilateral, no rhonchi, no rales, no accessory muscle use Abdominal: soft, nondistended, nontender to palpation, no guarding Ext: muscle strength 5 out of 5 in all 4 extremities grossly, no gross muscle atrophy, no contractures, positive dorsalis pedis pulse bilateral, no edema Neuro: CN II-XI grossly intact, no gross focal neuro deficits Psych: Alert and oriented x 3, appropriate affect and mood Assessment/Plan: 69-year-old female with history of GERD and GI bleeding here for evaluation of shortness of breath. Was found to have bilateral pulmonary emboli on imaging. Stool occult positive concerning for chronic GI bleed The patient is admitted with an anticipated greater than 2 midnight stay for evaluation of pulmonary embolism and acute on chronic microcytic anemia Active: #. Nonmassive PE with no evidence of right heart strain, provoked #. Lactic acidosis, resolved - D-dimer elevated at 7.47 - Chest CTA showed bilateral pulmonary emboli with no evidence of heart strain and moderate to large hiatal hernia. - Supplemental oxygenation - Cardiac telemetry - Continue with heparin drip. Due to high risk of bleeding, monitor for tolerance to heparin before transitioning to oral anticoagulation - Monitor CBC #. Acute on chronic microcytic anemia, likely due to chronic GI bleed #. Fatigue likley due to above - Hemoglobin 10.9 - Stool occult blood positive - Oral iron with vitamin C daily - Recheck CBC. Transfuse if Hgb <7 - Order iron studies and retic count - PT OT consulted #. Leukocytosis likely reactive - WBC 12.27 - Will monitor for now #. Ulcerative colitis - Patient was diagnosed with ulcerative colitis in her 20s. Likely provoking factor for her PE. - Recent colonoscopy and biopsy in [facility] showed GI bleed likely from UC. Recover records from [facility] Chronic Conditions: #. GERD with history of GI bleed #. Hyperlipidemia #. Takotsubo cardiomyopathy with preserved EF at 50 to 55% in July 2023 #. DANIELLE, not on home CPAP #. Hypothyroidism, no home medication #. PTSD -Continue with Protonix, Lipitor 40 mg, carvedilol 3.125 mg p.o. twice daily, Effexor 50 mg p.o. daily F: Oral intake N: Heart healthy diet A: Can ambulate as needed DVT ppx: Heparin drip GI ppx: Protonix 40 mg IVPB CODE STATUS: Full Discussed with: Patient Anticipated discharge place: Home Lily Bautista MD PGY-1 Internal Medicine Dictation was produced using [employer] dictation software. please excuse any grammatical, word or spelling errors. I have seen and evaluated the patient today. Discussed with the resident and agree with the residents finding and plan as documented in the resident's note. 69 YO F with a pmhx of GI bleed who had presented with acute b/l nonmassive PE. currently on heparin gtt. continue iv protonix 40 mg daily emperically. Past Medical History Past Medical History: Blood Disorder, GERD/Reflux, Hyperlipidemia, Sleep Apnea/CPAP/BIPAP, Thyroid Disorder Additional Past Medical History / Comment(s): Hx anemia in 2023, from internal bleeding, had multiple iron and blood transfusions. Year round allergies. Bouts of Colitis, last in 2006. Diarrhea on and off X6 months. Varicose veins. Has CPAP, not currently using. Hernia. History of Any Multi-Drug Resistant Organisms: None Reported Past Surgical History: Heart Catheterization Additional Past Surgical History / Comment(s): Eye surgery. Past Anesthesia/Blood Transfusion Reactions: No Reported Reaction Additional Past Anesthesia/Blood Transfusion Reaction / Comment(s): Last surgery was 4 Past Psychological History: PTSD Smoking Status: Never smoker Past Alcohol Use History: None Reported Past Drug Use History: None Reported - Past Family History Father Family Medical History: Chest Pain / Angina, Hyperlipidemia, Hypertension Mother Family Medical History: Cancer, Chest Pain / Angina, Hyperlipidemia, Hypertension Additional Family Medical History / Comment(s): Skin cancer. Brother(s) Family Medical History: Hyperlipidemia, Hypertension Medications and Allergies Home Medications Medication Instructions Recorded Confirmed Type Atorvastatin [Lipitor] 40 mg PO HS #30 tab 07/14/24 07/19/24 Rx Mag Hydrox/Al Hydrox/Simeth 30 ml PO QID #10 ml 07/14/24 07/19/24 Rx [Maalox] Pantoprazole [Protonix] 40 mg PO AC-BRKFST #30 tab 07/14/24 07/19/24 Rx carvediloL [Coreg] 3.125 mg PO BID-W/MEALS #30 tab 07/14/24 07/19/24 Rx Venlafaxine HCl [Effexor XR] 150 mg PO DAILY 07/18/24 07/19/24 History metroNIDAZOLE [Flagyl] 500 mg PO TID #30 tab 07/19/24 Rx Allergies Allergy/AdvReac Type Severity Reaction Status Date / Time ragweed pollen Allergy Rash/Hives Verified 07/18/24 10:43 chamomile flower AdvReac Flushing/Flu-like Verified 07/18/24 10:43 Symptoms orange juice [Sterling] AdvReac Flushing/Flu-like Verified 07/18/24 10:43 Symptoms Physical Exam Vitals: Vital Signs Temp Pulse Resp BP Pulse Ox 09/19/24 21:54 100 09/19/24 21:53 77 20 119/58 95 09/19/24 21:42 107 H 09/19/24 20:15 100 09/19/24 19:20 24 09/19/24 19:14 98.2 F 107 H 22 126/81 99 Intake and Output 09/19/24 09/19/24 09/19/24 06:59 14:59 22:59 Other: Weight 78.925 kg Results CBC & Chem 7: 09/20/24 03:22 09/19/24 19:46 Labs: Abnormal Lab Results - Last 24 Hours (Table) 09/19/24 09/19/24 09/19/24 Range/Units 19:46 19:46 19:46 WBC 12.27 H (4.50-10.00) 10*3/uL Hgb 10.9 L (12.0-15.0) g/dL Hct 33.7 L (37.2-46.3) % MCV 79.3 L (80.0-97.0) fL MCH 25.6 L (27.0-32.0) pg MPV 8.6 L (9.5-12.2) fL Immature Gran # 0.11 H (0.00-0.04) 10*3/uL D-Dimer 7.48 H (<0.60) mg/L FEU Sodium 135 L (137-145) mmol/L Carbon Dioxide 20 L (22-30) mmol/L BUN 18 H (7-17) mg/dL Glucose 145 H (74-99) mg/dL Plasma Lactic Acid French (0.7-2.0) mmol/L Stool Occult Blood (Negative) 09/19/24 09/19/24 Range/Units 19:46 21:40 WBC (4.50-10.00) 10*3/uL Hgb (12.0-15.0) g/dL Hct (37.2-46.3) % MCV (80.0-97.0) fL MCH (27.0-32.0) pg MPV (9.5-12.2) fL Immature Gran # (0.00-0.04) 10*3/uL D-Dimer (<0.60) mg/L FEU Sodium (137-145) mmol/L Carbon Dioxide (22-30) mmol/L BUN (7-17) mg/dL Glucose (74-99) mg/dL Plasma Lactic Acid French 2.1 H* (0.7-2.0) mmol/L Stool Occult Blood Positive H (Negative)
[2024-09-20 03:31] LABS: Basophils % (A) 1.1 %; Eosinophils % (A) 5.3 %; HCT 30.2 % (37.2-46.3); Lymphocytes # (A) 3.45 10*3/uL (0.90-5.00); Lymphocytes % (A) 36.3 %; MCH 25.7 pg (27.0-32.0); MCHC 31.1 g/dL (32.0-37.0); MCV 82.5 fL (80.0-97.0); Mean Platelet Volume 8.9 fL (9.5-12.2); Monocytes # (A) 0.76 10*3/uL (0.20-1.00); Neutrophils # (A) 4.63 10*3/uL (1.80-7.70); Neutrophils % (A) 48.7 %; Platelet Count 382 10*3/uL (140-440); RBC 3.66 10*6/uL (4.10-5.20)
[2024-09-20 03:55] LABS: HGB 9.4 g/dL (12.0-15.0)
[2024-09-20 08:25] LABS: Reticulocyte % 1.28 % (0.10-1.80)
[2024-09-20] MEDS: VENLAFAXINE HCL ER 150 MG CAP PO SCH (09:08)
[2024-09-20] MEDS: carvediloL 3.125 MG TAB PO SCH (09:08)
[2024-09-20 09:31] LABS: African American GFR (CKD) 90 (>60 ml/min/1.73 sqM); Anion Gap 13 mmol/L; Blood Urea Nitrogen 14 mg/dL (7-17); Calcium 8.5 mg/dL (8.4-10.2); Carbon Dioxide 14 mmol/L (22-30); Chloride 109 mmol/L (98-107); Glucose 199 mg/dL (74-99); Non-African American GFR(CKD) 78 (>60 ml/min/1.73 sqM); Potassium 4.1 mmol/L (3.5-5.1); Sodium 136 mmol/L (137-145)
[2024-09-20 10:01] LABS: % Iron Saturation 4.44 (12.00-45.00)
[2024-09-20 12:06] LABS: Basophils # (A) 0.09 10*3/uL (0.00-0.10); Basophils % (A) 1.1 %; Eosinophils % (A) 5.9 %; HCT 28.9 % (37.2-46.3); HGB 9.1 g/dL (12.0-15.0); Lymphocytes # (A) 2.69 10*3/uL (0.90-5.00); Lymphocytes % (A) 31.6 %; MCH 25.4 pg (27.0-32.0); MCHC 31.5 g/dL (32.0-37.0); MCV 80.7 fL (80.0-97.0); Mean Platelet Volume 8.9 fL (9.5-12.2); Monocytes # (A) 0.77 10*3/uL (0.20-1.00); Neutrophils % (A) 51.7 %; Platelet Count 376 10*3/uL (140-440); RBC 3.58 10*6/uL (4.10-5.20); RDW 13.8 % (11.5-14.5); WBC 8.51 10*3/uL (4.50-10.00)
--- NOTE | 2024-09-20 12:34 | US ---
EXAMINATION TYPE: US venous doppler duplex LE BI DATE OF EXAM: 09/20/2024 10:54 AM COMPARISON: 08/10/2023 CLINICAL INDICATION: Female, 69 years old with history of DVT; Hx RUE EVT post heart cath, New PE wit h chest pain , Pain TECHNIQUE: The lower extremity deep venous system is examined utilizing real time linear array sonog darvin with graded compression, color doppler sonography, and spectral doppler. SIDE PERFORMED: Bilateral FINDINGS: VESSELS IMAGED: Common Femoral Vein Deep Femoral Vein Greater Saphenous Vein * Femoral Vein Popliteal Vein Small Saphenous Vein * Proximal Calf Veins (* superficial vessels) Right Leg: Negative for DVT, Color Doppler imaging shows patency of the vessels. Spectral waveforms are within normal limits. Left Leg: Acute DVT seen within left popliteal vein extending into PTVs IMPRESSION: 1. Acute deep venous thrombosis of the left lower extremity within the left popliteal vein extending into the posterior tibial veins. 2. No deep venous thrombosis of the right lower extremity. A Red level critical message alert has been initiated for Bindu Bui MD via the [employer] Critical Results System on 09/20/2024 12:32 PM. This message alert has been sent to Bindu Bui MD via the preferences provided by the clinician for the receipt of Radiology Critical Findings. Message ID [id number]. [facility], , 09/20/2024 12:32 PM
[2024-09-20] MEDS: FERROUS SULFATE 325 MG TAB PO SCH (12:56)
[2024-09-20] MEDS: ASCORBIC ACID 500 MG TAB PO SCH (12:56)
--- NOTE | 2024-09-20 13:43 | P.PN ---
Subjective Hospital Course: Patient is a 69-year-old female with GERD with a history of GI bleeding, iron deficiency anemia, hyperlipidemia, Takotsubo cardiomyopathy with preserved EF at 50 to 55% in July 2023, DANIELLE, hypothyroidism, PTSD here for shortness of breath. Patient reported that she has been having cough and body aches with congestion that have been intermittent for about a month. She sought care in an urgent care today and was advised to go to the ED as her pulse ox read that her O2 saturation was in the 60s. However when EMS was in transit, her pulse oxygenation is in the high 90s on room air. On admission, she reported that she still feels short of breath and has a dry cough. She reported that during this time, she has been bedridden for 5 to 6 days of the week due to feeling weak and fatigued. She has also been having soft stools that are dark brown foul- smelling. She reported that she was having anastasiya blood from her rectum for about 6-8 months but it had stopped about 2 months ago. She denied chest pain, palpitations, nausea, vomiting, extremity swelling, focal weakness, facial asymmetry, changes in speech or vision, recent illness, recent trauma. She was seen on June 2024 for chest pain and ACS was ruled out. She has also been evaluated in our facility for a GI bleed and endoscopy was done and she was found to have a hiatal hernia. She reported that she had a colonoscopy and biopsy in [place] in [place] and was told there that she has ulcerative colitis, but she does not believe this is her diagnosis as the bleeding has persisted. Patient mentioned that she was diagnosed with ulcerative colitis when she was in her 20s. On admission: Vitals: Temperature 98.2 F, pulse rate 107, respiratory rate 22, blood pressure 126/81, O2 saturation 99 Labs: WBC 12.27, hemoglobin 10.9, platelet count 438,000, sodium 135, bicarb 20, lactic acid 2.1, potassium 4.3, calcium 9.5, magnesium 2.1, BUN 18, creatinine 0.91, troponin less than 0.0 12, proBNP 710. Liver enzymes normal levels. Coag ulation study showed normal PTT INR and PTT, D-dimer elevated at 7.47. Stool occult positive. Cepheid 4 Plex negative.. Imaging: Chest CTA showed bilateral pulmonary emboli with no evidence of heart strain and moderate to large hiatal hernia. Chest x-ray showed no acute pulmonary process or disease. Subjective: Patient seen and examined at bedside. No acute events overnight. Pertinent positives and negatives as discussed above, a complete review of systems was performed and all other systems are negative. Vitals: Signs Reviewed Physical Exam: General: nontoxic, no distress, appears at stated age Derm: warm, dry, intact Head: atraumatic, normocephalic, symmetric Eyes: EOMI, anicteric sclera Mouth: no lip lesion, mucus membranes moist Cardiovascular: S1 S2 reg, no murmur, rubs, or gallops Lungs: CTA bilateral, no rhonchi, no rales, no accessory muscle use Abdominal: soft, non-tender to palpataion, no appreciable organomegaly Extremities: no gross muscle atrophy, no edema, no contractures Neuro: Alert, Oriented, CNII-XII grossly intact, gait normal Psych: well appearing, appropriate affect Data Received Today: Pertinent Labs: WBC 8.51, Hgb 9.1, platelet 376, APTT 60.1, sodium 136, bicarb 14, BUN 14, creatinine 0.77 Imaging: Venous Doppler showing acute deep venous thrombosis of the left lower extremity within the left popliteal vein extending into the posterior tibial veins, no DVT of right lower extremity Assessment and Plan: 69-year-old female with history of GERD and GI bleeding here for evaluation of shortness of breath. Was found to have bilateral pulmonary emboli on imaging. Stool occult positive concerning for chronic GI bleed The patient is admitted with an anticipated greater than 2 midnight stay for evaluation of pulmonary embolism and acute on chronic microcytic anemia #. Nonmassive PE with no evidence of right heart strain, in the setting of left lower extremity DVT #. Lactic acidosis, resolved - Venous Doppler showing acute deep venous thrombosis of the left lower extremity within the left popliteal vein extending into the posterior tibial veins, no DVT of right lower extremity - D-dimer elevated at 7.47 - Chest CTA showed bilateral pulmonary emboli with no evidence of heart strain and moderate to large hiatal hernia. - Supplemental oxygenation - Cardiac telemetry - Continue with heparin drip, monitor APTT. Will hold off putting on anticoagulation due to possible GI bleed. If GI bleeds are persistent we will have to consider IVC filter #. Acute on chronic microcytic anemia, likely due to chronic GI bleed #. Fatigue likley due to above #. Ulcerative colitis #. Suspected upper GI bleed Patient with complaint of black tarry stool - Stool occult blood positive - Oral iron with vitamin C daily - Recheck CBC. Transfuse if Hgb < 7 - Order iron studies and retic count - PT/OT consulted EGD/colonoscopy performed here in 07/19/2024 showed esophagitis on EGD and diverticulosis and proctitis on colonoscopy GI consulted Chronic Conditions: #. GERD with history of GI bleed #. Hyperlipidemia #. Takotsubo cardiomyopathy with preserved EF at 50 to 55% in July 2023 #. DANIELLE, not on home CPAP #. Hypothyroidism, no home medication #. PTSD -Continue Effexor 50 mg p.o. daily, patient no longer on carvedilol or statin Resolved: #. Leukocytosis F: Oral intake N: Heart healthy diet A: PT/OT consult DVT ppx: Heparin drip Code status: Full code Anticipated discharge place: Pending clinical course Anticipated discharge time: Pending clinical course Aries Chase MD PGY-1 IM Dictation was produced using [employer] dictation software. please excuse any grammatical, word or spelling errors. I have seen and evaluated the patient today. Discussed with the resident and agree with the residents finding and plan as documented in the resident's note. Changes highlighted in blue font. Objective - Vital Signs Vital signs: Vital Signs Temp 98.4 F 09/20/24 06:12 Pulse 90 09/20/24 06:12 Resp 18 09/20/24 06:12 BP 118/57 09/20/24 06:12 Pulse Ox 97 09/20/24 06:12 FiO2 Intake & Output 09/19/24 09/20/24 09/20/24 18:59 06:59 18:59 Intake Total 73.64 Balance 73.64 Weight 78.925 kg Intake: Intake, IV Titration 73.64 Amount Heparin Sod,Pork in 0.45% 73.64 NaCl 25,000 unit In 0.45 % NaCl 1 250ml.bag @ 18 UNITS/KG/HR 14.207 mls/hr IV .[id number] JENNA Rx#: [id number] - Labs CBC & Chem 7: 09/20/24 11:43 09/20/24 03:22 Labs: Abnormal Lab Results - Last 24 Hours (Table) 09/19/24 09/19/24 09/19/24 Range/Units 19:46 19:46 19:46 WBC 12.27 H (4.50-10.00) 10*3/uL RBC (4.10-5.20) 10*6/uL Hgb 10.9 L (12.0-15.0) g/dL Hct 33.7 L (37.2-46.3) % MCV 79.3 L (80.0-97.0) fL MCH 25.6 L (27.0-32.0) pg MCHC (32.0-37.0) g/dL MPV 8.6 L (9.5-12.2) fL Immature Gran # 0.11 H (0.00-0.04) 10*3/uL Eosinophils # (0.04-0.35) 10*3/uL APTT (22.0-30.0) sec D-Dimer 7.48 H (<0.60) mg/L FEU Sodium 135 L (137-145) mmol/L Carbon Dioxide 20 L (22-30) mmol/L BUN 18 H (7-17) mg/dL Glucose 145 H (74-99) mg/dL Plasma Lactic Acid French (0.7-2.0) mmol/L Stool Occult Blood (Negative) 09/19/24 09/19/24 09/20/24 Range/Units 19:46 21:40 03:22 WBC (4.50-10.00) 10*3/uL RBC (4.10-5.20) 10*6/uL Hgb (12.0-15.0) g/dL Hct (37.2-46.3) % MCV (80.0-97.0) fL MCH (27.0-32.0) pg MCHC (32.0-37.0) g/dL MPV (9.5-12.2) fL Immature Gran # (0.00-0.04) 10*3/uL Eosinophils # (0.04-0.35) 10*3/uL APTT 60.1 H (22.0-30.0) sec D-Dimer (<0.60) mg/L FEU Sodium (137-145) mmol/L Carbon Dioxide (22-30) mmol/L BUN (7-17) mg/dL Glucose (74-99) mg/dL Plasma Lactic Acid French 2.1 H* (0.7-2.0) mmol/L Stool Occult Blood Positive H (Negative) 09/20/24 Range/Units 03:22 WBC (4.50-10.00) 10*3/uL RBC 3.66 L (4.10-5.20) 10*6/uL Hgb 9.4 L D (12.0-15.0) g/dL Hct 30.2 L (37.2-46.3) % MCV (80.0-97.0) fL MCH 25.7 L (27.0-32.0) pg MCHC 31.1 L (32.0-37.0) g/dL MPV 8.9 L (9.5-12.2) fL Immature Gran # 0.06 H (0.00-0.04) 10*3/uL Eosinophils # 0.50 H (0.04-0.35) 10*3/uL APTT (22.0-30.0) sec D-Dimer (<0.60) mg/L FEU Sodium (137-145) mmol/L Carbon Dioxide (22-30) mmol/L BUN (7-17) mg/dL Glucose (74-99) mg/dL Plasma Lactic Acid French (0.7-2.0) mmol/L Stool Occult Blood (Negative)
--- NOTE | 2024-09-20 15:47 | P.CONS ---
History of Present Illness - Reason for Consult Consult date: 09/20/24 GI bleed Requesting physician: Aries Chase - Chief Complaint Shortness of breath and cough - History of Present Illness This a pleasant 69-year-old female with history of GERD, rectal bleeding, iron deficiency anemia, hyperlipidemia, Takotsubo cardiomyopathy, hypothyroidism, and obstructive sleep apnea who presented to the emergency department yesterday with complaints of shortness of breath and ongoing cough. This has been ongoing for about the last month. She has not been feeling well so she went to the urgent care who apparently had checked her oxygen level stated it was low and had her come to the emergency department. She had a CT angiogram of the chest reporting bilateral pulmonary emboli. She was started on a heparin drip. Apparently patient had been bed ridden for the last week or so and has been more sedentary secondary to the cold. She has been admitted to this hospital in June for epigastric abdominal pain and chest pain. General surgery was consulted secondary to epigastric pain. Patient had been discharged home but did follow- up with Dr. Cherry and had an outpatient EGD and colonoscopy on 07/19/2024. Upper endoscopy revealed large hiatal hernia and esophagitis. Colonoscopy revealed proctitis and diverticulosis with reports of scattered diverticula in the descending colon, sigmoid colon with minimal inflammatory change in rectum with more inflammatory changes seen. Esophagus biopsy reports mild chronic esophagitis with rare eosinophils consistent with reflux esophagitis. Rectal intramucosal biopsy reports chronic active proctitis with mucosal ulceration, negative for dysplasia. 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 Patient states she never followed up with Dr. Suarez for biopsy results. She states that she sees a charge account clerk out of [place] for her intermittent rectal bleeding. States that she was told that she had ulcerative colitis when she was in her 20s however states she never had a colonoscopy at that time. Her charge account clerk has been having her do a FODMAP diet and she was going to be scheduled with him for a colonoscopy however in lieu of recent epigastric pain and bleeding she was able to get in with Dr. Suarez sooner. She has not had any follow-up with her charge account clerk as of yet. She reports having 2-4 loose bowel movements a day some mixed with blood. Last 6 months she has had increased rectal bleeding. Review of Systems REVIEW OF SYSTEMS: CARDIOPULMONARY: Cough with shortness of breath. Denies chest pain Gastrointestinal: No abdominal pain. No nausea or vomiting. No hematemesis, coffee-ground emesis. Rectal bleeding, loose bowel movements. GENITOURINARY: No dysuria or hematuria. MUSCULOSKELETAL: Reports normal range of motion., Joint pain. SKIN: No rashes. No jaundice. ENDOCRINE: No chills, fevers. No excessive weight gain or loss. No polydipsia or polyuria. PSYCHIATRIC: Unremarkable. NEUROLOGY: No change in mental status. Denies dizziness, headache. ENT: Vision unremarkable. CONSTITUTIONAL: No recent weight loss. No fever, chills, night sweats. Past Medical History Past Medical History: Blood Disorder, GERD/Reflux, Hyperlipidemia, Sleep Apnea/CPAP/BIPAP, Thyroid Disorder Additional Past Medical History / Comment(s): Hx anemia in 2023, from internal bleeding, had multiple iron and blood transfusions. Year round allergies. Bouts of Colitis, last in 2006. Diarrhea on and off X6 months. Varicose veins. Has CPAP, not currently using. Hernia. History of Any Multi-Drug Resistant Organisms: None Reported Past Surgical History: Heart Catheterization Additional Past Surgical History / Comment(s): Eye surgery. Past Anesthesia/Blood Transfusion Reactions: No Reported Reaction Additional Past Anesthesia/Blood Transfusion Reaction / Comm: Last surgery was 4 Past Psychological History: PTSD Smoking Status: Never smoker Past Alcohol Use History: None Reported Past Drug Use History: None Reported - Past Family History Father Family Medical History: Chest Pain / Angina, Hyperlipidemia, Hypertension Mother Family Medical History: Cancer, Chest Pain / Angina, Hyperlipidemia, Hypertension Additional Family Medical History / Comment(s): Skin cancer. Brother(s) Family Medical History: Hyperlipidemia, Hypertension Medications and Allergies Home Medications Medication Instructions Recorded Confirmed Type Venlafaxine HCl [Effexor XR] 150 mg PO DAILY 07/18/24 09/20/24 History Fexofenadine HCl [Kassandra Allergy] 180 mg PO DAILY 09/20/24 09/20/24 History Fluticasone Propionate [Flonase 2 spray EA NOSTRIL BID 09/20/24 09/20/24 History Allergy Relief] Pseudoephedrine [Sudafed] 60 mg PO DAILY 09/20/24 09/20/24 History Allergies Allergy/AdvReac Type Severity Reaction Status Date / Time ragweed pollen Allergy Rash/Hives Verified 09/20/24 11:12 chamomile flower AdvReac Flushing/Flu-like Verified 09/20/24 11:12 Symptoms orange juice [[place]] AdvReac Flushing/Flu-like Verified 09/20/24 11:12 Symptoms Physical Exam Vitals: Vital Signs Temp Pulse Resp BP Pulse Ox 09/20/24 12:12 82 20 117/73 98 09/20/24 09:01 98.0 F 97 18 103/60 96 09/20/24 06:12 98.4 F 90 18 118/57 97 09/20/24 04:00 84 18 131/82 97 09/20/24 02:00 84 19 126/78 99 09/19/24 23:52 99 20 108/63 98 09/19/24 21:54 100 09/19/24 21:53 77 20 119/58 95 09/19/24 21:42 107 H 09/19/24 20:15 100 09/19/24 19:20 24 09/19/24 19:14 98.2 F 107 H 22 126/81 99 Intake and Output 09/19/24 09/20/24 09/20/24 22:59 06:59 14:59 Intake Total 73.64 Balance 73.64 Intake: Intake, IV Titration 73.64 Amount Heparin Sod,Pork in 0.45% 73.64 NaCl 25,000 unit In 0.45 % NaCl 1 250ml.bag @ 18 UNITS/KG/HR 14.207 mls/hr IV .[id number] [facility] Rx#: [id number] Other: Weight 78.925 kg General appearance: The patient is alert, oriented, appears in no acute distress. HET: Head is normocephalic and atraumatic. Conjunctiva pink. Sclera anicteric. Neck: Supple without lymphadenopathy. Trachea midline. Heart: Regular. Lungs: Equal expansion, normal respiratory effort. Abdomen: Soft, nontender, nondistended. Skin: No rashes. No jaundice. Extremities: Normal skin color and turgor. No pedal edema. Neurological: No focal deficits. Alert and oriented x3. Results CBC & Chem 7: 09/20/24 11:43 09/20/24 03:22 Labs: Abnormal Lab Results - Last 24 Hours (Table) 09/19/24 09/19/24 09/19/24 Range/Units 19:46 19:46 19:46 WBC 12.27 H (4.50-10.00) 10*3/uL RBC (4.10-5.20) 10*6/uL Hgb 10.9 L (12.0-15.0) g/dL Hct 33.7 L (37.2-46.3) % MCV 79.3 L (80.0-97.0) fL MCH 25.6 L (27.0-32.0) pg MCHC (32.0-37.0) g/dL MPV 8.6 L (9.5-12.2) fL Immature Gran # 0.11 H (0.00-0.04) 10*3/uL Eosinophils # (0.04-0.35) 10*3/uL APTT (22.0-30.0) sec D-Dimer 7.48 H (<0.60) mg/L FEU Sodium 135 L (137-145) mmol/L Chloride (98-107) mmol/L Carbon Dioxide 20 L (22-30) mmol/L BUN 18 H (7-17) mg/dL Glucose 145 H (74-99) mg/dL Plasma Lactic Acid French (0.7-2.0) mmol/L Iron (50-170) UG/DL % Saturation (12.00-45.00) Stool Occult Blood (Negative) 09/19/24 09/19/24 09/19/24 Range/Units 19:46 19:46 21:40 WBC (4.50-10.00) 10*3/uL RBC (4.10-5.20) 10*6/uL Hgb (12.0-15.0) g/dL Hct (37.2-46.3) % MCV (80.0-97.0) fL MCH (27.0-32.0) pg MCHC (32.0-37.0) g/dL MPV (9.5-12.2) fL Immature Gran # (0.00-0.04) 10*3/uL Eosinophils # (0.04-0.35) 10*3/uL APTT (22.0-30.0) sec D-Dimer (<0.60) mg/L FEU Sodium (137-145) mmol/L Chloride (98-107) mmol/L Carbon Dioxide (22-30) mmol/L BUN (7-17) mg/dL Glucose (74-99) mg/dL Plasma Lactic Acid French 2.1 H* (0.7-2.0) mmol/L Iron 16 L (50-170) UG/DL % Saturation 4.44 L (12.00-45.00) Stool Occult Blood Positive H (Negative) 09/20/24 09/20/24 09/20/24 Range/Units 03:22 03:22 03:22 WBC (4.50-10.00) 10*3/uL RBC 3.66 L (4.10-5.20) 10*6/uL Hgb 9.4 L D (12.0-15.0) g/dL Hct 30.2 L (37.2-46.3) % MCV (80.0-97.0) fL MCH 25.7 L (27.0-32.0) pg MCHC 31.1 L (32.0-37.0) g/dL MPV 8.9 L (9.5-12.2) fL Immature Gran # 0.06 H (0.00-0.04) 10*3/uL Eosinophils # 0.50 H (0.04-0.35) 10*3/uL APTT 60.1 H (22.0-30.0) sec D-Dimer (<0.60) mg/L FEU Sodium 136 L (137-145) mmol/L Chloride 109 H (98-107) mmol/L Carbon Dioxide 14 L (22-30) mmol/L BUN (7-17) mg/dL Glucose 199 H (74-99) mg/dL Plasma Lactic Acid French (0.7-2.0) mmol/L Iron (50-170) UG/DL % Saturation (12.00-45.00) Stool Occult Blood (Negative) 09/20/24 Range/Units 11:43 WBC (4.50-10.00) 10*3/uL RBC 3.58 L (4.10-5.20) 10*6/uL Hgb 9.1 L (12.0-15.0) g/dL Hct 28.9 L (37.2-46.3) % MCV (80.0-97.0) fL MCH 25.4 L (27.0-32.0) pg MCHC 31.5 L (32.0-37.0) g/dL MPV 8.9 L (9.5-12.2) fL Immature Gran # 0.06 H (0.00-0.04) 10*3/uL Eosinophils # 0.50 H (0.04-0.35) 10*3/uL APTT (22.0-30.0) sec D-Dimer (<0.60) mg/L FEU Sodium (137-145) mmol/L Chloride (98-107) mmol/L Carbon Dioxide (22-30) mmol/L BUN (7-17) mg/dL Glucose (74-99) mg/dL Plasma Lactic Acid French (0.7-2.0) mmol/L Iron (50-170) UG/DL % Saturation (12.00-45.00) Stool Occult Blood (Negative) Comments: Chest CT angiogram for PE reports bilateral pulmonary emboli. No evidence for right heart strain. Moderate to large hiatal hernia. Bilateral lower extremity venous Doppler reports acute deep vein thrombosis seen within the left popliteal vein extending into posterior tibial veins. Assessment and Plan (1) Rectal bleeding Narrative/Plan: 69-year-old female with long history of intermittent rectal bleeding, loose stools, GERD who recently underwent upper endoscopy and colonoscopy at the end of June of this year. Upper endoscopy which revealed hiatal hernia and esophagitis. Colonoscopy with reported findings of inflammation within the sigmoid colon and moderate amount of inflammation within the rectum. Patient with no formal diagnosis of inflammatory bowel disease but states that she was told she had ulcerative colitis in her 20s but does not recall ever having any endoscopic evaluations. She has not been on any previous medication. She has had no follow-up on her biopsy results which rectum biopsy reported chronic active proctitis with mucosal ulceration, can be consistent with idiopathic inflammatory bowel disease. Current Visit: Yes Status: Acute Code(s): K62.5 - HEMORRHAGE OF ANUS AND RECTUM SNOMED Code(s): 50338369 (2) Ulcerative colitis Narrative/Plan: Rectal biopsy from 07/19/2024 with chronic active proctitis with mucosal ulceration consistent with inflammatory bowel disease ulcerative proctocolitis. Will start mesalamine suppositories. Recommend outpatient follow-up with gastroenterology for further management Current Visit: Yes Status: Acute Code(s): K51.90 - ULCERATIVE COLITIS, UNSP ECIFIED, WITHOUT COMPLICATIONS SNOMED Code(s): 34769999 (3) Left leg DVT Current Visit: Yes Status: Acute Code(s): I82.402 - ACUTE EMBOLISM AND THOMBOS UNSP DEEP VEINS OF L LOW EXTREM SNOMED Code(s): 801018439 (4) Bilateral pulmonary embolism Current Visit: Yes Status: Acute Code(s): I26.99 - OTHER PULMONARY EMBOLISM WITHOUT ACUTE COR PULMONALE SNOMED Code(s): 98412220 (5) Microcytic anemia Current Visit: No Status: Acute Code(s): D50.9 - IRON DEFICIENCY ANEMIA, UNSPECIFIED SNOMED Code(s): 815696121 Plan: 1. Continue symptomatic and supportive care 2. Diet as tolerated 3. Iron studies ordered 4. Agree with parenteral iron replacement, recommend oral iron on discharge 5. May continue anticoagulation and no contraindications to transition to oral from gastroenterology 6. No plans on endoscopic evaluation 7. Will start mesalamine rectal suppositories at at bedtime 8. Recommend outpatient follow-up with gastroenterology 9. Rest of medical management per primary medical team Thank you for this consultation, we will continue to follow. Dr. Tal Bui I agree with the dictator's note, documented as a scribe by Norma Jamison.
[2024-09-20] MEDS: FLUTICASONE NASAL 50MCG/SPRAY 16GM BTL EA NOSTRIL SCH (17:48)
[2024-09-20] MEDS ORDERED: ATORVASTATIN 40 MG TAB PO SCH (21:00)
[2024-09-20] MEDS: MESALAMINE 1,000 MG SUPP RECTAL SCH (21:02)
[2024-09-20] MEDS: PANTOPRAZOLE 40 MG/10 ML VIAL IVP SCH (21:03)
[2024-09-21] MEDS: traMADol 50 MG TAB PO PRN (06:03)
[2024-09-21 06:34] LABS: Basophils % (A) 0.8 %; Eosinophils # (A) 0.56 10*3/uL (0.04-0.35); Eosinophils % (A) 4.6 %; HCT 30.5 % (37.2-46.3); HGB 9.7 g/dL (12.0-15.0); Lymphocytes # (A) 2.76 10*3/uL (0.90-5.00); Lymphocytes % (A) 22.6 %; MCH 25.7 pg (27.0-32.0); MCHC 31.8 g/dL (32.0-37.0); MCV 80.9 fL (80.0-97.0); Mean Platelet Volume 8.7 fL (9.5-12.2); Monocytes # (A) 0.86 10*3/uL (0.20-1.00); Monocytes % (A) 7.1 %; Neutrophils # (A) 7.83 10*3/uL (1.80-7.70); Neutrophils % (A) 64.2 %; Platelet Count 447 10*3/uL (140-440); RBC 3.77 10*6/uL (4.10-5.20); RDW 13.8 % (11.5-14.5); WBC 12.19 10*3/uL (4.50-10.00)
[2024-09-21 07:00] LABS: ALT 21 U/L (4-34); AST 21 U/L (14-36); African American GFR (CKD) >90 (>60 ml/min/1.73 sqM); Albumin 3.2 g/dL (3.5-5.0); Alkaline Phosphatase 107 U/L (38-126); Anion Gap 8 mmol/L; Blood Urea Nitrogen 9 mg/dL (7-17); Calcium 8.9 mg/dL (8.4-10.2); Carbon Dioxide 22 mmol/L (22-30); Chloride 107 mmol/L (98-107); Glucose 140 mg/dL (74-99); Magnesium 2.2 mg/dL (1.6-2.3); Non-African American GFR(CKD) 89 (>60 ml/min/1.73 sqM); Sodium 137 mmol/L (137-145); Total Bilirubin 0.3 mg/dL (0.2-1.3); Total Protein 6.6 g/dL (6.3-8.2)
[2024-09-21 08:14] VITALS: TEMP 98.1
[2024-09-21] MEDS: LORATADINE 10 MG TAB PO SCH (08:19)
--- NOTE | 2024-09-21 08:24 | P.PN ---
Subjective Progress Note Date: 09/21/24 Principal diagnosis: Rectal bleeding, ulcerative colitis This a pleasant 69-year-old female with history of GERD, rectal bleeding, iron deficiency anemia, hyperlipidemia, Takotsubo cardiomyopathy, hypothyroidism, and obstructive sleep apnea who presented to the emergency department yesterday with complaints of shortness of breath and ongoing cough. This has been ongoing for about the last month. She has not been feeling well so she went to the urgent care who apparently had checked her oxygen level stated it was low and had her come to the emergency department. She had a CT angiogram of the chest reporting bilateral pulmonary emboli. She was started on a heparin drip. Apparently patient had been bed ridden for the last week or so and has been more sedentary secondary to the cold. She has been admitted to this hospital in June for epigastric abdominal pain and chest pain. General surgery was consulted secondary to epigastric pain. Patient had been discharged home but did follow- up with Dr. Cherry and had an outpatient EGD and colonoscopy on 07/19/2024. Upper endoscopy revealed large hiatal hernia and esophagitis. Colonoscopy revealed proctitis and diverticulosis with reports of scattered diverticula in the descending colon, sigmoid colon with minimal inflammatory change in rectum with more inflammatory changes seen. Esophagus biopsy reports mild chronic esophagitis with rare eosinophils consistent with reflux esophagitis. Rectal intramucosal biopsy reports chronic active proctitis with mucosal ulceration, negative for dysplasia. 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 Patient states she never followed up with Dr. Suarez for biopsy results. She states that she sees a vaccine manager out of [place] for her intermittent rectal bleeding. States that she was told that she had ulcerative colitis when she was in her 20s however states she never had a colonoscopy at that time. Her vaccine manager has been having her do a FODMAP diet and she was going to be scheduled with him for a colonoscopy however in lieu of recent epigastric pain and bleeding she was able to get in with Dr. Suarez sooner. She has not had any follow-up with her vaccine manager as of yet. She reports having 2-4 loose bowel movements a day some mixed with blood. Last 6 months she has had increased rectal bleeding. 09/21/2024 Patient seen and examined today as a follow-up. She is currently complaining of left lower chest pain. Denies any further rectal bleeding at this time. Me salamine rectal suppository was ordered, patient states that she fell asleep before administering it yesterday evening. No complaints of abdominal pain, nausea or vomiting. Hemoglobin stable at 9.7. She remains on IV heparin drip Objective - Vital Signs Vital signs: Vital Signs Temp 98.3 F 09/21/24 03:51 Pulse 82 09/21/24 03:51 Resp 16 09/21/24 03:51 BP 137/80 09/21/24 03:51 Pulse Ox 96 09/21/24 03:51 FiO2 Intake & Output 09/20/24 09/21/24 09/21/24 18:59 06:59 18:59 Intake Total 374.488 219.261 Balance 374.488 219.261 Weight 78.925 kg 80.4 kg Intake: Intake, IV Titration 152.488 219.261 Amount Heparin Sod,Pork in 0.45% 152.488 219.261 NaCl 25,000 unit In 0.45 % NaCl 1 250ml.bag @ 18 UNITS/KG/HR 14.207 mls/hr IV .[id number] [facility] Rx#: [id number] Oral 222 Other: Voiding Method Toilet # Voids 4 - Exam General appearance: The patient is alert, oriented, appears in no acute distress. HET: Head is normocephalic and atraumatic. Conjunctiva pink. Sclera anicteric. Neck: Supple without lymphadenopathy. Abdomen: Soft, nontender, nondistended. Extremities: Normal skin color and turgor. No pedal edema Skin: No rashes, no jaundice Neurological: No focal deficits. Alert and oriented. - Labs CBC & Chem 7: 09/21/24 06:08 09/21/24 06:08 Labs: Abnormal Lab Results - Last 24 Hours (Table) 09/19/24 09/20/24 09/20/24 Range/Units 19:46 03:22 11:43 WBC (4.50-10.00) 10*3/uL RBC 3.58 L (4.10-5.20) 10*6/uL Hgb 9.1 L (12.0-15.0) g/dL Hct 28.9 L (37.2-46.3) % MCH 25.4 L (27.0-32.0) pg MCHC 31.5 L (32.0-37.0) g/dL Plt Count (140-440) 10*3/uL MPV 8.9 L (9.5-12.2) fL Immature Gran # 0.06 H (0.00-0.04) 10*3/uL Neutrophils # (1.80-7.70) 10*3/uL Eosinophils # 0.50 H (0.04-0.35) 10*3/uL Sodium 136 L (137-145) mmol/L Chloride 109 H (98-107) mmol/L Carbon Dioxide 14 L (22-30) mmol/L Glucose 199 H (74-99) mg/dL Iron 16 L (50-170) UG/DL % Saturation 4.44 L (12.00-45.00) Albumin (3.5-5.0) g/dL 09/21/24 09/21/24 Range/Units 06:08 06:08 WBC 12.19 H (4.50-10.00) 10*3/uL RBC 3.77 L (4.10-5.20) 10*6/uL Hgb 9.7 L (12.0-15.0) g/dL Hct 30.5 L (37.2-46.3) % MCH 25.7 L (27.0-32.0) pg MCHC 31.8 L (32.0-37.0) g/dL Plt Count 447 H (140-440) 10*3/uL MPV 8.7 L (9.5-12.2) fL Immature Gran # 0.08 H (0.00-0.04) 10*3/uL Neutrophils # 7.83 H (1.80-7.70) 10*3/uL Eosinophils # 0.56 H (0.04-0.35) 10*3/uL Sodium (137-145) mmol/L Chloride (98-107) mmol/L Carbon Dioxide (22-30) mmol/L Glucose 140 H (74-99) mg/dL Iron (50-170) UG/DL % Saturation (12.00-45.00) Albumin 3.2 L (3.5-5.0) g/dL Assessment and Plan (1) Rectal bleeding Narrative/Plan: 69-year-old female with long history of intermittent rectal bleeding, loose stools, GERD who recently underwent upper endoscopy and colonoscopy at the end of June of this year. Upper endoscopy which revealed hiatal hernia and esophagitis. Colonoscopy with reported findings of inflammation within the sigmoid colon and moderate amount of inflammation within the rectum. Patient with no formal diagnosis of inflammatory bowel disease but states that she was told she had ulcerative colitis in her 20s but does not recall ever having any endoscopic evaluations. She has not been on any previous medication. She has had no follow-up on her biopsy results which rectum biopsy reported chronic active proctitis with mucosal ulceration, can be consistent with idiopathic inflammatory bowel disease. Current Visit: Yes Status: Acute Code(s): K62.5 - HEMORRHAGE OF ANUS AND R ECTUM SNOMED Code(s): 91596346 (2) Ulcerative colitis Narrative/Plan: Rectal biopsy from 07/19/2024 with chronic active proctitis with mucosal ulceration consistent with inflammatory bowel disease ulcerative proctocolitis. Will start mesalamine suppositories. Recommend outpatient follow-up with gastroenterology for further management Current Visit: Yes Status: Acute Code(s): K51.90 - ULCERATIVE COLITIS, UNSPECIFIED, WITHOUT COMPLICATIONS SNOMED Code(s): 69578227 (3) Left leg DVT Current Visit: Yes Status: Acute Code(s): I82.402 - ACUTE EMBOLISM AND THOMBOS UNSP DEEP VEINS OF L LOW EXTREM SNOMED Code(s): 150118383 (4) Bilateral pulmonary embolism Current Visit: Yes Status: Acute Code(s): I26.99 - OTHER PULMONARY EMBOLISM WITHOUT ACUTE COR PULMONALE SNOMED Code(s): 99144342 (5) Microcytic anemia Current Visit: No Status: Acute Code(s): D50.9 - IRON DEFICIENCY ANEMIA, UNSPECIFIED SNOMED Code(s): 610878636 Plan: 1. Continue symptomatic and supportive care 2. Diet as tolerated 3. Iron studies ordered 4. Agree with parenteral iron replacement, recommend oral iron on discharge 5. May continue anticoagulation and no contraindications to transition to oral from gastroenterology 6. No plans on endoscopic evaluation 7. Will start mesalamine rectal suppositories at at bedtime 8. Recommend outpatient follow-up with gastroenterology 9. Rest of medical management per primary medical team Thank you for this consultation, gastroenterology will sign off at this time. Dr. Tal Bui I agree with the dictator's note, documented as a scribe by Norma Jamison.
[2024-09-21] MEDS: ACETAMINOPHEN TAB 325 MG TAB PO PRN (08:27)
[2024-09-21] MEDS: APIXABAN 5 MG TAB PO SCH (11:45)
[2024-09-21 11:51] VITALS: BP 125/83; PULSE 86; RESP 17
--- NOTE | 2024-09-21 13:50 | P.DS ---
Providers Date of admission: 09/19/24 23:32 Discharge Diagnosis: Non massive PE with no evidence of right heart strain in the setting of provoked lower extremity DVT secondary to ulcerative colitis Lactic acidosis Acute on chronic microcytic anemia likely due to chronic GI bleed Ulcerative colitis Suspected upper GI bleed Fatigue GERD Hyperlipidemia Takotsubo cardiomyopathy with preserved EF of 50 to 55% DANIELLE, not on home CPAP Hypothyroidism PTSD Hospital Course: Patient is a 69-year-old female with GERD with a history of GI bleeding, iron deficiency anemia, hyperlipidemia, Takotsubo cardiomyopathy with preserved EF at 50 to 55% in July 2023, DANIELLE, hypothyroidism, PTSD here for shortness of breath. Patient reported that she has been having cough and body aches with congestion that have been intermittent for about a month. She sought care in an urgent care today and was advised to go to the ED as her pulse ox read that her O2 saturation was in the 60s. However when EMS was in transit, her pulse oxygenation is in the high 90s on room air. On admission, she reported that she still feels short of breath and has a dry cough. She reported that during this time, she has been bedridden for 5 to 6 days of the week due to feeling weak and fatigued. She has also been having soft stools that are dark brown foul- smelling. She reported that she was having anastasiya blood from her rectum for about 6-8 months but it had stopped about 2 months ago. She denied chest pain, palpitations, nausea, vomiting, extremity swelling, focal weakness, facial asymmetry, changes in speech or vision, recent illness, recent trauma. She was seen on June 2024 for chest pain and ACS was ruled out. She has also been evaluated in our facility for a GI bleed and endoscopy was done and she was found to have a hiatal hernia. She reported that she had a colonoscopy and bio psy in [place] in [place] and was told there that she has ulcerative colitis, but she does not believe this is her diagnosis as the bleeding has persisted. Patient mentioned that she was diagnosed with ulcerative colitis when she was in her 20s. On admission: Vitals: Temperature 98.2 F, pulse rate 107, respiratory rate 22, blood pressure 126/81, O2 saturation 99 Labs: WBC 12.27, hemoglobin 10.9, platelet count 438,000, sodium 135, bicarb 20, lactic acid 2.1, potassium 4.3, calcium 9.5, magnesium 2.1, BUN 18, creatinine 0.91, troponin less than 0.0 12, proBNP 710. Liver enzymes normal levels. Coagulation study showed normal PTT INR and PTT, D-dimer elevated at 7.47. Stool occult positive. Cepheid 4 Plex negative.. Imaging: Chest CTA showed bilateral pulmonary emboli with no evidence of heart strain and moderate to large hiatal hernia. Chest x-ray showed no acute pulmonary process or disease. Patient was admitted for further management of nonmassive pulmonary embolism. patient was placed on heparin drip. Venous Doppler showed acute deep venous thrombosis of the left lower extremity within the left popliteal vein extending into the posterior tibial veins, no DVT of right lower extremity. Plan was to discontinue heparin and place her on oral anticoagulation however patient had possible upper GI bleed so gastroenterology was consulted. She was seen and evaluated by GI and was determined that there was no contraindications for oral anticoagulation. She was treated for ulcerative colitis and will follow-up with GI outpatient. She will also follow-up with her PCP. Patient is hemodynamically stable and can be discharged home today. Patient seen and examined at bedside. Vital signs reviewed and stable. Physical Exam: General: nontoxic, no distress, appears at stated age Derm: warm, dry, intact Head: atraumatic, normocephalic, symmetric Eyes: EOMI, anicteric sclera Mouth: no lip lesion, mucus membranes moist Cardiovascular: S1 S2 reg, no murmur, rubs, or gallops Lungs: CTA bilateral, no rhonchi, no rales, no accessory muscle use Abdominal: soft, non-tender to palpataion, no appreciable organomegaly Extremities: no gross muscle atrophy, no edema, no contractures Neuro: Alert, Oriented, CNII-XII grossly intact, gait normal Psych: well appearing, appropriate affect A total of greater than 30 minutes of time were spent preparing this complex discharge summary. Patient was discharged on September 21, 2024 at 1:40 PM. Aries Chase MD PGY-1 IM Dictation was produced using [employer] dictation software. please excuse any grammatical, word or spelling errors. I have seen and evaluated the patient today. Discussed with the resident and agree with the residents finding and plan as documented in the resident's note. Changes highlighted in blue font. Expected date of discharge: 09/21/24 Attending physician: Wil Dos Santos MD Consults: 09/20/24 10:48 Consult Physician Routine Consulting Provider: Bindu Bui Consult Reason/Comments: possible upper GI bleed Do you want consulting provider notified?: Yes Primary care physician: Angie Buchanan Patient Condition at Discharge: Stable Plan - Discharge Summary Discharge Rx Participant: Yes New Discharge Prescriptions: New Mesalamine [Canasa] 1,000 mg RECTAL HS #30 suppositor Ferrous Sulfate [Iron (65 MG Elemental)] 325 mg PO W/LUNCH #90 tab Pantoprazole [Protonix] 40 mg PO DAILY #90 tab Ascorbic Acid [Vitamin C] 1,000 mg PO DAILY@1230 #30 tab Apixaban [Eliquis Starter Pack (for VTE)] 5 - 10 mg PO DIRECTED 30 Days #1 each Continue Fexofenadine HCl [Kassandar Allergy] 180 mg PO DAILY Pseudoephedrine [Sudafed] 60 mg PO DAILY Venlafaxine HCl [Effexor XR] 150 mg PO DAILY Fluticasone Propionate [Flonase Allergy Relief] 2 spray EA NOSTRIL BID Discharge Medication List Venlafaxine HCl [Effexor XR] 150 mg PO DAILY 07/18/24 [History] Fexofenadine HCl [Kassandra Allergy] 180 mg PO DAILY 09/20/24 [History] Fluticasone Propionate [Flonase Allergy Relief] 2 spray EA NOSTRIL BID 09/20/24 [History] Pseudoephedrine [Sudafed] 60 mg PO DAILY 09/20/24 [History] Apixaban [Eliquis Starter Pack (for VTE)] 5 - 10 mg PO DIRECTED 30 Days #1 each 09/21/24 [Rx] Ascorbic Acid [Vitamin C] 1,000 mg PO DAILY@1230 #30 tab 09/21/24 [Rx] Ferrous Sulfate [Iron (65 MG Elemental)] 325 mg PO W/LUNCH #90 tab 09/21/24 [Rx] Mesalamine [Canasa] 1,000 mg RECTAL HS #30 suppositor 09/21/24 [Rx] Pantoprazole [Protonix] 40 mg PO DAILY #90 tab 09/21/24 [Rx] Follow up Appointment(s)/Referral(s): Angie Buchanan PAC [Primary Care Provider] - 1-2 days Bindu Bui MD [STAFF PHYSICIAN] - 2 Weeks Patient Instructions/Handouts: Pulmonary Embolism (DC), Deep Vein Thrombosis (DC), Ulcerative Colitis (DC) Activity/Diet/Wound Care/Special Instructions: Please follow up with PCP and GI. Discharge Disposition: HOME SELF-CARE
== END 2024-09-21 15:43 | disposition home or self-care (01) | DRG 176 ==
LOC: EC 19:08 → 3SCARD 23:32
PROVIDERS: ADMIT Internal Medicine; ATTEND Internal Medicine
DX: I26.99 Other pulmonary embolism without acute cor pulmonale (principal); E87.20 Acidosis, unspecified; I51.81 Takotsubo syndrome; E03.9 Hypothyroidism, unspecified; D50.9 Iron deficiency anemia, unspecified; I82.432 Acute embolism and thrombosis of left popliteal vein; I82.442 Acute embolism and thrombosis of left tibial vein; K51.911 Ulcerative colitis, unspecified with rectal bleeding; Z11.52 Encounter for screening for COVID-19; E78.5 Hyperlipidemia, unspecified; K21.00 Gastro-esophageal reflux disease with esophagitis, without bleeding; F43.10 Post-traumatic stress disorder, unspecified; G47.33 Obstructive sleep apnea (adult) (pediatric); K44.9 Diaphragmatic hernia without obstruction or gangrene; K57.30 Diverticulosis of large intestine without perforation or abscess without bleeding; Z74.01 Bed confinement status; Z79.899 Other long term (current) drug therapy; Z82.49 Family history of ischemic heart disease and other diseases of the circulatory system; Z88.8 Allergy status to other drugs, medicaments and biological substances; Z79.890 Hormone replacement therapy
CPT/HCPCS: 36415; 71046; 71275; 80048; 80053; 82272; 82728; 83540; 83550; 83605; 83735; 83880; 84466; 84484; 85025; 85045; 85379; 85610; 85730; 87636; 93005; 93970; 94640; 96361; 96365; 96366; 96375; 96376; 99285

== ENCOUNTER 2024-11-05 23:17 | Emergency (ER) | payer MEDICARE ==
--- NOTE | 2024-11-06 00:12 | ED ---
ENT HPI - General Chief complaint: Dental/Oral Stated complaint: Dental Pain Time Seen by Provider: 11/06/24 00:11 Source: patient, RN notes reviewed, old records reviewed Mode of arrival: ambulatory Limitations: no limitations - History of Present Illness Initial comments: This is a 69-year-old female to the ER for evaluation patient presents today for evaluation of uncontrolled pain dental pain. Patient has history of dental caries given antibiotics by the dentist 2 days ago no pain control pain is worsening swelling is worsening and presents to the ER for evaluation regards to significant worsening in pain MD complaint: tooth pain -: days(s) Location: tooth # Severity: severe Severity scale (1-10): 9 Quality: stabbing Consistency: constant Improves with: none Worsens with: none Context- Dental: history of dental caries Associated Symptoms: pain with swallowing - Related Data Home Medications Medication Instructions Recorded Confirmed Venlafaxine HCl [Effexor XR] 150 mg PO DAILY 07/18/24 09/20/24 Fexofenadine HCl [Kassandra Allergy] 180 mg PO DAILY 09/20/24 09/20/24 Fluticasone Propionate [Flonase 2 spray EA NOSTRIL BID 09/20/24 09/20/24 Allergy Relief] Pseudoephedrine [Sudafed] 60 mg PO DAILY 09/20/24 09/20/24 Previous Rx's Medication Instructions Recorded Apixaban [Eliquis Starter Pack 5 - 10 mg PO DIRECTED 30 Days 09/21/24 (for VTE)] #1 each Ascorbic Acid [Vitamin C] 1,000 mg PO DAILY@1230 #30 tab 09/21/24 Ferrous Sulfate [Iron (65 MG 325 mg PO W/LUNCH #90 tab 09/21/24 Elemental)] Mesalamine [Canasa] 1,000 mg RECTAL HS #30 suppositor 09/21/24 Pantoprazole [Protonix] 40 mg PO DAILY #90 tab 09/21/24 Allergies Allergy/AdvReac Type Severity Reaction Status Date / Time ragweed pollen Allergy Rash/Hives Verified 11/05/24 23:28 chamomile flower AdvReac Flushing/Flu-like Verified 11/05/24 23:28 Symptoms orange juice [Carter] AdvReac Flushing/Flu-like Verified 11/05/24 23:28 Symptoms Review of Systems ROS Statement: Those systems with pertinent positive or pertinent negative responses have been documented in the HPI. ROS Other: All systems not noted in ROS Statement are negative. Past Medical History Past Medical History: Blood Disorder, GERD/Reflux, Hyperlipidemia, Sleep Apnea/CPAP/BIPAP, Thyroid Disorder Additional Past Medical History / Comment(s): Hx anemia in 2023, from internal bleeding, had multiple iron and blood transfusions. Year round allergies. Bouts of Colitis, last in 2006. Diarrhea on and off X6 months. Varicose veins. Has CPAP, not currently using. Hernia. History of Any Multi-Drug Resistant Organisms: None Reported Past Surgical History: Heart Catheterization Additional Past Surgical History / Comment(s): Eye surgery. Past Anesthesia/Blood Transfusion Reactions: No Reported Reaction Additional Past Anesthesia/Blood Transfusion Reaction / Comment(s): Last surgery was 4 Past Psychological History: PTSD Smoking Status: Never smoker Past Alcohol Use History: None Reported Past Drug Use History: None Reported - Past Family History Father Family Medical History: Chest Pain / Angina, Hyperlipidemia, Hypertension Mother Family Medical History: Cancer, Chest Pain / Angina, Hyperlipidemia, Hypertension Additional Family Medical History / Comment(s): Skin cancer. Brother(s) Family Medical History: Hyperlipidemia, Hypertension General Exam Limitations: no limitations General appearance: alert, in no apparent distress Head exam: Present: atraumatic, normocephalic, normal inspection Eye exam: Present: normal appearance, PERRL, EOMI. Absent: scleral icterus, conjunctival injection, periorbital swelling ENT exam: Present: normal exam, mucous membranes moist Neck exam: Present: normal inspection. Absent: tenderness, meningismus, lymphadenopathy Respiratory exam: Present: normal lung sounds bilaterally. Absent: respiratory distress, wheezes, rales, rhonchi, stridor Cardiovascular Exam: Present: regular rate, normal rhythm, normal heart sounds. Absent: systolic murmur, diastolic murmur, rubs, gallop, clicks GI/Abdominal exam: Present: soft, normal bowel sounds. Absent: distended, tenderness, guarding, rebound, rigid Extremities exam: Present: normal inspection, full ROM, normal capillary refill. Absent: tenderness, pedal edema, joint swelling, calf tenderness Back exam: Present: normal inspection Neurological exam: Present: alert, oriented X3, CN II-XII intact Psychiatric exam: Present: normal affect, normal mood Skin exam: Present: warm, dry, intact, normal color. Absent: rash Course Vital Signs 11/05/24 23:25 Temperature 98.2 F Pulse Rate 100 Respiratory 18 Rate Blood Pressure 139/67 O2 Sat by Pulse 97 Oximetry - Reevaluation(s) Reevaluation #1: 11/06/24 00:16 Medical records reviewed Reevaluation #2: 11/06/24 00:16 Patient's pain is controlled Reevaluation #3: 11/06/24 00:16 Patient final results questions answered Reevaluation #4: Was pt. sent in by a medical professional or institution (, DONATO, SENIOR EXAMINER, urgent care, hospital, or correction...) When possible be specific @ -no Did you speak to anyone other than the patient for history (EMS, parent, family, police, friend...)? What history was obtained from this source @ -no Did you review nursing and triage notes (agree or disagree)? Why? @ -agree Are old charts reviewed (outside hosp., previous admission, EMS record, old EKG, old radiological studies, urgent care reports/EKG's, correction records)? Report findings @ -yes Differential Diagnosis (chest pain, altered mental status, abdominal pain women, abdominal pain men, vaginal bleeding, weakness, fever, dyspnea, syncope, headache, dizziness, GI bleed, back pain, seizure, CVA, palpatations, mental health, musculoskeletal)? @ -prior EKG interpreted by me (3pts min.). @ -yes X-rays interpreted by me (1pt min.). @ -yes negative for acute disease CT interpreted by me (1pt min.). @ -no U/S interpreted by me (1pt. min.). @ -no What testing was considered but not performed or refused? (CT, X-rays, U/S, labs)? Why? @ -none What meds were considered but not given or refused? Why? @ -none Did you discuss the management of the patient with other professionals (professionals i.e. DONATO Barnard, SENIOR EXAMINER, lab, RT, psych nurse, rn social services, bariatric program coordinator, teacher, supply requirements officer, trimming caser)? Give summary @ -no Was smoking cessation discussed for >3mins.? @ -no Was critical care preformed (if so, how long)? @ -no Were there social determinants of health that impacted care today? How? (Homelessness, low income, unemployed, alcoholism, drug addiction, transpo rtation, low edu. Level, literacy, decrease access to med. care, [facility], rehab)? @ -none Was there de-escalation of care discussed even if they declined (Discuss DNR or withdrawal of care, Hospice)? DNR status @ -no What co-morbidities impacted this encounter? (DM, HTN, Smoking, COPD, CAD, Cancer, CVA, ARF, Chemo, Hep., AIDS, mental health diagnosis, sleep apnea, morbid obesity)? @ -none Was patient admitted / discharged? Hospital course, mention meds given and route, prescriptions, significant lab abnormalities, going to OR and other pertinent info. @ - Undiagnosed new problem with uncertain prognosis? @ -no Drug Therapy requiring intensive monitoring for toxicity (Heparin, Nitro, Insulin, Cardizem)? @ -no Were any procedures done? @ -no Diagnosis/symptom? @ - Acute, or Chronic, or Acute on Chronic? @ -Acute Uncomplicated (without systemic symptoms) or Complicated (systemic symptoms)? @ -Complicated Side effects of treatment? @ -no Exacerbation, Progression, or Severe Exacerbation? @ -exacerbation Poses a threat to life or bodily function? How? (Chest pain, [place], PR, pneumonia, PE, COPD, DKA, ARF, appy, cholecystitis, CVA, Diverticulitis, Homicidal, Suicidal, threat to staff... and all critical care pts) @ -yes Medical Decision Making - Medical Decision Making 69 female to ER for dental pain dental caries and antibiotics continue antibiotics patient given pain control, discharged home Disposition Clinical Impression: Dental abscess, Dental caries Disposition: HOME SELF-CARE Condition: Good Instructions (If sedation given, give patient instructions): Dental Abscess (ED) Is patient prescribed a controlled substance at d/c from ED?: No Referrals: Angie Buchanan PAC [Primary Care Provider] - 1-2 days Time of Disposition: 00:20
[2024-11-06] MEDS: traMADol 50 MG TAB PO STA (00:23)
[2024-11-06] MEDS: dexAMETHasone 2 MG TAB PO STA (00:23)
[2024-11-06] MEDS: traMADol 50 MG STARTER PACK 3 TAB BTL PO STA (00:24)
[2024-11-06] MEDS: ACET/COD 300 MG/30 MG STARTER PACK 6 TAB BTL PO STA (00:25)
[2024-11-06 00:32] VITALS: BP 137/80; PULSE 86; RESP 16; TEMP 97.4
== END 2024-11-06 00:29 | disposition home or self-care (01) ==
LOC: EC 23:17
DX: K04.7 Periapical abscess without sinus (principal); K02.9 Dental caries, unspecified; Z91.018 Allergy to other foods; Z88.8 Allergy status to other drugs, medicaments and biological substances
CPT/HCPCS: 99282; J8540